=== PATIENT | male | born 1935 | race African-American/Black ===

== ENCOUNTER 2018-03-21 15:16 | Inpatient (IN) ==
--- NOTE | 2018-03-21 18:37 | ED ---
HPI General Chief complaint: Urogenital-Male Stated complaint: blood in urine Time Seen by Provider: 03/21/18 18:27 Source: patient Mode of arrival: ambulatory Limitations: no limitations History of Present Illness HPI Narrative: The patient denies any fever, chills, or sweats. The patient does take an aspirin daily, denies any other anticoagulation.The patient is a 82 -year-old -Citizen Of [place] male who presents to the emergency department for hematuria. The patient has a remote history of prostate cancer and underwent radiation therapy 3 years ago, he denies any surgical intervention. The patient states that 2 nights ago he developed hematuria. The patient notes he was passing gross blood with a few clots accompanied with mild dysuria and left flank pain. The patient states the left flank pain has resolved, however, he still has hematuria with mild dysuria. The patient also had an episode of urinary incontinence prior to arrival. The patient denies any accompany fever, chills, sweats, nausea, vomiting, or upper abdominal pain. The patient denies any associated low back pain. MD Complaint: Reports other Onset (ago): day(s) Duration: intermittent Location: Reports left flank Radiation: Reports penis Severity: mild Severity scale (1-10): 3 Quality: Reports burning Relieving factors: none Exacerbating factors: urination Reports other Reports blood in urine and incontinence Related Data Home Medications Medication Instructions Recorded Confirmed aspirin 325 mg PO DAILY 03/21/18 03/21/18 Allergies Allergy/AdvReac Type Severity Reaction Status Date / Time No Known Allergies Allergy Verified 03/21/18 18:31 Review of Systems ROS: all other systems reviewed are negative [facility] Medical History Medical History HBP (high blood pressure) (Acute) No significant past surgical history (Acute) Prostate cancer (Acute) Social History Social History Substance History: No History of Abuse Second Hand Smoke Exposure: No Smoking Status: Former smoker Tobacco Type: Cigarettes How Often Do You Have a Drink Containing Alcohol: Never Recent Travel in [facility] within the Last 8 Weeks: No Recent Out of Country Travel within the Last 8 Weeks: No Exam Narrative Exam Narrative: GENERAL: Awake, alert, pleasant 82-year-old male who appears his stated age and is in no acute respiratory distress. SKIN: Focused skin assessment warm/dry. HEAD: Atraumatic. Normocephalic. EYES: No injection or drainage. ENT: No nasal bleeding or discharge. Mucous membranes pink and moist. NECK: Trachea midline. No JVD. GASTROINTESTINAL: Abdomen soft, no suprapubic tenderness. No guarding or rigidity. Back: No CVA tenderness. Genitourinary: Uncircumcised phallus, foreskin retracts easily. No visible blood at the meatus. No tenderness of the scrotum or testicles. MUSCULOSKELETAL: No obvious deformities. No clubbing. No cyanosis. No edema. NEUROLOGICAL: Awake and alert. No obvious cranial nerve deficits. Motor grossly within normal limits. Normal speech. PSYCHIATRIC: Appropriate mood and affect; insight and judgment normal. Course Reevaluation(s) Reevaluation #1: Patient is resting hemodynamically stable not appearing septic. He has a profound leukocytosis of 19,000. We will add septic workup to his initial workup which includes blood cultures. UA. Urinary cultures and a lactic acid. Fluids will be given per sepsis protocol. We will cover him with Rocephin for presumptive urinary collection system infection. Time: 20:16 Initial Documented Vital Signs Temperature 98.5 F 03/21/18 15:23 Pulse Rate 120 H 03/21/18 15:23 Respiratory Rate 22 03/21/18 15:23 Blood Pressure 164/74 H 03/21/18 15:23 Pulse Oximetry 97 03/21/18 15:23 Last Documented Vital Signs Temperature 98 F 03/21/18 18:30 Pulse Rate 109 H 03/21/18 19:15 Respiratory Rate 18 03/21/18 19:15 Blood Pressure 141/86 H 03/21/18 19:15 Pulse Oximetry 96 03/21/18 19:15 Sign Out Sign Out Data: Patient Sign Out occurred on 03/21/18 at 19:06. Patient's care was discussed, and care was transferred from Clint Chapa MD to Yash Del Toro DO. Sign Out Comment: 82-year-old -Citizen Of [place] male who presents to the emergency department for hematuria of 2 days duration, mild left flank pain which has resolved, dysuria, and urinary incontinence. Remote history of prostate carcinoma 3 years ago with radiation therapy, no previous surgery. UA , BMP, and CT of the abdomen and pelvis are pending. Most likely patient will be able to be discharged home with outpatient follow-up. Last updated by Clint Chapa MD at 03/21/18 18:51 Discharge Plan Discharge Disposition Patient Disposition: 30 Still Patient Discharge Condition Condition: Stable Discharge Details Diagnosis: Acute UTI, Severe sepsis, GILLES (acute kidney injury) Physicians Team ED Provider: Yash Del Toro Primary Care Provider: UNKNOWN, Rxs /Orders / Referrals /Forms Prescriptions: No Action aspirin 325 mg Tablet 325 mg PO DAILY RF: 0 Discharge Interventions Interventions: Vital Signs Last Done: 03/21/18 19:15 Status ED Status: With Doctor Medical Decision Making MDM Narrative Medical decision making narrative: IV was established, labs are drawn and sent, and the patient was placed on cardiac telemetry monitoring and continuous pulse oximetry monitoring. UA was done to lab. Noncontrast CT of the abdomen and pelvis was performed to evaluate for nephrolithiasis and hematuria. The patient was signed out to the oncoming physician at 7 PM. Patient with severe sepsis markedly elevated lactate and UTI. CT abdomen was negative for kidney stones or ureteral stones but there is hydronephrosis associated. Hemodynamically stable was treated per sepsis protocol with 30 cc/ kg and Rocephin for his urinary tract infection afebrile was admitted for further treatment. Medical Screen Exam Complete: Yes Emergency Medical Condition: Yes Lab Data Result diagrams: 03/21/18 18:40 03/21/18 18:40 Lab Results 03/21/18 03/21/18 03/21/18 Range/Units 18:40 18:40 20:34 WBC 19.6 H (4.0-11.0) th/mm3 RBC 4.98 (4.50-5.90) mil/mm3 Hgb 15.4 (13.0-17.0) gm/dL Hct 45.6 (39.0-51.0) % MCV 91.6 (80.0-100.0) fL MCH 30.8 (27.0-34.0) pg MCHC 33.6 (32.0-36.0) % RDW 15.5 (11.6-17.2) % Plt Count 220 (150-450) th/mm3 MPV 9.3 (7.0-11.0) fL Neut % (Auto) 91.0 H (16.0-70.0) % Lymph % (Auto) 4.2 L (9.0-44.0) % [place] % (Auto) 4.6 (0.0-8.0) % Eos % (Auto) 0.0 (0.0-4.0) % Baso % (Auto) 0.2 (0.0-2.0) % Neut # (Auto) 17.8 H (1.8-7.7) th/mm3 Lymph # (Auto) 0.8 L (1.0-4.8) th/mm3 [place] # (Auto) 0.9 (0.0-0.9) th/mm3 Eos # (Auto) 0.0 (0.0-0.4) th/mm3 Baso # (Auto) 0.0 (0.0-0.2) th/mm3 WBC Differential . Differential Comment Auto diff final Sodium 134 L (136-145) meq/L Potassium 4.6 (3.5-5.1) meq/L Chloride 95 L (98-107) meq/L Carbon Dioxide 30.1 (21.0-32.0) meq/L Anion Gap 9 (5-15) meq/L BUN 22 H (7-18) mg/dL Creatinine 2.44 H (0.60-1.30) mg/dL Estimated GFR 31 L (>89) mL/min Random Glucose 253 H (74-106) mg/dL Lactic Acid (0.4-2.0) mmol/L Calcium 8.9 (8.5-10.1) mg/dL Total Bilirubin 1.1 H (0.2-1.0) mg/dL Direct Bilirubin 0.4 H (0.0-0.2) mg/dL Indirect Bilirubin 0.7 (0.0-0.8) mg/dL AST 19 (15-37) U/L ALT 20 (12-78) U/L Alkaline Phosphatase 98 (45-117) U/L Troponin I Less than 0.02 L (0.02-0.05) ng/mL Total Protein 6.9 (6.4-8.2) g/dL Albumin 3.1 L (3.4-5.0) g/dL Urine Color (Yellw/Straw) Urine Clarity (Clear) Urine pH (5.0-8.5) Ur Specific [place] (1.002-1.035) Urine Protein (Neg-Trace) mg/dL Urine Glucose (UA) (Negative) mg/dL Urine Ketones (Negative) mg/dL Urine Occult Blood (Negative) Urine Nitrate (Negative) Urine Bilirubin (Negative) Urine Urobilinogen (Less than 2) mg/dL Ur Leukocyte Esterase (Negative) Urine RBC (0-3) /hpf Urine WBC (0-5) /hpf Urine WBC Clumps (None) Ur Squamous Epith Cells (0-5) /hpf Urine Bacteria (None) /hpf Urine Mucus (Occasional) /lpf Micro UA Comment Ur Microscopic Review Urine Culture Comments 03/21/18 03/21/18 Range/Units 20:37 20:43 WBC (4.0-11.0) th/mm3 RBC (4.50-5.90) mil/mm3 Hgb (13.0-17.0) gm/dL Hct (39.0-51.0) % MCV (80.0-100.0) fL MCH (27.0-34.0) pg MCHC (32.0-36.0) % RDW (11.6-17.2) % Plt Count (150-450) th/mm3 MPV (7.0-11.0) fL Neut % (Auto) (16.0-70.0) % Lymph % (Auto) (9.0-44.0) % [place] % (Auto) (0.0-8.0) % Eos % (Auto) (0.0-4.0) % Baso % (Auto) (0.0-2.0) % Neut # (Auto) (1.8-7.7) th/mm3 Lymph # (Auto) (1.0-4.8) th/mm3 [place] # (Auto) (0.0-0.9) th/mm3 Eos # (Auto) (0.0-0.4) th/mm3 Baso # (Auto) (0.0-0.2) th/mm3 WBC Differential Differential Comment Sodium (136-145) meq/L Potassium (3.5-5.1) meq/L Chloride (98-107) meq/L Carbon Dioxide (21.0-32.0) meq/L Anion Gap (5-15) meq/L BUN (7-18) mg/dL Creatinine (0.60-1.30) mg/dL Estimated GFR (>89) mL/min Random Glucose (74-106) mg/dL Lactic Acid 4.9 H* (0.4-2.0) mmol/L Calcium (8.5-10.1) mg/dL Total Bilirubin (0.2-1.0) mg/dL Direct Bilirubin (0.0-0.2) mg/dL Indirect Bilirubin (0.0-0.8) mg/dL AST (15-37) U/L ALT (12-78) U/L Alkaline Phosphatase (45-117) U/L Troponin I (0.02-0.05) ng/mL Total Protein (6.4-8.2) g/dL Albumin (3.4-5.0) g/dL Urine Color Yellow (Yellw/Straw) Urine Clarity Cloudy H (Clear) Urine pH 6.0 (5.0-8.5) Ur Specific [place] 1.016 (1.002-1.035) Urine Protein 100 H (Neg-Trace) mg/dL Urine Glucose (UA) 50 (Negative) mg/dL Urine Ketones Trace H (Negative) mg/dL Urine Occult Blood Large H (Negative) Urine Nitrate Negative (Negative) Urine Bilirubin Negative (Negative) Urine Urobilinogen Less than 2 (Less than 2) mg/dL Ur Leukocyte Esterase Moderate H (Negative) Urine RBC (0-3) /hpf Urine WBC (0-5) /hpf Urine WBC Clumps Few H (None) Ur Squamous Epith Cells 4 (0-5) /hpf Urine Bacteria Few H (None) /hpf Urine Mucus Few H (Occasional) /lpf Micro UA Comment Culture indicated Ur Microscopic Review Not Reportable Urine Culture Comments Culture indicated Imaging Data Radiologist's impression: Abdomen/Pelvis CT 03/21/18 18:35 CONCLUSION: 1. Left-sided hydronephrosis and hydroureter with prominent stranding. No radiopaque calculus identified. 2. Enlarged prostate gland containing prostatic seeds. 3. Hepatic steatosis. 4. Prominence of both adrenal glands likely hyperplasia. Chest X-Ray 03/21/18 20:10 CONCLUSION: Diminished lung volumes without infiltrate
[2018-03-21 18:59] LABS: Baso % (Auto) 0.2 % (0.0-2.0); Hematocrit 45.6 % (39.0-51.0); Hemoglobin 15.4 gm/dL (13.0-17.0); Lymph # (Auto) 0.8 th/mm3 (1.0-4.8); Lymph % (Auto) 4.2 % (9.0-44.0); Mean Corpuscular HGB Conc 33.6 % (32.0-36.0); Mean Corpuscular Hemoglobin 30.8 pg (27.0-34.0); Mean Corpuscular Volume 91.6 fL (80.0-100.0); Mean Platelet Volume 9.3 fL (7.0-11.0); Mono # (Auto) 0.9 th/mm3 (0.0-0.9); Mono % (Auto) 4.6 % (0.0-8.0); Neut # (Auto) 17.8 th/mm3 (1.8-7.7); Platelet Count 220 th/mm3 (150-450); Red Blood Count 4.98 mil/mm3 (4.50-5.90); Red Cell Distribution Width 15.5 % (11.6-17.2); White Blood Count 19.6 th/mm3 (4.0-11.0)
[2018-03-21 19:29] LABS: Calcium 8.9 mg/dL (8.5-10.1); Carbon Dioxide 30.1 meq/L (21.0-32.0); Potassium 4.6 meq/L (3.5-5.1)
--- NOTE | 2018-03-21 19:55 | CT ---
EXAM DATE: 03/21/2018 7:44 PM EST AGE/SEX: 82 years / Male INDICATIONS: Hematuria. CLINICAL DATA: This is the patient's initial encounter. Patient reports that signs and symptoms have been present for 1 day and indicates a pain score of 6/10. MEDICAL/SURGICAL HISTORY: Carcinoma, prostatic. Hypertension. None. RADIATION DOSE: 16.65 CTDI (mGy) COMPARISON: No prior exams available for comparison. TECHNIQUE: Multiple contiguous axial images were obtained through the abdomen. Images were obtained using multiple row detector helical technique. Using automated exposure control and adjustment of the mA and/or kV according to patient size, radiation dose was kept as low as reasonably achievable to o btain optimal diagnostic quality images. DICOM format image data is available electronically for rev iew and comparison. FINDINGS: Lower Lungs: The visualized lower lungs are clear. Liver: The liver is decreased in density without space-occupying lesion. There is no dilation of the biliary tree. Spleen: Homogeneous density without enlargement. Pancreas: Unremarkable without mass or calcification. Kidneys: There is hydronephrosis of the left kidney and hydroureter on the left with prominent stran ding adjacent to the left kidney and left ureter more notably along the mid ureter. No obstructing ca lculus seen.. No evidence of mass or hydronephrosis on the right. Adrenal Glands: Mildly prominent bilaterally. Aorta: The aorta and proximal iliac vessels are grossly unremarkable without aneurysmal dilation. Bowel/Mesentery: The bowel loops are grossly unremarkable. The cecum and sigmoid colon have a normal configuration. Abdominal Wall: Intact. Retroperitoneum: No evidence of adenopathy in the retrocrural, para-aortic, or deep pelvic regions. Bladder: Contours are smooth. Reproductive Organs: Enlarged prostate gland containing prostatic seeds. Inguinal: The inguinal region is unremarkable without evidence of adenopathy. Bony Structures: Unremarkable. CONCLUSION: 1. Left-sided hydronephrosis and hydroureter with prominent stranding. No radiopaque calculus identi fied. 2. Enlarged prostate gland containing prostatic seeds. 3. Hepatic steatosis. 4. Prominence of both adrenal glands likely hyperplasia. Electronically signed by: Lyndon Gonzales MD 03/21/2018 7:54 PM EST
[2018-03-21] MEDS ORDERED: Sod Chloride 0.9% Inj 300 ML IV.SIG SCH (20:15)
[2018-03-21] MEDS ORDERED: Sod Chloride 0.9% Inj 1,000 ML IV.SIG SCH ×3 (20:15)
--- NOTE | 2018-03-21 20:52 | XR ---
EXAM DATE: 03/21/2018 8:50 PM EST AGE/SEX: 82 years / Male INDICATIONS: Patient presents with hematuria and shortness of breath. CLINICAL DATA: This is the patient's initial encounter. Patient reports that signs and symptoms have been present for 1 day and indicates a pain score of 3/10. MEDICAL/SURGICAL HISTORY: . Carcinoma, prostatic. Hypertension . COMPARISON: No prior exams available for comparison. FINDINGS: A single AP view of the chest demonstrates diminished lung volumes without evidence of mass, infiltra te or effusion. The cardiomediastinal contours are unremarkable. Osseous structures are intact. CONCLUSION: Diminished lung volumes without infiltrate Electronically signed by: Lyndon Gonzales MD 03/21/2018 8:51 PM EST
[2018-03-21 21:17] LABS: Bacteria,Urine Few /hpf; Bilirubin,Urine Negative (Negative); Clarity,Urine Cloudy (Clear); Color,Urine Yellow (Yellw/Straw); Glucose,Urine (UA) 50 mg/dL (Negative); Leukocyte Esterase,Urine Moderate (Negative); Mucus,Urine Few /lpf (Occasional); Nitrite,Urine Negative (Negative); Specific Gravity,Urine 1.016 (1.002-1.035); Squamous Epithelial Cell,Urine 4 /hpf (0-5)
[2018-03-21 21:26] LABS: Alanine Aminotransferase 20 U/L (12-78); Albumin 3.1 g/dL (3.4-5.0); Aspartate Aminotransferase 19 U/L (15-37)
[2018-03-21 21:29] LABS: Alkaline Phosphatase 98 U/L (45-117); Total Protein 6.9 g/dL (6.4-8.2)
[2018-03-21] MEDS ORDERED: Bisacodyl 10 MG Supp RECTAL PRN (22:42)
[2018-03-21] MEDS ORDERED: Acetaminophen 325 MG Tablet PO PRN (22:42)
[2018-03-21] MEDS ORDERED: Heparin - SQ 10,000 UNITS/ML Vial SQ SCH (22:45)
--- NOTE | 2018-03-21 22:58 | P.HP ---
History of Present Illness Service: [facility] Primary Care Physician: UNKNOWN History of Present Illness: 82-year-old male unknown past medical history presents to the emergency department for evaluation of hematuria. The patient reports he started having bloody urine on Wednesday. He has intermittent clots that he passes. He endorses a burning with urination. He has a history of prostate cancer with radiation seeds still in place. He reports he has had some scant hematuria in the remote past however nothing of this volume and none recently. He denies any fever/ chills. No cough or congestion. No chest pain or shortness of breath. No abdominal pain. No nausea/vomiting/diarrhea. No focal neurologic deficits. Inpatient Certification: I certify that the inpatient services were ordered in accordance with Medicare regulations governing the order. This includes certification that hospital inpatient services are reasonable and necessary and in the case of services not specified as inpatient-only under 42 CFR 419.22(n), that they are appropriately provided as inpatient services in accordance to with the 2-midnight benchmark under 43 CFR 412.3(e) Estimated Total Length of Stay (Days): 2 Plans for Post Hospital Care: Not yet determined Review of Systems All other systems reviewed negative except as stated in HPI PMFSH - History History Provided By: Patient - Medical History Medical History: Medical History (Last Reviewed 03/21/18 @ 22:50 by Marianna Dodd MD) HBP (high blood pressure) No significant past surgical history Prostate cancer - Family History Family History: Family History (Last Updated 03/21/18 @ 22:51 by Marianna Dodd MD) Other Family history normal - Tobacco History Second Hand Smoke Exposure: No Tobacco Use In Past 30 Days: No Smoking Status: Former smoker Tobacco Type: Cigarettes - Alcohol History How Often Do You Have a Drink Containing Alcohol: Never - Substance Use History Substance History: No History of Abuse - Travel History Recent Travel in the [place] Within the Last 8 Weeks: No Recent Travel Out of the Country Within the Last 8 Weeks: No - Immunization History Tetanus Immunization: >5 Years Medications and Allergies Active Medications: Active Medications Sodium Chloride (Ns Inj) 1,000 mls @ 0 mls/hr IV.SIG .Q0M SARAH Sodium Chloride (Ns Inj) 1,000 mls @ 0 mls/hr IV.SIG .Q0M SARAH Sodium Chloride (Ns Inj) 1,000 mls @ 0 mls/hr IV.SIG .Q0M SARAH Sodium Chloride (Ns Inj) 300 mls @ 0 mls/hr IV.SIG .Q0M SARAH Allergies Allergy/AdvReac Type Severity Reaction Status Date / Time No Known Allergies Allergy Verified 03/21/18 18:31 Home Medications Medication Instructions Recorded Confirmed Type aspirin 325 mg PO DAILY 03/21/18 03/21/18 History Exam Vital signs: Vital Signs 03/21/18 15:23 03/21/18 15:27 03/21/18 18:30 Temperature 98.5 F 98 F Pulse Rate 120 H 110 H 114 H Respiratory Rate 22 16 Blood Pressure 164/74 H 158/81 H Pulse Oximetry 97 97 03/21/18 19:15 Temperature Pulse Rate 109 H Respiratory Rate 18 Blood Pressure 141/86 H Pulse Oximetry 96 Intake & Output 03/21/18 03/21/18 03/22/18 06:59 18:59 06:59 Intake Total 100 / 100 Balance 100 / 100 Weight 105.687 kg Intake: IV 100 / 100 Rocephin Inj 1,000 MG In NS Inj 100 / 100 100 ML @ 200 mls/hr IV.SIG ONCE ONE Rx#:[id number] Narrative: Gen.: No acute distress Head: Normocephalic. Atraumatic. EENT: Pupils equal round and reactive to light. Nose without drainage. Airway intact. Throat without injection. Cardiovascular: Regular rate and rhythm. No murmurs, rubs or gallops. Respiratory: Lungs clear to auscultation bilaterally. No wheezes or rhonchi. Abdomen: Soft, nontender, nondistended. No peritoneal signs. Musculoskeletal: No gross deformities. No edema. Skin: No obvious rashes or erythema. Neuro: Sensory and motor grossly intact. Cranial nerves II through XII grossly intact. Results - Labs CBC & Chem 7: 03/21/18 18:40 03/21/18 18:40 Labs: Laboratory Results - last 24 hr 03/21/18 03/21/18 03/21/18 18:40 18:40 20:34 WBC 19.6 H RBC 4.98 Hgb 15.4 Hct 45.6 MCV 91.6 MCH 30.8 MCHC 33.6 RDW 15.5 Plt Count 220 MPV 9.3 Neut % (Auto) 91.0 H Lymph % (Auto) 4.2 L [place] % (Auto) 4.6 Eos % (Auto) 0.0 Baso % (Auto) 0.2 Neut # (Auto) 17.8 H Lymph # (Auto) 0.8 L [place] # (Auto) 0.9 Eos # (Auto) 0.0 Baso # (Auto) 0.0 WBC Differential . Differential Comment Auto diff final Sodium 134 L Potassium 4.6 Chloride 95 L Carbon Dioxide 30.1 Anion Gap 9 BUN 22 H Creatinine 2.44 H Estimated GFR 31 L Random Glucose 253 H Lactic Acid Calcium 8.9 Total Bilirubin 1.1 H Direct Bilirubin 0.4 H Indirect Bilirubin 0.7 AST 19 ALT 20 Alkaline Phosphatase 98 Troponin I Less than 0.02 L Total Protein 6.9 Albumin 3.1 L Urine Color Urine Clarity Urine pH Ur Specific [place] Urine Protein Urine Glucose (UA) Urine Ketones Urine Occult Blood Urine Nitrate Urine Bilirubin Urine Urobilinogen Ur Leukocyte Esterase Urine RBC Urine WBC Urine WBC Clumps Ur Squamous Epith Cells Urine Bacteria Urine Mucus Micro UA Comment Ur Microscopic Review Urine Culture Comments 03/21/18 03/21/18 20:37 20:43 WBC RBC Hgb Hct MCV MCH MCHC RDW Plt Count MPV Neut % (Auto) Lymph % (Auto) [place] % (Auto) Eos % (Auto) Baso % (Auto) Neut # (Auto) Lymph # (Auto) [place] # (Auto) Eos # (Auto) Baso # (Auto) WBC Differential Differential Comment Sodium Potassium Chloride Carbon Dioxide Anion Gap BUN Creatinine Estimated GFR Random Glucose Lactic Acid 4.9 H* Calcium Total Bilirubin Direct Bilirubin Indirect Bilirubin AST ALT Alkaline Phosphatase Troponin I Total Protein Albumin Urine Color Yellow Urine Clarity Cloudy H Urine pH 6.0 Ur Specific [place] 1.016 Urine Protein 100 H Urine Glucose (UA) 50 Urine Ketones Trace H Urine Occult Blood Large H Urine Nitrate Negative Urine Bilirubin Negative Urine Urobilinogen Less than 2 Ur Leukocyte Esterase Moderate H Urine RBC Urine WBC Urine WBC Clumps Few H Ur Squamous Epith Cells 4 Urine Bacteria Few H Urine Mucus Few H Micro UA Comment Culture indicated Ur Microscopic Review Not Reportable Urine Culture Comments Culture indicated - Imaging Impressions Abdomen/Pelvis CT 03/21/18 18:35 CONCLUSION: 1. Left-sided hydronephrosis and hydroureter with prominent stranding. No radiopaque calculus identified. 2. Enlarged prostate gland containing prostatic seeds. 3. Hepatic steatosis. 4. Prominence of both adrenal glands likely hyperplasia. Chest X-Ray 03/21/18 20:10 CONCLUSION: Diminished lung volumes without infiltrate Caprini VTE Risk Assessment Caprini VTE Risk Assessment: Moderate/High Risk (score >= 2) Caprini Risk Assessment Model: Point Value = 1 Point Value = 2 Point Value = 3 Point Value = 5 Age 41-60 Minor surgery BMI > 25 kg/m2 Swollen legs Varicose veins or History of unexplained or recurrent spontaneous Oral contraceptives or hormone replacement Sepsis (< 1 month) Serious lung disease, including pneumonia (< 1 month) Abnormal pulmonary function Acute myocardial infarction Congestive heart failure (< 1 month) History of inflammatory bowel disease Medical patient at bed rest Age 61-74 Arthroscopic surgery Major open surgery (> 45 min) Laparoscopic surgery (> 45 min) Malignancy Confined to bed (> 72 hours) Immobilizing plaster cast Central venous access Age >= 75 History of VTE Family history of VTE Factor V Leiden Prothrombin [id number] Lupus anticoagulant Anticardiolipin antibodies Elevated serum homocysteine Heparin-induced thrombocytopenia Other congenital or acquired thrombophilia Stroke (< 1 month) Elective arthroplasty Hip, pelvis, or leg fracture Acute spinal cord injury (< 1 month) Prophylaxis Regimen: Total Risk Factor Score Risk Level Prophylaxis Regimen 0-1 Low Early ambulation 2 Moderate Order ONE of the following: *Sequential Compression Device (SCD) *Heparin 5000 units SQ BID 3-4 Higher Order ONE of the following medications: *Heparin 5000 units SQ TID *Enoxaparin/Lovenox 40 mg SQ daily (WT < 150 kg, CrCl > 30 mL/min) *Enoxaparin/Lovenox 30 mg SQ daily (WT < 150 kg, CrCl > 10-29 mL/min) *Enoxaparin/Lovenox 30 mg SQ BID (WT < 150 kg, CrCl > 30 mL/min) AND/OR *Sequential Compression Device (SCD) 5 or more Highest Order ONE of the following medications: *Heparin 5000 units SQ TID (Preferred with Epidurals) *Enoxaparin/Lovenox 40 mg SQ daily (WT < 150 kg, CrCl > 30 mL/min) *Enoxaparin/Lovenox 30 mg SQ daily (WT < 150 kg, CrCl > 10-29 mL/min) *Enoxaparin/Lovenox 30 mg SQ BID (WT < 150 kg, CrCl > 30 mL/min) AND *Sequential Compression Device (SCD) Assessment and Plan - Plan Assessment/plan: 1. Urosepsis Patient tachycardic with leukocytosis and elevated lactic acid UA consistent with UTI Rocephin IV fluid hydration Repeat lactic acid pending 2. Hydronephrosis/hydroureter/GILLES/Hematuria CT of the abdomen/pelvis shows left-sided hydronephrosis and hydroureter with prominent stranding. No radiopaque calculus identified. Concern for recent stone or retained stone. Creatinine 2.44, was 1.16 in 2015 Urology consulted, appreciate recommendations Monitor CBC Transfuse if needed 3. ? Hypertension Patient does not know his past medical history or what medications he takes Nursing order placed to contact patient's pharmacy Clonidine as needed until home medications can be established FEN N.p.o. Electrolytes: Monitor and replete as needed NS at 125 cc/hour Holding pharmacologic anticoagulation for hematuria
[2018-03-21] MEDS: Sod Chloride 0.9% Inj 1,000 ML IV.CONT SCH (22:59)
[2018-03-22] MEDS ORDERED: Sod Chloride 0.9% Inj 1,000 ML IV.SIG ONE (02:00)
[2018-03-22 08:14] LABS: Baso # (Auto) 0.1 th/mm3 (0.0-0.2); Baso % (Auto) 0.3 % (0.0-2.0); Hematocrit 40.5 % (39.0-51.0); Lymph # (Auto) 0.6 th/mm3 (1.0-4.8); Lymph % (Auto) 3.1 % (9.0-44.0); Mean Corpuscular HGB Conc 34.5 % (32.0-36.0); Mean Corpuscular Hemoglobin 31.6 pg (27.0-34.0); Mean Corpuscular Volume 91.6 fL (80.0-100.0); Mean Platelet Volume 9.6 fL (7.0-11.0); Mono # (Auto) 0.9 th/mm3 (0.0-0.9); Mono % (Auto) 5.1 % (0.0-8.0); Neut # (Auto) 16.2 th/mm3 (1.8-7.7); Neut % (Auto) 91.5 % (16.0-70.0); Platelet Count 161 th/mm3 (150-450); Red Blood Count 4.42 mil/mm3 (4.50-5.90); Red Cell Distribution Width 15.1 % (11.6-17.2); White Blood Count 17.7 th/mm3 (4.0-11.0)
[2018-03-22 08:29] LABS: Calcium 8.3 mg/dL (8.5-10.1); Carbon Dioxide 25.6 meq/L (21.0-32.0)
[2018-03-22] MEDS ORDERED: Dextrose 50% in Water 50 ML Vial IV.PUSH PRN (08:33)
[2018-03-22] MEDS ORDERED: Aspirin 325 MG Tablet PO SCH (09:00)
[2018-03-22] MEDS: Senna/Docusate Sodium 8.6/50 MG Tablet PO SCH ×2 (09:09→20:37)
[2018-03-22] MEDS: Sod Chloride 0.9% Inj 1,000 ML IV.CONT SCH ×2 (09:09→16:54)
--- NOTE | 2018-03-22 09:29 | P.PNIM ---
Subjective Interval history: The patient is a that he felt sluggish. He said he came in because he was having blood in his urine. He said he was experiencing a burning sensation at the end of his voids. He said he does have a urologist. He said he was told he was prone to bleeding because of his radiation treatments. Discussed with nursing. Physical Exam Vital signs: Vital Signs 03/21/18 15:23 03/21/18 15:27 03/21/18 18:30 Temperature 98.5 F 98 F Pulse Rate 120 H 110 H 114 H Respiratory Rate 22 16 Blood Pressure 164/74 H 158/81 H Pulse Oximetry 97 97 03/21/18 19:15 03/21/18 23:00 03/22/18 03:55 Temperature Pulse Rate 109 H 118 H 110 H Respiratory Rate 18 25 H 20 Blood Pressure 141/86 H 141/81 H 155/79 H Pulse Oximetry 96 95 03/22/18 07:00 03/22/18 08:16 03/22/18 08:35 Temperature 98.0 F 97.9 F Pulse Rate 107 H 107 H 116 H Respiratory Rate 20 26 H 28 H Blood Pressure 148/74 H 132/78 114/70 Pulse Oximetry 98 99 95 Intake & Output 03/21/18 03/22/18 03/22/18 18:59 06:59 18:59 Intake Total 3100 / 3100 Balance 3100 / 3100 Weight 105.687 kg Intake: IV 3100 / 3100 NS Inj 1,000 ML @ 125 mls/hr IV 1000 / 1000 .CONT .Q8H [facility] Rx#:[id number] NS Inj 1,000 ML @ As Directed 1999 IV.SIG .Q0M ONE Rx#:[id number] Rocephin Inj 1,000 MG In NS Inj 100 / 100 100 ML @ 200 mls/hr IV.SIG ONCE ONE Rx#:[id number] Narrative: Gen.: No acute distress Head: Normocephalic. Atraumatic. EENT: Pupils equal round and reactive to light. Nose without drainage. Airway intact. Throat without injection. Cardiovascular: Tachycardic. No murmurs, rubs or gallops. Respiratory: Lungs clear to auscultation bilaterally. No wheezes or rhonchi. Abdomen: Soft, nontender, nondistended. No peritoneal signs. Musculoskeletal: No gross deformities. No edema. Skin: No obvious rashes or erythema. Neuro: Sensory and motor grossly intact. Cranial nerves II through XII grossly intact. Results - Labs CBC & Chem 7: 03/22/18 07:15 03/22/18 07:15 Laboratory Results - last 24 hr 03/21/18 03/21/18 03/21/18 18:40 18:40 20:34 WBC 19.6 H RBC 4.98 Hgb 15.4 Hct 45.6 MCV 91.6 MCH 30.8 MCHC 33.6 RDW 15.5 Plt Count 220 MPV 9.3 Neut % (Auto) 91.0 H Lymph % (Auto) 4.[address] [place] % (Auto) 4.6 Eos % (Auto) 0.0 Baso % (Auto) 0.2 Neut # (Auto) 17.8 H Lymph # (Auto) 0.[address] [place] # (Auto) 0.9 Eos # (Auto) 0.0 Baso # (Auto) 0.0 WBC Differential . Differential Comment Auto diff final Sodium 134 L Potassium 4.6 Chloride 95 L Carbon Dioxide 30.1 Anion Gap 9 BUN 22 H Creatinine 2.44 H Estimated GFR 31 L Random Glucose 253 H Lactic Acid Calcium 8.9 Total Bilirubin 1.1 H Direct Bilirubin 0.4 H Indirect Bilirubin 0.7 AST 19 ALT 20 Alkaline Phosphatase 98 Troponin I Less than 0.02 L Total Protein 6.9 Albumin 3.1 L Urine Color Urine Clarity Urine pH Ur Specific [place] Urine Protein Urine Glucose (UA) Urine Ketones Urine Occult Blood Urine Nitrate Urine Bilirubin Urine Urobilinogen Ur Leukocyte Esterase Urine RBC Urine WBC Urine WBC Clumps Ur Squamous Epith Cells Urine Bacteria Urine Mucus Micro UA Comment Ur Microscopic Review Urine Culture Comments 03/21/18 03/21/18 03/22/18 20:37 20:43 00:31 WBC RBC Hgb Hct MCV MCH MCHC RDW Plt Count MPV Neut % (Auto) Lymph % (Auto) [place] % (Auto) Eos % (Auto) Baso % (Auto) Neut # (Auto) Lymph # (Auto) [place] # (Auto) Eos # (Auto) Baso # (Auto) WBC Differential Differential Comment Sodium Potassium Chloride Carbon Dioxide Anion Gap BUN Creatinine Estimated GFR Random Glucose Lactic Acid 4.9 H* 4.4 H* Calcium Total Bilirubin Direct Bilirubin Indirect Bilirubin AST ALT Alkaline Phosphatase Troponin I Total Protein Albumin Urine Color Yellow Urine Clarity Cloudy H Urine pH 6.0 Ur Specific [place] 1.016 Urine Protein 100 H Urine Glucose (UA) 50 Urine Ketones Trace H Urine Occult Blood Large H Urine Nitrate Negative Urine Bilirubin Negative Urine Urobilinogen Less than 2 Ur Leukocyte Esterase Moderate H Urine RBC Urine WBC Urine WBC Clumps Few H Ur Squamous Epith Cells 4 Urine Bacteria Few H Urine Mucus Few H Micro UA Comment Culture indicated Ur Microscopic Review Not Reportable Urine Culture Comments Culture indicated 03/22/18 03/22/18 03/22/18 02:55 07:15 07:15 WBC 17.7 H RBC 4.42 L Hgb 14.0 Hct 40.5 MCV 91.6 MCH 31.6 MCHC 34.5 RDW 15.1 Plt Count 161 MPV 9.6 Neut % (Auto) 91.5 H Lymph % (Auto) 3.[address] [place] % (Auto) 5.1 Eos % (Auto) 0.0 Baso % (Auto) 0.3 Neut # (Auto) 16.2 H Lymph # (Auto) 0.[address] [place] # (Auto) 0.9 Eos # (Auto) 0.0 Baso # (Auto) 0.1 WBC Differential . Differential Comment Auto diff final Sodium 135 L Potassium 4.0 Chloride 99 Carbon Dioxide 25.6 Anion Gap 10 BUN 24 H Creatinine 2.28 H Estimated GFR 34 L Random Glucose 255 H Lactic Acid 3.4 H Calcium 8.3 L Total Bilirubin Direct Bilirubin Indirect Bilirubin AST ALT Alkaline Phosphatase Troponin I Total Protein Albumin Urine Color Urine Clarity Urine pH Ur Specific [place] Urine Protein Urine Glucose (UA) Urine Ketones Urine Occult Blood Urine Nitrate Urine Bilirubin Urine Urobilinogen Ur Leukocyte Esterase Urine RBC Urine WBC Urine WBC Clumps Ur Squamous Epith Cells Urine Bacteria Urine Mucus Micro UA Comment Ur Microscopic Review Urine Culture Comments - Imaging Impressions Abdomen/Pelvis CT 03/21/18 18:35 CONCLUSION: 1. Left-sided hydronephrosis and hydroureter with prominent stranding. No radiopaque calculus identified. 2. Enlarged prostate gland containing prostatic seeds. 3. Hepatic steatosis. 4. Prominence of both adrenal glands likely hyperplasia. Chest X-Ray 03/21/18 20:10 CONCLUSION: Diminished lung volumes without infiltrate Assessment and Plan - Plan Urosepsis Patient septic with tachycardia, leukocytosis and UA consistent with UTI. Also with lactic acidosis that has improved. -continue IV Rocephin. -IV fluid hydration. -follow urine and blood cultures. Hydronephrosis/hydroureter/GILLES/Hematuria CT of the abdomen/pelvis shows left-sided hydronephrosis and hydroureter with prominent stranding; No radiopaque calculus identified. Concern for recent stone or retained stone. Creatinine 2.44, was 1.16 in 2015. -Urology consult requested. -Monitor CBC and transfuse as needed. -IVFs. -PT eval. Hypertension Patient does not know his past medical history or what medications he takes. -Nursing order placed to contact patient's pharmacy. -Clonidine as needed until home medications can be established. DM Glucose has been elevated. -insulin sliding scale. -check an A1c. PPx: Holding pharmacologic anticoagulation for hematuria
[2018-03-22] MEDS: Insulin NovoLOG Aspart Correctional Sugar Inj SQ SCH ×2 (12:12→17:02)
--- NOTE | 2018-03-22 12:23 | P.CONURO ---
History of Present Illness Service: Urology Consult date: 03/22/18 Requesting Physician: Marianna Dodd Reason for Consult: Left hydro Primary Care Provider: UNKNOWN Chief Complaint: weakness, hematuria History of Present Illness: 82-year-old male unknown past medical history presents to the emergency department for evaluation of hematuria. The patient reports he started having bloody urine on Wednesday. He has intermittent clots that he passes. He endorses a burning with urination. He has a history of prostate cancer with radiation seeds still in place. He reports he has had some scant hematuria in the remote past however nothing of this volume and none recently. He denies any fever/ chills. No cough or congestion. No chest pain or shortness of breath. No abdominal pain. No nausea/vomiting/diarrhea. No focal neurologic deficits. Urology consulted for abnormal CT findings of left hydro without stones. He has + leukocytosis which is improving. no f/c/n/v. Cr is 2.2, we do not know his baseline. Last one 1.16 was 2y/a. UC pending no growth so far on BC. Possibility of passing a stone is not excluded, no visible stones now. Also his hematuria and hydro can be related to previous radiation and possible cystitis now Review of Systems All other systems reviewed negative except as stated in HPI PMFSH - History History Provided By: Patient - Medical History Medical History: Medical History (Last Reviewed 03/21/18 @ 22:50 by Marianna Dodd MD) HBP (high blood pressure) No significant past surgical history Prostate cancer - Family History Family History: Family History (Last Updated 03/21/18 @ 22:51 by Marianna Dodd MD) Other Family history normal - Tobacco History Second Hand Smoke Exposure: No Tobacco Use In Past 30 Days: No Smoking Status: Former smoker Tobacco Type: Cigarettes - Alcohol History How Often Do You Have a Drink Containing Alcohol: Never - Substance Use History Substance History: No History of Abuse - Travel History Recent Travel in the [place] Within the Last 8 Weeks: No Recent Travel Out of the Country Within the Last 8 Weeks: No - Immunization History Tetanus Immunization: >5 Years Hx Influenza Vaccine This Season: No Medications and Allergies Active Medications: Active Medications Acetaminophen (Tylenol) 650 mg PO Q4H PRN PRN Reason: Temp > 100.4 Al Hydroxide/Mg Hydroxide (Milk Of Magnesia Liq) 30 ml PO Q12H PRN PRN Reason: Mild Constipation Aspirin (Aspirin) 325 mg PO DAILY [facility] Last Admin: 03/22/18 09:08 Dose: 325 mg Bisacodyl (Dulcolax Supp) 10 mg RECTAL DAILY PRN PRN Reason: SEVERE CONSITIPATION Clonidine HCl (Catapres) 0.1 mg PO Q6H PRN PRN Reason: SBP>160, DBP>90 Dextrose (D50w Vial) 50 ml IV.PUSH UNSCH PRN PRN Reason: PER HYPOGLYCEMIA PROTOCOL Glucagon (Glucagon Inj) 1 mg OTHER PRN PRN PRN Reason: for Hypoglycemia Protocol Sodium Chloride (Ns Inj) 1,000 mls @ 0 mls/hr IV.SIG .Q0M [facility] Last Infusion: 03/22/18 03:01 Dose: Infused Sodium Chloride (Ns Inj) 1,000 mls @ 0 mls/hr IV.SIG .Q0M [facility] Sodium Chloride (Ns Inj) 1,000 mls @ 0 mls/hr IV.SIG .Q0M [facility] Sodium Chloride (Ns Inj) 300 mls @ 0 mls/hr IV.SIG .Q0M [facility] Ceftriaxone Sodium 1,000 mg/ (Sodium Chloride) 100 mls @ 200 mls/hr IV.SIG Q24H [facility] Sodium Chloride (Ns Inj) 1,000 mls @ 125 mls/hr IV.CONT .Q8H [facility] Last Admin: 03/22/18 09:09 Dose: 125 mls/hr Influenza Virus Vaccine (Fluarix (Quad) Vaccine Inj) 0.5 ml IM .ONCE ONE Stop: 03/22/18 12:31 Insulin Aspart (Novolog Insulin Correctional Sugar Inj) 0 unit SQ Q6HR [facility]; Protocol Lactulose (Lactulose Liq) 30 ml PO DAILY PRN PRN Reason: SEVERE CONSITIPATION Ondansetron HCl (Zofran Inj) 4 mg IV.PUSH Q6H PRN PRN Reason: NAUSEA OR VOMITING Senna/Docusate Sodium (Madhavi-Colace) 1 tab PO BID [facility] Last Admin: 03/22/18 09:09 Dose: 1 tab Sennosides (Senokot) 17.2 mg PO Q12H PRN PRN Reason: Moderate Constipation Allergies Allergy/AdvReac Type Severity Reaction Status Date / Time No Known Allergies Allergy Verified 03/21/18 18:31 Home Medications Medication Instructions Recorded Confirmed Type aspirin 325 mg PO DAILY 03/21/18 03/21/18 History Physical Exam Vital Signs - 24 hr 03/21/18 15:23 03/21/18 15:27 03/21/18 18:30 Temperature 98.5 F 98 F Pulse Rate 120 H 110 H 114 H Respiratory Rate 22 16 Blood Pressure 164/74 H 158/81 H Pulse Oximetry 97 97 03/21/18 19:15 03/21/18 23:00 03/22/18 03:55 Temperature Pulse Rate 109 H 118 H 110 H Respiratory Rate 18 25 H 20 Blood Pressure 141/86 H 141/81 H 155/79 H Pulse Oximetry 96 95 03/22/18 07:00 03/22/18 08:16 03/22/18 08:35 Temperature 98.0 F 97.9 F Pulse Rate 107 H 107 H 116 H Respiratory Rate 20 26 H 28 H Blood Pressure 148/74 H 132/78 114/70 Pulse Oximetry 98 99 95 Physical Exam: GENERAL: This is a well-nourished, well-developed patient, in no apparent distress. SKIN: No rashes, ecchymoses or lesions. Cool and dry. HEAD: Atraumatic. Normocephalic. CARDIOVASCULAR: Regular rate and rhythm without murmurs, gallops, or rubs. RESPIRATORY: Clear to auscultation. Breath sounds equal bilaterally. No wheezes , rales, or rhonchi. GASTROINTESTINAL: Abdomen soft, non-tender, nondistended. GENITOURINARY: No CVAT MUSCULOSKELETAL: Extremities without clubbing, cyanosis, or edema. NEUROLOGICAL: Awake and alert. Laboratory Results - last 24 hr 03/21/18 03/21/18 03/21/18 18:40 18:40 20:34 WBC 19.6 H RBC 4.98 Hgb 15.4 Hct 45.6 MCV 91.6 MCH 30.8 MCHC 33.6 RDW 15.5 Plt Count 220 MPV 9.3 Neut % (Auto) 91.0 H Lymph % (Auto) 4.2 L [place] % (Auto) 4.6 Eos % (Auto) 0.0 Baso % (Auto) 0.2 Neut # (Auto) 17.8 H Lymph # (Auto) 0.8 L [place] # (Auto) 0.9 Eos # (Auto) 0.0 Baso # (Auto) 0.0 WBC Differential . Differential Comment Auto diff final Sodium 134 L Potassium 4.6 Chloride 95 L Carbon Dioxide 30.1 Anion Gap 9 BUN 22 H Creatinine 2.44 H Estimated GFR 31 L POC Glucose Random Glucose 253 H Lactic Acid Calcium 8.9 Total Bilirubin 1.1 H Direct Bilirubin 0.4 H Indirect Bilirubin 0.7 AST 19 ALT 20 Alkaline Phosphatase 98 Troponin I Less than 0.02 L Total Protein 6.9 Albumin 3.1 L Urine Color Urine Clarity Urine pH Ur Specific [place] Urine Protein Urine Glucose (UA) Urine Ketones Urine Occult Blood Urine Nitrate Urine Bilirubin Urine Urobilinogen Ur Leukocyte Esterase Urine RBC Urine WBC Urine WBC Clumps Ur Squamous Epith Cells Urine Bacteria Urine Mucus Micro UA Comment Ur Microscopic Review Urine Culture Comments 03/21/18 03/21/18 03/22/18 20:37 20:43 00:31 WBC RBC Hgb Hct MCV MCH MCHC RDW Plt Count MPV Neut % (Auto) Lymph % (Auto) [place] % (Auto) Eos % (Auto) Baso % (Auto) Neut # (Auto) Lymph # (Auto) [place] # (Auto) Eos # (Auto) Baso # (Auto) WBC Differential Differential Comment Sodium Potassium Chloride Carbon Dioxide Anion Gap BUN Creatinine Estimated GFR POC Glucose Random Glucose Lactic Acid 4.9 H* 4.4 H* Calcium Total Bilirubin Direct Bilirubin Indirect Bilirubin AST ALT Alkaline Phosphatase Troponin I Total Protein Albumin Urine Color Yellow Urine Clarity Cloudy H Urine pH 6.0 Ur Specific [place] 1.016 Urine Protein 100 H Urine Glucose (UA) 50 Urine Ketones Trace H Urine Occult Blood Large H Urine Nitrate Negative Urine Bilirubin Negative Urine Urobilinogen Less than 2 Ur Leukocyte Esterase Moderate H Urine RBC Urine WBC Urine WBC Clumps Few H Ur Squamous Epith Cells 4 Urine Bacteria Few H Urine Mucus Few H Micro UA Comment Culture indicated Ur Microscopic Review Not Reportable Urine Culture Comments Culture indicated 03/22/18 03/22/18 03/22/18 02:55 07:15 07:15 WBC 17.7 H RBC 4.42 L Hgb 14.0 Hct 40.5 MCV 91.6 MCH 31.6 MCHC 34.5 RDW 15.1 Plt Count 161 MPV 9.6 Neut % (Auto) 91.5 H Lymph % (Auto) 3.1 L [place] % (Auto) 5.1 Eos % (Auto) 0.0 Baso % (Auto) 0.3 Neut # (Auto) 16.2 H Lymph # (Auto) 0.6 L [place] # (Auto) 0.9 Eos # (Auto) 0.0 Baso # (Auto) 0.1 WBC Differential . Differential Comment Auto diff final Sodium 135 L Potassium 4.0 Chloride 99 Carbon Dioxide 25.6 Anion Gap 10 BUN 24 H Creatinine 2.28 H Estimated GFR 34 L POC Glucose Random Glucose 255 H Lactic Acid 3.4 H Calcium 8.3 L Total Bilirubin Direct Bilirubin Indirect Bilirubin AST ALT Alkaline Phosphatase Troponin I Total Protein Albumin Urine Color Urine Clarity Urine pH Ur Specific [place] Urine Protein Urine Glucose (UA) Urine Ketones Urine Occult Blood Urine Nitrate Urine Bilirubin Urine Urobilinogen Ur Leukocyte Esterase Urine RBC Urine WBC Urine WBC Clumps Ur Squamous Epith Cells Urine Bacteria Urine Mucus Micro UA Comment Ur Microscopic Review Urine Culture Comments 03/22/18 12:05 WBC RBC Hgb Hct MCV MCH MCHC RDW Plt Count MPV Neut % (Auto) Lymph % (Auto) [place] % (Auto) Eos % (Auto) Baso % (Auto) Neut # (Auto) Lymph # (Auto) [place] # (Auto) Eos # (Auto) Baso # (Auto) WBC Differential Differential Comment Sodium Potassium Chloride Carbon Dioxide Anion Gap BUN Creatinine Estimated GFR POC Glucose 209 H Random Glucose Lactic Acid Calcium Total Bilirubin Direct Bilirubin Indirect Bilirubin AST ALT Alkaline Phosphatase Troponin I Total Protein Albumin Urine Color Urine Clarity Urine pH Ur Specific [place] Urine Protein Urine Glucose (UA) Urine Ketones Urine Occult Blood Urine Nitrate Urine Bilirubin Urine Urobilinogen Ur Leukocyte Esterase Urine RBC Urine WBC Urine WBC Clumps Ur Squamous Epith Cells Urine Bacteria Urine Mucus Micro UA Comment Ur Microscopic Review Urine Culture Comments Microbiology 03/21/18 20:31 Aerobic Blood Culture - Preliminary Blood - Peripheral No growth in 1 day Anaerobic Blood Culture - Preliminary gram negative rods 03/21/18 20:31 Aerobic Blood Culture - Preliminary Blood - Peripheral No growth in 1 day Anaerobic Blood Culture - Preliminary gram negative rods Result Diagrams: 03/22/18 07:15 03/22/18 07:15 Imaging: ITS Impressions Abdomen/Pelvis CT 03/21/18 18:35 CONCLUSION: 1. Left-sided hydronephrosis and hydroureter with prominent stranding. No radiopaque calculus identified. 2. Enlarged prostate gland containing prostatic seeds. 3. Hepatic steatosis. 4. Prominence of both adrenal glands likely hyperplasia. 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 - He will need to follow up for cystoscopy as outpt with his urologist Discussed Condition With: Dr Sulema STARR attending who agrees with this plan
[2018-03-22] MEDS ORDERED: Influenza (Quadrivalent) Vaccine 0.5 ML Syringe IM ONE (12:30)
[2018-03-22 13:22] LABS: Hemoglobin A1c 8.1 % (4.3-6.0)
[2018-03-22] MEDS ORDERED: Piperacil/Tazo 2.25 GM Premix 50 ML IV.SIG SCH (18:00)
[2018-03-22] MEDS: Piperacil/Tazo 2.25 GM Premix 50 ML IV.SIG SCH (20:37)
--- NOTE | 2018-03-22 23:46 | XR ---
EXAM DATE: 03/22/2018 11:38 PM EST AGE/SEX: 82 years / Male INDICATIONS: Short of breath. CLINICAL DATA: This is the patient's subsequent encounter. Patient reports that signs and symptoms h ave been present for 2 days and indicates a pain score of 0/10. MEDICAL/SURGICAL HISTORY: . Carcinoma, prostatic. Hypertension Non-responsive. COMPARISON: [facility] – [place], CHEST 1V SINGLE AP, 03/21/2018. . FINDINGS: Mild bilateral mostly basilar airspace disease. No significant effusion. No pneumothorax. Heart size mildly enlarged. CONCLUSION: Mild bilateral mostly basilar airspace disease. No significant effusion. No pneumothorax. Electronically signed by: Jose Camargo MD 03/22/2018 11:45 PM EST
[2018-03-23] MEDS: Sod Chloride 0.9% Inj 1,000 ML IV.CONT SCH ×5 (00:12→19:55)
[2018-03-23 00:28] LABS: ABG Base Excess -0.1 mmol/L (-2-2); ABG PCO2 66 mmHg (38-42); ABG PO2 62 mmHg (61-120)
[2018-03-23] MEDS: Insulin NovoLOG Aspart Correctional Sugar Inj SQ SCH ×7 (01:56→23:45)
[2018-03-23] MEDS: Piperacil/Tazo 2.25 GM Premix 50 ML IV.SIG SCH (04:18)
[2018-03-23 04:19] LABS: ABG Base Excess 2.1 mmol/L (-2-2); ABG PCO2 68 mmHg (38-42); ABG PO2 104 mmHG (61-120)
[2018-03-23 04:38] LABS: Baso % (Auto) 0.2 % (0.0-2.0); Hematocrit 38.5 % (39.0-51.0); Hemoglobin 13.1 gm/dL (13.0-17.0); Lymph # (Auto) 0.7 th/mm3 (1.0-4.8); Lymph % (Auto) 5.1 % (9.0-44.0); Mean Corpuscular HGB Conc 34.1 % (32.0-36.0); Mean Corpuscular Hemoglobin 31.4 pg (27.0-34.0); Mean Corpuscular Volume 92.2 fL (80.0-100.0); Mean Platelet Volume 8.6 fL (7.0-11.0); Mono # (Auto) 0.7 th/mm3 (0.0-0.9); Mono % (Auto) 5.4 % (0.0-8.0); Neut # (Auto) 12.1 th/mm3 (1.8-7.7); Neut % (Auto) 89.3 % (16.0-70.0); Platelet Count 139 th/mm3 (150-450); Red Blood Count 4.17 mil/mm3 (4.50-5.90); Red Cell Distribution Width 15.2 % (11.6-17.2); White Blood Count 13.5 th/mm3 (4.0-11.0)
[2018-03-23 05:04] LABS: Alanine Aminotransferase 31 U/L (12-78); Albumin 2.7 g/dL (3.4-5.0); Anion Gap 5 meq/L (5-15); Aspartate Aminotransferase 36 U/L (15-37); Blood Urea Nitrogen 38 mg/dL (7-18); Calcium 8.1 mg/dL (8.5-10.1); Carbon Dioxide 30.5 meq/L (21.0-32.0); Chloride 99 meq/L (98-107); Glomerular Filtration Rate 25 mL/min (>89); Glucose,Random 234 mg/dL (74-106); Potassium 4.5 meq/L (3.5-5.1); Sodium 134 meq/L (136-145)
[2018-03-23 05:07] LABS: Alkaline Phosphatase 82 U/L (45-117); Total Protein 7.3 g/dL (6.4-8.2)
[2018-03-23] MEDS ORDERED: Midazolam Inj 5 MG/ML 1 ML Vial ONE (05:19)
[2018-03-23] MEDS ORDERED: Etomidate Inj 40 MG/20 ML Vial IV.PUSH ONE ×2 (05:19→05:21)
[2018-03-23] MEDS ORDERED: Sod Chloride 0.9% Inj 1,000 ML IV.SIG ONE ×2 (05:21→05:40)
--- NOTE | 2018-03-23 05:29 | P.PCN ---
Date of procedure: 03/23/18 Pre-op diagnosis: Acute hypercapnei resp failure Post-op diagnosis: same Procedure: Endotracheal intubation The patient was noted to in acute hypercapnic resp failure, no improvement with BiPAP. The patient was positioned in the sniffing position and was already on BiPAP, 100 % FiO2. Rapid sequence intubation initiated, patient administered 10 mg of IV Versed, 20 mg of IV Versed, 50 mg of IV rocuronium. Direct laryngoscopy with MAC 4 blade grade 2 view. Intubated on first attempt. The patient tolerated the procedure well with no immediate complications. CXR to be obtained stat Anesthesia: SHELBIE Surgeon: Kirsten Perdomo Estimated blood loss (mL): 0 Pathology: other (sputum) Condition: critical Disposition: ICU
--- NOTE | 2018-03-23 05:32 | P.CONCC ---
History of Present Illness Service: Critical care Consult date: 03/23/18 Requesting Physician: Marianna Dodd Reason for Consult: Acute hypercapneic respiratory failure Primary Care Provider: UNKNOWN Chief Complaint: weakness, hematuria History of Present Illness: Patient is a 83-year-old -[place] male with history of prostate cancer, hypertension who was admitted to the hospitalist service for UTI and urosepsis. Patient was found to be in acute renal failure and CT of the abdomen pelvis showed left hydronephrosis hydroureter. Seen by urology for hydronephrosis and hematuria no further intervention from urology standpoint. Had been initially on Rocephin and later changed to Zosyn. Blood cultures 4 out of 4 bottles positive for gram-negative rods (which is growing E. coli now). Patient was increasingly somnolent tonight and has history of previous smoking. His ABG showed pH of 7.23 with hypercapnia, PCo2 66. Patient was also short of breath and was placed on BiPAP. After 2 hours of BiPAP repeat ABG showed persistent acidosis and worsening pCo2 now 68. Patient was moved to the ICU stat where I evaluated him. He is showing labored breathing currently, very hard to arouse. I proceeded with endotracheal intubation and placed him on mechanical ventilation. Post intubation patient became more hypotensive. I have ordered 3 L normal saline bolus. Start Dre-Synephrine if needed to keep map above 65 as the patient is also tachycardic. Continues to spike fever repeat sputum blood cultures will be sent. Single dose of vancomycin ordered. Creatinine initially was 2.4 now worsened to 2.95. Patient will need strict hourly intake output Solomon has been ordered, nephrology consult also placed Review of Systems unobtainable due to mental status PMFSH - History History Provided By: Patient - Medical History Medical History: Medical History (Last Reviewed 03/23/18 @ 06:35 by Kirsten Perdomo MD) HBP (high blood pressure) No significant past surgical history Prostate cancer - Family History Family History: Family History (Last Updated 03/21/18 @ 22:51 by Marianna Dodd MD) Other Family history normal - Tobacco History Second Hand Smoke Exposure: No Tobacco Use In Past 30 Days: No Smoking Status: Former smoker Tobacco Type: Cigarettes - Alcohol History How Often Do You Have a Drink Containing Alcohol: Never - Substance Use History Substance History: No History of Abuse - Travel History Recent Travel in the [place] Within the Last 8 Weeks: No Recent Travel Out of the Country Within the Last 8 Weeks: No - Immunization History Tetanus Immunization: >5 Years Hx Influenza Vaccine This Season: No Medications and Allergies Active Medications: Active Medications Acetaminophen (Tylenol) 650 mg PO Q4H PRN PRN Reason: Temp > 100.4 Al Hydroxide/Mg Hydroxide (Milk Of Magnkyle Liq) 30 ml PO Q12H PRN PRN Reason: Mild Constipation Albuterol (Duoneb Neb (Prn)) 1 ampul NEB Q2HR NEB PRN PRN Reason: sob/wheezing Last Admin: 03/22/18 23:58 Dose: 1 ampul Aspirin (Aspirin) 325 mg PO DAILY SARAH Last Admin: 03/22/18 09:08 Dose: 325 mg Bisacodyl (Dulcolax Supp) 10 mg RECTAL DAILY PRN PRN Reason: SEVERE CONSITIPATION Chlorhexidine Gluconate (Chlorhexidine 2% Cloth) 3 pack TOPICAL DAILY@0400 SARAH Stop: 03/29/18 03:59 Chlorhexidine Gluconate (Chlorhexidine 2% Cloth) 3 pack TOPICAL DAILY@0400 PRN PRN Reason: Extra cloth needed Stop: 03/29/18 03:59 Clonidine HCl (Catapres) 0.1 mg PO Q6H PRN PRN Reason: SBP>160, DBP>90 Dextrose (D50w Vial) 50 ml IV.PUSH UNSCH PRN PRN Reason: PER HYPOGLYCEMIA PROTOCOL Glucagon (Glucagon Inj) 1 mg OTHER PRN PRN PRN Reason: for Hypoglycemia Protocol Sodium Chloride (Ns Inj) 1,000 mls @ 0 mls/hr IV.SIG .Q0M SARAH Last Infusion: 03/22/18 03:01 Dose: Infused Sodium Chloride (Ns Inj) 1,000 mls @ 0 mls/hr IV.SIG .Q0M SARAH Sodium Chloride (Ns Inj) 1,000 mls @ 0 mls/hr IV.SIG .Q0M SARAH Sodium Chloride (Ns Inj) 300 mls @ 0 mls/hr IV.SIG .Q0M SARAH Sodium Chloride (Ns Inj) 1,000 mls @ 125 mls/hr IV.CONT .Q8H SARAH Last Infusion: 03/23/18 00:40 Dose: 0 mls/hr Piperacillin/Tazobactam/Dextrose (Zosyn 2.25 Gm Premix) 50 mls @ 100 mls/hr IV.SIG Q6H [facility] Last Admin: 03/23/18 04:18 Dose: Not Given Insulin Aspart (Novolog Insulin Correctional Sugar Inj) 0 unit SQ Q6HR [facility]; Protocol Last Admin: 03/23/18 01:56 Dose: 3 unit Lactulose (Lactulose Liq) 30 ml PO DAILY PRN PRN Reason: SEVERE CONSITIPATION Ondansetron HCl (Zofran Inj) 4 mg IV.PUSH Q6H PRN PRN Reason: NAUSEA OR VOMITING Senna/Docusate Sodium (Madhavi-Colace) 1 tab PO BID [facility] Last Admin: 03/22/18 20:37 Dose: Not Given Sennosides (Senokot) 17.2 mg PO Q12H PRN PRN Reason: Moderate Constipation Allergies Allergy/AdvReac Type Severity Reaction Status Date / Time No Known Allergies Allergy Verified 03/21/18 18:31 Home Medications Medication Instructions Recorded Confirmed Type aspirin 325 mg PO DAILY 03/21/18 03/21/18 History Physical Exam Vital signs: Vital Signs 03/22/18 07:00 03/22/18 08:16 03/22/18 08:35 Temperature 98.0 F 97.9 F Pulse Rate 107 H 107 H 116 H Respiratory Rate 20 26 H 28 H Blood Pressure 148/74 H 132/78 114/70 Pulse Oximetry 98 99 95 03/22/18 12:00 03/22/18 12:30 03/22/18 16:00 Temperature 98.8 F 98.2 F Pulse Rate 120 H 111 H 124 H Respiratory Rate 26 H 28 H Blood Pressure 128/71 113/73 Pulse Oximetry 93 L 92 L 03/22/18 18:40 03/23/18 00:00 03/23/18 00:40 Temperature 99.9 F H Pulse Rate 119 H 134 H Respiratory Rate 22 Blood Pressure 133/81 Pulse Oximetry 85 L 98 03/23/18 03:00 03/23/18 04:00 Temperature 103.3 F H Pulse Rate 122 H Respiratory Rate 36 H Blood Pressure 134/74 Pulse Oximetry 98 95 Intake & Output 03/22/18 03/22/18 03/23/18 06:59 18:59 06:59 Intake Total 3100 / 3100 1000 / 1000 150 / 150 Output Total 1160 / 1160 Balance 3100 / 3100 -160 / -160 150 / 150 Weight 105.687 kg Intake: IV 3100 / 3100 1000 / 1000 150 / 150 NS Inj 1,000 ML @ 125 mls/hr IV 1000 / 1000 1000 / 1000 .CONT .Q8H SARAH Rx#:[id number] Ofirmev Inj 1,000 mg In 100 ml 100 / 100 @ 400 mls/hr IV.SIG ONCE ONE Rx #:[id number] Zosyn 2.25 GM Premix 50 ML @ 50 / 50 100 mls/hr IV.SIG Q6H SARAH Rx#: [id number] NS Inj 1,000 ML @ As Directed 1999 / 1999 IV.SIG .Q0M ONE Rx#:[id number] Rocephin Inj 1,000 MG In NS Inj 100 / 100 100 ML @ 200 mls/hr IV.SIG ONCE ONE Rx#:[id number] Output: Urine 1160 / 1160 Other: Date of Last Bowel Movement 03/22/18 03/22/18 # Incontinent Bowel Movements 1 Narrative: Gen. 83-year-old obese male who is somnolent and encephalopathic, in moderate to severe respiratory distress Head: Normocephalic. Atraumatic. EENT: Pupils equal round and reactive to light. Nose without drainage. BiPAP mask limits exam Cardiovascular: Tachycardic, hypotensive. No murmurs, rubs or gallops. Respiratory: Air entry markedly diminished bilaterally. Using accessory muscles. No wheezes or crackles heard Abdomen: Soft, nontender, nondistended. No peritoneal signs. Musculoskeletal: No gross deformities. No edema. Skin: No obvious rashes or erythema. Neuro: Patient is somnolent encephalopathic, do not follow commands. Spontaneously moves extremities Septic Shock Reassessment Septic shock perfusion: reassessment completed Assessment and Plan - Assessment and Plan Plan: ASSESSMENT: Acute hypercapnic respiratory failure Septic shock E. coli bacteremia UTI Acute and worsening kidney failure Left hydronephrosis hydroureter COPD with exacerbation Type 2 diabetes History of hypertension PLAN: NEURO: -Versed for sedation and vent synchrony RESP: -PRVC/AC, Ventilator bundle -DuoNeb every 4 hours scheduled and as needed -Send sputum culture -Start Solu-Medrol 40 mg IV every 8 hours CV: -Normal saline IV fluids 3L bolus, maintenance fluid at 125 ml per hour -Start Dre-Synephrine to keep map above 65 -Lactate had been trending down, will get repeat GI: -N.p.o., IV famotidine : -Monitor renal function closely. Place Solomon catheter for strict hourly intake output, and due to worsening renal failure -Consult nephrology for worsening renal failure, urology had already been consulted-no intervention -IV hydration as above ID: -Antibiotics-increase Zosyn to 3.375 every 8 hours, single dose of vancomycin 1 g -Repeat blood and sputum culture. -Urine and blood cultures growing gram-negative rods/E. coli -Consult ID [id number]: -Monitor CBC, coags ENDO: -Sliding scale insulin PROPH: -Bilateral lower extremity SCDs. Subcu heparin if hematuria resolved -IV famotidine LINES: -Utilize peripheral IVs, central line if continued pressor requirement CC time 45 min excluding procedures Code Status: Full
--- NOTE | 2018-03-23 06:43 | XR ---
EXAM DATE: 03/23/2018 6:09 AM EST AGE/SEX: 83 years / Male INDICATIONS: Respiratory disease. CLINICAL DATA: This is the patient's subsequent encounter. Patient reports that signs and symptoms h ave been present for 3 days and indicates a pain score of Nonresponsive. MEDICAL/SURGICAL HISTORY: . Carcinoma, prostatic. Hypertension. Sepsis. Non-responsive. COMPARISON: [facility], CHEST 1V SINGLE AP, 03/22/2018. . FINDINGS: Endotracheal tube in good position. NG enters stomach. Bilateral mostly basilar airspace disease. No effusion or pneumothorax. CONCLUSION: Probable basilar atelectasis. NG and endotracheal tube in good position. Electronically signed by: Jose Camargo MD 03/23/2018 6:41 AM EST
[2018-03-23] MEDS ORDERED: Vancomycin Inj 1,000 MG in Sodium Chlor 0.9% Inj 250 ML IV.SIG ONE (07:00)
--- NOTE | 2018-03-23 07:24 | P.PCN ---
Date of procedure: 03/23/18 Pre-op diagnosis: Severe sepsis Post-op diagnosis: same Procedure: DATE: 03/23/2018 CENTRAL LINE PLACEMENT: Left internal jugular vein. Ultrasound-guided INDICATION: Central venous access CONSENT Informed consent for procedure was not obtaining considered emergent due to multiple vasopressors required/antibiotics/crystalloid resuscitation. DESCRIPTION OF THE PROCEDURE The patient was placed in supine position. The skin was cleansed with Chloraprep. Additional barrier precautions included large sterile drape, sterile gloves, sterile gown, face mask, and hat. 1 % lidocaine was used for local anesthesia. Under direct ultrasound guidance and on initial attempt, the vein was accessed with an introducer needle. The guide wire was advanced and the tract was dilated. Using Seldinger technique a 7 Welsh 20 cm antimicrobial coated triple-lumen catheter was advanced to a depth of 20 centimeters. The guide wire was removed. All ports had good return of dark venous blood and flushed easily with saline. The central line was secured with 2.0 silk. A sterile dressing with antibiotic disc was applied. ESTIMATED BLOOD LOSS: Minimal COMPLICATIONS: No apparent complications. STAT chest x-ray pending at time of dictation
--- NOTE | 2018-03-23 07:25 | P.PCN ---
Date of procedure: 03/23/18 Pre-op diagnosis: Severe sepsis Post-op diagnosis: same (/hypotension) Procedure: DATE: 03/23/2018 PROCEDURE: Right femoral arterial catheter placement INDICATION: Hemodynamic access/septic shock DETAILS OF PROCEDURE The patient was placed in supine position. The skin was cleansed with Chloraprep. Additional barrier precautions included large sterile drape, sterile gloves, sterile gown, face mask, and hat. 1% lidocaine was used for local anesthesia. Under direct ultrasound guidance and on the second attempt, the artery was accessed with an introducer needle. The guide wire was advanced. Using Seldinger technique 20 gauge arterial catheter was placed. The guide wire was removed. The catheter was connected to a transducer line and flushed with saline. The video monitor displayed normal arterial wave forms. The catheter was secured with 2-0 silk. A sterile dressing with antibiotic disc was applied. Please note attempted left femoral arterial catheter placement. The guidewire kinked and able to place. Pressure was placed for 5 minutes. Palpable pulses. Vascular checks to be performed hourly. ESTIMATED BLOOD LOSS: minimal COMPLICATIONS: None
[2018-03-23 07:27] LABS: ABG Base Excess -3.7 mmol/L (-2-2); ABG PCO2 56 mmHg (38-42); ABG PO2 80 mmHG (61-120)
[2018-03-23] MEDS: Phenylephrine Inj 40 MG in Dextrose 5% in Water Inj 496 ML IV.CONT PRN ×4 (07:49→11:50)
[2018-03-23] MEDS: Piperacil/Tazo 3.375 GM Premix 50 ML IV.SIG SCH ×3 (08:00→21:31)
[2018-03-23] MEDS: MethylPREDNISolone Sod Succinate Inj 40 MG/ML Vial IV.PUSH SCH ×3 (08:00→21:31)
[2018-03-23] MEDS: Midazolam 100 MG/100 ML Inj 100 MG/100 ML BAG IV.CONT PRN ×3 (08:12→23:43)
--- NOTE | 2018-03-23 08:41 | XR ---
EXAM DATE: 03/23/2018 8:29 AM EST AGE/SEX: 83 years / Male INDICATIONS: Central Line placement. CLINICAL DATA: This is the patient's subsequent encounter. Patient reports that signs and symptoms h ave been present for 3 days and indicates a pain score of Nonresponsive. MEDICAL/SURGICAL HISTORY: . Carcinoma, prostatic. Hypertension None. COMPARISON: [facility], CHEST 1V SINGLE AP, 03/23/2018. . FINDINGS: The heart is normal in size. The endotracheal tubes in satisfactory position. The nasogastric tube an d left jugular central line are in satisfactory There is left basilar effusion and atelectasis. This has mildly increased when compared to previous e xamination. The osseous structures are grossly intact. CONCLUSION: Support equipment in good position. Increasing left basilar effusion compared to prior dated 03/23/2018. Electronically signed by: Cheng Carney MD 03/23/2018 8:40 AM EST
--- NOTE | 2018-03-23 08:41 | P.PNCC ---
Critical Care Event Note Code activated: No Narrative: Discussed with Dr. Conor guzman. Emergently placement of left IJ CVL and right femoral arterial line due to hemodynamic instability. Currently on norepinephrine drip at 4 mics per minute and phenylephrine drip at 150 mcg/min. EKG revealed what looks like an AV block second-degree Mobitz type I. Will recheck electrolytes and troponin currently. Supportive care. Avoid beta- blockers, calcium channel blockers, digit amiodarone. We will continue to monitor today. Patient is arousable currently on midazolam drip at 10 mg an hour for sedation. Solomon catheter placed for acute kidney injury for accurate I 's and O's. Critical care time: less than 30 mins
--- NOTE | 2018-03-23 09:13 | P.CONID ---
History of Present Illness Service: Infectious Disease Consult date: 03/23/18 Requesting Physician: Angelito Levin Reason for Consult: Evaluate patient with Gm negative in blood culture Primary Care Provider: UNKNOWN Chief Complaint: weakness, hematuria History of Present Illness: Patient seen and examined. Records reviewed. Patient is an 83-year-old male, presented to the hospital for evaluation of hematuria. Patient has known history of prostate cancer and he has had problem with intermittent mild hematuria. This was apparently worse than any of the hematuria he has had in the past. Initial evaluation showed that he was in renal failure. The CT is showing evidence of hydronephrosis. Urology evaluated the patient and felt that there is no intervention that needed to be done. Blood cultures done on admission are reported as growing gram-negative maryann. Infectious disease consultation has been requested to evaluate that. In the interim patient developed shortness of breath, and required BiPAP. He was on BiPAP for several hours but had persistent acidosis, respiratory distress, and he started becoming more lethargic. He ended up getting intubated, and post intubation has been hypotensive. He received fluid resuscitation and despite that remains hypotensive. He is currently on Levophed and Dre-Synephrine. His creatinine remains elevated. Urine output is low. He had a fever of 103.3 earlier today. Review of Systems unobtainable due to endotracheal tube PMFSH - History History Provided By: Patient - Medical History Medical History: Medical History (Last Reviewed 03/23/18 @ 09:03 by Lian Laurent MD) HBP (high blood pressure) No significant past surgical history Prostate cancer - Family History Family History: Family History (Last Reviewed 03/23/18 @ 09:03 by Lian Laurent MD) Other Family history normal - Tobacco History Second Hand Smoke Exposure: No Tobacco Use In Past 30 Days: No Smoking Status: Former smoker Tobacco Type: Cigarettes - Alcohol History How Often Do You Have a Drink Containing Alcohol: Never - Substance Use History Substance History: No History of Abuse - Travel History Recent Travel in the [place] Within the Last 8 Weeks: No Recent Travel Out of the Country Within the Last 8 Weeks: No - Immunization History Tetanus Immunization: >5 Years Hx Influenza Vaccine This Season: No Medications and Allergies Active Medications: Active Medications Acetaminophen (Tylenol) 650 mg PO Q4H PRN PRN Reason: Temp > 100.4 Al Hydroxide/Mg Hydroxide (Milk Of Magnesia Liq) 30 ml PO Q12H PRN PRN Reason: Mild Constipation Albuterol (Duoneb Neb (Dorothy)) 1 ampul NEB Q4HR NEB [facility] Last Admin: 03/23/18 07:45 Dose: Not Given Albuterol (Albuterol Neb (Prn)) 2.5 mg NEB Q2HR NEB PRN PRN Reason: DYSPNEA Artificial Tears (Tears Naturale Opth Drops) 1 drop EACH EYE Q8H [facility] Bisacodyl (Dulcolax Supp) 10 mg RECTAL DAILY PRN PRN Reason: SEVERE CONSITIPATION Chlorhexidine Gluconate (Chlorhexidine 2% Cloth) 3 pack TOPICAL DAILY@0400 DOROTHY Stop: 03/29/18 03:59 Chlorhexidine Gluconate (Chlorhexidine 2% Cloth) 3 pack TOPICAL DAILY@0400 PRN PRN Reason: Extra cloth needed Stop: 03/29/18 03:59 Dextrose (D50w Vial) 50 ml IV.PUSH UNSCH PRN PRN Reason: PER HYPOGLYCEMIA PROTOCOL Glucagon (Glucagon Inj) 1 mg OTHER PRN PRN PRN Reason: for Hypoglycemia Protocol Heparin Sodium (Porcine) (Heparin Inj) 5,000 units SQ Q12HR DOROTHY Sodium Chloride (Ns Inj) 1,000 mls @ 0 mls/hr IV.SIG .Q0M DOROTHY Last Infusion: 03/22/18 03:01 Dose: Infused Sodium Chloride (Ns Inj) 1,000 mls @ 0 mls/hr IV.SIG .Q0M DOROTHY Sodium Chloride (Ns Inj) 1,000 mls @ 0 mls/hr IV.SIG .Q0M DOROTHY Sodium Chloride (Ns Inj) 300 mls @ 0 mls/hr IV.SIG .Q0M DOROTHY Piperacillin/Tazobactam/Dextrose (Zosyn 3.375 Gm Premix) 50 mls @ 100 mls/hr IV.SIG Q8H DOROTHY Last Infusion: 03/23/18 08:07 Dose: Infused Phenylephrine HCl 40 mg/ (Dextrose) 500 mls @ 30 mls/hr IV.CONT TITRATE PRN; Protocol PRN Reason: Per Protocol Last Titration: 03/23/18 08:00 Dose: 110 mcg/min, 82.5 mls/hr Midazolam HCl (Versed Inj) 100 mg in 100 mls @ 2 mls/hr IV.CONT TITRATE PRN; Protocol PRN Reason: See protocol Last Titration: 03/23/18 08:16 Dose: 10 mg/hr, 10 mls/hr Sodium Chloride (Ns Inj) 1,000 mls @ 100 mls/hr IV.CONT .Q10H [facility] Last Admin: 03/23/18 08:07 Dose: 100 mls/hr Fentanyl (Fentanyl 10 Mcg/Ml Premix Drip) 2,500 mcg in 250 mls @ 5 mls/hr IV.SIG TITRATE PRN; Protocol PRN Reason: Per Protocol Norepinephrine Bitartrate (Levophed-Dextrose 4 Mg/250 Ml Drip) 4 mg in 250 mls @ 7.5 mls/hr IV.SIG TITRATE PRN; Protocol PRN Reason: Per Protocol Insulin Aspart (Novolog Insulin Correctional Sugar Inj) 0 unit SQ Q4HR [facility]; Protocol Lactulose (Lactulose Liq) 30 ml PO DAILY PRN PRN Reason: SEVERE CONSITIPATION Lansoprazole (Prevacid Solutab) 30 mg NG/OG DAILY [facility] Methylprednisolone Sodium Succinate (Solumedrol Inj) 40 mg IV.PUSH Q8HR [facility] Last Admin: 03/23/18 08:00 Dose: 40 mg Ondansetron HCl (Zofran Inj) 4 mg IV.PUSH Q6H PRN PRN Reason: NAUSEA OR VOMITING Senna/Docusate Sodium (Madhavi-Colace) 1 tab PO BID [facility] Last Admin: 03/22/18 20:37 Dose: Not Given Sennosides (Senokot) 17.2 mg PO Q12H PRN PRN Reason: Moderate Constipation Sodium Chloride (Ns Flush) 0 ml IV.FLUSH DAILY [facility] Terbutaline Sulfate (Brethine Inj) 1 mg SQ UNSCH PRN PRN Reason: For Extravasation Terbutaline Sulfate (Brethine Inj) 1 mg SQ UNSCH PRN PRN Reason: For Extravasation Allergies Allergy/AdvReac Type Severity Reaction Status Date / Time No Known Allergies Allergy Verified 03/21/18 18:31 Home Medications Medication Instructions Recorded Confirmed Type aspirin 325 mg PO DAILY 03/21/18 03/21/18 History Exam Vital signs: Vital Signs 03/22/18 12:00 03/22/18 12:30 03/22/18 16:00 Temperature 98.8 F 98.2 F Pulse Rate 120 H 111 H 124 H Respiratory Rate 26 H 28 H Blood Pressure 128/71 113/73 Pulse Oximetry 93 L 92 L 03/22/18 18:40 03/23/18 00:00 03/23/18 00:40 Temperature 99.9 F H Pulse Rate 119 H 134 H Respiratory Rate 22 Blood Pressure 133/81 Pulse Oximetry 85 L 98 03/23/18 03:00 03/23/18 04:00 03/23/18 05:15 Temperature 103.3 F H Pulse Rate 122 H 152 H Respiratory Rate 36 H 39 H Blood Pressure 134/74 Pulse Oximetry 98 95 84 L 03/23/18 05:20 03/23/18 05:23 03/23/18 05:25 Temperature Pulse Rate 148 H 146 H Respiratory Rate 16 20 25 H Blood Pressure 72/41 L 57/32 L Pulse Oximetry 93 L 03/23/18 05:27 03/23/18 05:28 03/23/18 05:30 Temperature Pulse Rate 116 H 115 H 115 H Respiratory Rate 16 18 16 Blood Pressure 59/34 L 58/34 L 60/35 L Pulse Oximetry 03/23/18 05:36 03/23/18 05:40 03/23/18 05:45 Temperature Pulse Rate 113 H 111 H 109 H Respiratory Rate 16 16 17 Blood Pressure 55/35 L 54/36 L 61/40 L Pulse Oximetry 03/23/18 05:51 03/23/18 05:56 03/23/18 06:00 Temperature Pulse Rate 111 H 109 H 108 H Respiratory Rate 21 17 18 Blood Pressure 57/36 L 58/39 L Pulse Oximetry 03/23/18 06:08 03/23/18 06:15 03/23/18 06:22 Temperature Pulse Rate 104 H 104 H 103 H Respiratory Rate 16 16 16 Blood Pressure 68/40 L 62/41 L 64/44 L Pulse Oximetry 03/23/18 06:30 03/23/18 06:36 03/23/18 06:40 Temperature Pulse Rate 103 H 75 78 Respiratory Rate 22 17 18 Blood Pressure 69/44 L 163/88 H 178/89 H Pulse Oximetry 03/23/18 06:51 03/23/18 07:00 03/23/18 07:01 Temperature Pulse Rate 98 H 113 H 112 H Respiratory Rate 20 28 H 32 H Blood Pressure 211/92 H 147/73 H Pulse Oximetry 03/23/18 07:10 03/23/18 07:20 03/23/18 07:30 Temperature Pulse Rate 191 H 181 H 167 H Respiratory Rate 25 H 16 20 Blood Pressure 133/61 89/53 L 108/65 Pulse Oximetry 91 L 03/23/18 07:45 Temperature Pulse Rate Respiratory Rate 20 Blood Pressure Pulse Oximetry 94 L Intake & Output 03/22/18 03/23/18 03/23/18 18:59 06:59 18:59 Intake Total 1000 / 1000 150 / 150 50 / 50 Output Total 1160 / 1160 Balance -160 / -160 150 / 150 50 / 50 Weight 105.687 kg Intake: IV 1000 / 1000 150 / 150 50 / 50 NS Inj 1,000 ML @ 125 mls/hr IV 1000 / 1000 .CONT .Q8H DOROTHY Rx#:[id number] Ofirmev Inj 1,000 mg In 100 ml 100 / 100 @ 400 mls/hr IV.SIG ONCE ONE Rx #:[id number] Zosyn 2.25 GM Premix 50 ML @ 50 / 50 100 mls/hr IV.SIG Q6H DOROTHY Rx#: [id number] Zosyn 3.375 GM Premix 50 ML @ 50 / 50 100 mls/hr IV.SIG Q8H DOROTHY Rx#: [id number] Output: Urine 1160 / 1160 Other: Date of Last Bowel Movement 03/22/18 03/23/18 # Incontinent Bowel Movements 1 Narrative: Physical examination GENERAL: Patient is an obese, well-developed male, sedated on the vent, not in respiratory distress. SKIN: Cool and dry. No generalized rash, no ecchymoses and no evidence of embolic lesions. HEAD: Atraumatic. Normocephalic. No temporal wasting, or tenderness. EYES: Witt conjunctiva. No petechia or hemorrhage. Pupils equal, round and reactive to light. Has dirty sclera. No injection or drainage. EARS, NOSE AND THROAT: Nose without bleeding or purulent nasal discharge. Orally intubated. NECK: Trachea midline. Supple and not tender, no meningeal signs. Has left IJ central line CARDIOVASCULAR: Regular rate and rhythm. No murmur heard RESPIRATORY: Breath sounds equal bilaterally. No rales, wheezing or rhonchi. Decreased breath sounds at the bases ABDOMEN: Globular, mildly distended, no reaction to palpation. Bowel sounds present and normoactive. Has a right femoral groin a line EXTREMITIES: No clubbing, cyanosis. Cool feet. : Solomon in place, not a lot of output NEUROLOGICAL: Sedated PSYCHIATRIC: Unable to assess LINE: No evidence of infection Results - Labs CBC & Chem 7: 03/23/18 04:28 03/23/18 04:28 Labs: Laboratory Results - last 24 hr 03/21/18 03/22/18 03/22/18 20:43 11:01 12:05 WBC RBC Hgb Hct MCV MCH MCHC RDW Plt Count MPV Neut % (Auto) Lymph % (Auto) [place] % (Auto) Eos % (Auto) Baso % (Auto) Neut # (Auto) Lymph # (Auto) [place] # (Auto) Eos # (Auto) Baso # (Auto) WBC Differential Differential Comment Puncture Site Patient Temperature O2 Saturation ABG pH ABG pCO2 ABG pO2 ABG HCO3 ABG O2 Content ABG Base Excess ABG Methemoglobin Norbert Test Hemoglobin Carboxyhemoglobin O2 Delivery Device Liter Flow Vent Setting Inspired O2 Critical Value Sodium Potassium Chloride Carbon Dioxide Anion Gap BUN Creatinine Estimated GFR POC Glucose 209 H Random Glucose Hemoglobin A1c 8.1 H Lactic Acid Calcium Magnesium Total Bilirubin AST ALT Alkaline Phosphatase Total Protein Albumin Urine Color Yellow Urine Clarity Cloudy H Urine pH 6.0 Ur Specific [place] 1.016 Urine Protein 100 H Urine Glucose (UA) 50 Urine Ketones Trace H Urine Occult Blood Large H Urine Nitrate Negative Urine Bilirubin Negative Urine Urobilinogen Less than 2 Ur Leukocyte Esterase Moderate H Urine RBC Urine WBC Urine WBC Clumps Few H Ur Squamous Epith Cells 4 Urine Bacteria Few H Urine Mucus Few H Micro UA Comment Culture indicated Urine Culture Comments Culture indicated 03/22/18 03/23/18 03/23/18 16:53 00:18 00:24 WBC RBC Hgb Hct MCV MCH MCHC RDW Plt Count MPV Neut % (Auto) Lymph % (Auto) [place] % (Auto) Eos % (Auto) Baso % (Auto) Neut # (Auto) Lymph # (Auto) [place] # (Auto) Eos # (Auto) Baso # (Auto) WBC Differential Differential Comment Puncture Site Right radial Patient Temperature 98.6 O2 Saturation 87 L* ABG pH 7.23 L* ABG pCO2 66 H* ABG pO2 62 ABG HCO3 27 H ABG O2 Content 16.9 ABG Base Excess -0.1 ABG Methemoglobin 0.7 Norbert Test Present Hemoglobin 13.8 Carboxyhemoglobin 1.8 O2 Delivery Device Non-rebreathing mask Liter Flow 15.00 Vent Setting Inspired O2 100 Critical Value Yes Sodium Potassium Chloride Carbon Dioxide Anion Gap BUN Creatinine Estimated GFR POC Glucose 203 H 227 H Random Glucose Hemoglobin A1c Lactic Acid Calcium Magnesium Total Bilirubin AST ALT Alkaline Phosphatase Total Protein Albumin Urine Color Urine Clarity Urine pH Ur Specific [place] Urine Protein Urine Glucose (UA) Urine Ketones Urine Occult Blood Urine Nitrate Urine Bilirubin Urine Urobilinogen Ur Leukocyte Esterase Urine RBC Urine WBC Urine WBC Clumps Ur Squamous Epith Cells Urine Bacteria Urine Mucus Micro UA Comment Urine Culture Comments 03/23/18 03/23/18 03/23/18 03:43 04:28 04:28 WBC 13.5 H RBC 4.17 L Hgb 13.1 Hct 38.5 L MCV 92.2 MCH 31.4 MCHC 34.1 RDW 15.2 Plt Count 139 L MPV 8.6 Neut % (Auto) 89.3 H Lymph % (Auto) 5.1 L [place] % (Auto) 5.4 Eos % (Auto) 0.0 Baso % (Auto) 0.2 Neut # (Auto) 12.1 H Lymph # (Auto) 0.7 L [place] # (Auto) 0.7 Eos # (Auto) 0.0 Baso # (Auto) 0.0 WBC Differential . Differential Comment Auto diff final Puncture Site Right radial Patient Temperature 98.6 O2 Saturation 95 ABG pH 7.25 L* ABG pCO2 68 H* ABG pO2 104 ABG HCO3 29 H ABG O2 Content 17.8 ABG Base Excess 2.1 H ABG Methemoglobin 1.5 Norbert Test Present Hemoglobin 13.3 Carboxyhemoglobin 1.5 O2 Delivery Device Bipap Liter Flow Vent Setting 19/7 Inspired O2 50 Critical Value Yes Sodium 134 L Potassium 4.5 Chloride 99 Carbon Dioxide 30.5 Anion Gap 5 BUN 38 H Creatinine 2.95 H Estimated GFR 25 L POC Glucose Random Glucose 234 H Hemoglobin A1c Lactic Acid Calcium 8.1 L Magnesium 2.0 Total Bilirubin 0.7 AST 36 ALT 31 Alkaline Phosphatase 82 Total Protein 7.3 Albumin 2.7 L Urine Color Urine Clarity Urine pH Ur Specific [place] Urine Protein Urine Glucose (UA) Urine Ketones Urine Occult Blood Urine Nitrate Urine Bilirubin Urine Urobilinogen Ur Leukocyte Esterase Urine RBC Urine WBC Urine WBC Clumps Ur Squamous Epith Cells Urine Bacteria Urine Mucus Micro UA Comment Urine Culture Comments 03/23/18 03/23/18 04:28 07:17 WBC RBC Hgb Hct MCV MCH MCHC RDW Plt Count MPV Neut % (Auto) Lymph % (Auto) [place] % (Auto) Eos % (Auto) Baso % (Auto) Neut # (Auto) Lymph # (Auto) [place] # (Auto) Eos # (Auto) Baso # (Auto) WBC Differential Differential Comment Puncture Site [place] Patient Temperature 98.6 O2 Saturation 93 ABG pH 7.23 L* ABG pCO2 56 H* ABG pO2 80 ABG HCO3 23 ABG O2 Content 16.6 ABG Base Excess -3.7 L ABG Methemoglobin 1.4 Norbert Test Hemoglobin 12.6 Carboxyhemoglobin 1.3 O2 Delivery Device Ventilator Liter Flow Vent Setting See comments Inspired O2 50 Critical Value Yes Sodium Potassium Chloride Carbon Dioxide Anion Gap BUN Creatinine Estimated GFR POC Glucose Random Glucose Hemoglobin A1c Lactic Acid 1.9 Calcium Magnesium Total Bilirubin AST ALT Alkaline Phosphatase Total Protein Albumin Urine Color Urine Clarity Urine pH Ur Specific [place] Urine Protein Urine Glucose (UA) Urine Ketones Urine Occult Blood Urine Nitrate Urine Bilirubin Urine Urobilinogen Ur Leukocyte Esterase Urine RBC Urine WBC Urine WBC Clumps Ur Squamous Epith Cells Urine Bacteria Urine Mucus Micro UA Comment Urine Culture Comments - Imaging Impressions Chest X-Ray 03/22/18 00:00 CONCLUSION: Mild bilateral mostly basilar airspace disease. No significant effusion. No pneumothorax. Chest X-Ray 03/23/18 05:33 CONCLUSION: Probable basilar atelectasis. NG and endotracheal tube in good position. Chest X-Ray 03/23/18 07:22 CONCLUSION: Support equipment in good position. Increasing left basilar effusion compared to prior dated 03/23/2018. Abdomen/Pelvis CT 03/21/18 18:35 CONCLUSION: 1. Left-sided hydronephrosis and hydroureter with prominent stranding. No radiopaque calculus identified. 2. Enlarged prostate gland containing prostatic seeds. 3. Hepatic steatosis. 4. Prominence of both adrenal glands likely hyperplasia. Assessment and Plan - Plan Impression GNR sepsis, with shock due to complicated UTI - CT with hydronephrosis L; no stone seen Renal failure Respiratory failure Hematuria - Hx prostate CA Recommendation Repeat 2 BC today Continue Zosyn Follow C/S Monitor progress Urology following - may need intervention I will follow along with you Thank you for this consultation
--- NOTE | 2018-03-23 09:34 | ECG ---
Date Performed: 03/23/2018 Time Performed: 08:26:18 PTAGE: 83 years EKG: SINUS TACHYCARDIA LOW QRS VOLTAGE IN PRECORDIAL LEADS POSSIBLE RIGHT VENTRICULAR CONDUCTION DELAY ABNORMAL RHYTHM ECG PREVIOUS TRACING : 03/22/2018 13.15 DOCTOR: Abhay Diaz Interpretating Date/Time 03/23/2018 09:32:23
--- NOTE | 2018-03-23 09:57 | MB ---
cc: Ike Gong MD DATE: 03/23/2018 REASON FOR CONSULTATION: Evaluation of arrhythmia. HISTORY OF PRESENT ILLNESS: Darryn Kirby is an 83-year-old man admitted to the ICU with Gram-negative sepsis. He has E. coli growing out of his blood cultures. He developed respiratory failure and had to be intubated. I am consulted regarding arrhythmias. PAST MEDICAL HISTORY: The patient has a past history of hypertension, according to the chart; and a past history of prostate cancer. FAMILY HISTORY: Unremarkable. SOCIAL HISTORY: Previous smoker. History was obtained from the chart as the patient is sedated on the ventilator. CURRENT MEDICATIONS: Current medications are charted. He is on Levophed at 4 mcg, gris at 100, and Versed at 10. PHYSICAL EXAMINATION: GENERAL: Shows a sedated -Dutch male on his back intubated. VITALS: On telemetry, he is in sinus tachycardia with Wenckebach AV block. Blood pressures are Charted. HEENT: Unremarkable. NECK: Shows no JVD. I do not hear bruits. CHEST: Shows bilateral rhonchi with upper airway noise from the tube. CARDIAC: S1, S2, irregular. I do not hear any significant murmur. ABDOMEN: Grossly obese. Cannot appreciate any masses or tenderness. EXTREMITIES: Reveal intact distal pulses. DIAGNOSTIC DATA: His laboratories, white count is elevated at 13,500, hematocrit 38.5. Creatinine is 2.95, which has risen from baseline level of 2.28. His EKG from this morning shows sinus tachycardia with Wenckebach AV block. Chest x-ray results are charted. IMPRESSION AND PLAN: Wenckebach AV block. It is a fairly benign rhythm. He is not bradycardic. He is on pressor support for sepsis. No specific therapy needs to be directed for the Wenckebach AV block. I will be available as needed. MD KANDIS QuirosW/shaw , 09:37 AM , 09:46 AM
[2018-03-23 10:07] LABS: Troponin I 0.18 ng/mL (0.02-0.05)
[2018-03-23 10:20] LABS: CKMB Percent 0.2 % (0.0-4.0); Creatine Kinase MB 3.8 ng/mL (0.5-3.6)
[2018-03-23 10:23] LABS: ABG Base Excess -4.5 mmol/L (-2-2); ABG PCO2 34 mmHg (38-42); ABG PO2 113 mmHg (61-120)
[2018-03-23 11:00] LABS: Calcium 7.4 mg/dL (8.5-10.1); Carbon Dioxide 21.2 meq/L (21.0-32.0); Magnesium 1.9 mg/dL (1.5-2.5); Phosphorus 3.6 mg/dL (2.5-4.9); Potassium 4.1 meq/L (3.5-5.1)
[2018-03-23 11:06] LABS: Albumin 2.4 g/dL (3.4-5.0); Calcium-Albumin Corrected 8.7 mg/dL (8.5-10.1)
[2018-03-23] MEDS: Senna/Docusate Sodium 8.6/50 MG Tablet PO SCH ×2 (11:53→21:31)
[2018-03-23] MEDS: Heparin - SQ 10,000 UNITS/ML Vial SQ SCH ×2 (11:54→21:31)
[2018-03-23] MEDS: Artificial Tears Opth Drops 15 ML Bottle EACH EYE SCH ×2 (11:55→15:46)
--- NOTE | 2018-03-23 12:23 | P.CONNP ---
<Mary Jane Toussaint - Last Filed: 03/23/18 17:03> History of Present Illness Consult date: 03/23/18 Reason for Consult: GILLES Primary Care Provider: UNKNOWN Chief Complaint: weakness, hematuria History of Present Illness: Patient is an 83 year old male, presented to the hospital for evaluation of hematuria. Patient has prior medical history of prostate cancer, hypertension, type 2 diabetes, COPD. Patient is currently sedated and orally intubated. Per previous notes, patient had history of intermittent mild hematuria which had gotten worse. Patient was having shortness of breath, put on Bipap, was having respiratory distress and required intubation. Patient was hypotensive after intubation and it appears to have resolved. Patient's Creatinine is 2.95. Patient has river cath in place. CT scan showed left sided hydronephrosis. Blood cultures done on admission are reported as growing gram-negative maryann. Review of Systems unobtainable due to endotracheal tube PMFSH - History History Provided By: Patient - Medical History Medical History: Medical History (Last Reviewed 03/23/18 @ 09:03 by Lian Laurent MD) HBP (high blood pressure) No significant past surgical history Prostate cancer - Family History Family History: Family History (Last Reviewed 03/23/18 @ 09:03 by Lian Laurent MD) Other Family history normal - Tobacco History Second Hand Smoke Exposure: No Tobacco Use In Past 30 Days: No Smoking Status: Former smoker Tobacco Type: Cigarettes - Alcohol History How Often Do You Have a Drink Containing Alcohol: Never - Substance Use History Substance History: No History of Abuse - Travel History Recent Travel in the [place] Within the Last 8 Weeks: No Recent Travel Out of the Country Within the Last 8 Weeks: No - Immunization History Tetanus Immunization: >5 Years Hx Influenza Vaccine This Season: No Medications and Allergies Allergies Allergy/AdvReac Type Severity Reaction Status Date / Time No Known Allergies Allergy Verified 03/21/18 18:31 Home Medications Medication Instructions Recorded Confirmed Type aspirin 325 mg PO DAILY 03/21/18 03/21/18 History Active Medications: Active Medications Acetaminophen (Tylenol) 650 mg PO Q4H PRN PRN Reason: Temp > 100.4 Al Hydroxide/Mg Hydroxide (Milk Of Magnkyle Liq) 30 ml PO Q12H PRN PRN Reason: Mild Constipation Albuterol (Duoneb Neb (Dorothy)) 1 ampul NEB Q4HR NEB [facility] Last Admin: 03/23/18 11:05 Dose: 1 ampul Albuterol (Albuterol Neb (Prn)) 2.5 mg NEB Q2HR NEB PRN PRN Reason: DYSPNEA Artificial Tears (Tears Naturale Opth Drops) 1 drop EACH EYE Q8H [facility] Last Admin: 03/23/18 11:55 Dose: 1 drop Bisacodyl (Dulcolax Supp) 10 mg RECTAL DAILY PRN PRN Reason: SEVERE CONSITIPATION Chlorhexidine Gluconate (Chlorhexidine 2% Cloth) 3 pack TOPICAL DAILY@0400 [facility] Stop: 03/29/18 03:59 Chlorhexidine Gluconate (Chlorhexidine 2% Cloth) 3 pack TOPICAL DAILY@0400 PRN PRN Reason: Extra cloth needed Stop: 03/29/18 03:59 Dextrose (D50w Vial) 50 ml IV.PUSH UNSCH PRN PRN Reason: PER HYPOGLYCEMIA PROTOCOL Glucagon (Glucagon Inj) 1 mg OTHER PRN PRN PRN Reason: for Hypoglycemia Protocol Heparin Sodium (Porcine) (Heparin Inj) 5,000 units SQ Q12HR [facility] Last Admin: 03/23/18 11:54 Dose: 5,000 units Sodium Chloride (Ns Inj) 1,000 mls @ 0 mls/hr IV.SIG .Q0M [facility] Last Infusion: 03/22/18 03:01 Dose: Infused Sodium Chloride (Ns Inj) 1,000 mls @ 0 mls/hr IV.SIG .Q0M [facility] Sodium Chloride (Ns Inj) 1,000 mls @ 0 mls/hr IV.SIG .Q0M [facility] Sodium Chloride (Ns Inj) 300 mls @ 0 mls/hr IV.SIG .Q0M [facility] Piperacillin/Tazobactam/Dextrose (Zosyn 3.375 Gm Premix) 50 mls @ 100 mls/hr IV.SIG Q8H [facility] Last Infusion: 03/23/18 08:07 Dose: Infused Phenylephrine HCl 40 mg/ (Dextrose) 500 mls @ 30 mls/hr IV.CONT TITRATE PRN; Protocol PRN Reason: Per Protocol Last Titration: 03/23/18 08:00 Dose: 110 mcg/min, 82.5 mls/hr Midazolam HCl (Versed Inj) 100 mg in 100 mls @ 2 mls/hr IV.CONT TITRATE PRN; Protocol PRN Reason: See protocol Last Titration: 03/23/18 08:16 Dose: 10 mg/hr, 10 mls/hr Sodium Chloride (Ns Inj) 1,000 mls @ 100 mls/hr IV.CONT .Q10H [facility] Last Admin: 03/23/18 08:07 Dose: 100 mls/hr Fentanyl (Fentanyl 10 Mcg/Ml Premix Drip) 2,500 mcg in 250 mls @ 5 mls/hr IV.SIG TITRATE PRN; Protocol PRN Reason: Per Protocol Norepinephrine Bitartrate (Levophed-Dextrose 4 Mg/250 Ml Drip) 4 mg in 250 mls @ 7.5 mls/hr IV.SIG TITRATE PRN; Protocol PRN Reason: Per Protocol Insulin Aspart (Novolog Insulin Correctional Sugar Inj) 0 unit SQ Q4HR [facility]; Protocol Last Admin: 03/23/18 11:20 Dose: Not Given Lactulose (Lactulose Liq) 30 ml PO DAILY PRN PRN Reason: SEVERE CONSITIPATION Lansoprazole (Prevacid Solutab) 30 mg NG/OG DAILY [facility] Last Admin: 03/23/18 11:55 Dose: 30 mg Methylprednisolone Sodium Succinate (Solumedrol Inj) 40 mg IV.PUSH Q8HR [facility] Last Admin: 03/23/18 08:00 Dose: 40 mg Ondansetron HCl (Zofran Inj) 4 mg IV.PUSH Q6H PRN PRN Reason: NAUSEA OR VOMITING Senna/Docusate Sodium (Madhavi-Colace) 1 tab PO BID [facility] Last Admin: 03/23/18 11:53 Dose: 1 tab Sennosides (Senokot) 17.2 mg PO Q12H PRN PRN Reason: Moderate Constipation Sodium Chloride (Ns Flush) 0 ml IV.FLUSH DAILY [facility] Last Admin: 03/23/18 11:55 Dose: 6 ml Terbutaline Sulfate (Brethine Inj) 1 mg SQ UNSCH PRN PRN Reason: For Extravasation Terbutaline Sulfate (Brethine Inj) 1 mg SQ UNSCH PRN PRN Reason: For Extravasation Exam Vital signs: Vital Signs 03/22/18 12:00 03/22/18 12:30 03/22/18 16:00 Temperature 98.8 F 98.2 F Pulse Rate 120 H 111 H 124 H Respiratory Rate 26 H 28 H Blood Pressure 128/71 113/73 Pulse Oximetry 93 L 92 L 03/22/18 18:40 03/23/18 00:00 03/23/18 00:40 Temperature 99.9 F H Pulse Rate 119 H 134 H Respiratory Rate 22 Blood Pressure 133/81 Pulse Oximetry 85 L 98 03/23/18 03:00 03/23/18 04:00 03/23/18 05:15 Temperature 103.3 F H Pulse Rate 122 H 152 H Respiratory Rate 36 H 39 H Blood Pressure 134/74 Pulse Oximetry 98 95 84 L 03/23/18 05:20 03/23/18 05:23 03/23/18 05:25 Temperature Pulse Rate 148 H 146 H Respiratory Rate 16 20 25 H Blood Pressure 72/41 L 57/32 L Pulse Oximetry 93 L 03/23/18 05:27 03/23/18 05:28 03/23/18 05:30 Temperature Pulse Rate 116 H 115 H 115 H Respiratory Rate 16 18 16 Blood Pressure 59/34 L 58/34 L 60/35 L Pulse Oximetry 03/23/18 05:36 03/23/18 05:40 03/23/18 05:45 Temperature Pulse Rate 113 H 111 H 109 H Respiratory Rate 16 16 17 Blood Pressure 55/35 L 54/36 L 61/40 L Pulse Oximetry 03/23/18 05:51 03/23/18 05:56 03/23/18 06:00 Temperature Pulse Rate 111 H 109 H 108 H Respiratory Rate 21 17 18 Blood Pressure 57/36 L 58/39 L Pulse Oximetry 03/23/18 06:08 03/23/18 06:15 03/23/18 06:22 Temperature Pulse Rate 104 H 104 H 103 H Respiratory Rate 16 16 16 Blood Pressure 68/40 L 62/41 L 64/44 L Pulse Oximetry 03/23/18 06:30 03/23/18 06:36 03/23/18 06:40 Temperature Pulse Rate 103 H 75 78 Respiratory Rate 22 17 18 Blood Pressure 69/44 L 163/88 H 178/89 H Pulse Oximetry 03/23/18 06:51 03/23/18 07:00 03/23/18 07:01 Temperature Pulse Rate 98 H 113 H 112 H Respiratory Rate 20 28 H 32 H Blood Pressure 211/92 H 147/73 H Pulse Oximetry 03/23/18 07:10 03/23/18 07:20 03/23/18 07:30 Temperature Pulse Rate 191 H 181 H 167 H Respiratory Rate 25 H 16 20 Blood Pressure 133/61 89/53 L 108/65 Pulse Oximetry 91 L 03/23/18 07:40 03/23/18 07:45 03/23/18 08:00 Temperature Pulse Rate 161 H 161 H Respiratory Rate 20 20 26 H Blood Pressure 118/67 139/87 Pulse Oximetry 94 L 94 L 83 L 03/23/18 08:10 03/23/18 08:20 03/23/18 08:30 Temperature Pulse Rate 159 H 148 H 145 H Respiratory Rate 20 20 20 Blood Pressure 139/87 115/75 113/72 Pulse Oximetry 96 03/23/18 08:40 03/23/18 08:50 03/23/18 09:00 Temperature Pulse Rate 143 H 140 H 144 H Respiratory Rate 20 20 20 Blood Pressure 139/85 126/86 127/86 Pulse Oximetry 95 96 95 03/23/18 09:10 03/23/18 09:20 03/23/18 09:40 Temperature Pulse Rate 141 H 104 H 144 H Respiratory Rate 20 20 19 Blood Pressure 140/90 145/75 H 139/100 H Pulse Oximetry 95 95 95 03/23/18 09:47 03/23/18 09:50 03/23/18 10:00 Temperature Pulse Rate 140 H 121 H 104 H Respiratory Rate 20 20 20 Blood Pressure 162/85 H 157/92 H 152/84 H Pulse Oximetry 95 95 96 03/23/18 10:11 03/23/18 10:21 03/23/18 10:30 Temperature Pulse Rate 103 H 103 H 102 H Respiratory Rate 20 20 20 Blood Pressure 164/97 H 150/119 H 159/118 H Pulse Oximetry 96 96 96 03/23/18 10:40 03/23/18 10:50 03/23/18 11:00 Temperature Pulse Rate 104 H 104 H 102 H Respiratory Rate 20 20 20 Blood Pressure 148/100 H 141/82 H 141/86 H Pulse Oximetry 95 95 95 Intake & Output 03/22/18 03/23/18 03/23/18 18:59 06:59 18:59 Intake Total 1000 / 1000 150 / 150 50 / 50 Output Total 1160 / 1160 Balance -160 / -160 150 / 150 50 / 50 Weight 105.687 kg Intake: IV 1000 / 1000 150 / 150 50 / 50 NS Inj 1,000 ML @ 125 mls/hr IV 1000 / 1000 .CONT .Q8H [facility] Rx#:[id number] Ofirmev Inj 1,000 mg In 100 ml 100 / 100 @ 400 mls/hr IV.SIG ONCE ONE Rx #:[id number] Zosyn 2.25 GM Premix 50 ML @ 50 / 50 100 mls/hr IV.SIG Q6H [facility] Rx#: [id number] Zosyn 3.375 GM Premix 50 ML @ 50 / 50 100 mls/hr IV.SIG Q8H [facility] Rx#: [id number] Output: Urine 1160 / 1160 Other: Date of Last Bowel Movement 03/22/18 03/23/18 # Incontinent Bowel Movements 1 - Constitutional no acute distress - Routine HEENT Exam Head: Present: normocephalic ENT: Present: mucous membranes moist - Routine Neck Exam Present: trachea midline. Absent: JVD, tracheal deviation - Routine Respiratory Exam Present: patient mechanically ventilated, decreased breath sounds. Absent: accessory muscle use, respiratory distress - Routine Cardiovascular Exam Present: RRR. Absent: JVD - Routine Abdominal Exam Present: normoactive bowel sounds, distended, firm. Absent: soft - Routine Extremities Exam Present: vascular access. Absent: edema Comments: Right Femoral Cath - Routine Skin Exam Present: dry, cracked Results - Lab Results 03/23/18 04:28 03/23/18 13:18 Most recent lab results ABG pH 7.38 (7.380-7.420) 03/23/18 10:00 ABG pCO2 34 mmHg (38-42) L 03/23/18 10:00 ABG pO2 113 mmHg (61-120) 03/23/18 10:00 ABG HCO3 20 mmol/L (22-26) L 03/23/18 10:00 Calcium 7.4 mg/dL (8.5-10.1) L* 03/23/18 08:45 Phosphorus 3.6 mg/dL (2.5-4.9) 03/23/18 08:45 Magnesium 1.9 mg/dL (1.5-2.5) 03/23/18 08:45 Assessment and Plan - Assessment (1) GILLES (acute kidney injury) Code(s): N17.9 - Acute kidney failure, unspecified Status: Acute Plan: Patient could have Acute Tubular Necrosis due to sepsis or hypotension. Continue supportive care - fluid, antibiotics. No dialysis yet but will continue to monitor labs and determine if dialysis is needed. Patient has no Hyperkalemia. Patient has river catheter in place, monitor urine output. - Plan GNR sepsis, with shock due to complicated UTI Urine and blood cultures growing gram-negative rods/E. coli. Patient on Zosyn. Prostate cancer History of prostate cancer with radiation seeds still in place. Hypertension Monitor BP. Patient was previously hypotensive. Type 2 diabetes Continue insulin coverage to maintain blood glucose between 140 and 180. <Eloy Mahajan - Last Filed: 03/23/18 19:08> History of Present Illness Primary Care Provider: UNKNOWN [facility] - Medical History Medical History: Medical History (Last Reviewed 03/23/18 @ 09:03 by Lian Laurent MD) HBP (high blood pressure) No significant past surgical history Prostate cancer - Family History Family History: Family History (Last Reviewed 03/23/18 @ 09:03 by Lian Laurent MD) Other Family history normal Medications and Allergies Active Medications: Active Medications Acetaminophen (Tylenol) 650 mg PO Q4H PRN PRN Reason: Temp > 100.4 Al Hydroxide/Mg Hydroxide (Milk Of Mandie Valdovinos) 30 ml PO Q12H PRN PRN Reason: Mild Constipation Albuterol (Duoneb Neb (Dorothy)) 1 ampul NEB Q4HR NEB [facility] Last Admin: 03/23/18 14:51 Dose: 1 ampul Albuterol (Albuterol Neb (Prn)) 2.5 mg NEB Q2HR NEB PRN PRN Reason: DYSPNEA Artificial Tears (Tears Naturale Opth Drops) 1 drop EACH EYE Q8H [facility] Last Admin: 03/23/18 15:46 Dose: 1 drop Bisacodyl (Dulcolax Supp) 10 mg RECTAL DAILY PRN PRN Reason: SEVERE CONSITIPATION Chlorhexidine Gluconate (Chlorhexidine 2% Cloth) 3 pack TOPICAL DAILY@0400 DOROTHY Stop: 03/29/18 03:59 Chlorhexidine Gluconate (Chlorhexidine 2% Cloth) 3 pack TOPICAL DAILY@0400 PRN PRN Reason: Extra cloth needed Stop: 03/29/18 03:59 Dextrose (D50w Vial) 50 ml IV.PUSH UNSCH PRN PRN Reason: PER HYPOGLYCEMIA PROTOCOL Glucagon (Glucagon Inj) 1 mg OTHER PRN PRN PRN Reason: for Hypoglycemia Protocol Heparin Sodium (Porcine) (Heparin Inj) 5,000 units SQ Q12HR [facility] Last Admin: 03/23/18 11:54 Dose: 5,000 units Sodium Chloride (Ns Inj) 1,000 mls @ 0 mls/hr IV.SIG .Q0M [facility] Last Infusion: 03/22/18 03:01 Dose: Infused Sodium Chloride (Ns Inj) 1,000 mls @ 0 mls/hr IV.SIG .Q0M [facility] Sodium Chloride (Ns Inj) 1,000 mls @ 0 mls/hr IV.SIG .Q0M [facility] Sodium Chloride (Ns Inj) 300 mls @ 0 mls/hr IV.SIG .Q0M [facility] Piperacillin/Tazobactam/Dextrose (Zosyn 3.375 Gm Premix) 50 mls @ 100 mls/hr IV.SIG Q8H [facility] Last Infusion: 03/23/18 14:30 Dose: Infused Phenylephrine HCl 40 mg/ (Dextrose) 500 mls @ 30 mls/hr IV.CONT TITRATE PRN; Protocol PRN Reason: Per Protocol Last Admin: 03/23/18 11:50 Dose: 60 mcg/min, 45 mls/hr Midazolam HCl (Versed Inj) 100 mg in 100 mls @ 2 mls/hr IV.CONT TITRATE PRN; Protocol PRN Reason: See protocol Last Admin: 03/23/18 15:26 Dose: 10 mg/hr, 10 mls/hr Sodium Chloride (Ns Inj) 1,000 mls @ 100 mls/hr IV.CONT .Q10H [facility] Last Infusion: 03/23/18 15:15 Dose: Infused Fentanyl (Fentanyl 10 Mcg/Ml Premix Drip) 2,500 mcg in 250 mls @ 5 mls/hr IV.SIG TITRATE PRN; Protocol PRN Reason: Per Protocol Norepinephrine Bitartrate (Levophed-Dextrose 4 Mg/250 Ml Drip) 4 mg in 250 mls @ 7.5 mls/hr IV.SIG TITRATE PRN; Protocol PRN Reason: Per Protocol Last Titration: 03/23/18 14:30 Dose: 0 mcg/min, 0 mls/hr Insulin Aspart (Novolog Insulin Correctional Sugar Inj) 0 unit SQ Q4HR [facility]; Protocol Last Admin: 03/23/18 15:45 Dose: Not Given Lactulose (Lactulose Liq) 30 ml PO DAILY PRN PRN Reason: SEVERE CONSITIPATION Lansoprazole (Prevacid Solutab) 30 mg NG/OG DAILY [facility] Last Admin: 03/23/18 11:55 Dose: 30 mg Methylprednisolone Sodium Succinate (Solumedrol Inj) 40 mg IV.PUSH Q8HR [facility] Last Admin: 03/23/18 14:00 Dose: 40 mg Ondansetron HCl (Zofran Inj) 4 mg IV.PUSH Q6H PRN PRN Reason: NAUSEA OR VOMITING Senna/Docusate Sodium (Madhavi-Colace) 1 tab PO BID [facility] Last Admin: 03/23/18 11:53 Dose: 1 tab Sennosides (Senokot) 17.2 mg PO Q12H PRN PRN Reason: Moderate Constipation Sodium Chloride (Ns Flush) 0 ml IV.FLUSH DAILY [facility] Last Admin: 03/23/18 11:55 Dose: 6 ml Terbutaline Sulfate (Brethine Inj) 1 mg SQ UNSCH PRN PRN Reason: For Extravasation Terbutaline Sulfate (Brethine Inj) 1 mg SQ UNSCH PRN PRN Reason: For Extravasation Exam Vital signs: Vital Signs 03/23/18 00:00 03/23/18 00:40 03/23/18 03:00 Temperature 99.9 F H Pulse Rate 134 H Respiratory Rate 22 Blood Pressure 133/81 Pulse Oximetry 85 L 98 98 03/23/18 04:00 03/23/18 05:15 03/23/18 05:20 Temperature 103.3 F H Pulse Rate 122 H 152 H Respiratory Rate 36 H 39 H 16 Blood Pressure 134/74 Pulse Oximetry 95 84 L 03/23/18 05:23 03/23/18 05:25 03/23/18 05:27 Temperature Pulse Rate 148 H 146 H 116 H Respiratory Rate 20 25 H 16 Blood Pressure 72/41 L 57/32 L 59/34 L Pulse Oximetry 93 L 03/23/18 05:28 03/23/18 05:30 03/23/18 05:36 Temperature Pulse Rate 115 H 115 H 113 H Respiratory Rate 18 16 16 Blood Pressure 58/34 L 60/35 L 55/35 L Pulse Oximetry 03/23/18 05:40 03/23/18 05:45 03/23/18 05:51 Temperature Pulse Rate 111 H 109 H 111 H Respiratory Rate 16 17 21 Blood Pressure 54/36 L 61/40 L 57/36 L Pulse Oximetry 03/23/18 05:56 03/23/18 06:00 03/23/18 06:08 Temperature Pulse Rate 109 H 108 H 104 H Respiratory Rate 17 18 16 Blood Pressure 58/39 L 68/40 L Pulse Oximetry 03/23/18 06:15 03/23/18 06:22 03/23/18 06:30 Temperature Pulse Rate 104 H 103 H 103 H Respiratory Rate 16 16 22 Blood Pressure 62/41 L 64/44 L 69/44 L Pulse Oximetry 03/23/18 06:36 03/23/18 06:40 03/23/18 06:51 Temperature Pulse Rate 75 78 98 H Respiratory Rate 17 18 20 Blood Pressure 163/88 H 178/89 H 211/92 H Pulse Oximetry 03/23/18 07:00 03/23/18 07:01 03/23/18 07:10 Temperature Pulse Rate 113 H 112 H 191 H Respiratory Rate 28 H 32 H 25 H Blood Pressure 147/73 H 133/61 Pulse Oximetry 03/23/18 07:20 03/23/18 07:30 03/23/18 07:40 Temperature Pulse Rate 181 H 167 H 161 H Respiratory Rate 16 20 20 Blood Pressure 89/53 L 108/65 118/67 Pulse Oximetry 91 L 94 L 03/23/18 07:45 03/23/18 08:00 03/23/18 08:10 Temperature Pulse Rate 161 H 159 H Respiratory Rate 20 26 H 20 Blood Pressure 139/87 139/87 Pulse Oximetry 94 L 83 L 03/23/18 08:20 03/23/18 08:30 03/23/18 08:40 Temperature Pulse Rate 148 H 145 H 143 H Respiratory Rate 20 20 20 Blood Pressure 115/75 113/72 139/85 Pulse Oximetry 96 95 03/23/18 08:50 03/23/18 09:00 03/23/18 09:10 Temperature Pulse Rate 140 H 144 H 141 H Respiratory Rate 20 20 20 Blood Pressure 126/86 127/86 140/90 Pulse Oximetry 96 95 95 03/23/18 09:20 03/23/18 09:40 03/23/18 09:47 Temperature Pulse Rate 104 H 144 H 140 H Respiratory Rate 20 19 20 Blood Pressure 145/75 H 139/100 H 162/85 H Pulse Oximetry 95 95 95 03/23/18 09:50 03/23/18 10:00 03/23/18 10:11 Temperature Pulse Rate 121 H 104 H 103 H Respiratory Rate 20 20 20 Blood Pressure 157/92 H 152/84 H 164/97 H Pulse Oximetry 95 96 96 03/23/18 10:21 03/23/18 10:30 03/23/18 10:40 Temperature Pulse Rate 103 H 102 H 104 H Respiratory Rate 20 20 20 Blood Pressure 150/119 H 159/118 H 148/100 H Pulse Oximetry 96 96 95 03/23/18 10:50 03/23/18 11:00 03/23/18 11:11 Temperature Pulse Rate 104 H 102 H 102 H Respiratory Rate 20 20 20 Blood Pressure 141/82 H 141/86 H 151/120 H Pulse Oximetry 95 95 96 03/23/18 12:00 03/23/18 12:43 03/23/18 13:00 Temperature Pulse Rate 103 H 75 Respiratory Rate 20 20 20 Blood Pressure 140/80 125/81 Pulse Oximetry 95 95 95 03/23/18 14:00 03/23/18 14:52 03/23/18 15:00 Temperature Pulse Rate 75 77 75 Respiratory Rate 20 20 20 Blood Pressure 126/85 120/75 Pulse Oximetry 95 95 03/23/18 16:00 03/23/18 17:00 03/23/18 17:11 Temperature Pulse Rate 74 72 85 Respiratory Rate 20 20 20 Blood Pressure 138/87 131/83 96/63 L Pulse Oximetry 97 97 97 03/23/18 18:00 03/23/18 18:25 Temperature Pulse Rate 71 Respiratory Rate 20 20 Blood Pressure 133/91 H Pulse Oximetry 98 98 Intake & Output 03/23/18 03/23/18 03/24/18 06:59 18:59 06:59 Intake Total 1150 / 1150 2950 / 2950 Balance 1150 / 1150 2950 / 2950 Intake: IV 1150 / 1150 2950 / 2950 Versed Inj 100 mg In 100 ml @ 2 100 / 100 MG/HR 2 mls/hr IV.CONT TITRATE PRN Rx#:[id number] Neosynephrine Inj 40 MG In D5W 500 / 500 Inj 496 ML @ 40 MCG/MIN 30 mls/ hr IV.CONT TITRATE PRN Rx#: [id number] NS Inj 1,000 ML @ 100 mls/hr IV 1000 / 1000 .CONT .Q10H [facility] Rx#:[id number] Ofirmev Inj 1,000 mg In 100 ml 100 / 100 @ 400 mls/hr IV.SIG ONCE ONE Rx #:[id number] Zosyn 2.25 GM Premix 50 ML @ 50 / 50 100 mls/hr IV.SIG Q6H [facility] Rx#: [id number] Zosyn 3.375 GM Premix 50 ML @ 100 / 100 100 mls/hr IV.SIG Q8H [facility] Rx#: [id number] NS Inj 1,000 ML @ Wide Open IV. 1000 / 1000 1000 / 1000 SIG .Q0M ONE Rx#:[id number] Vancomycin Inj 1,000 MG In NS 250 / 250 Inj 250 ML @ 250 mls/hr IV.SIG ONCE ONE Rx#:[id number] Other: Date of Last Bowel Movement 03/23/18 03/23/18 Results - Lab Results 03/23/18 04:28 03/23/18 13:18 Most recent lab results ABG pH 7.39 (7.380-7.420) 03/23/18 13:51 ABG pCO2 31 mmHg (38-42) L 03/23/18 13:51 ABG pO2 124 mmHG (61-120) H 03/23/18 13:51 ABG HCO3 18 mmol/L (22-26) L 03/23/18 13:51 Calcium 7.7 mg/dL (8.5-10.1) L 03/23/18 13:18 Phosphorus 2.5 mg/dL (2.5-4.9) D 03/23/18 13:18 Magnesium 2.0 mg/dL (1.5-2.5) 03/23/18 13:18 Assessment and Plan - Assessment (1) GILLES (acute kidney injury) Code(s): N17.9 - Acute kidney failure, unspecified Status: Acute - Attending Attestation patient was seen and examined. GILLES due to ATN due to sepsis and hypotension. Also has unilateral hydronephrosis of unclear etiology. He has UTI with sepsis. E.coli in the blood. Continue IVF. Continue antibiotics. Dialysis if needed.
--- NOTE | 2018-03-23 12:42 | ECG ---
Date Performed: 03/22/2018 Time Performed: 13:15:17 PTAGE: 82 years EKG: SINUS TACHYCARDIA LOW QRS VOLTAGE IN PRECORDIAL LEADS NONSPECIFIC T-WAVE ABNORMALITY ABNORM AL RHYTHM ECG PREVIOUS TRACING : 05/15/2014 19.19 DOCTOR: Abhay Diaz Interpretating Date/Time 03/23/2018 12:40:22
[2018-03-23 13:30] LABS: Creatinine,Urine Random 123 mg/dL (27-300); Sodium,Urine Random 44 meq/L
[2018-03-23 14:01] LABS: Calcium 7.7 mg/dL (8.5-10.1); Carbon Dioxide 20.6 meq/L (21.0-32.0); Phosphorus 2.5 mg/dL (2.5-4.9); Potassium 4.4 meq/L (3.5-5.1)
[2018-03-23 14:01] LABS: ABG Base Excess -5.8 mmol/L (-2-2); ABG PCO2 31 mmHg (38-42); ABG PO2 124 mmHG (61-120)
--- NOTE | 2018-03-23 17:22 | ECHRPT ---
Indication: HEART FAILURE CONCLUSIONS Normal left ventricular size. Wall thickness is measured at the upper limits of normal. The left ventricular systolic function is hyperdynamic with an estimated ejection fraction in the ra nge of 65- 70%. Cebrb-[id number] mitral valve regurgitation. There is mild to moderate tricuspid valve regurgitation. The estimated pulmonary arterial pressure is 38.3 mmHg. BP: / HR: Rhythm: Sinus MEASUREMENTS (Male / Female) Normal Values Technical Quality:Fair 2D ECHO LV Diastolic Diameter PLAX 3.0 cm 4.2 - 5.9 / 3.9 - 5.3 cm LV Systolic Diameter PLAX 2.1 cm IVS Diastolic Thickness 1.0 cm 0.6 - 1.0 / 0.6 - 0.9 cm LVPW Diastolic Thickness 1.0 cm 0.6 - 1.0 / 0.6 - 0.9 cm LV Relative Wall Thickness 0.7 RV Internal Dim ED PLAX 2.4 cm LVOT Diameter 1.8 cm Aortic Root Diameter 3.1 cm LA Systolic Diameter LX 2.9 cm 3.0 - 4.0 / 2.7 - 3.8 cm M-MODE AV Cusp Separation MM 2.0 cm DOPPLER AV Peak Velocity 92.4 cm/s AV Peak Gradient 3.4 mmHg AV Mean Gradient 2.0 mmHg AV Velocity Time Integral 15.7 cm LVOT Peak Velocity 66.9 cm/s LVOT Peak Gradient 1.8 mmHg LVOT Velocity Time Integral 11.7 cm AV Area Cont Eq vti 1.9 cm AV Area Cont Eq pk 1.8 cm Mitral E Point Velocity 58.7 cm/s Mitral A Point Velocity 48.9 cm/s Mitral E to A Ratio 1.2 LV E' Lateral Velocity 10.2 cm/s Mitral E to LV E' Lateral Ratio 5.8 LV E' Septal Velocity 5.2 cm/s Mitral E to LV E' Septal Ratio 11.4 TR Peak Velocity 266.0 cm/s TR Peak Gradient 28.3 mmHg Right Atrial Pressure 10.0 mmHg Pulmonary Artery Systolic Pressu 38.3 mmHg Right Ventricular Systolic Press 38.3 mmHg PV Peak Velocity 60.2 cm/s PV Peak Gradient 1.4 mmHg FINDINGS LEFT VENTRICLE Normal left ventricular size. Wall thickness is measured at the upper limits of normal. The left ventricular systolic function is hyperdynamic with an estimated ejection fraction in the ra nge of 65- 70%. RIGHT VENTRICLE Normal right ventricular size and systolic function. LEFT ATRIUM The left atrial size is normal. RIGHT ATRIUM The right atrial size is normal. ATRIAL SEPTUM The interatrial septum not well visualized. AORTA The aortic root and proximal ascending aorta are normal in size on limited imaging. MITRAL VALVE Fmuac-hs-vupv mitral valve regurgitation. AORTIC VALVE Trileaflet aortic valve. No aortic valve stenosis or regurgitation. TRICUSPID VALVE There is mild to moderate tricuspid valve regurgitation. The estimated pulmonary arterial pressure is 38.3 mmHg. PULMONARY VALVE The pulmonary valve is not well visualized. VESSELS The inferior vena cava was not well visualized. PERICARDIUM No pericardial effusion. Abhay Diaz MD, FACC (Electronically Signed) Final Date:23 March 2018 17:21
[2018-03-23 20:59] LABS: Calcium 7.7 mg/dL (8.5-10.1); Potassium 4.4 meq/L (3.5-5.1)
[2018-03-24] MEDS: Artificial Tears Opth Drops 15 ML Bottle EACH EYE SCH ×4 (01:21→23:11)
[2018-03-24] MEDS: Sod Chloride 0.9% Inj 1,000 ML IV.CONT SCH ×2 (01:46→12:32)
[2018-03-24] MEDS: Chlorhexidine Gluconate 2% 1 Pack (2 Cloths) TOPICAL SCH (03:58)
[2018-03-24] MEDS ORDERED: Chlorhexidine Gluconate 2% 1 Pack (2 Cloths) TOPICAL PRN (04:00)
[2018-03-24] MEDS: Insulin NovoLOG Aspart Correctional Sugar Inj SQ SCH ×6 (04:07→23:13)
[2018-03-24 04:29] LABS: Baso % (Auto) 0.3 % (0.0-2.0); Hematocrit 33.1 % (39.0-51.0); Hemoglobin 11.3 gm/dL (13.0-17.0); Lymph # (Auto) 0.6 th/mm3 (1.0-4.8); Lymph % (Auto) 6.4 % (9.0-44.0); Mean Corpuscular HGB Conc 34.2 % (32.0-36.0); Mean Corpuscular Hemoglobin 30.8 pg (27.0-34.0); Mean Corpuscular Volume 90.2 fL (80.0-100.0); Mean Platelet Volume 9.5 fL (7.0-11.0); Mono # (Auto) 0.3 th/mm3 (0.0-0.9); Mono % (Auto) 3.5 % (0.0-8.0); Neut # (Auto) 8.8 th/mm3 (1.8-7.7); Neut % (Auto) 89.8 % (16.0-70.0); Platelet Count 127 th/mm3 (150-450); Red Blood Count 3.67 mil/mm3 (4.50-5.90); White Blood Count 9.8 th/mm3 (4.0-11.0)
[2018-03-24 04:43] LABS: Activated Partial Thrombo Time 34.3 sec (23.4-31.7); Prothrombin Time 10.4 sec (9.8-11.6)
[2018-03-24 05:05] LABS: Albumin 1.9 g/dL (3.4-5.0); Calcium 7.4 mg/dL (8.5-10.1); Magnesium 2.1 mg/dL (1.5-2.5); Phosphorus 1.6 mg/dL (2.5-4.9); Potassium 3.8 meq/L (3.5-5.1); Thyroid Stimulating Hormone 0.755 uIU/mL (0.358-3.740); Total Protein 6.2 g/dL (6.4-8.2); Troponin I 0.05 ng/mL (0.02-0.05)
--- NOTE | 2018-03-24 05:17 | XR ---
EXAM DATE: 03/24/2018 4:39 AM EST AGE/SEX: 83 years / Male INDICATIONS: Shortness of breath, possible pulmonary disease. CLINICAL DATA: This is the patient's subsequent encounter. Patient reports that signs and symptoms h ave been present for 4 - 6 days and indicates a pain score of Nonresponsive. MEDICAL/SURGICAL HISTORY: Carcinoma, prostatic. Hypertension. None. COMPARISON: [facility], CHEST 1V SINGLE AP, 03/23/2018. . FINDINGS: Endotracheal tube in good position. Left central line in superior vena cava. NG enters stomach. Bilat eral airspace disease, left greater than right. Small left effusion. No pneumothorax. CONCLUSION: Endotracheal tube, left central line and nasogastric tube in good position. Left-sided airspace disea se with small left effusion. Findings similar to March 23. Electronically signed by: Jose Camargo MD 03/24/2018 5:16 AM EST
[2018-03-24] MEDS: MethylPREDNISolone Sod Succinate Inj 40 MG/ML Vial IV.PUSH SCH ×3 (05:26→23:10)
[2018-03-24] MEDS: Piperacil/Tazo 3.375 GM Premix 50 ML IV.SIG SCH ×3 (05:26→23:11)
[2018-03-24] MEDS ORDERED: Acetaminophen 325 MG Tablet PO PRN (07:58)
[2018-03-24] MEDS: Heparin - SQ 10,000 UNITS/ML Vial SQ SCH ×2 (08:21→23:09)
[2018-03-24] MEDS: Senna/Docusate Sodium 8.6/50 MG Tablet PO SCH ×2 (08:21→23:09)
[2018-03-24] MEDS ORDERED: Sodium Glycerophosphate Inj 15 MMOL in Sodium Chlor 0.9% Inj 100 ML IV.SIG ONE (08:32)
--- NOTE | 2018-03-24 08:36 | P.PNCC ---
Subjective Subjective Remarks/Hospital Course: Patient is a 83-year-old -[place] male with history of prostate cancer, hypertension who was admitted to the hospitalist service for UTI and urosepsis. Patient was found to be in acute renal failure and CT of the abdomen pelvis showed left hydronephrosis hydroureter. Seen by urology for hydronephrosis and hematuria no further intervention from urology standpoint. Had been initially on Rocephin and later changed to Zosyn. Blood cultures 4 out of 4 bottles positive for gram-negative rods (which is growing E. coli now). Patient was increasingly somnolent tonight and has history of previous smoking. His ABG showed pH of 7.23 with hypercapnia, PCo2 66. Patient was also short of breath and was placed on BiPAP. After 2 hours of BiPAP repeat ABG showed persistent acidosis and worsening pCo2 now 68. Patient was moved to the ICU stat where I evaluated him. He is showing labored breathing currently, very hard to arouse. I proceeded with endotracheal intubation and placed him on mechanical ventilation. Post intubation patient became more hypotensive. I have ordered 3 L normal saline bolus. Start Dre-Synephrine if needed to keep map above 65 as the patient is also tachycardic. Continues to spike fever repeat sputum blood cultures will be sent. Single dose of vancomycin ordered. Creatinine initially was 2.4 now worsened to 2.95. Patient will need strict hourly intake output Solomon has been ordered, nephrology consult also placed SUBJECTIVE: 03/24: Currently off all vasopressors. 450 cc urine output overnight. Creatinine slowly decreasing. Will reevaluate hydronephrosis today with ultrasound. Remains on piperacillin/tazobactam. Will start on tube feeding today. Objective Vital Signs / I&O: Vital Signs 03/23/18 08:40 03/23/18 08:50 03/23/18 09:00 Temperature Pulse Rate 143 H 140 H 144 H Respiratory Rate 20 20 20 Blood Pressure 139/85 126/86 127/86 Pulse Oximetry 95 96 95 03/23/18 09:10 03/23/18 09:20 03/23/18 09:40 Temperature Pulse Rate 141 H 104 H 144 H Respiratory Rate 20 20 19 Blood Pressure 140/90 145/75 H 139/100 H Pulse Oximetry 95 95 95 03/23/18 09:47 03/23/18 09:50 03/23/18 10:00 Temperature Pulse Rate 140 H 121 H 104 H Respiratory Rate 20 20 20 Blood Pressure 162/85 H 157/92 H 152/84 H Pulse Oximetry 95 95 96 03/23/18 10:11 03/23/18 10:21 03/23/18 10:30 Temperature Pulse Rate 103 H 103 H 102 H Respiratory Rate 20 20 20 Blood Pressure 164/97 H 150/119 H 159/118 H Pulse Oximetry 96 96 96 03/23/18 10:40 03/23/18 10:50 03/23/18 11:00 Temperature Pulse Rate 104 H 104 H 102 H Respiratory Rate 20 20 20 Blood Pressure 148/100 H 141/82 H 141/86 H Pulse Oximetry 95 95 95 03/23/18 11:11 03/23/18 12:00 03/23/18 12:43 Temperature Pulse Rate 102 H 103 H Respiratory Rate 20 20 20 Blood Pressure 151/120 H 140/80 Pulse Oximetry 96 95 95 03/23/18 13:00 03/23/18 14:00 03/23/18 14:52 Temperature Pulse Rate 75 75 77 Respiratory Rate 20 20 20 Blood Pressure 125/81 126/85 Pulse Oximetry 95 95 03/23/18 15:00 03/23/18 16:00 03/23/18 17:00 Temperature Pulse Rate 75 74 72 Respiratory Rate 20 20 20 Blood Pressure 120/75 138/87 131/83 Pulse Oximetry 95 97 97 03/23/18 17:11 03/23/18 18:00 03/23/18 18:25 Temperature Pulse Rate 85 71 Respiratory Rate 20 20 20 Blood Pressure 96/63 L 133/91 H Pulse Oximetry 97 98 98 03/23/18 19:36 03/23/18 20:00 03/23/18 22:00 Temperature 96.8 F L Pulse Rate 76 68 70 Respiratory Rate 20 20 Blood Pressure 136/90 Pulse Oximetry 97 97 03/23/18 23:26 03/24/18 00:00 03/24/18 02:00 Temperature 97.5 F L Pulse Rate 69 68 73 Respiratory Rate 20 20 Blood Pressure 134/81 Pulse Oximetry 100 100 03/24/18 03:34 03/24/18 04:00 03/24/18 06:00 Temperature 97.2 F L Pulse Rate 77 72 73 Respiratory Rate 20 20 Blood Pressure 111/75 Pulse Oximetry 100 94 L 03/24/18 07:42 Temperature Pulse Rate 69 Respiratory Rate 18 Blood Pressure Pulse Oximetry Intake & Output 03/23/18 03/24/18 03/24/18 18:59 06:59 18:59 Intake Total 2950 / 2950 1200 / 1200 Output Total 550 / 550 450 / 450 Balance 2400 / 2400 750 / 750 Weight 117.5 kg Intake: IV 2950 / 2950 1200 / 1200 Versed Inj 100 mg In 100 ml @ 2 100 / 100 100 / 100 MG/HR 2 mls/hr IV.CONT TITRATE PRN Rx#:[id number] Neosynephrine Inj 40 MG In D5W 500 / 500 Inj 496 ML @ 40 MCG/MIN 30 mls/ hr IV.CONT TITRATE PRN Rx#: [id number] NS Inj 1,000 ML @ 100 mls/hr IV 1000 / 1000 1000 / 1000 .CONT .Q10H SARAH Rx#:[id number] Zosyn 3.375 GM Premix 50 ML @ 100 / 100 100 / 100 100 mls/hr IV.SIG Q8H SARAH Rx#: [id number] NS Inj 1,000 ML @ Wide Open IV. 1000 / 1000 SIG .Q0M ONE Rx#:[id number] Vancomycin Inj 1,000 MG In NS 250 / 250 Inj 250 ML @ 250 mls/hr IV.SIG ONCE ONE Rx#:[id number] Output: Urine Amount (Catheter) 400 / 400 450 / 450 Indwelling Urethral Catheter 400 / 400 450 / 450 Gastric Drainage 150 / 150 Orogastric Tube 150 / 150 Other: Date of Last Bowel Movement 03/23/18 03/24/18 # Incontinent Bowel Movements 2 Result Diagrams: 03/24/18 04:00 03/24/18 04:00 Other Results: Microbiology 03/21/18 20:31 Blood - Peripheral Aerobic Blood Culture - Preliminary Escherichia coli 03/21/18 20:31 Blood - Peripheral Anaerobic Blood Culture - Preliminary Escherichia coli 03/21/18 20:31 Blood - Peripheral Aerobic Blood Culture - Preliminary Escherichia coli 03/21/18 20:31 Blood - Peripheral Anaerobic Blood Culture - Preliminary Escherichia coli 03/21/18 20:43 Clean Catch Urine Urine Culture - Final Escherichia coli Imaging: Abdomen/Pelvis CT 03/21/18 18:35 CONCLUSION: 1. Left-sided hydronephrosis and hydroureter with prominent stranding. No radiopaque calculus identified. 2. Enlarged prostate gland containing prostatic seeds. 3. Hepatic steatosis. 4. Prominence of both adrenal glands likely hyperplasia. Chest X-Ray 03/21/18 20:10 CONCLUSION: Diminished lung volumes without infiltrate Chest X-Ray 03/22/18 00:00 CONCLUSION: Mild bilateral mostly basilar airspace disease. No significant effusion. No pneumothorax. Chest X-Ray 03/23/18 05:33 CONCLUSION: Probable basilar atelectasis. NG and endotracheal tube in good position. Chest X-Ray 03/23/18 07:22 CONCLUSION: Support equipment in good position. Increasing left basilar effusion compared to prior dated 03/23/2018. Chest X-Ray 03/24/18 06:00 CONCLUSION: Endotracheal tube, left central line and nasogastric tube in good position. Left -sided airspace disease with small left effusion. Findings similar to March 23. Objective Remarks: GENERAL: 83-year-old AA male critically ill currently resting in bed SKIN: Warm and dry. HEAD: Atraumatic. Normocephalic. EYES: Pupils equal and round. No scleral icterus. No injection or drainage. ENT: No nasal bleeding or discharge. Mucous membranes pink and moist. NECK: Trachea midline. No JVD. Left IJ CVL clean dry and intact. CARDIOVASCULAR: Regular rate and rhythm. S1, S2. No S4. RESPIRATORY: Minutes breath sounds throughout. No wheezing. GASTROINTESTINAL: Abdomen soft, non-tender, nondistended. Hepatic and splenic margins not palpable. MUSCULOSKELETAL: Extremities with trace bilateral lower extremity edema. Ankle bracelet on right ankle NEUROLOGICAL: Arousable on the ventilator when midazolam drip discontinued and moves all 4 extremities vigorously strongly. Procedures: Left IJ CVL 03/23 Right femoral arterial line 03/23 Assessment and Plan - Assessment and Plan Plan: NEURO/PSYCH: Acute toxic metabolic encephalopathy secondary to sepsis -Currently on midazolam/fentanyl drips for sedation/analgesia while intubated -Goal of RA SS -2 -Daily sedation vacation -Acetaminophen 650 by tube every 6 hours as needed fever RESP: Acute hypercapnic respiratory failure COPD with exacerbation -PRVC/AC, Ventilator bundle -Albuterol/ipratropium aerosols every 4 hours scheduled a with albuterol aerosols every 2 hours as needed dyspnea -Send sputum culture -Start methylprednisolone succinate l 40 mg IV every 8 hours -CPAP/spontaneous breathing trials when clinically indicated -Follow-up a.m. chest x-ray and ABG 03/25 CV: History of essential hypertension Septic shock Moderate TR. Mild MR. Elevated troponin -Normal saline IV fluids 3L bolus, maintenance fluid at 125 ml per hour -Currently on no vasopressors. Previously on norepinephrine and phenylephrine drips -Lactate to be cycled and the cleared. Currently 2.6 2D echocardiogram revealed EF 65-70%. Moderate TR. Mild MR. PA P 38.3 mmHg Cardiology consulted for possible AV block yesterday. Resolved currently. GI: Elevated AST Elevated lipase Hypoalbuminemia -Currently on Vital 1.5 goal 55 cc an hour -Lansoprazole for GI prophylaxis -Docusate sodium/senna 1 tablet twice daily for bowel regimen -Recheck hepatic profile in a.m. Renal/: Acute kidney injury Left hydronephrosis/hydroureter Rhabdomyolysis -Monitor renal function closely. Place Solomon catheter for strict hourly intake output, and due to worsening renal failure -Consult nephrology for worsening renal failure, urology had already been consulted-no intervention -IV hydration as above -Serial CPKs. -We will recheck renal ultrasound today ID: E. coli bacteremia and UTI -Antibiotics-increase piperacillin/tazobactam to 3.375 every 8 hours, single dose of vancomycin 1 g -Repeat blood and sputum culture. 03/23 -Urine and blood cultures growing gram-negative rods/E. coli -Consult ID [id number]: Normocytic anemia Thrombocytopenia Elevated PTT Elevated fibrinogen -Monitor CBC, coags -No indication for transfusion of blood products at this time. ENDO: DMII -Sliding scale insulin TSH was 0.755 FEN Hypocalcemia hypophosphatemia 15 mmol sodium phosphate IV x1 now. Recheck in a.m. PROPH: -Bilateral lower extremity SCDs. Subcu heparin -Lansoprazole LINES: -Utilize peripheral IVs, left IJ CVL day #2 and right femoral arterial line day #2 CC time 2-minute
--- NOTE | 2018-03-24 08:47 | P.PNCA ---
Subjective Interval history: Intubated, sedated Medications and Allergies Active Medications: Active Medications Acetaminophen (Tylenol) 650 mg PO Q6H PRN PRN Reason: Temp > 100.4 Al Hydroxide/Mg Hydroxide (Milk Of Mandie Liq) 30 ml PO Q12H PRN PRN Reason: Mild Constipation Albuterol (Duoneb Neb (Dorothy)) 1 ampul NEB Q4HR NEB [facility] Last Admin: 03/24/18 07:41 Dose: 1 ampul Albuterol (Albuterol Neb (Prn)) 2.5 mg NEB Q2HR NEB PRN PRN Reason: DYSPNEA Artificial Tears (Tears Naturale Opth Drops) 1 drop EACH EYE Q8H [facility] Last Admin: 03/24/18 01:21 Dose: Not Given Bisacodyl (Dulcolax Supp) 10 mg RECTAL DAILY PRN PRN Reason: SEVERE CONSITIPATION Chlorhexidine Gluconate (Chlorhexidine 2% Cloth) 3 pack TOPICAL DAILY@0400 DOROTHY Stop: 03/29/18 03:59 Last Admin: 03/24/18 03:58 Dose: 3 pack Chlorhexidine Gluconate (Chlorhexidine 2% Cloth) 3 pack TOPICAL DAILY@0400 PRN PRN Reason: Extra cloth needed Stop: 03/29/18 03:59 Dextrose (D50w Vial) 50 ml IV.PUSH UNSCH PRN PRN Reason: PER HYPOGLYCEMIA PROTOCOL Glucagon (Glucagon Inj) 1 mg OTHER PRN PRN PRN Reason: for Hypoglycemia Protocol Heparin Sodium (Porcine) (Heparin Inj) 5,000 units SQ Q12HR [facility] Last Admin: 03/24/18 08:21 Dose: 5,000 units Sodium Chloride (Ns Inj) 1,000 mls @ 0 mls/hr IV.SIG .Q0M [facility] Last Infusion: 03/22/18 03:01 Dose: Infused Sodium Chloride (Ns Inj) 1,000 mls @ 0 mls/hr IV.SIG .Q0M DOROTHY Sodium Chloride (Ns Inj) 1,000 mls @ 0 mls/hr IV.SIG .Q0M [facility] Sodium Chloride (Ns Inj) 300 mls @ 0 mls/hr IV.SIG .Q0M DOROTHY Piperacillin/Tazobactam/Dextrose (Zosyn 3.375 Gm Premix) 50 mls @ 100 mls/hr IV.SIG Q8H [facility] Last Infusion: 03/24/18 05:58 Dose: Infused Phenylephrine HCl 40 mg/ (Dextrose) 500 mls @ 30 mls/hr IV.CONT TITRATE PRN; Protocol PRN Reason: Per Protocol Last Titration: 03/23/18 23:45 Dose: 0 mcg/min, 0 mls/hr Midazolam HCl (Versed Inj) 100 mg in 100 mls @ 2 mls/hr IV.CONT TITRATE PRN; Protocol PRN Reason: See protocol Last Admin: 03/23/18 23:43 Dose: 10 mg/hr, 10 mls/hr Sodium Chloride (Ns Inj) 1,000 mls @ 100 mls/hr IV.CONT .Q10H [facility] Last Admin: 03/24/18 01:46 Dose: 100 mls/hr Fentanyl (Fentanyl 10 Mcg/Ml Premix Drip) 2,500 mcg in 250 mls @ 5 mls/hr IV.SIG TITRATE PRN; Protocol PRN Reason: Per Protocol Norepinephrine Bitartrate (Levophed-Dextrose 4 Mg/250 Ml Drip) 4 mg in 250 mls @ 7.5 mls/hr IV.SIG TITRATE PRN; Protocol PRN Reason: Per Protocol Last Titration: 03/23/18 14:30 Dose: 0 mcg/min, 0 mls/hr Sodium Glycerophosphate 15 (mmol/ Sodium Chloride) 115 mls @ 25 mls/hr IV.SIG ONCE ONE Stop: 03/24/18 13:07 Insulin Aspart (Novolog Insulin Correctional Sugar Inj) 0 unit SQ Q4HR [facility]; Protocol Last Admin: 03/24/18 08:23 Dose: 10 unit Lactulose (Lactulose Liq) 30 ml PO DAILY PRN PRN Reason: SEVERE CONSITIPATION Lansoprazole (Prevacid Solutab) 30 mg NG/OG DAILY [facility] Last Admin: 03/24/18 08:21 Dose: 30 mg Methylprednisolone Sodium Succinate (Solumedrol Inj) 40 mg IV.PUSH Q8HR [facility] Last Admin: 03/24/18 05:26 Dose: 40 mg Ondansetron HCl (Zofran Inj) 4 mg IV.PUSH Q6H PRN PRN Reason: NAUSEA OR VOMITING Senna/Docusate Sodium (Madhavi-Colace) 1 tab PO BID [facility] Last Admin: 03/24/18 08:21 Dose: 1 tab Sennosides (Senokot) 17.2 mg PO Q12H PRN PRN Reason: Moderate Constipation Sodium Chloride (Ns Flush) 0 ml IV.FLUSH DAILY DOROTHY Last Admin: 03/24/18 08:23 Dose: 4 ml Terbutaline Sulfate (Brethine Inj) 1 mg SQ UNSCH PRN PRN Reason: For Extravasation Terbutaline Sulfate (Brethine Inj) 1 mg SQ UNSCH PRN PRN Reason: For Extravasation Allergies Allergy/AdvReac Type Severity Reaction Status Date / Time No Known Allergies Allergy Verified 03/21/18 18:31 Home Medications Medication Instructions Recorded Confirmed Type aspirin 325 mg PO DAILY 03/21/18 03/21/18 History Physical Exam Vital signs: Vital Signs 03/23/18 08:50 03/23/18 09:00 03/23/18 09:10 Temperature Pulse Rate 140 H 144 H 141 H Respiratory Rate 20 20 20 Blood Pressure 126/86 127/86 140/90 Pulse Oximetry 96 95 95 03/23/18 09:20 03/23/18 09:40 03/23/18 09:47 Temperature Pulse Rate 104 H 144 H 140 H Respiratory Rate 20 19 20 Blood Pressure 145/75 H 139/100 H 162/85 H Pulse Oximetry 95 95 95 03/23/18 09:50 03/23/18 10:00 03/23/18 10:11 Temperature Pulse Rate 121 H 104 H 103 H Respiratory Rate 20 20 20 Blood Pressure 157/92 H 152/84 H 164/97 H Pulse Oximetry 95 96 96 03/23/18 10:21 03/23/18 10:30 03/23/18 10:40 Temperature Pulse Rate 103 H 102 H 104 H Respiratory Rate 20 20 20 Blood Pressure 150/119 H 159/118 H 148/100 H Pulse Oximetry 96 96 95 03/23/18 10:50 03/23/18 11:00 03/23/18 11:11 Temperature Pulse Rate 104 H 102 H 102 H Respiratory Rate 20 20 20 Blood Pressure 141/82 H 141/86 H 151/120 H Pulse Oximetry 95 95 96 03/23/18 12:00 03/23/18 12:43 03/23/18 13:00 Temperature Pulse Rate 103 H 75 Respiratory Rate 20 20 20 Blood Pressure 140/80 125/81 Pulse Oximetry 95 95 95 03/23/18 14:00 03/23/18 14:52 03/23/18 15:00 Temperature Pulse Rate 75 77 75 Respiratory Rate 20 20 20 Blood Pressure 126/85 120/75 Pulse Oximetry 95 95 03/23/18 16:00 03/23/18 17:00 03/23/18 17:11 Temperature Pulse Rate 74 72 85 Respiratory Rate 20 20 20 Blood Pressure 138/87 131/83 96/63 L Pulse Oximetry 97 97 97 03/23/18 18:00 03/23/18 18:25 03/23/18 19:36 Temperature Pulse Rate 71 76 Respiratory Rate 20 20 20 Blood Pressure 133/91 H Pulse Oximetry 98 98 97 03/23/18 20:00 03/23/18 22:00 03/23/18 23:26 Temperature 96.8 F L Pulse Rate 68 70 69 Respiratory Rate 20 20 Blood Pressure 136/90 Pulse Oximetry 97 100 03/24/18 00:00 03/24/18 02:00 03/24/18 03:34 Temperature 97.5 F L Pulse Rate 68 73 77 Respiratory Rate 20 20 Blood Pressure 134/81 Pulse Oximetry 100 100 03/24/18 04:00 03/24/18 06:00 03/24/18 07:42 Temperature 97.2 F L Pulse Rate 72 73 69 Respiratory Rate 20 18 Blood Pressure 111/75 Pulse Oximetry 94 L Intake & Output 03/23/18 03/24/18 03/24/18 18:59 06:59 18:59 Intake Total 2950 / 2950 1200 / 1200 Output Total 550 / 550 450 / 450 Balance 2400 / 2400 750 / 750 Weight 117.5 kg Intake: IV 2950 / 2950 1200 / 1200 Versed Inj 100 mg In 100 ml @ 2 100 / 100 100 / 100 MG/HR 2 mls/hr IV.CONT TITRATE PRN Rx#:[id number] Neosynephrine Inj 40 MG In D5W 500 / 500 Inj 496 ML @ 40 MCG/MIN 30 mls/ hr IV.CONT TITRATE PRN Rx#: [id number] NS Inj 1,000 ML @ 100 mls/hr IV 1000 / 1000 1000 / 1000 .CONT .Q10H DOROTHY Rx#:[id number] Zosyn 3.375 GM Premix 50 ML @ 100 / 100 100 / 100 100 mls/hr IV.SIG Q8H DOROTHY Rx#: [id number] NS Inj 1,000 ML @ Wide Open IV. 1000 / 1000 SIG .Q0M ONE Rx#:[id number] Vancomycin Inj 1,000 MG In NS 250 / 250 Inj 250 ML @ 250 mls/hr IV.SIG ONCE ONE Rx#:[id number] Output: Urine Amount (Catheter) 400 / 400 450 / 450 Indwelling Urethral Catheter 400 / 400 450 / 450 Gastric Drainage 150 / 150 Orogastric Tube 150 / 150 Other: Date of Last Bowel Movement 03/23/18 03/24/18 # Incontinent Bowel Movements 2 Narrative: Physical examination GENERAL: Patient is an obese, well-developed male, sedated on the vent, not in respiratory distress. SKIN: Cool and dry. No generalized rash, no ecchymoses and no evidence of embolic lesions. HEAD: Atraumatic. Normocephalic. No temporal wasting, or tenderness. EARS, NOSE AND THROAT: Orally intubated. NECK: Trachea midline. Supple and not tender, no meningeal signs. Has left IJ central line CARDIOVASCULAR: Regular rate and rhythm. No murmur heard RESPIRATORY: Breath sounds equal bilaterally. No rales, wheezing or rhonchi. Decreased breath sounds at the bases ABDOMEN: Globular, mildly distended, no reaction to palpation. Bowel sounds present and normoactive. Has a right femoral groin a line EXTREMITIES: No clubbing, cyanosis. Cool feet. : Solomon in place, not a lot of output NEUROLOGICAL: Sedated TELE: Sinus, intermittent Wenckebach - Urinary Catheter Management Indwelling Urethral Catheter Cath placed during this visit: yes Reason for continuing: Other continuation reason Insertion date: 03/23/18 Insertion time: 05:40 Results 03/24/18 04:00 03/24/18 04:00 Cardiac Enzymes 03/23/18 03/23/18 03/23/18 Range/Units 04:28 08:45 15:07 AST 36 (15-37) U/L CK-MB (CK-2) 3.8 H (0.5-3.6) ng/mL Troponin I 0.18 H 0.10 H (0.02-0.05) ng/mL 03/24/18 Range/Units 04:00 AST 48 H (15-37) U/L CK-MB (CK-2) (0.5-3.6) ng/mL Troponin I 0.05 (0.02-0.05) ng/mL Coagulation 03/24/18 Range/Units 04:00 PT 10.4 (9.8-11.6) sec APTT 34.3 H (23.4-31.7) sec CBC 03/23/18 03/24/18 Range/Units 04:28 04:00 WBC 13.5 H 9.8 (4.0-11.0) th/mm3 RBC 4.17 L 3.67 L (4.50-5.90) mil/mm3 Hgb 13.1 11.3 L (13.0-17.0) gm/dL Hct 38.5 L 33.1 L (39.0-51.0) % Plt Count 139 L 127 L (150-450) th/mm3 Neut # (Auto) 12.1 H 8.8 H (1.8-7.7) th/mm3 Lymph # (Auto) 0.7 L 0.6 L (1.0-4.8) th/mm3 [place] # (Auto) 0.7 0.3 (0.0-0.9) th/mm3 Eos # (Auto) 0.0 0.0 (0.0-0.4) th/mm3 Baso # (Auto) 0.0 0.0 (0.0-0.2) th/mm3 Comprehensive Metabolic Panel 03/23/18 03/23/18 03/23/18 Range/Units 04:28 08:45 13:18 Sodium 134 L 135 L 134 L (136-145) meq/L Potassium 4.5 4.1 4.4 (3.5-5.1) meq/L Chloride 99 103 101 (98-107) meq/L Carbon Dioxide 30.5 21.2 D 20.6 L (21.0-32.0) meq/L BUN 38 H 38 H 40 H (7-18) mg/dL Creatinine 2.95 H 3.07 H 2.91 H (0.60-1.30) mg/dL Calcium 8.1 L 7.4 L* 7.7 L (8.5-10.1) mg/dL AST 36 (15-37) U/L ALT 31 (12-78) U/L Alkaline Phosphatase 82 (45-117) U/L Total Protein 7.3 (6.4-8.2) g/dL Albumin 2.7 L 2.4 L (3.4-5.0) g/dL 03/23/18 03/24/18 Range/Units 20:00 04:00 Sodium 134 L 138 (136-145) meq/L Potassium 4.4 3.8 (3.5-5.1) meq/L Chloride 103 106 (98-107) meq/L Carbon Dioxide 21.0 22.0 (21.0-32.0) meq/L BUN 41 H 40 H (7-18) mg/dL Creatinine 2.77 H 2.60 H (0.60-1.30) mg/dL Calcium 7.7 L 7.4 L* (8.5-10.1) mg/dL AST 48 H (15-37) U/L ALT 32 (12-78) U/L Alkaline Phosphatase 66 (45-117) U/L Total Protein 6.2 L D (6.4-8.2) g/dL Albumin 1.9 L (3.4-5.0) g/dL Intake and Output 03/23/18 03/24/18 03/24/18 22:59 06:59 14:59 Intake Total 1150 / 1150 1150 / 1150 Output Total 550 / 550 450 / 450 Balance 600 / 600 700 / 700 Intake: IV 1150 / 1150 1150 / 1150 Versed Inj 100 mg In 100 ml @ 2 100 / 100 100 / 100 MG/HR 2 mls/hr IV.CONT TITRATE PRN Rx#:[id number] NS Inj 1,000 ML @ 100 mls/hr IV 1000 / 1000 1000 / 1000 .CONT .Q10H DOROTHY Rx#:[id number] Zosyn 3.375 GM Premix 50 ML @ 50 / 50 50 / 50 100 mls/hr IV.SIG Q8H DOROTHY Rx#: [id number] Output: Urine Amount (Catheter) 400 / 400 450 / 450 Indwelling Urethral Catheter 400 / 400 450 / 450 Gastric Drainage 150 / 150 Orogastric Tube 150 / 150 Other: Date of Last Bowel Movement 03/23/18 03/24/18 # Incontinent Bowel Movements 2 Weight 117.5 kg - Imaging and Cardiology Imaging: Impressions Chest X-Ray 03/22/18 00:00 CONCLUSION: Mild bilateral mostly basilar airspace disease. No significant effusion. No pneumothorax. Chest X-Ray 03/23/18 05:33 CONCLUSION: Probable basilar atelectasis. NG and endotracheal tube in good position. Chest X-Ray 03/23/18 07:22 CONCLUSION: Support equipment in good position. Increasing left basilar effusion compared to prior dated 03/23/2018. Chest X-Ray 03/24/18 06:00 CONCLUSION: Endotracheal tube, left central line and nasogastric tube in good position. Left -sided airspace disease with small left effusion. Findings similar to March 23. Assessment and Plan - Assessment (1) Michelle second degree AV block Code(s): I44.1 - Atrioventricular block, second degree Status: Acute Plan: No specific treatment required. I will see prn -please call if questions
[2018-03-24] MEDS: Midazolam 100 MG/100 ML Inj 100 MG/100 ML BAG IV.CONT PRN ×3 (09:31→20:47)
--- NOTE | 2018-03-24 10:38 | US ---
EXAM DATE: 03/24/2018 9:57 AM EST AGE/SEX: 83 years / Male INDICATIONS: Increased BUN/creatinine. CLINICAL DATA: This is the patient's initial encounter. Patient reports that signs and symptoms have been present for 2 days and indicates a pain score of Nonresponsive. MEDICAL/SURGICAL HISTORY: Hypertension. Carcinoma, prostatic. None. COMPARISON: [facility] – [place], [place] ABDOMEN & PELVIS W/O CONTRAST, 03/21/2018. . MEASUREMENTS: Right Kidney:__10.8 x 6.1 x 5.0 cm Left Kidney:__11.8 x 5.5 x 6.7 cm FINDINGS: Right Kidney: Normal echotexture and cortical thickness. No mass or hydronephrosis. Left Kidney: Normal echotexture and cortical thickness. No mass or hydronephrosis. Bladder: Within normal limits given the degree of distension. Other: The prostate gland is enlarged and impresses upon the trigone of the urinary bladder.. CONCLUSION: 1. The hydronephrosis involving the left kidney on the prior CT scan has significantly improved. No residual hydronephrosis observed. 2. Prostate gland enlargement which impresses upon the urinary bladder. No bladder wall thickening t o clearly suggest bladder outlet obstruction. Electronically signed by: Trip Buenrostro MD 03/24/2018 10:37 AM EST
--- NOTE | 2018-03-24 10:55 | P.DIET ---
Nutritional Evaluation Type of nutrition evaluation: initial Nutrition consult regarding: Tube Feeding Screening comments: 03/24 TF review Subjective Subjective Comments: Assessment here uses guidelines for critically ill patients from [employer] and [facility] Objective - Diagnosis 39.4 - Objective Body Mass Index: 39.4 % IBW: 168 (IBW = 154lb) Body Weight Used for Calculations: IBW (for protein), Actual (for energy needs) Energy Needs - Lower Range (kCal/kg): 11 Energy Needs - Upper Range (kCal/kg): 14 Lower Limit kCal/kg (kCals): 1,293 Upper Limit kCal/kg (kCals): 1,645 Lower Limit Protein Factor (Grams per Kg): 1.2 Upper Limit Protein Factor (Grams per Kg): 1.5 Lower Protein Needs (Protein): 84 Upper Protein Needs (Protein): 105 Dietitian Reviewed in Medical Record: Curent medications, Intake & Output, Labs , Medical history, Tube feeding Diet Order: TF Objective Comments: PMH: HTN, prostate CA MedS: versed, levophed, zofran Labs: BUN 40, Cr 2.60, GFR 29, POC glucose 227 300 210, A1c 8.1, Phos 7.9, Mg 1.6 Assessment Assessment: Pt intubated, sedated w/ versed, and off pressors today. Pt currently receiving Glucerna 1.5 @ 55mL/hr per MD. RD to recommend Vital 1.5 @ 40mL/hr w/ Beneprotein TID to provide 1515kcal, 83g of protein, and 733mL of free water to best meet assessed needs. Monitor renal and glucose labs closely. Wt noted, CBW = 117.5kg. Labs reviewed, dietitian following. Recommendations: 1. RD to recommend Vital 1.5 @ 40mL/hr w/ Beneprotein TID to best meet assessed needs 2. Monitor renal and glucose labs closely 3. Dietitian following Dietitian to Monitor: Lab values, Renal labs, Glucose level, Intake & Output, Tube feeding tolerance, Medical course
[2018-03-24 11:02] LABS: CKMB Percent 0.2 % (0.0-4.0); Creatine Kinase MB 2.6 ng/mL (0.5-3.6)
--- NOTE | 2018-03-24 11:45 | P.PNNP ---
Subjective Interval history: Patient was seen, no distress. Pt intubated and sedated. Patient's renal function has improved today. Creatinine is 2.60. <Mary Jane Toussaint - Last Filed: 03/24/18 12:57> Physical Exam Vital signs: Vital Signs 03/23/18 12:00 03/23/18 12:43 03/23/18 13:00 Temperature Pulse Rate 103 H 75 Respiratory Rate 20 20 20 Blood Pressure 140/80 125/81 Pulse Oximetry 95 95 95 03/23/18 14:00 03/23/18 14:52 03/23/18 15:00 Temperature Pulse Rate 75 77 75 Respiratory Rate 20 20 20 Blood Pressure 126/85 120/75 Pulse Oximetry 95 95 03/23/18 16:00 03/23/18 17:00 03/23/18 17:11 Temperature Pulse Rate 74 72 85 Respiratory Rate 20 20 20 Blood Pressure 138/87 131/83 96/63 L Pulse Oximetry 97 97 97 03/23/18 18:00 03/23/18 18:25 03/23/18 19:36 Temperature Pulse Rate 71 76 Respiratory Rate 20 20 20 Blood Pressure 133/91 H Pulse Oximetry 98 98 97 03/23/18 20:00 03/23/18 22:00 03/23/18 23:26 Temperature 96.8 F L Pulse Rate 68 70 69 Respiratory Rate 20 20 Blood Pressure 136/90 Pulse Oximetry 97 100 03/24/18 00:00 03/24/18 02:00 03/24/18 03:34 Temperature 97.5 F L Pulse Rate 68 73 77 Respiratory Rate 20 20 Blood Pressure 134/81 Pulse Oximetry 100 100 03/24/18 04:00 03/24/18 06:00 03/24/18 07:42 Temperature 97.2 F L Pulse Rate 72 73 69 Respiratory Rate 20 18 Blood Pressure 111/75 Pulse Oximetry 94 L 03/24/18 08:00 03/24/18 10:00 Temperature 97.0 F L Pulse Rate 70 75 Respiratory Rate 20 Blood Pressure 105/73 Pulse Oximetry 100 Intake & Output 03/23/18 03/24/18 03/24/18 18:59 06:59 18:59 Intake Total 2950 / 2950 1200 / 1200 100 / 100 Output Total 550 / 550 450 / 450 Balance 2400 / 2400 750 / 750 100 / 100 Weight 117.5 kg Intake: IV 2950 / 2950 1200 / 1200 100 / 100 Versed Inj 100 mg In 100 ml @ 2 100 / 100 100 / 100 100 / 100 MG/HR 2 mls/hr IV.CONT TITRATE PRN Rx#:[id number] Neosynephrine Inj 40 MG In D5W 500 / 500 Inj 496 ML @ 40 MCG/MIN 30 mls/ hr IV.CONT TITRATE PRN Rx#: [id number] NS Inj 1,000 ML @ 100 mls/hr IV 1000 / 1000 1000 / 1000 .CONT .Q10H [facility] Rx#:[id number] Zosyn 3.375 GM Premix 50 ML @ 100 / 100 100 / 100 100 mls/hr IV.SIG Q8H [facility] Rx#: [id number] NS Inj 1,000 ML @ Wide Open IV. 1000 / 1000 SIG .Q0M ONE Rx#:[id number] Vancomycin Inj 1,000 MG In NS 250 / 250 Inj 250 ML @ 250 mls/hr IV.SIG ONCE ONE Rx#:[id number] Output: Urine Amount (Catheter) 400 / 400 450 / 450 Indwelling Urethral Catheter 400 / 400 450 / 450 Gastric Drainage 150 / 150 Orogastric Tube 150 / 150 Other: Date of Last Bowel Movement 03/23/18 03/24/18 03/24/18 # Incontinent Bowel Movements 2 - Constitutional no acute distress - Routine HEENT Exam ENT: Present: mucous membranes moist - Routine Neck Exam Present: trachea midline. Absent: JVD, tracheal deviation - Routine Respiratory Exam Present: patient mechanically ventilated, decreased breath sounds. Absent: respiratory distress - Routine Cardiovascular Exam Present: RRR - Routine Abdominal Exam Present: normoactive bowel sounds, distended - Routine Extremities Exam Absent: cyanosis, clubbing, edema - Routine Skin Exam Present: dry - Routine Psychiatric Exam Present: unable to assess - Urinary Catheter Management Indwelling Urethral Catheter Cath placed during this visit: yes Reason for continuing: Other continuation reason Insertion date: 03/23/18 Insertion time: 05:40 <Mary Jane Toussaint - Last Filed: 03/24/18 12:57> Vital signs: Vital Signs 03/23/18 22:00 03/23/18 23:26 03/24/18 00:00 Temperature 97.5 F L Pulse Rate 70 69 68 Respiratory Rate 20 20 Blood Pressure 134/81 Pulse Oximetry 100 100 11/29/18 02:00 03/24/18 03:34 03/24/18 04:00 Temperature 97.2 F L Pulse Rate 73 77 72 Respiratory Rate 20 20 Blood Pressure 111/75 Pulse Oximetry 100 94 L 03/24/18 06:00 03/24/18 07:42 03/24/18 08:00 Temperature 97.0 F L Pulse Rate 73 69 70 Respiratory Rate 18 20 Blood Pressure 105/73 Pulse Oximetry 100 03/24/18 10:00 03/24/18 11:44 03/24/18 11:52 Temperature Pulse Rate 75 69 Respiratory Rate 20 20 Blood Pressure Pulse Oximetry 100 03/24/18 12:00 03/24/18 14:00 03/24/18 16:00 Temperature 97.5 F L 97.6 F Pulse Rate 68 71 68 Respiratory Rate 20 9 L Blood Pressure 143/90 H 105/70 Pulse Oximetry 100 97 03/24/18 16:14 03/24/18 18:00 03/24/18 19:27 Temperature Pulse Rate 71 74 Respiratory Rate 18 18 Blood Pressure Pulse Oximetry 96 94 L Intake & Output 03/24/18 03/24/18 03/25/18 06:59 18:59 06:59 Intake Total 1200 / 1200 1328 / 1328 100 / 100 Output Total 450 / 450 800 / 800 Balance 750 / 750 528 / 528 100 / 100 Weight 117.5 kg Intake: IV 1200 / 1200 1250 / 1250 100 / 100 Versed Inj 100 mg In 100 ml @ 2 100 / 100 200 / 200 100 / 100 MG/HR 2 mls/hr IV.CONT TITRATE PRN Rx#:[id number] NS Inj 1,000 ML @ 100 mls/hr IV 1000 / 1000 1000 / 1000 .CONT .Q10H [facility] Rx#:[id number] Zosyn 3.375 GM Premix 50 ML @ 100 / 100 50 / 50 100 mls/hr IV.SIG Q8H [facility] Rx#: [id number] Tube Feeding / 78 Output: Urine Amount (Catheter) 450 / 450 800 / 800 Indwelling Urethral Catheter 450 / 450 800 / 800 Other: Date of Last Bowel Movement 03/24/18 03/24/18 # Incontinent Bowel Movements 2 1 - Urinary Catheter Management Indwelling Urethral Catheter Cath placed during this visit: no <Eloy Mahajan - Last Filed: 03/24/18 20:58> Assessment and Plan - Assessment (1) GILLES (acute kidney injury) Code(s): N17.9 - Acute kidney failure, unspecified Status: Acute Plan: GILLES due to ATN due to sepsis and hypotension. Also has unilateral hydronephrosis of unclear etiology. Continue supportive care - fluid, antibiotics. Patient's renal function has improved today, Creatinine is 2.60. Patient has river catheter in place, monitor urine output closely. Monitor fluid and electrolytes. - Plan GNR sepsis, with shock due to complicated UTI Urine and blood cultures growing gram-negative rods/E. coli. Patient on Zosyn. Prostate cancer History of prostate cancer with radiation seeds still in place. Hypertension Monitor BP. Patient was previously hypotensive. Type 2 diabetes Continue insulin coverage to maintain blood glucose between 140 and 180. <Mary Jane Toussaint - Last Filed: 03/24/18 12:57> - Assessment (1) GILLES (acute kidney injury) Code(s): N17.9 - Acute kidney failure, unspecified Status: Acute - Attending Attestation patient was seen and examined. His renal function is improving. No need for dialysis. Urine output has improved. <Eloy Mahajan - Last Filed: 03/24/18 20:58>
--- NOTE | 2018-03-24 18:48 | P.PNID ---
Subjective Remarks: Patient is an 83-year-old male, presented to the hospital for evaluation of hematuria. Patient has known history of prostate cancer and he has had problem with intermittent mild hematuria. This was apparently worse than any of the hematuria he has had in the past. Initial evaluation showed that he was in renal failure. The CT is showing evidence of hydronephrosis. Urology evaluated the patient and felt that there is no intervention that needed to be done. Blood cultures done on admission are reported as growing gram-negative maryann. Infectious disease consultation has been requested to evaluate that. In the interim patient developed shortness of breath, and required BiPAP. He was on BiPAP for several hours but had persistent acidosis, respiratory distress, and he started becoming more lethargic. He ended up getting intubated, and post intubation has been hypotensive. He received fluid resuscitation and despite that remains hypotensive. He is currently on Levophed and Dre-Synephrine. His creatinine remains elevated. Urine output is low. He had a fever of 103.3 earlier today. Notes reviewed Temps better overnight BP better D/W RN Sedated on the vent Creatinine lower BC and UC E coli Renal US - hydro resolved Antibiotics: Zosyn Past Medical History: HTN Prostate CA Allergies/Adverse Reactions: Allergies No Known Allergies Allergy (Verified 03/21/18 18:31) Objective Vital Signs 03/23/18 19:36 03/23/18 20:00 03/23/18 22:00 Temperature 96.8 F L Pulse Rate 76 68 70 Respiratory Rate 20 20 Blood Pressure 136/90 Pulse Oximetry 97 97 03/23/18 23:26 03/24/18 00:00 03/24/18 02:00 Temperature 97.5 F L Pulse Rate 69 68 73 Respiratory Rate 20 20 Blood Pressure 134/81 Pulse Oximetry 100 100 03/24/18 03:34 03/24/18 04:00 03/24/18 06:00 Temperature 97.2 F L Pulse Rate 77 72 73 Respiratory Rate 20 20 Blood Pressure 111/75 Pulse Oximetry 100 94 L 03/24/18 07:42 03/24/18 08:00 03/24/18 10:00 Temperature 97.0 F L Pulse Rate 69 70 75 Respiratory Rate 18 20 Blood Pressure 105/73 Pulse Oximetry 100 03/24/18 11:44 03/24/18 11:52 03/24/18 12:00 Temperature 97.5 F L Pulse Rate 69 68 Respiratory Rate 20 20 20 Blood Pressure 143/90 H Pulse Oximetry 100 100 03/24/18 14:00 03/24/18 16:00 03/24/18 16:14 Temperature 97.6 F Pulse Rate 71 68 Respiratory Rate 9 L 18 Blood Pressure 105/70 Pulse Oximetry 97 96 03/24/18 18:00 Temperature Pulse Rate 71 Respiratory Rate Blood Pressure Pulse Oximetry Intake & Output 03/23/18 03/24/18 03/24/18 18:59 06:59 18:59 Intake Total 2950 / 2950 1200 / 1200 1328 / 1328 Output Total 550 / 550 450 / 450 800 / 800 Balance 2400 / 2400 750 / 750 528 / 528 Weight 117.5 kg Intake: IV 2950 / 2950 1200 / 1200 1250 / 1250 Versed Inj 100 mg In 100 ml @ 2 100 / 100 100 / 100 200 / 200 MG/HR 2 mls/hr IV.CONT TITRATE PRN Rx#:[id number] Neosynephrine Inj 40 MG In D5W 500 / 500 Inj 496 ML @ 40 MCG/MIN 30 mls/ hr IV.CONT TITRATE PRN Rx#: [id number] NS Inj 1,000 ML @ 100 mls/hr IV 1000 / 1000 1000 / 1000 1000 / 1000 .CONT .Q10H [facility] Rx#:[id number] Zosyn 3.375 GM Premix 50 ML @ 100 / 100 100 / 100 50 / 50 100 mls/hr IV.SIG Q8H SARAH Rx#: [id number] NS Inj 1,000 ML @ Wide Open IV. 1000 / 1000 SIG .Q0M ONE Rx#:[id number] Vancomycin Inj 1,000 MG In NS 250 / 250 Inj 250 ML @ 250 mls/hr IV.SIG ONCE ONE Rx#:[id number] Tube Feeding 78 / 78 Output: Urine Amount (Catheter) 400 / 400 450 / 450 800 / 800 Indwelling Urethral Catheter 400 / 400 450 / 450 800 / 800 Gastric Drainage 150 / 150 Orogastric Tube 150 / 150 Other: Date of Last Bowel Movement 03/23/18 03/24/18 03/24/18 # Incontinent Bowel Movements 2 1 03/21/18 20:31 Blood - Peripheral Aerobic Blood Culture - Final Escherichia coli 03/21/18 20:31 Blood - Peripheral Anaerobic Blood Culture - Final Escherichia coli 03/21/18 20:31 Blood - Peripheral Aerobic Blood Culture - Final Escherichia coli 03/21/18 20:31 Blood - Peripheral Anaerobic Blood Culture - Final Escherichia coli 03/23/18 11:45 Blood - Peripheral Aerobic Blood Culture - Preliminary No growth in 1 day 03/23/18 11:45 Blood - Peripheral Anaerobic Blood Culture - Preliminary No growth in 1 day 03/23/18 09:45 Blood - Peripheral Aerobic Blood Culture - Preliminary No growth in 1 day 03/23/18 09:45 Blood - Peripheral Anaerobic Blood Culture - Final QNS - See aerobic report. 03/21/18 20:43 Clean Catch Urine Urine Culture - Final Escherichia coli Lab - Hematology Results 03/23/18 03/24/18 04:28 04:00 WBC 13.5 H 9.8 RBC 4.17 L 3.67 L Hgb 13.1 11.3 L Hct 38.5 L 33.1 L MCV 92.2 90.2 MCH 31.4 30.8 MCHC 34.1 34.2 RDW 15.2 15.0 Plt Count 139 L 127 L MPV 8.6 9.5 Neut % (Auto) 89.3 H 89.8 H Lymph % (Auto) 5.1 L 6.4 L [place] % (Auto) 5.4 3.5 Eos % (Auto) 0.0 0.0 Baso % (Auto) 0.2 0.3 Neut # (Auto) 12.1 H 8.8 H Lymph # (Auto) 0.7 L 0.6 L [place] # (Auto) 0.7 0.3 Eos # (Auto) 0.0 0.0 Baso # (Auto) 0.0 0.0 WBC Differential . . Differential Comment Auto diff final Auto diff final Lab - Chemistry Results 03/23/18 03/23/18 03/23/18 00:24 04:28 04:28 Sodium 134 L Potassium 4.5 Chloride 99 Carbon Dioxide 30.5 Anion Gap 5 BUN 38 H Creatinine 2.95 H Estimated GFR 25 L POC Glucose 227 H Random Glucose 234 H Lactic Acid 1.9 Calcium 8.1 L Calcium Adj for Albumin Phosphorus Magnesium 2.0 Total Bilirubin 0.7 AST 36 ALT 31 Alkaline Phosphatase 82 Total Creatine Kinase CK-MB (CK-2) CK-MB (CK-2) % Troponin I Total Protein 7.3 Albumin 2.7 L Lipase [facility] 03/23/18 03/23/18 03/23/18 08:45 08:45 08:45 Sodium 135 L Potassium 4.1 Chloride 103 Carbon Dioxide 21.2 D Anion Gap 11 BUN 38 H Creatinine 3.07 H Estimated GFR 24 L POC Glucose Random Glucose 265 H Lactic Acid 2.1 H Calcium 7.4 L* Calcium Adj for Albumin 8.7 Phosphorus 3.6 Magnesium 1.9 Total Bilirubin AST ALT Alkaline Phosphatase Total Creatine Kinase 1955 H CK-MB (CK-2) 3.8 H CK-MB (CK-2) % 0.2 Troponin I 0.18 H Total Protein Albumin 2.4 L Lipase 475 H [facility] 03/23/18 03/23/18 03/23/18 13:18 13:18 13:55 Sodium 134 L Potassium 4.4 Chloride 101 Carbon Dioxide 20.6 L Anion Gap 12 BUN 40 H Creatinine 2.91 H Estimated GFR 25 L POC Glucose 159 H Random Glucose 326 H Lactic Acid 2.4 H Calcium 7.7 L Calcium Adj for Albumin Phosphorus 2.5 D Magnesium 2.0 Total Bilirubin AST ALT Alkaline Phosphatase Total Creatine Kinase CK-MB (CK-2) CK-MB (CK-2) % Troponin I Total Protein Albumin Lipase [facility] 03/23/18 03/23/18 03/23/18 15:07 20:00 20:03 Sodium 134 L Potassium 4.4 Chloride 103 Carbon Dioxide 21.0 Anion Gap 10 BUN 41 H Creatinine 2.77 H Estimated GFR 27 L POC Glucose 389 H Random Glucose 349 H Lactic Acid Calcium 7.7 L Calcium Adj for Albumin Phosphorus Magnesium Total Bilirubin AST ALT Alkaline Phosphatase Total Creatine Kinase CK-MB (CK-2) CK-MB (CK-2) % Troponin I 0.10 H Total Protein Albumin Lipase [facility] 03/23/18 03/23/18 03/23/18 20:35 23:39 23:40 Sodium Potassium Chloride Carbon Dioxide Anion Gap BUN Creatinine Estimated GFR POC Glucose 342 H 366 H Random Glucose Lactic Acid 2.6 H Calcium Calcium Adj for Albumin Phosphorus Magnesium Total Bilirubin AST ALT Alkaline Phosphatase Total Creatine Kinase CK-MB (CK-2) CK-MB (CK-2) % Troponin I Total Protein Albumin Lipase [facility] 03/23/18 03/24/18 03/24/18 23:41 01:46 03:56 Sodium Potassium Chloride Carbon Dioxide Anion Gap BUN Creatinine Estimated GFR POC Glucose 300 H 292 H Random Glucose Lactic Acid 2.6 H Calcium Calcium Adj for Albumin Phosphorus Magnesium Total Bilirubin AST ALT Alkaline Phosphatase Total Creatine Kinase CK-MB (CK-2) CK-MB (CK-2) % Troponin I Total Protein Albumin Lipase TSH 03/24/18 03/24/18 03/24/18 04:00 08:04 08:50 Sodium 138 Potassium 3.8 Chloride 106 Carbon Dioxide 22.0 Anion Gap 10 BUN 40 H Creatinine 2.60 H Estimated GFR 29 L POC Glucose 210 H Random Glucose 267 H Lactic Acid 2.4 H Calcium 7.4 L* Calcium Adj for Albumin 7.9 L Phosphorus 1.6 L Magnesium 2.1 Total Bilirubin 0.7 AST 48 H ALT 32 Alkaline Phosphatase 66 Total Creatine Kinase CK-MB (CK-2) CK-MB (CK-2) % Troponin I 0.05 Total Protein 6.2 L D Albumin 1.9 L Lipase TSH 0.755 03/24/18 03/24/18 03/24/18 09:55 11:41 14:15 Sodium Potassium Chloride Carbon Dioxide Anion Gap BUN Creatinine Estimated GFR POC Glucose 206 H Random Glucose Lactic Acid 2.1 H Calcium Calcium Adj for Albumin Phosphorus Magnesium Total Bilirubin AST ALT Alkaline Phosphatase Total Creatine Kinase 1077 H CK-MB (CK-2) 2.6 CK-MB (CK-2) % 0.2 Troponin I Total Protein Albumin Lipase TSH 03/24/18 15:30 Sodium Potassium Chloride Carbon Dioxide Anion Gap BUN Creatinine Estimated GFR POC Glucose 146 H Random Glucose Lactic Acid Calcium Calcium Adj for Albumin Phosphorus Magnesium Total Bilirubin AST ALT Alkaline Phosphatase Total Creatine Kinase CK-MB (CK-2) CK-MB (CK-2) % Troponin I Total Protein Albumin Lipase TSH Imaging: ITS Impressions Abdomen/Pelvis CT 03/21/18 18:35 CONCLUSION: 1. Left-sided hydronephrosis and hydroureter with prominent stranding. No radiopaque calculus identified. 2. Enlarged prostate gland containing prostatic seeds. 3. Hepatic steatosis. 4. Prominence of both adrenal glands likely hyperplasia. Chest X-Ray 03/24/18 06:00 CONCLUSION: Endotracheal tube, left central line and nasogastric tube in good position. Left -sided airspace disease with small left effusion. Findings similar to March 23. Abdomen/Bladder Ultrasound 03/24/18 08:33 CONCLUSION: 1. The hydronephrosis involving the left kidney on the prior CT scan has significantly improved. No residual hydronephrosis observed. 2. Prostate gland enlargement which impresses upon the urinary bladder. No bladder wall thickening to clearly suggest bladder outlet obstruction. Physical Exam: GENERAL: Patient is an obese, well-developed male, sedated on the vent, not in respiratory distress. SKIN: Cool and dry. No generalized rash, no ecchymoses and no evidence of embolic lesions. HEAD: Atraumatic. Normocephalic. No temporal wasting, or tenderness. EYES: [place] conjunctiva. No petechia or hemorrhage. Pupils equal, round and reactive to light. Has dirty sclera. No injection or drainage. EARS, NOSE AND THROAT: Nose without bleeding or purulent nasal discharge. Orally intubated. NECK: Trachea midline. Supple and not tender, no meningeal signs. Has left IJ central line CARDIOVASCULAR: Regular rate and rhythm. No murmur heard RESPIRATORY: Breath sounds equal bilaterally. No rales, wheezing or rhonchi. Decreased breath sounds at the bases ABDOMEN: Globular, mildly distended, no reaction to palpation. Bowel sounds present and normoactive. Has a right femoral groin a line EXTREMITIES: No clubbing, cyanosis. Cool feet. : Solomon in place, not a lot of output NEUROLOGICAL: Sedated PSYCHIATRIC: Unable to assess LINE: No evidence of infection Results Assessment and Plan - Plan Impression GNR sepsis, with shock due to complicated UTI - CT with hydronephrosis L; no stone seen Renal failure Respiratory failure Hematuria - Hx prostate CA Recommendation Follow C/S Continue Zosyn Monitor progress Follow temps D/W SACHIN
[2018-03-24] MEDS ORDERED: dilTIAZem Inj 125 MG in Sodium Chlor 0.9% Inj 100 ML IV.CONT PRN (20:47)
[2018-03-24] MEDS: fentaNYL 10 mcg/mL Premix Drip 2,500 MCG/250 ML BAG IV.SIG PRN (20:47)
[2018-03-24] MEDS ORDERED: Phenylephrine Inj 160 MG in Dextrose 5% in Water Inj 484 ML IV.CONT PRN ×2 (20:57)
--- NOTE | 2018-03-24 23:34 | P.PCN ---
Date of procedure: 03/24/18 Pre-op diagnosis: Afib RVR Procedure: Date: 03/24/18 Procedure: DC cardioversion Indication: Atrial fibrillation with RVR with hypotension Details of procedure: I was called to bedside due to acute onset of atrial fibrillation with RVR with rate in the 140s-150s. Patient became hypotensive with onset of this rhythm. I reviewed the chart and I do not see history of atrial fibrillation. Due to hemodynamics instability decided to proceed with DC cardioversion. Pads placed in anterior posterior position. Gave amiodarone 150 mg IV. Attempted synchronized cardioversion with 100 J and then 200 J and then 200 J. Patient initially remained in atrial fibrillation with RVR despite the shocks but several minutes later did convert to normal sinus rhythm in the 70s. Initiated amiodarone drip for rhythm maintenance in view of patient's hemodynamic instability with the rhythm.
[2018-03-24 23:35] LABS: Calcium 7.2 mg/dL (8.5-10.1); Carbon Dioxide 22.6 meq/L (21.0-32.0); Magnesium 2.2 mg/dL (1.5-2.5); Potassium 3.8 meq/L (3.5-5.1)
[2018-03-24 23:42] LABS: Albumin 1.7 g/dL (3.4-5.0)
[2018-03-25 00:09] LABS: ABG Base Excess -4.1 mmol/L (-2-2); ABG PCO2 33 mmHg (38-42); ABG PO2 151 mmHG (61-120)
[2018-03-25 02:22] LABS: Baso % (Auto) 0.3 % (0.0-2.0); Eos % (Auto) 0.1 % (0.0-4.0); Hematocrit 33.1 % (39.0-51.0); Hemoglobin 11.5 gm/dL (13.0-17.0); Lymph # (Auto) 0.2 th/mm3 (1.0-4.8); Lymph % (Auto) 2.2 % (9.0-44.0); Mean Corpuscular HGB Conc 34.6 % (32.0-36.0); Mean Corpuscular Hemoglobin 31.3 pg (27.0-34.0); Mean Corpuscular Volume 90.4 fL (80.0-100.0); Mean Platelet Volume 9.2 fL (7.0-11.0); Mono # (Auto) 0.4 th/mm3 (0.0-0.9); Mono % (Auto) 3.8 % (0.0-8.0); Neut # (Auto) 10.4 th/mm3 (1.8-7.7); Neut % (Auto) 93.6 % (16.0-70.0); Platelet Count 160 th/mm3 (150-450); Red Blood Count 3.66 mil/mm3 (4.50-5.90); Red Cell Distribution Width 14.7 % (11.6-17.2); White Blood Count 11.2 th/mm3 (4.0-11.0)
[2018-03-25 02:52] LABS: Albumin 1.8 g/dL (3.4-5.0); Calcium 7.2 mg/dL (8.5-10.1); Carbon Dioxide 23.6 meq/L (21.0-32.0); Magnesium 2.3 mg/dL (1.5-2.5); Potassium 3.8 meq/L (3.5-5.1); Total Protein 5.9 g/dL (6.4-8.2)
[2018-03-25 03:10] LABS: CKMB Percent 0.3 % (0.0-4.0); Creatine Kinase MB 1.5 ng/mL (0.5-3.6)
[2018-03-25] MEDS: Chlorhexidine Gluconate 2% 1 Pack (2 Cloths) TOPICAL SCH (05:11)
[2018-03-25] MEDS: Insulin NovoLOG Aspart Correctional Sugar Inj SQ SCH ×4 (05:11→15:24)
[2018-03-25] MEDS: Sod Chloride 0.9% Inj 1,000 ML IV.CONT SCH ×2 (05:11→13:03)
[2018-03-25] MEDS: MethylPREDNISolone Sod Succinate Inj 40 MG/ML Vial IV.PUSH SCH ×3 (05:11→21:57)
[2018-03-25] MEDS: Piperacil/Tazo 3.375 GM Premix 50 ML IV.SIG SCH (05:12)
[2018-03-25] MEDS: Midazolam 100 MG/100 ML Inj 100 MG/100 ML BAG IV.CONT PRN ×3 (05:15→21:57)
[2018-03-25] MEDS ORDERED: Potassium Chloride 25 MEQ Effervescent Tablet PO ONE (05:33)
--- NOTE | 2018-03-25 06:19 | XR ---
EXAM DATE: 03/25/2018 5:47 AM EST AGE/SEX: 83 years / Male INDICATIONS: Respiratory failure. CLINICAL DATA: This is the patient's subsequent encounter. Patient reports that signs and symptoms h ave been present for 4 - 6 days and indicates a pain score of Nonresponsive. MEDICAL/SURGICAL HISTORY: Carcinoma, prostatic. Hypertension. None. COMPARISON: [facility] [place], CHEST 1V SINGLE AP, 03/24/2018. . FINDINGS: Portable AP view of the chest demonstrates a normal-sized cardiac silhouette. ETT, nasogastric tube, and left IJ line remain present. EKG lines overlie the patient. Lungs are underinflated and there is stable bibasilar pleural parenchymal opacity. Mild airspace opacity is also present at the right base . No pneumothorax is identified. CONCLUSION: Stable chest x-ray with left basilar opacity likely representing airspace consolidation with small ef fusion. Airspace opacity at the right base is also stable and most likely represents atelectasis. Electronically signed by: Conor Garcia MD 03/25/2018 6:17 AM EST
[2018-03-25] MEDS: Senna/Docusate Sodium 8.6/50 MG Tablet PO SCH ×2 (08:02→21:56)
[2018-03-25] MEDS: Artificial Tears Opth Drops 15 ML Bottle EACH EYE SCH ×2 (08:02→15:24)
[2018-03-25] MEDS: Heparin - SQ 10,000 UNITS/ML Vial SQ SCH ×2 (08:02→21:56)
--- NOTE | 2018-03-25 09:57 | P.PNID ---
Subjective Remarks: Patient is an 83-year-old male, presented to the hospital for evaluation of hematuria. Patient has known history of prostate cancer and he has had problem with intermittent mild hematuria. This was apparently worse than any of the hematuria he has had in the past. Initial evaluation showed that he was in renal failure. The CT is showing evidence of hydronephrosis. Urology evaluated the patient and felt that there is no intervention that needed to be done. Blood cultures done on admission are reported as growing gram-negative maryann. Infectious disease consultation has been requested to evaluate that. In the interim patient developed shortness of breath, and required BiPAP. He was on BiPAP for several hours but had persistent acidosis, respiratory distress, and he started becoming more lethargic. He ended up getting intubated, and post intubation has been hypotensive. He received fluid resuscitation and despite that remains hypotensive. He is currently on Levophed and Dre-Synephrine. His creatinine remains elevated. Urine output is low. He had a fever of 103.3 earlier today. Notes reviewed D/W RN Temps ok BP ok Had atrial fib RVR last night, cardioverted, in NSR now On amiodarone drip Creat stable, has good UO Currently on CPAP - seems to be tolerating BC and UC E coli Renal US - hydro resolved Antibiotics: Zosyn Past Medical History: HTN Prostate CA Allergies/Adverse Reactions: Allergies No Known Allergies Allergy (Verified 03/21/18 18:31) Objective Vital Signs 03/24/18 10:00 03/24/18 11:44 03/24/18 11:52 Temperature Pulse Rate 75 69 Respiratory Rate 20 20 Blood Pressure Pulse Oximetry 100 03/24/18 12:00 03/24/18 14:00 03/24/18 16:00 Temperature 97.5 F L 97.6 F Pulse Rate 68 71 68 Respiratory Rate 20 9 L Blood Pressure 143/90 H 105/70 Pulse Oximetry 100 97 03/24/18 16:14 03/24/18 17:00 03/24/18 18:00 Temperature Pulse Rate 76 72 Respiratory Rate 18 18 18 Blood Pressure 131/78 122/79 Pulse Oximetry 96 89 L 86 L 03/24/18 19:00 03/24/18 19:27 03/24/18 20:00 Temperature 97.8 F Pulse Rate 72 74 76 Respiratory Rate 11 L 18 18 Blood Pressure 116/75 122/78 Pulse Oximetry 93 L 94 L 93 L 03/24/18 20:41 03/24/18 21:00 03/24/18 21:10 Temperature Pulse Rate 166 H 159 H 81 Respiratory Rate 18 0 L 23 Blood Pressure 98/68 L 90/57 L Pulse Oximetry 97 93 L 95 03/24/18 22:00 03/24/18 23:00 03/24/18 23:39 Temperature Pulse Rate 72 67 68 Respiratory Rate 0 L 18 23 Blood Pressure 81/57 L 95/59 L 94/64 L Pulse Oximetry 97 95 91 L 03/24/18 23:42 03/25/18 00:00 03/25/18 00:30 Temperature 96.6 F L Pulse Rate 68 65 Respiratory Rate 18 19 0 L Blood Pressure 92/59 L 91/58 L Pulse Oximetry 97 96 95 03/25/18 01:00 03/25/18 02:00 03/25/18 02:30 Temperature Pulse Rate 66 68 65 Respiratory Rate Blood Pressure 97/65 L 100/67 94/56 L Pulse Oximetry 95 97 97 03/25/18 03:00 03/25/18 03:06 03/25/18 03:30 Temperature Pulse Rate 64 63 62 Respiratory Rate 18 Blood Pressure 92/59 L 88/66 L Pulse Oximetry 97 97 03/25/18 03:50 03/25/18 04:00 03/25/18 04:30 Temperature 96.6 F L Pulse Rate 62 62 Respiratory Rate 18 Blood Pressure 89/61 L 93/63 L Pulse Oximetry 97 97 03/25/18 05:00 03/25/18 05:37 03/25/18 06:00 Temperature Pulse Rate 61 64 59 L Respiratory Rate Blood Pressure 93/66 L 111/69 95/65 L Pulse Oximetry 97 97 03/25/18 06:30 03/25/18 07:00 03/25/18 07:40 Temperature Pulse Rate 58 L 57 L 61 Respiratory Rate 20 Blood Pressure 93/63 L 96/65 L Pulse Oximetry 97 97 03/25/18 08:00 03/25/18 08:01 Temperature 97.5 F L Pulse Rate 67 67 Respiratory Rate 18 Blood Pressure 121/78 121/78 Pulse Oximetry 97 97 Intake & Output 03/24/18 03/25/18 03/25/18 18:59 06:59 18:59 Intake Total 1328 / 1328 1835 / 1835 50 / 50 Output Total 800 / 800 375 / 375 Balance 528 / 528 1460 / 1460 50 / 50 Weight 120 kg Intake: IV 1250 / 1250 1500 / 1500 50 / 50 Cordarone Inj 450 MG In D5W Inj 250 / 250 241 ML @ 1 MG/MIN 33.33 mls/hr IV.CONT TITRATE PRN Rx#: [id number] Versed Inj 100 mg In 100 ml @ 2 200 / 200 200 / 200 MG/HR 2 mls/hr IV.CONT TITRATE PRN Rx#:[id number] NS Inj 1,000 ML @ 65 mls/hr IV. 1000 / 1000 1000 / 1000 CONT .[id number] [facility] Rx#:[id number] Zosyn 3.375 GM Premix 50 ML @ 50 / 50 50 / 50 50 / 50 100 mls/hr IV.SIG Q8H [facility] Rx#: [id number] Tube Feeding 78 / 78 235 / 235 Tube Irrigant 100 / 100 Output: Urine 0 / 0 Pleural Fluid 0 / 0 Urine Amount (Catheter) 800 / 800 375 / 375 Indwelling Urethral Catheter 800 / 800 375 / 375 Gastric Drainage 0 / 0 Orogastric Tube 0 / 0 Other: Date of Last Bowel Movement 03/24/18 03/25/18 03/24/18 # Bowel Movements 1 # Incontinent Bowel Movements 1 1 03/21/18 20:31 Blood - Peripheral Aerobic Blood Culture - Final Escherichia coli 03/21/18 20:31 Blood - Peripheral Anaerobic Blood Culture - Final Escherichia coli 03/21/18 20:31 Blood - Peripheral Aerobic Blood Culture - Final Escherichia coli 03/21/18 20:31 Blood - Peripheral Anaerobic Blood Culture - Final Escherichia coli 03/23/18 11:45 Blood - Peripheral Aerobic Blood Culture - Preliminary No growth in 1 day 03/23/18 11:45 Blood - Peripheral Anaerobic Blood Culture - Preliminary No growth in 1 day 03/23/18 09:45 Blood - Peripheral Aerobic Blood Culture - Preliminary No growth in 1 day 03/23/18 09:45 Blood - Peripheral Anaerobic Blood Culture - Final QNS - See aerobic report. 03/21/18 20:43 Clean Catch Urine Urine Culture - Final Escherichia coli Lab - Hematology Results 03/24/18 03/25/18 04:00 02:04 WBC 9.8 11.2 H RBC 3.67 L 3.66 L Hgb 11.3 L 11.5 L Hct 33.1 L 33.1 L MCV 90.2 90.4 MCH 30.8 31.3 MCHC 34.2 34.6 RDW 15.0 14.7 Plt Count 127 L 160 MPV 9.5 9.2 Neut % (Auto) 89.8 H 93.6 H Lymph % (Auto) 6.4 L 2.2 L Beadle % (Auto) 3.5 3.8 Eos % (Auto) 0.0 0.1 Baso % (Auto) 0.3 0.3 Neut # (Auto) 8.8 H 10.4 H Lymph # (Auto) 0.6 L 0.2 L Beadle # (Auto) 0.3 0.4 Eos # (Auto) 0.0 0.0 Baso # (Auto) 0.0 0.0 WBC Differential . . Differential Comment Auto diff final Auto diff final Lab - Chemistry Results 03/23/18 03/23/18 03/23/18 08:45 08:45 13:18 Sodium 135 L Potassium 4.1 Chloride 103 Carbon Dioxide 21.2 D Anion Gap 11 BUN 38 H Creatinine 3.07 H Estimated GFR 24 L POC Glucose Random Glucose 265 H Lactic Acid 2.4 H Calcium 7.4 L* Calcium Adj for Albumin 8.7 Phosphorus 3.6 Magnesium 1.9 Total Bilirubin AST ALT Alkaline Phosphatase Total Creatine Kinase 1955 H CK-MB (CK-2) 3.8 H CK-MB (CK-2) % 0.2 Troponin I 0.18 H Total Protein Albumin 2.4 L Lipase 475 H TSH 03/23/18 03/23/18 03/23/18 13:18 13:55 15:07 Sodium 134 L Potassium 4.4 Chloride 101 Carbon Dioxide 20.6 L Anion Gap 12 BUN 40 H Creatinine 2.91 H Estimated GFR 25 L POC Glucose 159 H Random Glucose 326 H Lactic Acid Calcium 7.7 L Calcium Adj for Albumin Phosphorus 2.5 D Magnesium 2.0 Total Bilirubin AST ALT Alkaline Phosphatase Total Creatine Kinase CK-MB (CK-2) CK-MB (CK-2) % Troponin I 0.10 H Total Protein Albumin Lipase TSH 03/23/18 03/23/18 03/23/18 20:00 20:03 20:35 Sodium 134 L Potassium 4.4 Chloride 103 Carbon Dioxide 21.0 Anion Gap 10 BUN 41 H Creatinine 2.77 H Estimated GFR 27 L POC Glucose 389 H Random Glucose 349 H Lactic Acid 2.6 H Calcium 7.7 L Calcium Adj for Albumin Phosphorus Magnesium Total Bilirubin AST ALT Alkaline Phosphatase Total Creatine Kinase CK-MB (CK-2) CK-MB (CK-2) % Troponin I Total Protein Albumin Lipase [facility] 03/23/18 03/23/18 03/23/18 23:39 23:40 23:41 Sodium Potassium Chloride Carbon Dioxide Anion Gap BUN Creatinine Estimated GFR POC Glucose 342 H 366 H 300 H Random Glucose Lactic Acid Calcium Calcium Adj for Albumin Phosphorus Magnesium Total Bilirubin AST ALT Alkaline Phosphatase Total Creatine Kinase CK-MB (CK-2) CK-MB (CK-2) % Troponin I Total Protein Albumin Lipase [facility] 03/24/18 03/24/18 03/24/18 01:46 03:56 04:00 Sodium 138 Potassium 3.8 Chloride 106 Carbon Dioxide 22.0 Anion Gap 10 BUN 40 H Creatinine 2.60 H Estimated GFR 29 L POC Glucose 292 H Random Glucose 267 H Lactic Acid 2.6 H Calcium 7.4 L* Calcium Adj for Albumin 7.9 L Phosphorus 1.6 L Magnesium 2.1 Total Bilirubin 0.7 AST 48 H ALT 32 Alkaline Phosphatase 66 Total Creatine Kinase CK-MB (CK-2) CK-MB (CK-2) % Troponin I 0.05 Total Protein 6.2 L D Albumin 1.9 L Lipase TSH 0.755 03/24/18 03/24/18 03/24/18 08:04 08:50 09:55 Sodium Potassium Chloride Carbon Dioxide Anion Gap BUN Creatinine Estimated GFR POC Glucose 210 H Random Glucose Lactic Acid 2.4 H Calcium Calcium Adj for Albumin Phosphorus Magnesium Total Bilirubin AST ALT Alkaline Phosphatase Total Creatine Kinase 1077 H CK-MB (CK-2) 2.6 CK-MB (CK-2) % 0.2 Troponin I Total Protein Albumin Lipase [facility] 03/24/18 03/24/18 03/24/18 11:41 14:15 15:30 Sodium Potassium Chloride Carbon Dioxide Anion Gap BUN Creatinine Estimated GFR POC Glucose 206 H 146 H Random Glucose Lactic Acid 2.1 H Calcium Calcium Adj for Albumin Phosphorus Magnesium Total Bilirubin AST ALT Alkaline Phosphatase Total Creatine Kinase CK-MB (CK-2) CK-MB (CK-2) % Troponin I Total Protein Albumin Lipase [facility] 03/24/18 03/24/18 03/24/18 18:43 22:42 22:47 Sodium 143 Potassium 3.8 Chloride 110 H Carbon Dioxide 22.6 Anion Gap 10 BUN 46 H Creatinine 2.31 H Estimated GFR 33 L POC Glucose 227 H Random Glucose 206 H Lactic Acid 1.9 Calcium 7.2 L* Calcium Adj for Albumin 9.0 Phosphorus Magnesium 2.2 Total Bilirubin AST ALT Alkaline Phosphatase Total Creatine Kinase CK-MB (CK-2) CK-MB (CK-2) % Troponin I Total Protein Albumin 1.7 L Lipase TSH 03/25/18 03/25/18 03/25/18 02:04 02:04 04:59 Sodium 141 Potassium 3.8 Chloride 109 H Carbon Dioxide 23.6 Anion Gap 8 BUN 50 H Creatinine 2.36 H Estimated GFR 32 L POC Glucose 258 H Random Glucose 232 H Lactic Acid 1.7 Calcium 7.2 L* Calcium Adj for Albumin 7.8 L Phosphorus 3.0 D Magnesium 2.3 Total Bilirubin 0.6 AST 32 ALT 31 Alkaline Phosphatase 66 Total Creatine Kinase 550 H CK-MB (CK-2) 1.5 CK-MB (CK-2) % 0.3 Troponin I Total Protein 5.9 L Albumin 1.8 L Lipase TSH 03/25/18 03/25/18 05:43 07:49 Sodium Potassium Chloride Carbon Dioxide Anion Gap BUN Creatinine Estimated GFR POC Glucose 259 H Random Glucose Lactic Acid 2.1 H Calcium Calcium Adj for Albumin Phosphorus Magnesium Total Bilirubin AST ALT Alkaline Phosphatase Total Creatine Kinase CK-MB (CK-2) CK-MB (CK-2) % Troponin I Total Protein Albumin Lipase TSH Imaging: ITS Impressions Abdomen/Pelvis CT 03/21/18 18:35 CONCLUSION: 1. Left-sided hydronephrosis and hydroureter with prominent stranding. No radiopaque calculus identified. 2. Enlarged prostate gland containing prostatic seeds. 3. Hepatic steatosis. 4. Prominence of both adrenal glands likely hyperplasia. Abdomen/Bladder Ultrasound 03/24/18 08:33 CONCLUSION: 1. The hydronephrosis involving the left kidney on the prior CT scan has significantly improved. No residual hydronephrosis observed. 2. Prostate gland enlargement which impresses upon the urinary bladder. No bladder wall thickening to clearly suggest bladder outlet obstruction. Chest X-Ray 03/25/18 06:00 CONCLUSION: Stable chest x-ray with left basilar opacity likely representing airspace consolidation with small effusion. Airspace opacity at the right base is also stable and most likely represents atelectasis. Physical Exam: GENERAL: sedated on the vent, not in respiratory distress. SKIN: Cool and dry. No generalized rash. HEAD: Atraumatic. Normocephalic. No temporal wasting, or tenderness. EYES: Dresser conjunctiva. No petechia or hemorrhage. Has dirty sclera. No injection or drainage. EARS, NOSE AND THROAT: Nose without bleeding or purulent nasal discharge. Orally intubated. NECK: Trachea midline. Supple and not tender, no meningeal signs. Has left IJ central line CARDIOVASCULAR: Regular rate and rhythm. No murmur heard RESPIRATORY: Breath sounds equal bilaterally. No rales, wheezing or rhonchi. Decreased breath sounds at the bases ABDOMEN: Globular, mildly distended, no reaction to palpation. Bowel sounds present and normoactive. Has a right femoral groin a line EXTREMITIES: No clubbing, cyanosis. Cool feet. : Solomon in place, not a lot of output NEUROLOGICAL: Sedated PSYCHIATRIC: Unable to assess LINE: No evidence of infection Assessment and Plan - Plan Impression E coli sepsis, with shock due to complicated UTI - BP better - hydronephrosis resolved E coli UTI Renal failure, making good UO Respiratory failure Hematuria, resolved - Hx prostate CA Recommendation Follow C/S Change Zosyn to Rocephin Monitor progress Follow temps Weaning per CCM D/W RN Spoke with son at bedside
[2018-03-25] MEDS ORDERED: Piperacil/Tazo 2.25 GM Premix 50 ML IV.SIG SCH (12:00)
--- NOTE | 2018-03-25 12:47 | P.PNNP ---
Subjective Interval history: Patient was seen, no distress, was more alert today. Had atrial fib RVR last night, cardioverted, in NSR now. Patient's Creatinine is 2.36, stable from yesterday. Patient continues to make urine via river catheter. Hydronephrosis involving left kidney has improved. Zosyn discontinued today. Patient started on Ceftriaxone. <Gisela Toussaintlinda - Last Filed: 03/25/18 12:54> Physical Exam Vital signs: Vital Signs 03/24/18 14:00 03/24/18 16:00 03/24/18 16:14 Temperature 97.6 F Pulse Rate 71 68 Respiratory Rate 9 L 18 Blood Pressure 105/70 Pulse Oximetry 97 96 03/24/18 17:00 03/24/18 18:00 03/24/18 19:00 Temperature Pulse Rate 76 72 72 Respiratory Rate 18 18 11 L Blood Pressure 131/78 122/79 116/75 Pulse Oximetry 89 L 86 L 93 L 03/24/18 19:27 03/24/18 20:00 03/24/18 20:41 Temperature 97.8 F Pulse Rate 74 76 166 H Respiratory Rate 18 18 18 Blood Pressure 122/78 98/68 L Pulse Oximetry 94 L 93 L 97 03/24/18 21:00 03/24/18 21:10 03/24/18 22:00 Temperature Pulse Rate 159 H 81 72 Respiratory Rate 0 L 23 0 L Blood Pressure 90/57 L 81/57 L Pulse Oximetry 93 L 95 97 03/24/18 23:00 03/24/18 23:39 03/24/18 23:42 Temperature Pulse Rate 67 68 Respiratory Rate 18 23 18 Blood Pressure 95/59 L 94/64 L Pulse Oximetry 95 91 L 97 03/25/18 00:00 03/25/18 00:30 03/25/18 01:00 Temperature 96.6 F L Pulse Rate 68 65 66 Respiratory Rate 19 0 L Blood Pressure 92/59 L 91/58 L 97/65 L Pulse Oximetry 96 95 95 03/25/18 02:00 03/25/18 02:30 03/25/18 03:00 Temperature Pulse Rate 68 65 64 Respiratory Rate Blood Pressure 100/67 94/56 L 92/59 L Pulse Oximetry 97 97 97 03/25/18 03:06 03/25/18 03:30 03/25/18 03:50 Temperature Pulse Rate 63 62 Respiratory Rate 18 18 Blood Pressure 88/66 L Pulse Oximetry 97 97 03/25/18 04:00 03/25/18 04:30 03/25/18 05:00 Temperature 96.6 F L Pulse Rate 62 62 61 Respiratory Rate Blood Pressure 89/61 L 93/63 L 93/66 L Pulse Oximetry 97 03/25/18 05:37 03/25/18 06:00 03/25/18 06:30 Temperature Pulse Rate 64 59 L 58 L Respiratory Rate Blood Pressure 111/69 95/65 L 93/63 L Pulse Oximetry 97 97 97 03/25/18 07:00 03/25/18 07:40 03/25/18 08:00 Temperature 97.5 F L Pulse Rate 57 L 61 67 Respiratory Rate 20 18 Blood Pressure 96/65 L 121/78 Pulse Oximetry 97 97 03/25/18 08:01 03/25/18 10:00 03/25/18 11:27 Temperature Pulse Rate 67 79 71 Respiratory Rate 23 Blood Pressure 121/78 Pulse Oximetry 97 95 03/25/18 12:00 Temperature 96.9 F L Pulse Rate 73 Respiratory Rate 21 Blood Pressure 108/75 Pulse Oximetry 96 Intake & Output 03/24/18 03/25/18 03/25/18 18:59 06:59 18:59 Intake Total 1328 / 1328 1835 / 1835 150 / 150 Output Total 800 / 800 375 / 375 Balance 528 / 528 1460 / 1460 150 / 150 Weight 120 kg Intake: IV 1250 / 1250 1500 / 1500 150 / 150 Cordarone Inj 450 MG In D5W Inj 250 / 250 241 ML @ 1 MG/MIN 33.33 mls/hr IV.CONT TITRATE PRN Rx#: [id number] Versed Inj 100 mg In 100 ml @ 2 200 / 200 200 / 200 MG/HR 2 mls/hr IV.CONT TITRATE PRN Rx#:[id number] NS Inj 1,000 ML @ 65 mls/hr IV. 1000 / 1000 1000 / 1000 CONT .[id number] [facility] Rx#:[id number] Zosyn 3.375 GM Premix 50 ML @ 50 / 50 50 / 50 50 / 50 100 mls/hr IV.SIG Q8H [facility] Rx#: [id number] Rocephin Inj 2,000 MG In NS Inj 100 / 100 100 ML @ 200 mls/hr IV.SIG Q24H [facility] Rx#:[id number] Tube Feeding 78 / 78 235 / 235 Tube Irrigant 100 / 100 Output: Urine 0 / 0 Pleural Fluid 0 / 0 Urine Amount (Catheter) 800 / 800 375 / 375 Indwelling Urethral Catheter 800 / 800 375 / 375 Gastric Drainage 0 / 0 Orogastric Tube 0 / 0 Other: Date of Last Bowel Movement 03/24/18 03/25/18 03/24/18 # Bowel Movements 1 # Incontinent Bowel Movements 1 1 - Constitutional no acute distress - Routine HEENT Exam Head: Present: normocephalic Eye: Present: PERRL ENT: Present: mucous membranes moist - Routine Neck Exam Present: trachea midline. Absent: JVD, tracheal deviation - Routine Respiratory Exam Present: patient mechanically ventilated. Absent: accessory muscle use, respiratory distress - Routine Cardiovascular Exam Present: RRR - Routine Abdominal Exam Present: soft, normoactive bowel sounds. Absent: tenderness - Routine Extremities Exam Present: extremity cold to touch - Routine Psychiatric Exam Present: unable to assess - Urinary Catheter Management Indwelling Urethral Catheter Cath placed during this visit: yes Reason for continuing: Acute urinary retention Insertion date: 03/23/18 Insertion time: 05:40 <Mary Jane Toussaint - Last Filed: 03/25/18 12:54> Vital signs: Vital Signs 03/24/18 22:00 03/24/18 23:00 03/24/18 23:39 Temperature Pulse Rate 72 67 68 Respiratory Rate 0 L 18 23 Blood Pressure 81/57 L 95/59 L 94/64 L Pulse Oximetry 97 95 91 L 03/24/18 23:42 03/25/18 00:00 03/25/18 00:30 Temperature 96.6 F L Pulse Rate 68 65 Respiratory Rate 18 19 0 L Blood Pressure 92/59 L 91/58 L Pulse Oximetry 97 96 95 03/25/18 01:00 03/25/18 02:00 03/25/18 02:30 Temperature Pulse Rate 66 68 65 Respiratory Rate Blood Pressure 97/65 L 100/67 94/56 L Pulse Oximetry 95 97 97 03/25/18 03:00 03/25/18 03:06 03/25/18 03:30 Temperature Pulse Rate 64 63 62 Respiratory Rate 18 Blood Pressure 92/59 L 88/66 L Pulse Oximetry 97 97 03/25/18 03:50 03/25/18 04:00 03/25/18 04:30 Temperature 96.6 F L Pulse Rate 62 62 Respiratory Rate 18 Blood Pressure 89/61 L 93/63 L Pulse Oximetry 97 97 03/25/18 05:00 03/25/18 05:37 03/25/18 06:00 Temperature Pulse Rate 61 64 59 L Respiratory Rate Blood Pressure 93/66 L 111/69 95/65 L Pulse Oximetry 97 97 03/25/18 06:30 03/25/18 07:00 03/25/18 07:40 Temperature Pulse Rate 58 L 57 L 61 Respiratory Rate 20 Blood Pressure 93/63 L 96/65 L Pulse Oximetry 97 97 03/25/18 08:00 03/25/18 08:01 03/25/18 10:00 Temperature 97.5 F L Pulse Rate 67 67 79 Respiratory Rate 18 Blood Pressure 121/78 121/78 Pulse Oximetry 97 97 03/25/18 11:27 03/25/18 12:00 03/25/18 14:00 Temperature 96.9 F L Pulse Rate 71 73 71 Respiratory Rate 23 21 Blood Pressure 108/75 Pulse Oximetry 95 96 03/25/18 15:33 03/25/18 16:00 03/25/18 18:00 Temperature 97.0 F L Pulse Rate 70 73 73 Respiratory Rate 18 Blood Pressure 114/74 Pulse Oximetry 98 03/25/18 19:30 Temperature Pulse Rate 72 Respiratory Rate 18 Blood Pressure Pulse Oximetry 98 Intake & Output 03/25/18 03/25/18 03/26/18 06:59 18:59 06:59 Intake Total 1835 / 1835 1432.6 / 1432.6 Output Total 375 / 375 25 / 25 Balance 1460 / 1460 1407.6 / 1407.6 Weight 120 kg Intake: IV 1500 / 1500 1432.6 / 1432.6 Cordarone Inj 450 MG In D5W Inj 250 / 250 182.6 / 182.6 241 ML @ 1 MG/MIN 33.33 mls/hr IV.CONT TITRATE PRN Rx#: [id number] Versed Inj 100 mg In 100 ml @ 2 200 / 200 100 / 100 MG/HR 2 mls/hr IV.CONT TITRATE PRN Rx#:[id number] NS Inj 1,000 ML @ 65 mls/hr IV. 1000 / 1000 1000 / 1000 CONT .[id number] [facility] Rx#:[id number] Zosyn 3.375 GM Premix 50 ML @ 50 / 50 50 / 50 100 mls/hr IV.SIG Q8H [facility] Rx#: [id number] Rocephin Inj 2,000 MG In NS Inj 100 / 100 100 ML @ 200 mls/hr IV.SIG Q24H [facility] Rx#:[id number] Oral 0 / 0 Tube Feeding 235 / 235 Tube Irrigant 100 / 100 Output: Urine 0 / 0 Pleural Fluid 0 / 0 Urine Amount (Catheter) 375 / 375 25 / 25 Indwelling Urethral Catheter 375 / 375 25 / 25 Gastric Drainage 0 / 0 Orogastric Tube 0 / 0 Other: Date of Last Bowel Movement 03/25/18 03/24/18 # Bowel Movements 1 # Incontinent Bowel Movements 1 - Urinary Catheter Management Indwelling Urethral Catheter Cath placed during this visit: no <Eloy Mahajan - Last Filed: 03/25/18 21:47> Assessment and Plan - Assessment (1) GILLES (acute kidney injury) Code(s): N17.9 - Acute kidney failure, unspecified Status: Acute Plan: GILLES due to ATN due to sepsis and hypotension. Hydronephrosis involving left kidney has improved. Patient's Creatinine is 2.36, stable from yesterday. Will continue to monitor. Patient has river catheter in place, monitor urine output closely. Monitor fluid and electrolytes. - Plan GNR sepsis, with shock due to complicated UTI Urine and blood cultures growing gram-negative rods/E. coli. Zosyn discontinued today. Patient started on Ceftriaxone. Prostate cancer History of prostate cancer with radiation seeds in place. Hypertension Monitor BP. Patient was hypotensive. Type 2 diabetes Continue insulin coverage to maintain blood glucose between 140 and 180. <Mary Jane Toussaint - Last Filed: 03/25/18 12:54> - Assessment (1) GILLES (acute kidney injury) Code(s): N17.9 - Acute kidney failure, unspecified Status: Acute - Attending Attestation patient was seen and examined. Agree with above assessment and plan. Discontinue IVF. He is now on TF. <Eloy Mahajan - Last Filed: 03/25/18 21:47>
--- NOTE | 2018-03-25 16:03 | P.PNCC ---
Subjective Subjective Remarks/Hospital Course: Patient is a 83-year-old -[place] male with history of prostate cancer, hypertension who was admitted to the hospitalist service for UTI and urosepsis. Patient was found to be in acute renal failure and CT of the abdomen pelvis showed left hydronephrosis hydroureter. Seen by urology for hydronephrosis and hematuria no further intervention from urology standpoint. Had been initially on Rocephin and later changed to Zosyn. Blood cultures 4 out of 4 bottles positive for gram-negative rods (which is growing E. coli now). Patient was increasingly somnolent tonight and has history of previous smoking. His ABG showed pH of 7.23 with hypercapnia, PCo2 66. Patient was also short of breath and was placed on BiPAP. After 2 hours of BiPAP repeat ABG showed persistent acidosis and worsening pCo2 now 68. Patient was moved to the ICU stat where I evaluated him. He is showing labored breathing currently, very hard to arouse. I proceeded with endotracheal intubation and placed him on mechanical ventilation. Post intubation patient became more hypotensive. I have ordered 3 L normal saline bolus. Start Dre-Synephrine if needed to keep map above 65 as the patient is also tachycardic. Continues to spike fever repeat sputum blood cultures will be sent. Single dose of vancomycin ordered. Creatinine initially was 2.4 now worsened to 2.95. Patient will need strict hourly intake output Solomon has been ordered, nephrology consult also placed SUBJECTIVE: 03/24: Currently off all vasopressors. 450 cc urine output overnight. Creatinine slowly decreasing. Will reevaluate hydronephrosis today with ultrasound. Remains on piperacillin/tazobactam. Will start on tube feeding today. 03/25: Remains intubated sedated. Patient was cardioverted by Dr. Clements for atrial fibrillation with RVR with rate in the 140s-150s with hypotension. Did not convert with cardioversion, amiodarone bolus and drip started. Eventually changed to sinus rhythm Objective Vital Signs / I&O: Vital Signs 03/24/18 16:00 03/24/18 16:14 03/24/18 17:00 Temperature 97.6 F Pulse Rate 68 76 Respiratory Rate 9 L 18 18 Blood Pressure 105/70 131/78 Pulse Oximetry 97 96 89 L 03/24/18 18:00 03/24/18 19:00 03/24/18 19:27 Temperature Pulse Rate 72 72 74 Respiratory Rate 18 11 L 18 Blood Pressure 122/79 116/75 Pulse Oximetry 86 L 93 L 94 L 03/24/18 20:00 03/24/18 20:41 03/24/18 21:00 Temperature 97.8 F Pulse Rate 76 166 H 159 H Respiratory Rate 18 18 0 L Blood Pressure 122/78 98/68 L Pulse Oximetry 93 L 97 93 L 03/24/18 21:10 03/24/18 22:00 03/24/18 23:00 Temperature Pulse Rate 81 72 67 Respiratory Rate 23 0 L 18 Blood Pressure 90/57 L 81/57 L 95/59 L Pulse Oximetry 95 97 95 03/24/18 23:39 03/24/18 23:42 03/25/18 00:00 Temperature 96.6 F L Pulse Rate 68 68 Respiratory Rate 23 18 19 Blood Pressure 94/64 L 92/59 L Pulse Oximetry 91 L 97 96 03/25/18 00:30 03/25/18 01:00 03/25/18 02:00 Temperature Pulse Rate 65 66 68 Respiratory Rate 0 L Blood Pressure 91/58 L 97/65 L 100/67 Pulse Oximetry 95 95 97 03/25/18 02:30 03/25/18 03:00 03/25/18 03:06 Temperature Pulse Rate 65 64 63 Respiratory Rate 18 Blood Pressure 94/56 L 92/59 L Pulse Oximetry 97 97 03/25/18 03:30 03/25/18 03:50 03/25/18 04:00 Temperature 96.6 F L Pulse Rate 62 62 Respiratory Rate 18 Blood Pressure 88/66 L 89/61 L Pulse Oximetry 97 97 97 03/25/18 04:30 03/25/18 05:00 03/25/18 05:37 Temperature Pulse Rate 62 61 64 Respiratory Rate Blood Pressure 93/63 L 93/66 L 111/69 Pulse Oximetry 97 03/25/18 06:00 03/25/18 06:30 03/25/18 07:00 Temperature Pulse Rate 59 L 58 L 57 L Respiratory Rate Blood Pressure 95/65 L 93/63 L 96/65 L Pulse Oximetry 97 97 97 03/25/18 07:40 03/25/18 08:00 03/25/18 08:01 Temperature 97.5 F L Pulse Rate 61 67 67 Respiratory Rate 20 18 Blood Pressure 121/78 121/78 Pulse Oximetry 97 97 03/25/18 10:00 03/25/18 11:27 03/25/18 12:00 Temperature 96.9 F L Pulse Rate 79 71 73 Respiratory Rate 23 21 Blood Pressure 108/75 Pulse Oximetry 95 96 03/25/18 14:00 03/25/18 15:33 Temperature Pulse Rate 71 70 Respiratory Rate 18 Blood Pressure Pulse Oximetry Intake & Output 03/24/18 03/25/18 03/25/18 18:59 06:59 18:59 Intake Total 1328 / 1328 1835 / 1835 1250 / 1250 Output Total 800 / 800 375 / 375 Balance 528 / 528 1460 / 1460 1250 / 1250 Weight 120 kg Intake: IV 1250 / 1250 1500 / 1500 1250 / 1250 Cordarone Inj 450 MG In D5W Inj 250 / 250 241 ML @ 1 MG/MIN 33.33 mls/hr IV.CONT TITRATE PRN Rx#: [id number] Versed Inj 100 mg In 100 ml @ 2 200 / 200 200 / 200 100 / 100 MG/HR 2 mls/hr IV.CONT TITRATE PRN Rx#:[id number] NS Inj 1,000 ML @ 65 mls/hr IV. 1000 / 1000 1000 / 1000 1000 / 1000 CONT .[id number] SARAH Rx#:[id number] Zosyn 3.375 GM Premix 50 ML @ 50 / 50 50 / 50 50 / 50 100 mls/hr IV.SIG Q8H SARAH Rx#: [id number] Rocephin Inj 2,000 MG In NS Inj 100 / 100 100 ML @ 200 mls/hr IV.SIG Q24H SARAH Rx#:[id number] Tube Feeding 78 / 78 235 / 235 Tube Irrigant 100 / 100 Output: Urine 0 / 0 Pleural Fluid 0 / 0 Urine Amount (Catheter) 800 / 800 375 / 375 Indwelling Urethral Catheter 800 / 800 375 / 375 Gastric Drainage 0 / 0 Orogastric Tube 0 / 0 Other: Date of Last Bowel Movement 03/24/18 03/25/18 03/24/18 # Bowel Movements 1 # Incontinent Bowel Movements 1 1 Result Diagrams: 03/25/18 02:04 03/25/18 02:04 Objective Remarks: GENERAL: 83-year-old AA male critically ill currently resting in bed SKIN: Warm and dry. HEAD: Atraumatic. Normocephalic. EYES: Pupils equal and round. No scleral icterus. No injection or drainage. ENT: No nasal bleeding or discharge. Mucous membranes pink and moist. NECK: Trachea midline. No JVD. Left IJ CVL clean dry and intact. CARDIOVASCULAR: Regular rate and rhythm. S1, S2. No S4. RESPIRATORY: Equal breath sounds throughout. No wheezing. GASTROINTESTINAL: Abdomen soft, non-tender, nondistended. Hepatic and splenic margins not palpable. MUSCULOSKELETAL: Extremities with trace bilateral lower extremity edema. Ankle bracelet on right ankle NEUROLOGICAL: Arousable on the ventilator when midazolam drip discontinued and moves all 4 extremities strongly. Intermittently follows commands in the upper extremity Procedures: Left IJ CVL 03/23 Right femoral arterial line 03/23 Assessment and Plan - Assessment and Plan Plan: NEURO/PSYCH: Acute toxic metabolic encephalopathy secondary to sepsis -Currently on midazolam/fentanyl drips for sedation/analgesia while intubated -Goal of RA SS -2 -Daily sedation vacation -Acetaminophen 650 by tube every 6 hours as needed fever RESP: Acute hypercapnic respiratory failure COPD with exacerbation -PRVC/AC, Ventilator bundle -Albuterol/ipratropium aerosols every 4 hours scheduled a with albuterol aerosols every 2 hours as needed dyspnea -f/u sputum culture -Methylprednisolone succinate 40 mg IV every 8 hours -CPAP/spontaneous breathing trials when daily when mental status improved -Follow-up a.m. chest x-ray and ABG 03/25 CV: History of essential hypertension Septic shock Moderate TR. Mild MR. Elevated troponin Atrial fibrillation with RVR -Did not respond to DC cardioversion, converted to sinus rhythm with amiodarone bolus and infusion -s/p Normal saline IV fluids 3L bolus, maintenance fluid at 125 ml per hour -Currently on no vasopressors. Previously on norepinephrine and phenylephrine drips -Lactate to be cycled until cleared. Currently 2.6 2D echocardiogram revealed EF 65-70%. Moderate TR. Mild MR. PA P 38.3 mmHg Cardiology consulted for possible AV block. Resolved currently. GI: Elevated AST Elevated lipase Hypoalbuminemia -Currently on Vital 1.5 goal 55 cc an hour -Lansoprazole for GI prophylaxis -Docusate sodium/senna 1 tablet twice daily for bowel regimen -Hepatic profile in a.m. Renal/: Acute kidney injury Left hydronephrosis/hydroureter Rhabdomyolysis -Monitor renal function closely. Solomon catheter for strict hourly intake output , and due to worsening renal failure -Consult nephrology for worsening renal failure, urology had already been consulted-no intervention -IV hydration as above. Serial CPKs. -Renal US: The hydronephrosis involving the left kidney on the prior CT scan has significantly improved. \ ID: E. coli bacteremia and UTI -Antibiotics-increase piperacillin/tazobactam to 3.375 every 8 hours, single dose of vancomycin 1 g -Repeat blood and sputum culture. 03/23 -Urine and blood cultures growing gram-negative rods/E. coli -Consulted ID HEME: Normocytic anemia Thrombocytopenia Elevated PTT Elevated fibrinogen -Monitor CBC, coags -No indication for transfusion of blood products at this time. ENDO: DMII -Sliding scale insulin TSH was 0.755 FEN Hypocalcemia hypophosphatemia 15 mmol sodium phosphate IV x1 now. Recheck in a.m. PROPH: -Bilateral lower extremity SCDs. Subcu heparin -Lansoprazole LINES: -Utilize peripheral IVs, left IJ CVL day #3 and right femoral arterial line day #3 CC time32 -minute
[2018-03-26] MEDS: Insulin NovoLOG Aspart Correctional Sugar Inj SQ SCH ×8 (00:21→23:46)
[2018-03-26] MEDS: Artificial Tears Opth Drops 15 ML Bottle EACH EYE SCH ×3 (00:46→16:25)
[2018-03-26] MEDS: Chlorhexidine Gluconate 2% 1 Pack (2 Cloths) TOPICAL SCH (05:43)
[2018-03-26] MEDS: MethylPREDNISolone Sod Succinate Inj 40 MG/ML Vial IV.PUSH SCH ×3 (05:44→22:20)
[2018-03-26] MEDS: Midazolam 100 MG/100 ML Inj 100 MG/100 ML BAG IV.CONT PRN ×2 (05:44→22:53)
[2018-03-26] MEDS: Heparin - SQ 10,000 UNITS/ML Vial SQ SCH ×2 (08:17→20:39)
[2018-03-26] MEDS: Senna/Docusate Sodium 8.6/50 MG Tablet PO SCH ×2 (08:20→20:40)
--- NOTE | 2018-03-26 09:17 | P.PNNP ---
Subjective Interval history: Patient remain intubated and sedated, now the BP is low, but off pressors, on Amiodarone. Physical Exam Vital signs: Vital Signs 03/25/18 10:00 03/25/18 11:27 03/25/18 12:00 Temperature 96.9 F L Pulse Rate 79 71 73 Respiratory Rate 23 21 Blood Pressure 108/75 Pulse Oximetry 95 96 03/25/18 14:00 03/25/18 15:33 03/25/18 16:00 Temperature 97.0 F L Pulse Rate 71 70 73 Respiratory Rate 18 Blood Pressure 114/74 Pulse Oximetry 98 03/25/18 17:00 03/25/18 18:00 03/25/18 19:00 Temperature Pulse Rate 73 73 71 Respiratory Rate Blood Pressure 114/74 123/83 106/71 Pulse Oximetry 97 98 97 03/25/18 19:30 03/25/18 20:00 03/25/18 21:00 Temperature 98.2 F Pulse Rate 72 71 67 Respiratory Rate 18 Blood Pressure 111/72 112/72 Pulse Oximetry 98 98 98 03/25/18 22:00 03/25/18 23:00 03/26/18 00:00 Temperature 97.6 F Pulse Rate 71 66 68 Respiratory Rate 18 Blood Pressure 116/70 118/74 118/74 Pulse Oximetry 98 98 99 03/26/18 01:00 03/26/18 01:25 03/26/18 02:00 Temperature Pulse Rate 69 71 Respiratory Rate 18 Blood Pressure 112/73 117/73 Pulse Oximetry 98 98 96 03/26/18 03:00 03/26/18 03:13 03/26/18 04:00 Temperature 98.9 F Pulse Rate 66 68 66 Respiratory Rate 18 Blood Pressure 111/67 107/65 Pulse Oximetry 97 98 03/26/18 04:06 03/26/18 05:00 03/26/18 06:00 Temperature Pulse Rate 70 70 Respiratory Rate 18 Blood Pressure 108/69 Pulse Oximetry 99 100 03/26/18 08:12 03/26/18 08:17 Temperature Pulse Rate 72 Respiratory Rate 18 18 Blood Pressure Pulse Oximetry 95 Intake & Output 03/25/18 03/26/18 03/26/18 18:59 06:59 18:59 Intake Total 1432.6 / 1432.6 367.4 / 367.4 Output Total 850 / 850 Balance 1407.6 / 1407.6 -482.6 / -482.6 Weight 120 kg Intake: IV 1432.6 / 1432.6 267.4 / 267.4 Cordarone Inj 450 MG In D5W Inj 182.6 / 182.6 67.4 / 67.4 241 ML @ 1 MG/MIN 33.33 mls/hr IV.CONT TITRATE PRN Rx#: [id number] Versed Inj 100 mg In 100 ml @ 2 100 / 100 200 / 200 MG/HR 2 mls/hr IV.CONT TITRATE PRN Rx#:[id number] NS Inj 1,000 ML @ 65 mls/hr IV. 1000 / 1000 CONT .[id number] SARAH Rx#:[id number] Zosyn 3.375 GM Premix 50 ML @ 50 / 50 100 mls/hr IV.SIG Q8H SARAH Rx#: [id number] Rocephin Inj 2,000 MG In NS Inj 100 / 100 100 ML @ 200 mls/hr IV.SIG Q24H SARAH Rx#:[id number] Oral 0 / 0 0 / 0 Tube Feeding 0 / 0 Tube Irrigant 100 / 100 Output: Urine 0 / 0 Pleural Fluid 0 / 0 Urine Amount (Catheter) 850 / 850 Indwelling Urethral Catheter 850 / 850 Gastric Drainage 0 / 0 Orogastric Tube 0 / 0 Other: Date of Last Bowel Movement 03/24/18 02/24/18 # Bowel Movements 2 # Incontinent Bowel Movements 2 Narrative: Physical examination GENERAL: Patient is an obese, sedated, well-developed male, sedated on the vent, not in respiratory distress. SKIN: Cool and dry. No generalized rash, no ecchymoses and no evidence of embolic lesions. HEAD: Atraumatic. Normocephalic. No temporal wasting, or tenderness. EARS, NOSE AND THROAT: Orally intubated. NECK: Trachea midline. Supple and not tender, no meningeal signs. Has left IJ central line CARDIOVASCULAR: Regular rate and rhythm. No murmur heard RESPIRATORY: Breath sounds equal bilaterally. No rales, wheezing or rhonchi. Decreased breath sounds at the bases ABDOMEN: Globular, mildly distended, no reaction to palpation. Bowel sounds present and normoactive. Has a right femoral groin a line EXTREMITIES: No clubbing, cyanosis. Cool feet. : Solomon in place, not a lot of output NEUROLOGICAL: Sedated TELE: Sinus, intermittent Wenckebach - Urinary Catheter Management Indwelling Urethral Catheter Cath placed during this visit: yes Reason for continuing: Acute urinary retention Insertion date: 03/23/18 Insertion time: 05:40 Assessment and Plan - Assessment (1) GILLES (acute kidney injury) Code(s): N17.9 - Acute kidney failure, unspecified Status: Acute Plan: GILLES due to ATN due to sepsis and hypotension. Hydronephrosis involving left kidney has improved. Patient's Creatinine is 2.36, stable from yesterday. Will continue to monitor. Patient has Solomon catheter in place, monitor urine output closely. Monitor fluid and electrolytes. No new BMP, Creatinine was stable yesterday. Has been non oliguric, continue Ceftriaxone. Avoid Nephrotoxins. Watch for renal recovery. - Plan GNR sepsis, with shock due to complicated UTI Urine and blood cultures growing gram-negative rods/E. coli. Zosyn discontinued today. Patient started on Ceftriaxone. Prostate cancer History of prostate cancer with radiation seeds in place. Hypertension Monitor BP. Patient was hypotensive. Type 2 diabetes Continue insulin coverage to maintain blood glucose between 140 and 180.
--- NOTE | 2018-03-26 11:06 | P.PNCC ---
Subjective Subjective Remarks/Hospital Course: Patient is a 83-year-old -[place] male with history of prostate cancer, hypertension who was admitted to the hospitalist service for UTI and urosepsis. Patient was found to be in acute renal failure and CT of the abdomen pelvis showed left hydronephrosis hydroureter. Seen by urology for hydronephrosis and hematuria no further intervention from urology standpoint. Had been initially on Rocephin and later changed to Zosyn. Blood cultures 4 out of 4 bottles positive for gram-negative rods (which is growing E. coli now). Patient was increasingly somnolent tonight and has history of previous smoking. His ABG showed pH of 7.23 with hypercapnia, PCo2 66. Patient was also short of breath and was placed on BiPAP. After 2 hours of BiPAP repeat ABG showed persistent acidosis and worsening pCo2 now 68. Patient was moved to the ICU stat where I evaluated him. He is showing labored breathing currently, very hard to arouse. I proceeded with endotracheal intubation and placed him on mechanical ventilation. Post intubation patient became more hypotensive. I have ordered 3 L normal saline bolus. Start Dre-Synephrine if needed to keep map above 65 as the patient is also tachycardic. Continues to spike fever repeat sputum blood cultures will be sent. Single dose of vancomycin ordered. Creatinine initially was 2.4 now worsened to 2.95. Patient will need strict hourly intake output Solomon has been ordered, nephrology consult also placed SUBJECTIVE: 03/24: Currently off all vasopressors. 450 cc urine output overnight. Creatinine slowly decreasing. Will reevaluate hydronephrosis today with ultrasound. Remains on piperacillin/tazobactam. Will start on tube feeding today. 03/25: Remains intubated sedated. Patient was cardioverted by Dr. Clements for atrial fibrillation with RVR with rate in the 140s-150s with hypotension. Did not convert with cardioversion, amiodarone bolus and drip started. Eventually changed to sinus rhythm 03/26: remains intubated sedated. UO adequate. Maintains NSR. Attempt CPAP today Objective Vital Signs / I&O: Vital Signs 03/25/18 11:27 03/25/18 12:00 03/25/18 14:00 Temperature 96.9 F L Pulse Rate 71 73 71 Respiratory Rate 23 21 Blood Pressure 108/75 Pulse Oximetry 95 96 03/25/18 15:33 03/25/18 16:00 03/25/18 17:00 Temperature 97.0 F L Pulse Rate 70 73 73 Respiratory Rate 18 Blood Pressure 114/74 114/74 Pulse Oximetry 98 97 03/25/18 18:00 03/25/18 19:00 03/25/18 19:30 Temperature Pulse Rate 73 71 72 Respiratory Rate 18 Blood Pressure 123/83 106/71 Pulse Oximetry 98 97 98 03/25/18 20:00 03/25/18 21:00 03/25/18 22:00 Temperature 98.2 F Pulse Rate 71 67 71 Respiratory Rate Blood Pressure 111/72 112/72 116/70 Pulse Oximetry 98 98 98 03/25/18 23:00 03/26/18 00:00 03/26/18 01:00 Temperature 97.6 F Pulse Rate 66 68 69 Respiratory Rate 18 Blood Pressure 118/74 118/74 112/73 Pulse Oximetry 98 99 98 03/26/18 01:25 03/26/18 02:00 03/26/18 03:00 Temperature Pulse Rate 71 66 Respiratory Rate 18 Blood Pressure 117/73 111/67 Pulse Oximetry 98 96 97 03/26/18 03:13 03/26/18 04:00 03/26/18 04:06 Temperature 98.9 F Pulse Rate 68 66 Respiratory Rate 18 18 Blood Pressure 107/65 Pulse Oximetry 98 99 03/26/18 05:00 03/26/18 06:00 03/26/18 07:00 Temperature Pulse Rate 70 75 67 Respiratory Rate Blood Pressure 108/69 129/72 118/70 Pulse Oximetry 100 03/26/18 08:00 03/26/18 08:12 03/26/18 08:17 Temperature 97.9 F Pulse Rate 65 72 Respiratory Rate 18 18 18 Blood Pressure 107/65 Pulse Oximetry 95 95 03/26/18 09:00 03/26/18 10:00 Temperature Pulse Rate 66 66 Respiratory Rate Blood Pressure 116/69 Pulse Oximetry 95 Intake & Output 03/25/18 03/26/18 03/26/18 18:59 06:59 18:59 Intake Total 1432.6 / 1432.6 367.4 / 367.4 Output Total 850 / 850 Balance 1407.6 / 1407.6 -482.6 / -482.6 Weight 120 kg Intake: IV 1432.6 / 1432.6 267.4 / 267.4 Cordarone Inj 450 MG In D5W Inj 182.6 / 182.6 67.4 / 67.4 241 ML @ 1 MG/MIN 33.33 mls/hr IV.CONT TITRATE PRN Rx#: [id number] Versed Inj 100 mg In 100 ml @ 2 100 / 100 200 / 200 MG/HR 2 mls/hr IV.CONT TITRATE PRN Rx#:[id number] NS Inj 1,000 ML @ 65 mls/hr IV. 1000 / 1000 CONT .[id number] SARAH Rx#:[id number] Zosyn 3.375 GM Premix 50 ML @ 50 / 50 100 mls/hr IV.SIG Q8H SARAH Rx#: [id number] Rocephin Inj 2,000 MG In NS Inj 100 / 100 100 ML @ 200 mls/hr IV.SIG Q24H SARAH Rx#:[id number] Oral 0 / 0 0 / 0 Tube Feeding 0 / 0 Tube Irrigant 100 / 100 Output: Urine 0 / 0 Pleural Fluid 0 / 0 Urine Amount (Catheter) 25 / 25 850 / 850 Indwelling Urethral Catheter 25 / 25 850 / 850 Gastric Drainage 0 / 0 Orogastric Tube 0 / 0 Other: Date of Last Bowel Movement 03/24/18 02/24/18 02/24/18 # Bowel Movements 2 # Incontinent Bowel Movements 2 Result Diagrams: 03/25/18 02:04 03/25/18 02:04 Objective Remarks: GENERAL: 83-year-old AA male critically ill currently resting in bed SKIN: Warm and dry. HEAD: Atraumatic. Normocephalic. EYES: Pupils equal and round. No scleral icterus. No injection or drainage. ENT: No nasal bleeding or discharge. Orotracheally intubated NECK: Trachea midline. No JVD. Left IJ CVL clean dry and intact. CARDIOVASCULAR: Regular rate and rhythm. S1, S2. No S4. RESPIRATORY: Equal breath sounds throughout. No wheezing. GASTROINTESTINAL: Abdomen soft, non-tender, nondistended. Hepatic and splenic margins not palpable. MUSCULOSKELETAL: Extremities with trace bilateral lower extremity edema. Ankle bracelet on right ankle NEUROLOGICAL: Arousable on the ventilator when midazolam drip discontinued and moves all 4 extremities strongly. No FND Procedures: Left IJ CVL 03/23 Right femoral arterial line 03/23 Assessment and Plan - Assessment and Plan Plan: NEURO/PSYCH: Acute toxic metabolic encephalopathy secondary to sepsis -Currently on midazolam/fentanyl drips for sedation/analgesia while intubated -Goal of RA SS -2 -Daily sedation vacation -Acetaminophen 650 by tube every 6 hours as needed fever RESP: Acute hypercapnic respiratory failure COPD with exacerbation -PRVC/AC, Ventilator bundle -Albuterol/ipratropium aerosols every 4 hours scheduled a with albuterol aerosols every 2 hours as needed dyspnea -Methylprednisolone succinate 40 mg IV every 8 hours -CPAP/spontaneous breathing trials starting today -Follow-up a.m. chest x-ray am CV: Septic shock-resolved Moderate TR. Mild MR. Elevated troponin Atrial fibrillation with RVR History of essential hypertension -Did not respond to DC cardioversion, converted to sinus rhythm with amiodarone bolus and infusion -s/p Normal saline IV fluids 3L bolus, maintenance fluid at 125 ml per hour. -Currently on no vasopressors. Previously on norepinephrine and phenylephrine drips 2D echocardiogram revealed EF 65-70%. Moderate TR. Mild MR. PA P 38.3 mmHg Cardiology consulted for possible AV block. Resolved currently. GI: Elevated AST Elevated lipase Hypoalbuminemia -Currently on Vital 1.5 goal 55 cc an hour -Lansoprazole for GI prophylaxis -Docusate sodium/senna 1 tablet twice daily for bowel regimen -Hepatic profile in a.m. Renal/: Acute kidney injury Left hydronephrosis/hydroureter Rhabdomyolysis -Monitor renal function closely. Solomon catheter for strict hourly intake output , and due to worsening renal failure -Nephrology follwing for worsening renal failure, urology had already been consulted-no intervention -IV hydration as above. Serial CPKs. -Renal US: The hydronephrosis involving the left kidney on the prior CT scan has significantly improved. \ ID: E. coli bacteremia and UTI -Antibiotics- piperacillin/tazobactam to 3.375 every 8 hours, s/p single dose of vancomycin 1 g -Repeat blood and sputum culture. 03/23 -Urine and blood cultures growing E. coli -ID following HEME: Normocytic anemia Thrombocytopenia Elevated PTT Elevated fibrinogen -Monitor CBC, coags -No indication for transfusion of blood products at this time. ENDO: DM-II -Sliding scale insulin TSH was 0.755 FEN Hypocalcemia hypophosphatemia Repalce electrolytes PROPH: -Bilateral lower extremity SCDs. Subcu heparin -Lansoprazole LINES: -Utilize peripheral IVs, left IJ CVL day #3 and right femoral arterial line day #3 Level 3 Code Status: Full
[2018-03-26 13:53] LABS: Alanine Aminotransferase 30 U/L (12-78); Alkaline Phosphatase 83 U/L (45-117); Anion Gap 6 meq/L (5-15); Aspartate Aminotransferase 13 U/L (15-37); Blood Urea Nitrogen 60 mg/dL (7-18); Calcium 8.2 mg/dL (8.5-10.1); Carbon Dioxide 24.8 meq/L (21.0-32.0); Chloride 114 meq/L (98-107); Glomerular Filtration Rate 34 mL/min (>89); Glucose,Random 188 mg/dL (74-106); Potassium 4.5 meq/L (3.5-5.1); Sodium 145 meq/L (136-145); Total Protein 6.2 g/dL (6.4-8.2)
[2018-03-26 14:38] LABS: ABG Base Excess -0.5 mmol/L (-2-2); ABG PCO2 40 mmHg (38-42); ABG PO2 68 mmHG (61-120)
[2018-03-26] MEDS: fentaNYL 10 mcg/mL Premix Drip 2,500 MCG/250 ML BAG IV.SIG PRN (19:27)
[2018-03-27] MEDS: Artificial Tears Opth Drops 15 ML Bottle EACH EYE SCH ×3 (00:01→18:29)
[2018-03-27 03:23] LABS: Hematocrit 35.8 % (39.0-51.0); Hemoglobin 12.2 gm/dL (13.0-17.0); Mean Corpuscular HGB Conc 34.2 % (32.0-36.0); Mean Corpuscular Volume 90.7 fL (80.0-100.0); Mean Platelet Volume 8.8 fL (7.0-11.0); Platelet Count 215 th/mm3 (150-450); Red Blood Count 3.95 mil/mm3 (4.50-5.90); Red Cell Distribution Width 15.1 % (11.6-17.2); White Blood Count 10.2 th/mm3 (4.0-11.0)
[2018-03-27 03:53] LABS: Alanine Aminotransferase 25 U/L (12-78); Albumin 1.9 g/dL (3.4-5.0); Alkaline Phosphatase 75 U/L (45-117); Anion Gap 8 meq/L (5-15); Aspartate Aminotransferase 12 U/L (15-37); Blood Urea Nitrogen 62 mg/dL (7-18); Calcium 7.6 mg/dL (8.5-10.1); Carbon Dioxide 23.4 meq/L (21.0-32.0); Chloride 116 meq/L (98-107); Glomerular Filtration Rate 38 mL/min (>89); Glucose,Random 285 mg/dL (74-106); Magnesium 2.9 mg/dL (1.5-2.5); Potassium 4.3 meq/L (3.5-5.1); Sodium 147 meq/L (136-145); Total Protein 5.8 g/dL (6.4-8.2)
[2018-03-27] MEDS: Insulin NovoLOG Aspart Correctional Sugar Inj SQ SCH ×5 (04:01→20:33)
[2018-03-27] MEDS: Chlorhexidine Gluconate 2% 1 Pack (2 Cloths) TOPICAL SCH (04:01)
--- NOTE | 2018-03-27 04:15 | XR ---
EXAM DATE: 03/27/2018 4:04 AM EST AGE/SEX: 83 years / Male INDICATIONS: Shortness of breath, possible pulmonary disease. CLINICAL DATA: This is the patient's subsequent encounter. Patient reports that signs and symptoms h ave been present for 4 - 6 days and indicates a pain score of Nonresponsive. MEDICAL/SURGICAL HISTORY: Carcinoma, prostatic. Hypertension. None. COMPARISON: [facility] – [place], CHEST 1V SINGLE AP, 03/25/2018. . FINDINGS: Portable AP view of the chest demonstrates a normal-sized cardiac silhouette. ETT, nasogastric tube, and left IJ central line remain present. Multiple additional lines overlie the patient. There is a sm all to moderate sized left basilar pleural-parenchymal opacity, stable from the prior study. Mild air space opacity at the right base is also stable. No pneumothorax is identified. CONCLUSION: Stable chest x-ray with left pleural effusion with associated volume loss and/or airspace consolidati on. Opacity at the right lung base most likely represents atelectasis. Electronically signed by: Conor Garcia MD 03/27/2018 4:14 AM EST
[2018-03-27] MEDS: MethylPREDNISolone Sod Succinate Inj 40 MG/ML Vial IV.PUSH SCH ×3 (05:10→21:41)
[2018-03-27] MEDS ORDERED: Amiodarone 200 MG Tablet PO SCH (07:00)
[2018-03-27] MEDS: Dexmedetomidine Inj 200 MCG in Sodium Chlor 0.9% Inj 48 ML IV.CONT PRN ×4 (07:30→18:50)
--- NOTE | 2018-03-27 08:22 | P.PNCC ---
Subjective Subjective Remarks/Hospital Course: Patient is a 83-year-old -[place] male with history of prostate cancer, hypertension who was admitted to the hospitalist service for UTI and urosepsis. Patient was found to be in acute renal failure and CT of the abdomen pelvis showed left hydronephrosis hydroureter. Seen by urology for hydronephrosis and hematuria no further intervention from urology standpoint. Had been initially on Rocephin and later changed to Zosyn. Blood cultures 4 out of 4 bottles positive for gram-negative rods (which is growing E. coli now). Patient was increasingly somnolent tonight and has history of previous smoking. His ABG showed pH of 7.23 with hypercapnia, PCo2 66. Patient was also short of breath and was placed on BiPAP. After 2 hours of BiPAP repeat ABG showed persistent acidosis and worsening pCo2 now 68. Patient was moved to the ICU stat where I evaluated him. He is showing labored breathing currently, very hard to arouse. I proceeded with endotracheal intubation and placed him on mechanical ventilation. Post intubation patient became more hypotensive. I have ordered 3 L normal saline bolus. Start Dre-Synephrine if needed to keep map above 65 as the patient is also tachycardic. Continues to spike fever repeat sputum blood cultures will be sent. Single dose of vancomycin ordered. Creatinine initially was 2.4 now worsened to 2.95. Patient will need strict hourly intake output Solomon has been ordered, nephrology consult also placed SUBJECTIVE: 03/24: Currently off all vasopressors. 450 cc urine output overnight. Creatinine slowly decreasing. Will reevaluate hydronephrosis today with ultrasound. Remains on piperacillin/tazobactam. Will start on tube feeding today. 03/25: Remains intubated sedated. Patient was cardioverted by Dr. Clements for atrial fibrillation with RVR with rate in the 140s-150s with hypotension. Did not convert with cardioversion, amiodarone bolus and drip started. Eventually changed to sinus rhythm 03/26: remains intubated sedated. UO adequate. Maintains NSR. Attempt CPAP today 03/27: Remains intubated sedated. Failed CPAP trial yesterday secondary to low lung volumes and tachypnea. Currently in sinus rhythm with frequent PVCs. Will transition from IV amiodarone to p.o. overall approximately 15 kg up from admission weight. Give Lasix 40 mg IV x1. Renal function stable. Urine output 1500 mL in 24 hours Objective Vital Signs / I&O: Vital Signs 03/26/18 08:17 03/26/18 09:00 03/26/18 10:00 Temperature Pulse Rate 72 66 68 Respiratory Rate 18 Blood Pressure 116/69 119/75 Pulse Oximetry 95 94 L 03/26/18 11:00 03/26/18 11:57 03/26/18 12:00 Temperature 98.8 F Pulse Rate 71 74 Respiratory Rate 31 H 17 Blood Pressure 121/77 127/76 Pulse Oximetry 94 L 96 94 L 03/26/18 13:00 03/26/18 14:00 03/26/18 15:00 Temperature Pulse Rate 74 70 68 Respiratory Rate Blood Pressure 121/75 134/81 129/83 Pulse Oximetry 96 95 03/26/18 16:00 03/26/18 16:39 03/26/18 16:57 Temperature 98.0 F Pulse Rate 66 66 64 Respiratory Rate 19 18 Blood Pressure 130/80 Pulse Oximetry 96 92 L 03/26/18 19:00 03/26/18 19:48 03/26/18 19:49 Temperature Pulse Rate 65 68 Respiratory Rate 18 18 Blood Pressure 124/78 Pulse Oximetry 94 L 92 L 03/26/18 20:00 03/26/18 21:00 03/26/18 22:00 Temperature 97.8 F Pulse Rate 67 63 56 L Respiratory Rate Blood Pressure 134/81 119/74 122/74 Pulse Oximetry 95 97 03/26/18 23:00 03/26/18 23:20 03/27/18 00:00 Temperature Pulse Rate 51 L 53 L 53 L Respiratory Rate 18 Blood Pressure 132/82 121/77 Pulse Oximetry 98 97 97 03/27/18 01:00 03/27/18 02:00 03/27/18 02:02 Temperature Pulse Rate 57 L 53 L 55 L Respiratory Rate Blood Pressure 131/75 Pulse Oximetry 87 L 96 96 03/27/18 03:00 03/27/18 04:00 03/27/18 04:21 Temperature 97.4 F L Pulse Rate 55 L 52 L 56 L Respiratory Rate 18 Blood Pressure 121/72 149/90 H Pulse Oximetry 96 03/27/18 06:00 03/27/18 07:38 Temperature Pulse Rate 57 L 47 L Respiratory Rate 18 Blood Pressure Pulse Oximetry 97 Intake & Output 03/26/18 03/27/18 03/27/18 18:59 06:59 18:59 Intake Total 765 / 765 793 / 793 Output Total 925 / 925 600 / 600 Balance -160 / -160 193 / 193 Weight 120 kg Intake: IV 450 / 450 250 / 250 Cordarone Inj 450 MG In D5W Inj 250 / 250 241 ML @ 1 MG/MIN 33.33 mls/hr IV.CONT TITRATE PRN Rx#: [id number] Versed Inj 100 mg In 100 ml @ 2 100 / 100 MG/HR 2 mls/hr IV.CONT TITRATE PRN Rx#:[id number] Rocephin Inj 2,000 MG In NS Inj 100 / 100 100 ML @ 200 mls/hr IV.SIG Q24H SARAH Rx#:[id number] fentaNYL 10 mcg/mL Premix Drip 250 / 250 2,500 mcg In 250 ml @ 50 MCG/HR 5 mls/hr IV.SIG TITRATE PRN Rx #:[id number] Tube Feeding 315 / 315 543 / 543 Output: Urine Amount (Catheter) 925 / 925 600 / 600 Indwelling Urethral Catheter 925 / 925 600 / 600 Gastric Drainage 0 / 0 Orogastric Tube 0 / 0 Other: Date of Last Bowel Movement 03/26/18 03/27/18 # Bowel Movements 2 2 Result Diagrams: 03/27/18 03:00 03/27/18 03:00 Objective Remarks: GENERAL: 83-year-old AA male critically ill currently resting in bed SKIN: Warm and dry. HEAD: Atraumatic. Normocephalic. EYES: Pupils equal and round. No scleral icterus. No injection or drainage. ENT: No nasal bleeding or discharge. Orotracheally intubated NECK: Trachea midline. No JVD. Left IJ CVL clean dry and intact. CARDIOVASCULAR: Regular rate and rhythm, with frequent PVCs. S1, S2. No S4. RESPIRATORY: Equal breath sounds throughout. No wheezing. GASTROINTESTINAL: Abdomen soft, non-tender, nondistended. Hepatic and splenic margins not palpable. MUSCULOSKELETAL: Extremities with trace bilateral lower extremity edema. Ankle bracelet on right ankle NEUROLOGICAL: Arousable on the ventilator when midazolam drip discontinued and moves all 4 extremities strongly. No FND Procedures: Left IJ CVL 03/23 Right femoral arterial line 03/23 Assessment and Plan - Assessment and Plan Plan: NEURO/PSYCH: Acute toxic metabolic encephalopathy secondary to sepsis -Currently on midazolam/fentanyl drips for sedation/analgesia while intubated -Start Precedex to facilitate vent weaning. Discontinue Versed and fentanyl -Goal of RA SS -1. Daily sedation vacation -Acetaminophen 650 by tube every 6 hours as needed fever RESP: Acute hypercapnic respiratory failure COPD with exacerbation -PRVC/AC, Ventilator bundle -Albuterol/ipratropium aerosols every 4 hours scheduled a with albuterol aerosols every 2 hours as needed dyspnea -Methylprednisolone succinate 40 mg IV every 8 hours -CPAP/spontaneous breathing trials daily, failed yesterday 03/26/2018 due to low tidal volumes -Follow-up a.m. chest x-ray am CV: Septic shock-resolved Moderate TR. Mild MR. Elevated troponin Atrial fibrillation with RVR History of essential hypertension Fluid overload -Did not respond to DC cardioversion, converted to sinus rhythm with amiodarone bolus and infusion -Transition to p.o. amiodarone -s/p Normal saline IV fluids 3L bolus, maintenance fluid at 125 ml per hour. Discontinue IV fluids -Lasix 40 mg IV x1 for fluid overload -Currently on no vasopressors. Previously on norepinephrine and phenylephrine drips 2D echocardiogram revealed EF 65-70%. Moderate TR. Mild MR. PA P 38.3 mmHg Cardiology consulted for possible AV block. Resolved currently. GI: Elevated AST Elevated lipase Hypoalbuminemia -Currently on Vital 1.5 goal 55 cc an hour -Lansoprazole for GI prophylaxis -Docusate sodium/senna 1 tablet twice daily for bowel regimen -Hepatic profile in a.m. Renal/: Acute kidney injury Left hydronephrosis/hydroureter Rhabdomyolysis -Monitor renal function closely. Solomon catheter for strict hourly intake output , and due to worsening renal failure -Nephrology follwing for worsening renal failure, urology had already been consulted-no intervention -IV hydration as above. Serial CPKs. -Renal US: The hydronephrosis involving the left kidney on the prior CT scan has significantly improved. \ -IV Lasix 40 mg x1 ID: E. coli bacteremia and UTI -Antibiotics- piperacillin/tazobactam to 3.375 every 8 hours, s/p single dose of vancomycin 1 g. -Zosyn and vancomycin DC'd and currently only on Rocephin per ID -Repeat blood and sputum culture. 03/23 -Urine and blood cultures growing E. coli -ID following HEME: Normocytic anemia Thrombocytopenia Elevated PTT Elevated fibrinogen -Monitor CBC, coags -No indication for transfusion of blood products at this time. ENDO: DM-II -Sliding scale insulin TSH was 0.755 FEN Hypocalcemia hypophosphatemia Repalce electrolytes PROPH: -Bilateral lower extremity SCDs. Subcu heparin -Lansoprazole LINES: -Utilize peripheral IVs, left IJ CVL day #4 and right femoral arterial line day #4 Level 3
[2018-03-27] MEDS: Heparin - SQ 10,000 UNITS/ML Vial SQ SCH ×2 (08:34→20:34)
[2018-03-27] MEDS: Senna/Docusate Sodium 8.6/50 MG Tablet PO SCH ×2 (08:34→20:34)
--- NOTE | 2018-03-27 09:44 | P.PNNP ---
Subjective Interval history: Patient remain on the vent. and mildly sedated. Physical Exam Vital signs: Vital Signs 03/26/18 10:00 03/26/18 11:00 03/26/18 11:57 Temperature Pulse Rate 68 71 Respiratory Rate 31 H Blood Pressure 119/75 121/77 Pulse Oximetry 94 L 94 L 96 03/26/18 12:00 03/26/18 13:00 03/26/18 14:00 Temperature 98.8 F Pulse Rate 74 74 70 Respiratory Rate 17 Blood Pressure 127/76 121/75 134/81 Pulse Oximetry 94 L 96 03/26/18 15:00 03/26/18 16:00 03/26/18 16:39 Temperature 98.0 F Pulse Rate 68 66 66 Respiratory Rate 19 Blood Pressure 129/83 130/80 Pulse Oximetry 95 96 03/26/18 16:57 03/26/18 19:00 03/26/18 19:48 Temperature Pulse Rate 64 65 68 Respiratory Rate 18 18 Blood Pressure 124/78 Pulse Oximetry 92 L 94 L 03/26/18 19:49 03/26/18 20:00 03/26/18 21:00 Temperature 97.8 F Pulse Rate 67 63 Respiratory Rate 18 Blood Pressure 134/81 119/74 Pulse Oximetry 92 L 95 03/26/18 22:00 03/26/18 23:00 03/26/18 23:20 Temperature Pulse Rate 56 L 51 L 53 L Respiratory Rate 18 Blood Pressure 122/74 132/82 Pulse Oximetry 97 98 97 03/27/18 00:00 03/27/18 01:00 03/27/18 02:00 Temperature Pulse Rate 53 L 57 L 53 L Respiratory Rate Blood Pressure 121/77 131/75 Pulse Oximetry 97 87 L 96 03/27/18 02:02 03/27/18 03:00 03/27/18 04:00 Temperature 97.4 F L Pulse Rate 55 L 55 L 52 L Respiratory Rate Blood Pressure 121/72 149/90 H Pulse Oximetry 96 96 03/27/18 04:21 03/27/18 06:00 03/27/18 07:38 Temperature Pulse Rate 56 L 57 L 47 L Respiratory Rate 18 18 Blood Pressure Pulse Oximetry 97 Intake & Output 03/26/18 03/27/18 03/27/18 18:59 06:59 18:59 Intake Total 765 / 765 793 / 793 Output Total 925 / 925 600 / 600 Balance -160 / -160 193 / 193 Weight 120 kg Intake: IV 450 / 450 250 / 250 Cordarone Inj 450 MG In D5W Inj 250 / 250 241 ML @ 1 MG/MIN 33.33 mls/hr IV.CONT TITRATE PRN Rx#: [id number] Versed Inj 100 mg In 100 ml @ 2 100 / 100 MG/HR 2 mls/hr IV.CONT TITRATE PRN Rx#:[id number] Rocephin Inj 2,000 MG In NS Inj 100 / 100 100 ML @ 200 mls/hr IV.SIG Q24H SARAH Rx#:[id number] fentaNYL 10 mcg/mL Premix Drip 250 / 250 2,500 mcg In 250 ml @ 50 MCG/HR 5 mls/hr IV.SIG TITRATE PRN Rx #:[id number] Tube Feeding 315 / 315 543 / 543 Output: Urine Amount (Catheter) 925 / 925 600 / 600 Indwelling Urethral Catheter 925 / 925 600 / 600 Gastric Drainage 0 / 0 Orogastric Tube 0 / 0 Other: Date of Last Bowel Movement 03/26/18 03/27/18 # Bowel Movements 2 2 Narrative: Physical examination GENERAL: Patient is an obese, sedated, well-developed male, sedated on the vent, not in respiratory distress. SKIN: Cool and dry. No generalized rash, no ecchymoses and no evidence of embolic lesions. HEAD: Atraumatic. Normocephalic. No temporal wasting, or tenderness. EARS, NOSE AND THROAT: Orally intubated. NECK: Trachea midline. Supple and not tender, no meningeal signs. Has left IJ central line CARDIOVASCULAR: Regular rate and rhythm. No murmur heard RESPIRATORY: Breath sounds equal bilaterally. No rales, wheezing or rhonchi. Decreased breath sounds at the bases ABDOMEN: Globular, mildly distended, no reaction to palpation. Bowel sounds present and normoactive. Has a right femoral groin a line EXTREMITIES: No clubbing, cyanosis. Cool feet. : Solomon in place, not a lot of output NEUROLOGICAL: Sedated TELE: Sinus, intermittent Wenckebach - Urinary Catheter Management Indwelling Urethral Catheter Cath placed during this visit: yes Reason for continuing: Acute urinary retention Insertion date: 03/23/18 Insertion time: 05:40 Assessment and Plan - Assessment (1) GILLES (acute kidney injury) Code(s): N17.9 - Acute kidney failure, unspecified Status: Acute Plan: GILLES due to ATN due to sepsis and hypotension. Hydronephrosis involving left kidney has improved. Patient's Creatinine is 2.36, stable from yesterday. Will continue to monitor. Patient has Solomon catheter in place, monitor urine output closely. Monitor fluid and electrolytes. Creatinine is slightly better Has been non oliguric, continue Ceftriaxone. Avoid Nephrotoxins. Lasix given now for fluid overload. I will put Lasix 40 mg IV BID. - Plan GNR sepsis, with shock due to complicated UTI Urine and blood cultures growing gram-negative rods/E. coli. Zosyn discontinued today. Patient started on Ceftriaxone. Prostate cancer History of prostate cancer with radiation seeds in place. Hypertension Monitor BP. Patient was hypotensive. Type 2 diabetes Continue insulin coverage to maintain blood glucose between 140 and 180.
[2018-03-27] MEDS ORDERED: fentaNYL Citrate Inj 100 MCG/2 ML Ampul IV.PUSH ONE (20:15)
[2018-03-27] MEDS: Amiodarone 200 MG Tablet PO SCH (20:34)
[2018-03-27] MEDS: fentaNYL 10 mcg/mL Premix Drip 2,500 MCG/250 ML BAG IV.SIG PRN (20:35)
[2018-03-28] MEDS: Insulin NovoLOG Aspart Correctional Sugar Inj SQ SCH ×6 (00:05→20:35)
[2018-03-28] MEDS: hydrALAZINE HCl Inj 20 MG/ML Vial IV.PUSH PRN (01:45)
[2018-03-28] MEDS: Artificial Tears Opth Drops 15 ML Bottle EACH EYE SCH ×3 (01:45→16:43)
[2018-03-28] MEDS: Chlorhexidine Gluconate 2% 1 Pack (2 Cloths) TOPICAL SCH (04:00)
[2018-03-28] MEDS: MethylPREDNISolone Sod Succinate Inj 40 MG/ML Vial IV.PUSH SCH ×3 (06:54→21:32)
[2018-03-28] MEDS: fentaNYL 10 mcg/mL Premix Drip 2,500 MCG/250 ML BAG IV.SIG PRN ×2 (06:54→18:06)
[2018-03-28] MEDS: Heparin - SQ 10,000 UNITS/ML Vial SQ SCH ×2 (08:10→20:35)
[2018-03-28] MEDS: Amiodarone 200 MG Tablet PO SCH ×2 (08:10→20:35)
[2018-03-28] MEDS: Senna/Docusate Sodium 8.6/50 MG Tablet PO SCH ×2 (08:10→20:35)
--- NOTE | 2018-03-28 10:18 | P.PNCC ---
Subjective Subjective Remarks/Hospital Course: Patient is a 83-year-old -[place] male with history of prostate cancer, hypertension who was admitted to the hospitalist service for UTI and urosepsis. Patient was found to be in acute renal failure and CT of the abdomen pelvis showed left hydronephrosis hydroureter. Seen by urology for hydronephrosis and hematuria no further intervention from urology standpoint. Had been initially on Rocephin and later changed to Zosyn. Blood cultures 4 out of 4 bottles positive for gram-negative rods (which is growing E. coli now). Patient was increasingly somnolent tonight and has history of previous smoking. His ABG showed pH of 7.23 with hypercapnia, PCo2 66. Patient was also short of breath and was placed on BiPAP. After 2 hours of BiPAP repeat ABG showed persistent acidosis and worsening pCo2 now 68. Patient was moved to the ICU stat where I evaluated him. He is showing labored breathing currently, very hard to arouse. I proceeded with endotracheal intubation and placed him on mechanical ventilation. Post intubation patient became more hypotensive. I have ordered 3 L normal saline bolus. Start Dre-Synephrine if needed to keep map above 65 as the patient is also tachycardic. Continues to spike fever repeat sputum blood cultures will be sent. Single dose of vancomycin ordered. Creatinine initially was 2.4 now worsened to 2.95. Patient will need strict hourly intake output Solomon has been ordered, nephrology consult also placed SUBJECTIVE: 03/24: Currently off all vasopressors. 450 cc urine output overnight. Creatinine slowly decreasing. Will reevaluate hydronephrosis today with ultrasound. Remains on piperacillin/tazobactam. Will start on tube feeding today. 03/25: Remains intubated sedated. Patient was cardioverted by Dr. Clements for atrial fibrillation with RVR with rate in the 140s-150s with hypotension. Did not convert with cardioversion, amiodarone bolus and drip started. Eventually changed to sinus rhythm 03/26: remains intubated sedated. UO adequate. Maintains NSR. Attempt CPAP today 03/27: Remains intubated sedated. Failed CPAP trial yesterday secondary to low lung volumes and tachypnea. Currently in sinus rhythm with frequent PVCs. Will transition from IV amiodarone to p.o. overall approximately 15 kg up from admission weight. Give Lasix 40 mg IV x1. Renal function stable. Urine output 1500 mL in 24 hours 03/28: Continued attempts at ventilator weaning. BMP pending. Transitioned to p.o. amiodarone. Hemodynamically stable. Objective Vital Signs / I&O: Vital Signs 03/27/18 11:00 03/27/18 11:01 03/27/18 11:22 Temperature Pulse Rate 76 68 Respiratory Rate 16 Blood Pressure 158/112 H Pulse Oximetry 75 L 97 03/27/18 12:00 03/27/18 12:01 03/27/18 13:00 Temperature Pulse Rate 75 75 87 Respiratory Rate Blood Pressure 155/83 H 155/83 H Pulse Oximetry 92 L 03/27/18 13:01 03/27/18 14:00 03/27/18 14:01 Temperature Pulse Rate 88 77 75 Respiratory Rate Blood Pressure 139/77 118/75 Pulse Oximetry 93 L 88 L 88 L 03/27/18 15:00 03/27/18 15:47 03/27/18 16:00 Temperature Pulse Rate 81 75 Respiratory Rate 19 Blood Pressure 127/71 118/74 Pulse Oximetry 91 L 94 L 95 03/27/18 18:00 03/27/18 19:00 03/27/18 19:39 Temperature Pulse Rate 58 L 53 L Respiratory Rate 18 Blood Pressure 169/97 H Pulse Oximetry 98 97 03/27/18 20:00 03/27/18 21:00 03/27/18 22:00 Temperature Pulse Rate 47 L 54 L 49 L Respiratory Rate Blood Pressure 167/91 H 177/103 H 182/93 H Pulse Oximetry 96 97 96 03/27/18 23:00 03/28/18 00:00 03/28/18 00:01 Temperature Pulse Rate 48 L 48 L 48 L Respiratory Rate 18 Blood Pressure 184/97 H 191/94 H Pulse Oximetry 97 96 96 03/28/18 01:00 03/28/18 01:49 03/28/18 02:00 Temperature Pulse Rate 48 L 56 L 58 L Respiratory Rate Blood Pressure 200/94 H 149/76 H 148/77 H Pulse Oximetry 96 95 94 L 03/28/18 02:19 03/28/18 03:00 03/28/18 04:00 Temperature Pulse Rate 59 L 56 L 51 L Respiratory Rate Blood Pressure 135/70 139/74 143/76 H Pulse Oximetry 94 L 93 L 94 L 03/28/18 04:16 03/28/18 05:00 03/28/18 06:00 Temperature Pulse Rate 50 L 49 L Respiratory Rate 18 Blood Pressure 147/77 H 150/85 H Pulse Oximetry 98 95 95 03/28/18 07:00 03/28/18 08:00 03/28/18 09:55 Temperature 98.4 F Pulse Rate 59 L 56 L 61 Respiratory Rate 15 23 Blood Pressure 163/93 H 119/65 Pulse Oximetry 93 L 96 Intake & Output 03/27/18 03/28/18 03/28/18 18:59 06:59 18:59 Intake Total 703 / 703 655 / 655 Output Total 1999 950 / 950 Balance -1297 / -1297 -295 / -295 Weight 115.5 kg Intake: IV 250 / 250 250 / 250 Precedex Inj 200 MCG In NS Inj 150 / 150 48 ML @ 0.2 MCG/KG/HR 6 mls/hr IV.CONT TITRATE PRN Rx#: [id number] Rocephin Inj 2,000 MG In NS Inj 100 / 100 100 ML @ 200 mls/hr IV.SIG Q24H SARAH Rx#:[id number] fentaNYL 10 mcg/mL Premix Drip 250 / 250 2,500 mcg In 250 ml @ 25 MCG/HR 2.5 mls/hr IV.SIG TITRATE PRN Rx#:[id number] Tube Feeding 453 / 453 405 / 405 Output: Urine Amount (Catheter) 1999 950 / 950 Indwelling Urethral Catheter 1999 950 / 950 Other: Date of Last Bowel Movement 03/27/18 03/28/18 03/27/18 # Bowel Movements 1 1 Result Diagrams: 03/27/18 03:00 03/27/18 03:00 Objective Remarks: GENERAL: 83-year-old AA male critically ill currently resting in bed SKIN: Warm and dry. HEAD: Atraumatic. Normocephalic. EYES: Pupils equal and round. No scleral icterus. No injection or drainage. ENT: No nasal bleeding or discharge. Orotracheally intubated NECK: Trachea midline. No JVD. Left IJ CVL clean dry and intact. CARDIOVASCULAR: Regular rate and rhythm, with frequent PVCs. S1, S2. No S4. RESPIRATORY: Equal breath sounds throughout. No wheezing. GASTROINTESTINAL: Abdomen soft, obese non-tender, nondistended. Hepatic and splenic margins not palpable. MUSCULOSKELETAL: Extremities with trace bilateral lower extremity edema. Ankle bracelet on right ankle NEUROLOGICAL: GCS 11 T .arousable on the ventilator when midazolam drip discontinued and moves all 4 extremities strongly. Procedures: Left IJ CVL 03/23 Right femoral arterial line 03/23 Assessment and Plan - Assessment and Plan Plan: NEURO/PSYCH: Acute toxic metabolic encephalopathy secondary to sepsis -Currently on midazolam/fentanyl drips for sedation/analgesia while intubated -Start Precedex to facilitate vent weaning. -Goal of RASS -1. Daily sedation vacation -Acetaminophen 650 by tube every 6 hours as needed fever RESP: Acute hypercapnic respiratory failure COPD with exacerbation -PRVC/AC, Ventilator bundle -Albuterol/ipratropium aerosols every 4 hours scheduled a with albuterol aerosols every 2 hours as needed dyspnea -Methylprednisolone succinate 40 mg IV every 8 hours -CPAP/spontaneous breathing trials daily, failed yesterday 03/26/2018 due to low tidal volumes -Obtain chest x-ray in a.m. CV: Septic shock-resolved Moderate TR. Mild MR. Elevated troponin Atrial fibrillation with RVR-resolved History of essential hypertension Fluid overload -Did not respond to DC cardioversion, converted to sinus rhythm with amiodarone bolus and infusion -Transition to p.o. amiodarone -s/p Normal saline IV fluids 3L bolus, maintenance fluid at 125 ml per hour. Discontinue IV fluids -Lasix 40 mg IV x1 for fluid overload -Currently on no vasopressors. Previously on norepinephrine and phenylephrine drips 2D echocardiogram revealed EF 65-70%. Moderate TR. Mild MR. PA P 38.3 mmHg Cardiology consulted for possible AV block. Resolved currently. GI: Elevated AST Elevated lipase Hypoalbuminemia -Currently on Vital 1.5 goal 55 cc an hour -Lansoprazole for GI prophylaxis -Docusate sodium/senna 1 tablet twice daily for bowel regimen -Hepatic profile in a.m. Renal/: Acute kidney injury Left hydronephrosis/hydroureter Rhabdomyolysis -Monitor renal function closely. Solomon catheter for strict hourly intake output , and due to worsening renal failure -Nephrology follwing for worsening renal failure, urology had already been consulted-no intervention -IV hydration as above. Serial CPKs. -Renal US: The hydronephrosis involving the left kidney on the prior CT scan has significantly improved. \ -IV Lasix 40 mg x1 ID: E. coli bacteremia and UTI -Antibiotics- piperacillin/tazobactam to 3.375 every 8 hours, s/p single dose of vancomycin 1 g. -Zosyn and vancomycin DC'd and currently only on Rocephin per ID -Repeat blood and sputum culture. 03/23 -Urine and blood cultures growing E. coli -ID following HEME: Normocytic anemia Thrombocytopenia Elevated PTT Elevated fibrinogen -Monitor CBC, coags -No indication for transfusion of blood products at this time. ENDO: DM-II -Sliding scale insulin TSH was 0.755 FEN Hypocalcemia hypophosphatemia Repalce electrolytes PROPH: -Bilateral lower extremity SCDs. Subcu heparin -Lansoprazole LINES: -Utilize peripheral IVs, left IJ CVL day #5 and right femoral arterial line day #5 Level 3 Discussed Condition With: [employer] at bedside
--- NOTE | 2018-03-28 11:15 | P.PNNP ---
Subjective Interval history: Patient was seen, no distress. BMP is pending for today. Renal function improved over the weekend. Per nurse, continued attempts at ventilator weaning. <Mary Jane Toussaint - Last Filed: 03/28/18 11:16> Physical Exam Vital signs: Vital Signs 03/27/18 11:22 03/27/18 12:00 03/27/18 12:01 Temperature Pulse Rate 75 75 Respiratory Rate 16 Blood Pressure 155/83 H 155/83 H Pulse Oximetry 97 03/27/18 13:00 03/27/18 13:01 03/27/18 14:00 Temperature Pulse Rate 87 88 77 Respiratory Rate Blood Pressure 139/77 Pulse Oximetry 92 L 93 L 88 L 03/27/18 14:01 03/27/18 15:00 03/27/18 15:47 Temperature Pulse Rate 75 81 Respiratory Rate 19 Blood Pressure 118/75 127/71 Pulse Oximetry 88 L 91 L 94 L 03/27/18 16:00 03/27/18 18:00 03/27/18 19:00 Temperature Pulse Rate 75 58 L 53 L Respiratory Rate Blood Pressure 118/74 169/97 H Pulse Oximetry 95 98 03/27/18 19:39 03/27/18 20:00 03/27/18 21:00 Temperature Pulse Rate 47 L 54 L Respiratory Rate 18 Blood Pressure 167/91 H 177/103 H Pulse Oximetry 97 96 97 03/27/18 22:00 03/27/18 23:00 03/28/18 00:00 Temperature Pulse Rate 49 L 48 L 48 L Respiratory Rate Blood Pressure 182/93 H 184/97 H 191/94 H Pulse Oximetry 96 97 96 03/28/18 00:01 03/28/18 01:00 03/28/18 01:49 Temperature Pulse Rate 48 L 48 L 56 L Respiratory Rate 18 Blood Pressure 200/94 H 149/76 H Pulse Oximetry 96 96 95 03/28/18 02:00 03/28/18 02:19 03/28/18 03:00 Temperature Pulse Rate 58 L 59 L 56 L Respiratory Rate Blood Pressure 148/77 H 135/70 139/74 Pulse Oximetry 94 L 94 L 93 L 03/28/18 04:00 03/28/18 04:16 03/28/18 05:00 Temperature Pulse Rate 51 L 50 L Respiratory Rate 18 Blood Pressure 143/76 H 147/77 H Pulse Oximetry 94 L 98 95 03/28/18 06:00 03/28/18 07:00 03/28/18 08:00 Temperature 98.4 F Pulse Rate 49 L 59 L 56 L Respiratory Rate 15 23 Blood Pressure 150/85 H 163/93 H 119/65 Pulse Oximetry 95 93 L 96 03/28/18 09:55 Temperature Pulse Rate 61 Respiratory Rate Blood Pressure Pulse Oximetry Intake & Output 03/27/18 03/28/18 03/28/18 18:59 06:59 18:59 Intake Total 703 / 703 655 / 655 100 / 100 Output Total 1999 950 / 950 Balance -1297 / -1297 -295 / -295 100 / 100 Weight 115.5 kg Intake: IV 250 / 250 250 / 250 100 / 100 Precedex Inj 200 MCG In NS Inj 150 / 150 48 ML @ 0.2 MCG/KG/HR 6 mls/hr IV.CONT TITRATE PRN Rx#: [id number] Rocephin Inj 2,000 MG In NS Inj 100 / 100 100 / 100 100 ML @ 200 mls/hr IV.SIG Q24H [facility] Rx#:[id number] fentaNYL 10 mcg/mL Premix Drip 250 / 250 2,500 mcg In 250 ml @ 25 MCG/HR 2.5 mls/hr IV.SIG TITRATE PRN Rx#:[id number] Tube Feeding 453 / 453 405 / 405 Output: Urine Amount (Catheter) 1999 950 / 950 Indwelling Urethral Catheter 1999 950 / 950 Other: Date of Last Bowel Movement 03/27/18 03/28/18 03/27/18 # Bowel Movements 1 1 - Constitutional no acute distress - Routine HEENT Exam Head: Present: normocephalic ENT: Present: mucous membranes moist - Routine Neck Exam Present: trachea midline. Absent: JVD, tracheal deviation - Routine Respiratory Exam Present: patient mechanically ventilated. Absent: respiratory distress - Routine Cardiovascular Exam Present: RRR - Routine Abdominal Exam Present: soft. Absent: tenderness - Routine Extremities Exam Present: edema Comments: Trace bilateral lower extremity edema. - Routine Psychiatric Exam Present: unable to assess - Urinary Catheter Management Indwelling Urethral Catheter Cath placed during this visit: yes Reason for continuing: Acute urinary retention Insertion date: 03/23/18 Insertion time: 05:40 <Mary Jane Toussaint - Last Filed: 03/28/18 11:16> Vital signs: Vital Signs 03/27/18 22:00 03/27/18 23:00 03/28/18 00:00 Temperature Pulse Rate 49 L 48 L 48 L Respiratory Rate Blood Pressure 182/93 H 184/97 H 191/94 H Pulse Oximetry 96 97 96 03/28/18 00:01 03/28/18 01:00 03/28/18 01:49 Temperature Pulse Rate 48 L 48 L 56 L Respiratory Rate 18 Blood Pressure 200/94 H 149/76 H Pulse Oximetry 96 96 95 03/28/18 02:00 03/28/18 02:19 03/28/18 03:00 Temperature Pulse Rate 58 L 59 L 56 L Respiratory Rate Blood Pressure 148/77 H 135/70 139/74 Pulse Oximetry 94 L 94 L 93 L 03/28/18 04:00 03/28/18 04:16 03/28/18 05:00 Temperature Pulse Rate 51 L 50 L Respiratory Rate 18 Blood Pressure 143/76 H 147/77 H Pulse Oximetry 94 L 98 95 03/28/18 06:00 03/28/18 07:00 03/28/18 08:00 Temperature 98.4 F Pulse Rate 49 L 59 L 56 L Respiratory Rate 15 23 Blood Pressure 150/85 H 163/93 H 119/65 Pulse Oximetry 95 93 L 96 03/28/18 09:55 03/28/18 11:53 03/28/18 11:54 Temperature Pulse Rate 61 69 56 L Respiratory Rate Blood Pressure 122/69 Pulse Oximetry 03/28/18 11:55 03/28/18 12:18 03/28/18 14:00 Temperature 97.5 F L Pulse Rate 69 64 Respiratory Rate 19 20 Blood Pressure 100/62 Pulse Oximetry 96 92 L 03/28/18 16:00 03/28/18 17:00 03/28/18 18:00 Temperature 97.4 F L Pulse Rate 58 L 54 L Respiratory Rate 18 18 Blood Pressure 112/59 L Pulse Oximetry 94 L 95 Intake & Output 03/28/18 03/28/18 03/29/18 06:59 18:59 06:59 Intake Total 655 / 655 935 / 935 Output Total 950 / 950 2350 / 2350 Balance -295 / -295 -1415 / -1415 Weight 115.5 kg Intake: IV 250 / 250 350 / 350 Rocephin Inj 2,000 MG In NS Inj 100 / 100 100 ML @ 200 mls/hr IV.SIG Q24H [facility] Rx#:[id number] fentaNYL 10 mcg/mL Premix Drip 250 / 250 250 / 250 2,500 mcg In 250 ml @ 25 MCG/HR 2.5 mls/hr IV.SIG TITRATE PRN Rx#:[id number] Tube Feeding 405 / 405 585 / 585 Output: Urine Amount (Catheter) 950 / 950 2350 / 2350 Indwelling Urethral Catheter 950 / 950 2350 / 2350 Other: Date of Last Bowel Movement 03/28/18 03/27/18 # Bowel Movements 1 0 - Urinary Catheter Management Indwelling Urethral Catheter Cath placed during this visit: no <Eloy Mahajan - Last Filed: 03/28/18 21:23> Assessment and Plan - Assessment (1) GILLES (acute kidney injury) Code(s): N17.9 - Acute kidney failure, unspecified Status: Acute Plan: GILLES due to ATN due to sepsis and hypotension. Hydronephrosis involving left kidney has improved. Patient's renal function improved over the weekend, labs for today are pending. Will continue to monitor. Patient has Solomon catheter in place, monitor urine output. Monitor fluid and electrolytes. Avoid Nephrotoxins. - Plan GNR sepsis, with shock due to complicated UTI Urine and blood cultures growing gram-negative rods/E. coli. Patient on Ceftriaxone. Prostate cancer History of prostate cancer with radiation seeds in place. Hypertension Monitor BP. Patient on Hydralazine. Type 2 diabetes Continue insulin coverage to maintain blood glucose between 140 and 180. <Mary Jane Toussaint - Last Filed: 03/28/18 11:16> - Assessment (1) GILLES (acute kidney injury) Code(s): N17.9 - Acute kidney failure, unspecified Status: Acute - Attending Attestation patient was seen and examined. Creatinine is higher today, also noted was hypernatremia. Increase free water administration through feeding tube. <Eloy Mahajan - Last Filed: 03/28/18 21:23>
[2018-03-28 13:41] LABS: Baso % (Auto) 0.3 % (0.0-2.0); Eos % (Auto) 0.2 % (0.0-4.0); Hematocrit 40.9 % (39.0-51.0); Hemoglobin 13.9 gm/dL (13.0-17.0); Lymph # (Auto) 0.8 th/mm3 (1.0-4.8); Lymph % (Auto) 5.8 % (9.0-44.0); Mean Corpuscular Hemoglobin 31.3 pg (27.0-34.0); Mean Platelet Volume 9.1 fL (7.0-11.0); Mono # (Auto) 0.8 th/mm3 (0.0-0.9); Mono % (Auto) 5.8 % (0.0-8.0); Neut # (Auto) 11.8 th/mm3 (1.8-7.7); Neut % (Auto) 87.9 % (16.0-70.0); Platelet Count 275 th/mm3 (150-450); Red Blood Count 4.44 mil/mm3 (4.50-5.90); Red Cell Distribution Width 15.4 % (11.6-17.2); White Blood Count 13.4 th/mm3 (4.0-11.0)
[2018-03-28 13:52] LABS: Calcium 8.6 mg/dL (8.5-10.1); Carbon Dioxide 27.6 meq/L (21.0-32.0); Potassium 4.7 meq/L (3.5-5.1)
--- NOTE | 2018-03-28 14:13 | P.PNID ---
Subjective Remarks: Patient is an 83-year-old male, presented to the hospital for evaluation of hematuria. Patient has known history of prostate cancer and he has had problem with intermittent mild hematuria. This was apparently worse than any of the hematuria he has had in the past. Initial evaluation showed that he was in renal failure. The CT is showing evidence of hydronephrosis. Urology evaluated the patient and felt that there is no intervention that needed to be done. Blood cultures done on admission are reported as growing gram-negative maryann. Infectious disease consultation has been requested to evaluate that. In the interim patient developed shortness of breath, and required BiPAP. He was on BiPAP for several hours but had persistent acidosis, respiratory distress, and he started becoming more lethargic. He ended up getting intubated, and post intubation has been hypotensive. He received fluid resuscitation and despite that remains hypotensive. He is currently on Levophed and Dre-Synephrine. His creatinine remains elevated. Urine output is low. He had a fever of 103.3 earlier today. Notes reviewed Temps ok BP ok On CPAP Awake, mouthing words, has restraints Monitor shows NSR Creat stable, has good UO WBC higher today BC and UC E coli Renal US - hydro resolved Antibiotics: Rocephin Lines: LIJ TLC Past Medical History: HTN Prostate CA Allergies/Adverse Reactions: Allergies No Known Allergies Allergy (Verified 03/21/18 18:31) Objective Vital Signs 03/27/18 15:00 03/27/18 15:47 03/27/18 16:00 Temperature Pulse Rate 81 75 Respiratory Rate 19 Blood Pressure 127/71 118/74 Pulse Oximetry 91 L 94 L 95 03/27/18 18:00 03/27/18 19:00 03/27/18 19:39 Temperature Pulse Rate 58 L 53 L Respiratory Rate 18 Blood Pressure 169/97 H Pulse Oximetry 98 97 03/27/18 20:00 03/27/18 21:00 03/27/18 22:00 Temperature Pulse Rate 47 L 54 L 49 L Respiratory Rate Blood Pressure 167/91 H 177/103 H 182/93 H Pulse Oximetry 96 97 96 03/27/18 23:00 03/28/18 00:00 03/28/18 00:01 Temperature Pulse Rate 48 L 48 L 48 L Respiratory Rate 18 Blood Pressure 184/97 H 191/94 H Pulse Oximetry 97 96 96 03/28/18 01:00 03/28/18 01:49 03/28/18 02:00 Temperature Pulse Rate 48 L 56 L 58 L Respiratory Rate Blood Pressure 200/94 H 149/76 H 148/77 H Pulse Oximetry 96 95 94 L 03/28/18 02:19 03/28/18 03:00 03/28/18 04:00 Temperature Pulse Rate 59 L 56 L 51 L Respiratory Rate Blood Pressure 135/70 139/74 143/76 H Pulse Oximetry 94 L 93 L 94 L 03/28/18 04:16 03/28/18 05:00 03/28/18 06:00 Temperature Pulse Rate 50 L 49 L Respiratory Rate 18 Blood Pressure 147/77 H 150/85 H Pulse Oximetry 98 95 95 03/28/18 07:00 03/28/18 08:00 03/28/18 09:55 Temperature 98.4 F Pulse Rate 59 L 56 L 61 Respiratory Rate 15 23 Blood Pressure 163/93 H 119/65 Pulse Oximetry 93 L 96 03/28/18 11:53 03/28/18 11:54 03/28/18 11:55 Temperature 97.5 F L Pulse Rate 69 56 L 69 Respiratory Rate 19 Blood Pressure 122/69 100/62 Pulse Oximetry 96 03/28/18 12:18 Temperature Pulse Rate Respiratory Rate 20 Blood Pressure Pulse Oximetry 92 L Intake & Output 03/27/18 03/28/18 03/28/18 18:59 06:59 18:59 Intake Total 703 / 703 655 / 655 100 / 100 Output Total 1999 / 1999 950 / 950 Balance -1297 / -1297 -295 / -295 100 / 100 Weight 115.5 kg Intake: IV 250 / 250 250 / 250 100 / 100 Precedex Inj 200 MCG In NS Inj 150 / 150 48 ML @ 0.2 MCG/KG/HR 6 mls/hr IV.CONT TITRATE PRN Rx#: [id number] Rocephin Inj 2,000 MG In NS Inj 100 / 100 100 / 100 100 ML @ 200 mls/hr IV.SIG Q24H [facility] Rx#:[id number] fentaNYL 10 mcg/mL Premix Drip 250 / 250 2,500 mcg In 250 ml @ 25 MCG/HR 2.5 mls/hr IV.SIG TITRATE PRN Rx#:[id number] Tube Feeding 453 / 453 405 / 405 Output: Urine Amount (Catheter) 1999 950 / 950 Indwelling Urethral Catheter 1999 950 / 950 Other: Date of Last Bowel Movement 03/27/18 03/28/18 03/27/18 # Bowel Movements 1 1 03/23/18 11:45 Blood - Peripheral Aerobic Blood Culture - Final No growth in 5 days 03/23/18 11:45 Blood - Peripheral Anaerobic Blood Culture - Final No growth in 5 days 03/23/18 09:45 Blood - Peripheral Aerobic Blood Culture - Final No growth in 5 days 03/23/18 09:45 Blood - Peripheral Anaerobic Blood Culture - Final QNS - See aerobic report. Lab - Hematology Results 03/27/18 03/28/18 03:00 11:45 WBC 10.2 13.4 H RBC 3.95 L 4.44 L Hgb 12.2 L 13.9 Hct 35.8 L 40.9 MCV 90.7 92.0 MCH 31.0 31.3 MCHC 34.2 34.0 RDW 15.1 15.4 Plt Count 215 D 275 MPV 8.8 9.1 Prelim Diff (Auto) Slide review pending Neut % (Auto) 87.9 H Lymph % (Auto) 5.8 L Tate % (Auto) 5.8 Eos % (Auto) 0.2 Baso % (Auto) 0.3 Neut # (Auto) 11.8 H Lymph # (Auto) 0.8 L Tate # (Auto) 0.8 Eos # (Auto) 0.0 Baso # (Auto) 0.0 Differential Comment . Lab - Chemistry Results 03/26/18 03/26/18 03/26/18 15:53 20:13 23:40 Sodium Potassium Chloride Carbon Dioxide Anion Gap BUN Creatinine Estimated GFR POC Glucose 190 H 168 H 229 H Random Glucose Calcium Magnesium Total Bilirubin AST ALT Alkaline Phosphatase Total Protein Albumin 03/27/18 03/27/18 03/27/18 03:00 03:25 08:37 Sodium 147 H Potassium 4.3 Chloride 116 H Carbon Dioxide 23.4 Anion Gap 8 BUN 62 H Creatinine 2.06 H Estimated GFR 38 L POC Glucose 261 H 218 H Random Glucose 285 H Calcium 7.6 L Magnesium 2.9 H Total Bilirubin 0.2 AST 12 L ALT 25 Alkaline Phosphatase 75 Total Protein 5.8 L Albumin 1.9 L 1203/27/18 03/27/18 12:59 19:47 23:32 Sodium Potassium Chloride Carbon Dioxide Anion Gap BUN Creatinine Estimated GFR POC Glucose 193 H 284 H 212 H Random Glucose Calcium Magnesium Total Bilirubin AST ALT Alkaline Phosphatase Total Protein Albumin 03/28/18 03/28/18 03/28/18 04:26 08:37 11:11 Sodium Potassium Chloride Carbon Dioxide Anion Gap BUN Creatinine Estimated GFR POC Glucose 125 H 147 H 173 H Random Glucose Calcium Magnesium Total Bilirubin AST ALT Alkaline Phosphatase Total Protein Albumin 03/28/18 11:45 Sodium 149 H Potassium 4.7 Chloride 116 H Carbon Dioxide 27.6 Anion Gap 5 BUN 78 H Creatinine 2.32 H Estimated GFR 33 L POC Glucose Random Glucose 205 H Calcium 8.6 D Magnesium Total Bilirubin AST ALT Alkaline Phosphatase Total Protein Albumin Imaging: ITS Impressions Abdomen/Pelvis CT 03/21/18 18:35 CONCLUSION: 1. Left-sided hydronephrosis and hydroureter with prominent stranding. No radiopaque calculus identified. 2. Enlarged prostate gland containing prostatic seeds. 3. Hepatic steatosis. 4. Prominence of both adrenal glands likely hyperplasia. Abdomen/Bladder Ultrasound 03/24/18 08:33 CONCLUSION: 1. The hydronephrosis involving the left kidney on the prior CT scan has significantly improved. No residual hydronephrosis observed. 2. Prostate gland enlargement which impresses upon the urinary bladder. No bladder wall thickening to clearly suggest bladder outlet obstruction. Chest X-Ray 03/27/18 06:00 CONCLUSION: Stable chest x-ray with left pleural effusion with associated volume loss and/ or airspace consolidation. Opacity at the right lung base most likely represents atelectasis. Physical Exam: GENERAL:awake, mouthing words, has restraints, on CPAP, NAD SKIN: Cool and dry. No generalized rash. HEAD: Atraumatic. Normocephalic. No temporal wasting, or tenderness. EYES: [place] conjunctiva. No petechia or hemorrhage. Has dirty sclera. No injection or drainage. EARS, NOSE AND THROAT: Nose without bleeding or purulent nasal discharge. Orally intubated. NECK: Trachea midline. Supple and not tender, no meningeal signs. Has left IJ central line CARDIOVASCULAR: Regular rate and rhythm. No murmur heard RESPIRATORY: Breath sounds equal bilaterally. No rales, wheezing or rhonchi. Decreased breath sounds at the bases ABDOMEN: Globular, mildly distended, no reaction to palpation. Bowel sounds present and normoactive. EXTREMITIES: No clubbing, cyanosis. Cool feet. : Solomon in place, urine clear NEUROLOGICAL: awake, focusing PSYCHIATRIC: Unable to fully assess; has restraints currently LINE: No evidence of infection Assessment and Plan - Plan Impression E coli sepsis, with shock due to complicated UTI - BP better - hydronephrosis resolved E coli UTI Renal failure, making good UO Respiratory failure - CXR with bilateral infiltrates Hematuria, resolved - Hx prostate CA Leukocytosis Recommend Continue Rocephin Monitor progress Follow temps Follow CBC Weaning per CCM
[2018-03-28 14:33] LABS: Lymphocytes 5 % (9-44); Metamyelocytes 3 % (0-1); Monocytes 8 % (0-8); Myelocytes 3 % (0-0); Platelet Estimate Normal (Normal); Platelet Morphology Normal (Normal); Tallied Nucleated RBC 1 (0-0); Toxic Granulation 1+
[2018-03-28] MEDS: Dexmedetomidine Inj 1,000 MCG in Sodium Chlor 0.9% Inj 240 ML IV.CONT PRN ×2 (16:44→21:32)
[2018-03-29] MEDS: Artificial Tears Opth Drops 15 ML Bottle EACH EYE SCH ×3 (00:06→16:31)
[2018-03-29] MEDS: Insulin NovoLOG Aspart Correctional Sugar Inj SQ SCH ×6 (00:07→21:34)
[2018-03-29] MEDS ORDERED: Midazolam Inj 5 MG/ML 1 ML Vial ONE (01:09)
[2018-03-29] MEDS ORDERED: Propofol Inj 500 MG/50 ML Vial ONE (01:10)
--- NOTE | 2018-03-29 04:13 | XR ---
EXAM DATE: 03/29/2018 3:57 AM EST AGE/SEX: 83 years / Male INDICATIONS: Short of breath. CLINICAL DATA: This is the patient's subsequent encounter. Patient reports that signs and symptoms h ave been present for 1 week and indicates a pain score of 0/10. MEDICAL/SURGICAL HISTORY: Carcinoma, prostatic. Hypertension. None. COMPAR[place]: [facility] [place]/2018. . FINDINGS: A single AP view of the chest demonstrates interval extubation and removal of the nasogastric tube. L eft-sided central line remains. Bilateral parenchymal consolidations are unchanged. Small left effusi on. Mild cardiomegaly. CONCLUSION: Unchanged bilateral pulmonary consolidations and small left effusion. Electronically signed by: Trip Buenrostro MD 03/29/2018 4:12 AM EST
[2018-03-29 04:25] LABS: Baso # (Auto) 0.1 th/mm3 (0.0-0.2); Baso % (Auto) 0.4 % (0.0-2.0); Eos % (Auto) 0.1 % (0.0-4.0); Hematocrit 41.4 % (39.0-51.0); Hemoglobin 13.9 gm/dL (13.0-17.0); Lymph # (Auto) 0.6 th/mm3 (1.0-4.8); Lymph % (Auto) 5.5 % (9.0-44.0); Mean Corpuscular HGB Conc 33.5 % (32.0-36.0); Mean Corpuscular Hemoglobin 30.7 pg (27.0-34.0); Mean Corpuscular Volume 91.8 fL (80.0-100.0); Mono # (Auto) 0.4 th/mm3 (0.0-0.9); Mono % (Auto) 3.5 % (0.0-8.0); Neut # (Auto) 10.7 th/mm3 (1.8-7.7); Neut % (Auto) 90.5 % (16.0-70.0); Platelet Count 288 th/mm3 (150-450); Red Blood Count 4.51 mil/mm3 (4.50-5.90); Red Cell Distribution Width 15.5 % (11.6-17.2); White Blood Count 11.8 th/mm3 (4.0-11.0)
[2018-03-29 04:53] LABS: Calcium 8.8 mg/dL (8.5-10.1); Carbon Dioxide 28.4 meq/L (21.0-32.0); Potassium 4.8 meq/L (3.5-5.1)
[2018-03-29 04:54] LABS: Phosphorus 5.6 mg/dL (2.5-4.9)
[2018-03-29] MEDS: MethylPREDNISolone Sod Succinate Inj 40 MG/ML Vial IV.PUSH SCH ×3 (05:18→21:22)
[2018-03-29] MEDS: Heparin - SQ 10,000 UNITS/ML Vial SQ SCH ×2 (08:17→20:57)
--- NOTE | 2018-03-29 09:32 | P.PNNP ---
Subjective Interval history: Renal function is worse. He has hypernatremia. He has been extubated. Physical Exam Vital signs: Vital Signs 03/28/18 09:55 03/28/18 10:00 03/28/18 10:30 Temperature Pulse Rate 61 62 Respiratory Rate Blood Pressure 111/58 L 105/62 Pulse Oximetry 95 03/28/18 11:00 03/28/18 11:30 03/28/18 11:53 Temperature Pulse Rate 63 68 69 Respiratory Rate Blood Pressure 112/65 122/69 Pulse Oximetry 94 L 97 03/28/18 11:54 03/28/18 11:55 03/28/18 12:00 Temperature 97.5 F L Pulse Rate 56 L 69 70 Respiratory Rate 19 Blood Pressure 122/69 100/62 119/62 Pulse Oximetry 96 93 L 03/28/18 12:18 03/28/18 12:30 03/28/18 13:00 Temperature Pulse Rate 66 62 Respiratory Rate 20 Blood Pressure 105/60 124/67 Pulse Oximetry 92 L 94 L 95 03/28/18 13:30 03/28/18 14:00 03/28/18 14:30 Temperature Pulse Rate 66 73 93 H Respiratory Rate Blood Pressure 128/68 130/63 145/70 H Pulse Oximetry 96 96 95 03/28/18 15:00 03/28/18 15:01 03/28/18 15:31 Temperature Pulse Rate 79 74 59 L Respiratory Rate Blood Pressure 165/84 H 108/62 Pulse Oximetry 94 L 95 95 03/28/18 16:00 03/28/18 16:30 03/28/18 17:00 Temperature 97.4 F L Pulse Rate 59 L 55 L 57 L Respiratory Rate 18 18 Blood Pressure 112/59 L 119/67 121/67 Pulse Oximetry 96 96 95 03/28/18 17:30 03/28/18 18:00 03/28/18 18:30 Temperature Pulse Rate 54 L 59 L 51 L Respiratory Rate Blood Pressure 123/63 133/72 136/70 Pulse Oximetry 95 95 96 03/28/18 19:00 03/28/18 19:25 03/28/18 19:30 Temperature Pulse Rate 57 L 62 Respiratory Rate 18 Blood Pressure 122/62 129/70 Pulse Oximetry 94 L 97 98 03/28/18 20:00 03/28/18 20:30 03/28/18 21:00 Temperature 97.6 F Pulse Rate 54 L 53 L 53 L Respiratory Rate Blood Pressure 124/66 139/70 133/70 Pulse Oximetry 96 96 97 03/28/18 21:30 03/28/18 22:00 03/28/18 22:30 Temperature Pulse Rate 52 L 52 L 54 L Respiratory Rate Blood Pressure 148/72 H 141/71 H 142/72 H Pulse Oximetry 97 96 96 03/28/18 23:00 03/28/18 23:31 03/28/18 23:33 Temperature Pulse Rate 50 L 55 L Respiratory Rate 18 Blood Pressure 147/71 H 171/84 H Pulse Oximetry 97 97 97 03/28/18 23:54 03/29/18 00:00 03/29/18 00:31 Temperature 97.7 F Pulse Rate 55 L 63 50 L Respiratory Rate Blood Pressure 165/82 H 168/85 H 139/66 Pulse Oximetry 97 97 95 03/29/18 01:00 03/29/18 01:31 03/29/18 01:38 Temperature Pulse Rate 57 L 58 L 62 Respiratory Rate Blood Pressure 119/59 L 146/69 H 143/66 H Pulse Oximetry 91 L 94 L 95 03/29/18 01:42 03/29/18 01:43 03/29/18 02:00 Temperature Pulse Rate 61 64 Respiratory Rate 18 Blood Pressure 113/57 L Pulse Oximetry 96 96 03/29/18 02:30 03/29/18 03:00 03/29/18 04:00 Temperature 97.6 F Pulse Rate 69 71 67 Respiratory Rate Blood Pressure 115/56 L 115/56 L Pulse Oximetry 96 96 95 03/29/18 04:48 03/29/18 05:00 03/29/18 06:00 Temperature Pulse Rate 70 71 73 Respiratory Rate Blood Pressure 136/63 142/71 H Pulse Oximetry 03/29/18 07:35 03/29/18 08:00 Temperature 98.8 F Pulse Rate 81 95 H Respiratory Rate 20 Blood Pressure 138/74 Pulse Oximetry 95 96 Intake & Output 03/28/18 03/29/18 03/29/18 18:59 06:59 18:59 Intake Total 935 / 935 750 / 750 Output Total 2350 / 2350 2425 / 2425 Balance -1415 / -1415 -1675 / -1675 Weight 115.5 kg Intake: IV 350 / 350 750 / 750 Precedex Inj 1,000 MCG In NS 500 / 500 Inj 240 ML @ 0.2 MCG/KG/HR 6 mls/hr IV.CONT TITRATE PRN Rx#: [id number] Rocephin Inj 2,000 MG In NS Inj 100 / 100 100 ML @ 200 mls/hr IV.SIG Q24H [facility] Rx#:[id number] fentaNYL 10 mcg/mL Premix Drip 250 / 250 250 / 250 2,500 mcg In 250 ml @ 25 MCG/HR 2.5 mls/hr IV.SIG TITRATE PRN Rx#:[id number] Oral 0 / 0 Tube Feeding 585 / 585 Output: Urine 0 / 0 Pleural Fluid 0 / 0 Urine Amount (Catheter) 235 / 235 2425 / 2425 Indwelling Urethral Catheter 2349 2425 / 2425 Gastric Drainage 0 / 0 Orogastric Tube 0 / 0 Other: Date of Last Bowel Movement 03/27/18 03/28/18 03/28/18 # Bowel Movements 0 3 # Incontinent Bowel Movements 3 Narrative: Physical examination GENERAL: Patient is awake, alert. SKIN: Cool and dry. No generalized rash, no ecchymoses and no evidence of embolic lesions. HEAD: Atraumatic. Normocephalic. No temporal wasting, or tenderness. EARS, NOSE AND THROAT: Orally intubated. NECK: Trachea midline. Supple and not tender, no meningeal signs. Has left IJ central line CARDIOVASCULAR: Regular rate and rhythm. No murmur heard RESPIRATORY: Breath sounds equal bilaterally. No rales, wheezing or rhonchi. Decreased breath sounds at the bases ABDOMEN: Globular, mildly distended, no reaction to palpation. Bowel sounds present and normoactive. EXTREMITIES: No clubbing, cyanosis. Cool feet. NEUROLOGICAL: Does not appear to have focal deficits. - Urinary Catheter Management Indwelling Urethral Catheter Cath placed during this visit: yes Reason for continuing: Hourly intake/output Insertion date: 03/23/18 Insertion time: 05:40 Assessment and Plan - Assessment (1) GILLES (acute kidney injury) Code(s): N17.9 - Acute kidney failure, unspecified Status: Acute Plan: GILLES due to ATN due to sepsis and hypotension. Hydronephrosis involving left kidney has improved. Renal function improved initially, but has worsened again. I will stop Lasix, start 1/4NS. Will continue to monitor. Monitor fluid and electrolytes. Avoid Nephrotoxins. (2) Hypernatremia Code(s): E87.0 - Hyperosmolality and hypernatremia Status: Acute Plan: start 1/4NS. (3) Severe sepsis Code(s): A41.9 - Sepsis, unspecified organism; R65.20 - Severe sepsis without septic shock Status: Acute Plan: Improved, on antibiotic. - Plan GNR sepsis, with shock due to complicated UTI Urine and blood cultures growing gram-negative rods/E. coli. Patient on Ceftriaxone. Prostate cancer History of prostate cancer with radiation seeds in place. Hypertension Monitor BP. Patient on Hydralazine. Type 2 diabetes Continue insulin coverage to maintain blood glucose between 140 and 180.
[2018-03-29] MEDS: Senna/Docusate Sodium 8.6/50 MG Tablet PO SCH ×2 (09:37→20:57)
[2018-03-29] MEDS: Amiodarone 200 MG Tablet PO SCH ×2 (09:38→20:57)
[2018-03-29] MEDS: Sodium Chloride 23.4% Inj 38.5 MEQ in Water for Inj, Sterile 1,000 ML IV.CONT SCH (11:17)
--- NOTE | 2018-03-29 15:48 | P.PNCC ---
Subjective Subjective Remarks/Hospital Course: Patient is a 83-year-old -[place] male with history of prostate cancer, hypertension who was admitted to the hospitalist service for UTI and urosepsis. Patient was found to be in acute renal failure and CT of the abdomen pelvis showed left hydronephrosis hydroureter. Seen by urology for hydronephrosis and hematuria no further intervention from urology standpoint. Had been initially on Rocephin and later changed to Zosyn. Blood cultures 4 out of 4 bottles positive for gram-negative rods (which is growing E. coli now). Patient was increasingly somnolent tonight and has history of previous smoking. His ABG showed pH of 7.23 with hypercapnia, PCo2 66. Patient was also short of breath and was placed on BiPAP. After 2 hours of BiPAP repeat ABG showed persistent acidosis and worsening pCo2 now 68. Patient was moved to the ICU stat where I evaluated him. He is showing labored breathing currently, very hard to arouse. I proceeded with endotracheal intubation and placed him on mechanical ventilation. Post intubation patient became more hypotensive. I have ordered 3 L normal saline bolus. Start Dre-Synephrine if needed to keep map above 65 as the patient is also tachycardic. Continues to spike fever repeat sputum blood cultures will be sent. Single dose of vancomycin ordered. Creatinine initially was 2.4 now worsened to 2.95. Patient will need strict hourly intake output Oslomon has been ordered, nephrology consult also placed SUBJECTIVE: 03/24: Currently off all vasopressors. 450 cc urine output overnight. Creatinine slowly decreasing. Will reevaluate hydronephrosis today with ultrasound. Remains on piperacillin/tazobactam. Will start on tube feeding today. 03/25: Remains intubated sedated. Patient was cardioverted by Dr. Clements for atrial fibrillation with RVR with rate in the 140s-150s with hypotension. Did not convert with cardioversion, amiodarone bolus and drip started. Eventually changed to sinus rhythm 03/26: remains intubated sedated. UO adequate. Maintains NSR. Attempt CPAP today 03/27: Remains intubated sedated. Failed CPAP trial yesterday secondary to low lung volumes and tachypnea. Currently in sinus rhythm with frequent PVCs. Will transition from IV amiodarone to p.o. overall approximately 15 kg up from admission weight. Give Lasix 40 mg IV x1. Renal function stable. Urine output 1500 mL in 24 hours 3: Continued attempts at ventilator weaning. BMP pending. Transitioned to p.o. amiodarone. Hemodynamically stable. 03/29: Overnight the patient remove the aeroplane pilot balloon on his endotracheal tube and remove the endotracheal tube the patient was placed on oxygen at 4 L nasal cannula and continues to do well formal swallow was obtained today the patient has been placed back on a regular diet. PT evaluation has been performed OT evaluation is pending. Creatinine slightly increased. Objective Vital Signs / I&O: Vital Signs 03/28/18 15:31 03/28/18 16:00 03/28/18 16:30 Temperature 97.4 F L Pulse Rate 59 L 59 L 55 L Respiratory Rate 18 Blood Pressure 108/62 112/59 L 119/67 Pulse Oximetry 95 96 96 03/28/18 17:00 03/28/18 17:30 03/28/18 18:00 Temperature Pulse Rate 57 L 54 L 59 L Respiratory Rate 18 Blood Pressure 121/67 123/63 133/72 Pulse Oximetry 95 95 95 03/28/18 18:30 03/28/18 19:00 03/28/18 19:25 Temperature Pulse Rate 51 L 57 L Respiratory Rate 18 Blood Pressure 136/70 122/62 Pulse Oximetry 96 94 L 97 03/28/18 19:30 03/28/18 20:00 03/28/18 20:30 Temperature 97.6 F Pulse Rate 62 54 L 53 L Respiratory Rate Blood Pressure 129/70 124/66 139/70 Pulse Oximetry 98 96 96 03/28/18 21:00 03/28/18 21:30 03/28/18 22:00 Temperature Pulse Rate 53 L 52 L 52 L Respiratory Rate Blood Pressure 133/70 148/72 H 141/71 H Pulse Oximetry 97 97 96 03/28/18 22:30 03/28/18 23:00 03/28/18 23:31 Temperature Pulse Rate 54 L 50 L 55 L Respiratory Rate Blood Pressure 142/72 H 147/71 H 171/84 H Pulse Oximetry 96 97 97 03/28/18 23:33 03/28/18 23:54 03/29/18 00:00 Temperature 97.7 F Pulse Rate 55 L 63 Respiratory Rate 18 Blood Pressure 165/82 H 168/85 H Pulse Oximetry 97 97 97 03/29/18 00:31 03/29/18 01:00 03/29/18 01:31 Temperature Pulse Rate 50 L 57 L 58 L Respiratory Rate Blood Pressure 139/66 119/59 L 146/69 H Pulse Oximetry 95 91 L 94 L 03/29/18 01:38 03/29/18 01:42 03/29/18 01:43 Temperature Pulse Rate 62 61 Respiratory Rate 18 Blood Pressure 143/66 H Pulse Oximetry 95 96 03/29/18 02:00 03/29/18 02:30 03/29/18 03:00 Temperature Pulse Rate 64 69 71 Respiratory Rate Blood Pressure 113/57 L 115/56 L Pulse Oximetry 96 96 96 03/29/18 04:00 03/29/18 04:48 03/29/18 05:00 Temperature 97.6 F Pulse Rate 67 70 71 Respiratory Rate Blood Pressure 115/56 L 136/63 142/71 H Pulse Oximetry 95 03/29/18 06:00 03/29/18 07:35 03/29/18 08:00 Temperature 98.8 F Pulse Rate 73 81 95 H Respiratory Rate 20 Blood Pressure 138/74 Pulse Oximetry 95 96 03/29/18 10:00 03/29/18 13:04 Temperature Pulse Rate 112 H 112 H Respiratory Rate 20 Blood Pressure Pulse Oximetry Intake & Output 03/28/18 03/29/18 03/29/18 18:59 06:59 18:59 Intake Total 935 / 935 750 / 750 Output Total 2350 / 2350 2425 / 2425 Balance -1415 / -1415 -1675 / -1675 Weight 115.5 kg Intake: IV 350 / 350 750 / 750 Precedex Inj 1,000 MCG In NS 500 / 500 Inj 240 ML @ 0.2 MCG/KG/HR 6 mls/hr IV.CONT TITRATE PRN Rx#: [id number] Rocephin Inj 2,000 MG In NS Inj 100 / 100 100 ML @ 200 mls/hr IV.SIG Q24H SARAH Rx#:[id number] fentaNYL 10 mcg/mL Premix Drip 250 / 250 250 / 250 2,500 mcg In 250 ml @ 25 MCG/HR 2.5 mls/hr IV.SIG TITRATE PRN Rx#:[id number] Oral 0 / 0 Tube Feeding 585 / 585 Output: Urine 0 / 0 Pleural Fluid 0 / 0 Urine Amount (Catheter) 2349 2425 / 242 Indwelling Urethral Catheter 2349 / 242 Gastric Drainage 0 / 0 Orogastric Tube 0 / 0 Other: Date of Last Bowel Movement 03/27/18 03/28/18 03/28/18 # Bowel Movements 0 3 # Incontinent Bowel Movements 3 Result Diagrams: 03/29/18 02:56 03/29/18 02:56 Other Results: Laboratory Results WBC 11.8 th/mm3 (4.0-11.0) H 03/29/18 02:56 RBC 4.51 mil/mm3 (4.50-5.90) 03/29/18 02:56 Hgb 13.9 gm/dL (13.0-17.0) 03/29/18 02:56 Hct 41.4 % (39.0-51.0) 03/29/18 02:56 MCV 91.8 fL (80.0-100.0) 03/29/18 02:56 MCH 30.7 pg (27.0-34.0) 03/29/18 02:56 MCHC 33.5 % (32.0-36.0) 03/29/18 02:56 RDW 15.5 % (11.6-17.2) 03/29/18 02:56 Plt Count 288 th/mm3 (150-450) 03/29/18 02:56 MPV 9.0 fL (7.0-11.0) 03/29/18 02:56 Prelim Diff (Auto) Slide review pending 03/28/18 11:45 Neut % (Auto) 90.5 % (16.0-70.0) H 03/29/18 02:56 Lymph % (Auto) 5.5 % (9.0-44.0) L 03/29/18 02:56 [place] % (Auto) 3.5 % (0.0-8.0) 03/29/18 02:56 Eos % (Auto) 0.1 % (0.0-4.0) 03/29/18 02:56 Baso % (Auto) 0.4 % (0.0-2.0) 03/29/18 02:56 Neut # (Auto) 10.7 th/mm3 (1.8-7.7) H 03/29/18 02:56 Lymph # (Auto) 0.6 th/mm3 (1.0-4.8) L 03/29/18 02:56 [place] # (Auto) 0.4 th/mm3 (0.0-0.9) 03/29/18 02:56 Eos # (Auto) 0.0 th/mm3 (0.0-0.4) 03/29/18 02:56 Baso # (Auto) 0.1 th/mm3 (0.0-0.2) 03/29/18 02:56 WBC Differential . 03/29/18 02:56 Seg Neuts % (Manual) 76 % (16-70) H 03/28/18 11:45 Band Neuts % (Manual) 5 % (0-6) 03/28/18 11:45 Lymphocytes % (Manual) 5 % (9-44) L 03/28/18 11:45 Monocytes % (Manual) 8 % (0-8) 03/28/18 11:45 Metamyelocytes % (Man) 3 % (0-1) H 03/28/18 11:45 Myelocytes % (Man) 3 % (0-0) H 03/28/18 11:45 Abs Neuts (Manual) 11.7 th/mm3 (1.8-7.7) H 03/28/18 11:45 Nucleated RBCs/100 WBC 1 /100 WBC (0-0) H 03/28/18 11:45 Differential Comment Auto diff final 03/29/18 02:56 Toxic Granulation 1+ (None) H 03/28/18 11:45 Platelet Estimate Normal (Normal) 03/28/18 11:45 Platelet Morphology Normal (Normal) 03/28/18 11:45 PT 10.4 sec (9.8-11.6) 03/24/18 04:00 INR 1.0 Ratio 03/24/18 04:00 APTT 34.3 sec (23.4-31.7) H 03/24/18 04:00 Fibrinogen 850 mg/dL (227-377) H 03/24/18 04:00 Puncture Site Art line 03/26/18 14:28 Patient Temperature 98.6 03/26/18 14:28 O2 Saturation 91 % (90-100) 03/26/18 14:28 ABG pH 7.39 (7.380-7.420) 03/26/18 14:28 ABG pCO2 40 mmHg (38-42) 03/26/18 14:28 ABG pO2 68 mmHG (61-120) 03/26/18 14:28 ABG HCO3 24 mmol/L (22-26) 03/26/18 14:28 ABG O2 Content 16.2 Vol % (12.0-20.0) 03/26/18 14:28 ABG Base Excess -0.5 mmol/L (-2-2) 03/26/18 14:28 ABG Methemoglobin 1.5 % (0-2) 03/26/18 14:28 Norbert Test Present 03/23/18 03:43 Hemoglobin 12.6 G/DL (12.0-16.0) 03/26/18 14:28 Carboxyhemoglobin 1.0 % (0-4) 03/26/18 14:28 O2 Delivery Device Ventilator 03/26/18 14:28 Liter Flow 15.00 L/M 03/23/18 00:18 Vent Setting Cpap 15ps/5peep 03/26/18 14:28 Inspired O2 40 % 03/26/18 14:28 Critical Value No 03/26/18 14:28 Sodium 151 meq/L (136-145) H 03/29/18 02:56 Potassium 4.8 meq/L (3.5-5.1) 03/29/18 02:56 Chloride 117 meq/L (98-107) H 03/29/18 02:56 Carbon Dioxide 28.4 meq/L (21.0-32.0) 03/29/18 02:56 Anion Gap 6 meq/L (5-15) 03/29/18 02:56 BUN 86 mg/dL (7-18) H 03/29/18 02:56 Creatinine 2.40 mg/dL (0.60-1.30) H 03/29/18 02:56 Estimated GFR 32 mL/min (>89) L 03/29/18 02:56 POC Glucose 207 mg/dl (68-110) H 03/29/18 08:05 Random Glucose 220 mg/dL (74-106) H 03/29/18 02:56 Hemoglobin A1c 8.1 % (4.3-6.0) H 03/22/18 11:01 Lactic Acid 1.8 mmol/L (0.4-2.0) 03/25/18 12:13 Calcium 8.8 mg/dL (8.5-10.1) 03/29/18 02:56 Calcium Adj for Albumin 7.8 mg/dL (8.5-10.1) L 03/25/18 02:04 Phosphorus 5.6 mg/dL (2.5-4.9) H 03/29/18 02:56 Magnesium 3.0 mg/dL (1.5-2.5) H 03/29/18 02:56 Total Bilirubin 0.2 mg/dL (0.2-1.0) 03/27/18 03:00 Direct Bilirubin 0.4 mg/dL (0.0-0.2) H 03/21/18 20:34 Indirect Bilirubin 0.7 mg/dL (0.0-0.8) 03/21/18 20:34 AST 12 U/L (15-37) L 03/27/18 03:00 ALT 25 U/L (12-78) 03/27/18 03:00 Alkaline Phosphatase 75 U/L (45-117) 03/27/18 03:00 Total Creatine Kinase 550 U/L (39-308) H 03/25/18 02:04 CK-MB (CK-2) 1.5 ng/mL (0.5-3.6) 03/25/18 02:04 CK-MB (CK-2) % 0.3 % (0.0-4.0) 03/25/18 02:04 Troponin I 0.05 ng/mL (0.02-0.05) 03/24/18 04:00 Total Protein 5.8 g/dL (6.4-8.2) L 03/27/18 03:00 Albumin 1.9 g/dL (3.4-5.0) L 03/27/18 03:00 Lipase 475 U/L (73-393) H 03/23/18 08:45 TSH 0.755 uIU/mL (0.358-3.740) 03/24/18 04:00 Urine Color Yellow (Yellw/Straw) 03/21/18 20:43 Urine Clarity Cloudy (Clear) H 03/21/18 20:43 Urine pH 6.0 (5.0-8.5) 03/21/18 20:43 Ur Specific [place] 1.016 (1.002-1.035) 03/21/18 20:43 Urine Protein 100 mg/dL (Neg-Trace) H 03/21/18 20:43 Urine Glucose (UA) 50 mg/dL (Negative) 03/21/18 20:43 Urine Ketones Trace mg/dL (Negative) H 03/21/18 20:43 Urine Occult Blood Large (Negative) H 03/21/18 20:43 Urine Nitrate Negative (Negative) 03/21/18 20:43 Urine Bilirubin Negative (Negative) 03/21/18 20:43 Urine Urobilinogen Less than 2 mg/dL (Less than 2) 03/21/18 20:43 Ur Leukocyte Esterase Moderate (Negative) H 03/21/18 20:43 Urine RBC /hpf (0-3) 03/21/18 20:43 Urine WBC /hpf (0-5) 03/21/18 20:43 Urine WBC Clumps Few (None) H 03/21/18 20:43 Ur Squamous Epith Cells 4 /hpf (0-5) 03/21/18 20:43 Urine Bacteria Few /hpf (None) H 03/21/18 20:43 Urine Mucus Few /lpf (Occasional) H 03/21/18 20:43 Micro UA Comment Culture indicated 03/21/18 20:43 Ur Microscopic Review Not Reportable 03/21/18 20:43 Urine Culture Comments Culture indicated 03/21/18 20:43 Urine Eosinophils None seen /HPF (None Seen) 03/23/18 12:30 Ur Random Creatinine 123 mg/dL (27-300) 03/23/18 12:30 Ur Random Sodium 44 meq/L 03/23/18 12:30 Nasal Screen MRSA (PCR) Not detected (Negative) 03/23/18 05:38 Impressions Abdomen/Pelvis CT 03/21/18 18:35 CONCLUSION: 1. Left-sided hydronephrosis and hydroureter with prominent stranding. No radiopaque calculus identified. 2. Enlarged prostate gland containing prostatic seeds. 3. Hepatic steatosis. 4. Prominence of both adrenal glands likely hyperplasia. Abdomen/Bladder Ultrasound 03/24/18 08:33 CONCLUSION: 1. The hydronephrosis involving the left kidney on the prior CT scan has significantly improved. No residual hydronephrosis observed. 2. Prostate gland enlargement which impresses upon the urinary bladder. No bladder wall thickening to clearly suggest bladder outlet obstruction. Chest X-Ray 03/29/18 04:00 CONCLUSION: Unchanged bilateral pulmonary consolidations and small left effusion. Objective Remarks: GENERAL: 83-year-old [place] male awake and alert, pleasantly conversant SKIN: Warm and dry. HEAD: Atraumatic. Normocephalic. EYES: Pupils equal and round. No scleral icterus. No injection or drainage. ENT: No nasal bleeding or discharge. Orotracheally intubated NECK: Trachea midline. No JVD. Left IJ CVL clean dry and intact. CARDIOVASCULAR: Regular rate and rhythm, with frequent PVCs. S1, S2. No S4. RESPIRATORY: Equal breath sounds throughout. No wheezing. GASTROINTESTINAL: Abdomen soft, obese non-tender, nondistended. Hepatic and splenic margins not palpable. MUSCULOSKELETAL: Extremities with trace bilateral lower extremity edema. Ankle bracelet on right ankle NEUROLOGICAL: GCS 15.Cranial nerves grossly intact. Moves all 4 extremities. Procedures: Left IJ CVL 03/23 Right femoral arterial line 03/23 Assessment and Plan - Assessment and Plan Plan: NEURO/PSYCH: Acute toxic metabolic encephalopathy secondary to sepsis -Neuro checks per ICU protal -Discontinue Precedex -Acetaminophen 650 by tube every 6 hours as needed fever RESP: Acute hypercapnic respiratory failure COPD with exacerbation -PRVC/AC, Ventilator bundle -Albuterol/ipratropium aerosols every 4 hours scheduled a with albuterol aerosols every 2 hours as needed dyspnea -Methylprednisolone succinate 40 mg IV every 8 hours -Self extubation 03/28 -03/29-chest x-ray unchanged CV: Septic shock-resolved Moderate TR. Mild MR. Elevated troponin Atrial fibrillation with RVR-resolved History of essential hypertension Fluid overload -Did not respond to DC cardioversion, converted to sinus rhythm with amiodarone bolus and infusion -Transition to p.o. amiodarone -s/p Normal saline IV fluids 3L bolus, maintenance fluid at 125 ml per hour. Discontinue IV fluids -Lasix 40 mg IV x1 for fluid overload -Currently on no vasopressors. Previously on norepinephrine and phenylephrine drips 2D echocardiogram revealed EF 65-70%. Moderate TR. Mild MR. PA P 38.3 mmHg Cardiology consulted for possible AV block. Resolved currently. GI: Elevated AST Elevated lipase Hypoalbuminemia -Formal swallow evaluation- successfulregular diet thin liquid -Lansoprazole for GI prophylaxis -Docusate sodium/senna 1 tablet twice daily for bowel regimen Renal/: Acute kidney injury Left hydronephrosis/hydroureter Rhabdomyolysis -Monitor renal function closely. Solomon catheter for strict hourly intake output , and due to worsening renal failure -Nephrology following for worsening renal failure, urology had already been consulted-no intervention -IV hydration as above. -Renal US: The hydronephrosis involving the left kidney on the prior CT scan has significantly improved. \ ID: E. coli bacteremia and UTI -Antibiotics- piperacillin/tazobactam to 3.375 every 8 hours, s/p single dose of vancomycin 1 g. -Zosyn and vancomycin DC'd and currently only on Rocephin per ID -Repeat blood and sputum culture. 03/23 -Urine and blood cultures growing E. coli -ID following HEME: Normocytic anemia Thrombocytopenia Elevated PTT Elevated fibrinogen -Monitor CBC, coags -No indication for transfusion of blood products at this time. ENDO: DM-II -Sliding scale insulin TSH was 0.755 FEN Electrolyte derangement Replace electrolytes PROPH: -Bilateral lower extremity SCDs. Subcu heparin -Lansoprazole LINES: -Utilize peripheral IVs, left IJ CVL day #5 and right femoral arterial line day #5-discontinued central line and arterial line / Level 2 follow-up. Plan transfer to [facility] a.m. Code Status: Full Discussed Condition With: Discussed with STAMP ANALYST at bedside
[2018-03-30] MEDS: Artificial Tears Opth Drops 15 ML Bottle EACH EYE SCH ×3 (00:44→18:40)
[2018-03-30] MEDS: Insulin NovoLOG Aspart Correctional Sugar Inj SQ SCH ×6 (00:44→20:10)
[2018-03-30] MEDS: MethylPREDNISolone Sod Succinate Inj 40 MG/ML Vial IV.PUSH SCH ×3 (05:04→21:19)
[2018-03-30] MEDS: hydrALAZINE HCl Inj 20 MG/ML Vial IV.PUSH PRN (05:14)
--- NOTE | 2018-03-30 09:13 | P.PNID ---
Subjective Remarks: Patient is an 83-year-old male, presented to the hospital for evaluation of hematuria. Patient has known history of prostate cancer and he has had problem with intermittent mild hematuria. This was apparently worse than any of the hematuria he has had in the past. Initial evaluation showed that he was in renal failure. The CT is showing evidence of hydronephrosis. Urology evaluated the patient and felt that there is no intervention that needed to be done. Blood cultures done on admission are reported as growing gram-negative maryann. Infectious disease consultation has been requested to evaluate that. In the interim patient developed shortness of breath, and required BiPAP. He was on BiPAP for several hours but had persistent acidosis, respiratory distress, and he started becoming more lethargic. He ended up getting intubated, and post intubation has been hypotensive. He received fluid resuscitation and despite that remains hypotensive. He is currently on Levophed and Dre-Synephrine. His creatinine remains elevated. Urine output is low. He had a fever of 103.3 earlier today. Notes reviewed One low grade temps overnight Extubated, on nasal O2 Not SOB C/O eyes burning BP ok Creat stable, has good UO WBC lower BC and UC E coli Renal US - hydro resolved Antibiotics: Rocephin Lines: LIJ TLC Past Medical History: HTN Prostate CA Allergies/Adverse Reactions: Allergies No Known Allergies Allergy (Verified 03/21/18 18:31) Objective Vital Signs 03/29/18 10:00 03/29/18 12:00 03/29/18 13:00 Temperature 98.3 F Pulse Rate 112 H 117 H 107 H Respiratory Rate Blood Pressure 155/81 H Pulse Oximetry 94 L 97 03/29/18 13:01 03/29/18 13:04 03/29/18 14:00 Temperature Pulse Rate 112 H 112 H 118 H Respiratory Rate 20 Blood Pressure 156/71 H Pulse Oximetry 95 96 03/29/18 14:01 03/29/18 15:00 03/29/18 15:51 Temperature Pulse Rate 119 H 110 H 100 H Respiratory Rate Blood Pressure 110/70 114/72 Pulse Oximetry 96 95 03/29/18 16:00 03/29/18 16:01 03/29/18 16:12 Temperature 98.5 F Pulse Rate 100 H 101 H 92 H Respiratory Rate 21 18 Blood Pressure 152/70 H 152/70 H Pulse Oximetry 99 94 L 03/29/18 17:00 03/29/18 17:01 03/29/18 18:00 Temperature Pulse Rate 105 H 107 H 104 H Respiratory Rate Blood Pressure 145/80 H 134/64 Pulse Oximetry 97 03/29/18 19:00 03/29/18 19:31 03/29/18 20:00 Temperature 98.3 F Pulse Rate 102 H 100 H 104 H Respiratory Rate 18 Blood Pressure 136/65 140/73 Pulse Oximetry 98 97 98 03/29/18 21:00 03/29/18 21:01 03/29/18 21:07 Temperature Pulse Rate 101 H 101 H 179 H Respiratory Rate Blood Pressure 156/77 H 139/97 H Pulse Oximetry 96 97 89 L 03/29/18 21:17 03/29/18 21:21 03/29/18 21:30 Temperature Pulse Rate 169 H 166 H 98 H Respiratory Rate Blood Pressure 105/75 112/78 129/84 Pulse Oximetry 87 L 97 95 03/29/18 21:37 03/29/18 21:40 03/29/18 21:45 Temperature Pulse Rate 97 H 98 H 96 H Respiratory Rate Blood Pressure 124/71 140/75 138/76 Pulse Oximetry 96 98 97 03/29/18 21:50 03/29/18 22:00 03/29/18 22:01 Temperature Pulse Rate 90 94 H 91 H Respiratory Rate Blood Pressure 126/60 131/61 Pulse Oximetry 97 97 97 03/29/18 22:30 03/29/18 23:00 03/29/18 23:06 Temperature Pulse Rate 84 95 H 97 H Respiratory Rate Blood Pressure 139/63 159/83 H Pulse Oximetry 97 96 95 03/29/18 23:31 03/30/18 00:00 03/30/18 00:01 Temperature 98.8 F Pulse Rate 83 81 80 Respiratory Rate 20 Blood Pressure 171/73 H 151/67 H 151/67 H Pulse Oximetry 98 98 98 03/30/18 00:31 03/30/18 01:00 03/30/18 01:31 Temperature Pulse Rate 90 78 75 Respiratory Rate Blood Pressure 145/77 H 157/85 H 171/78 H Pulse Oximetry 97 97 97 03/30/18 02:00 03/30/18 02:01 03/30/18 02:31 Temperature Pulse Rate 74 76 74 Respiratory Rate Blood Pressure 138/65 154/73 H Pulse Oximetry 97 96 97 03/30/18 03:00 03/30/18 03:13 03/30/18 03:31 Temperature Pulse Rate 77 84 76 Respiratory Rate Blood Pressure 186/86 H 155/80 H Pulse Oximetry 99 99 99 03/30/18 04:00 03/30/18 04:01 03/30/18 04:30 Temperature 100.1 F H Pulse Rate 72 75 73 Respiratory Rate 20 Blood Pressure 153/73 H 153/73 H 173/105 H Pulse Oximetry 97 97 98 03/30/18 05:00 03/30/18 05:01 03/30/18 05:11 Temperature Pulse Rate 74 74 79 Respiratory Rate Blood Pressure 182/89 H 171/79 H Pulse Oximetry 96 98 97 03/30/18 06:00 03/30/18 07:32 Temperature Pulse Rate 79 Respiratory Rate Blood Pressure Pulse Oximetry 97 Intake & Output 03/29/18 03/30/18 03/30/18 18:59 06:59 18:59 Intake Total 580 / 580 240 / 240 Output Total 1075 / 1075 Balance 580 / 580 -835 / -835 Weight 113.5 kg Intake: IV 100 / 100 Rocephin Inj 2,000 MG In NS Inj 100 / 100 100 ML @ 200 mls/hr IV.SIG Q24H [facility] Rx#:[id number] Oral 480 / 480 240 / 240 Output: Urine Amount (Catheter) 1075 / 1075 Indwelling Urethral Catheter 1075 / 1075 Other: Date of Last Bowel Movement 03/29/18 03/29/18 # Bowel Movements 1 0 03/23/18 11:45 Blood - Peripheral Aerobic Blood Culture - Final No growth in 5 days 03/23/18 11:45 Blood - Peripheral Anaerobic Blood Culture - Final No growth in 5 days 03/23/18 09:45 Blood - Peripheral Aerobic Blood Culture - Final No growth in 5 days 03/23/18 09:45 Blood - Peripheral Anaerobic Blood Culture - Final QNS - See aerobic report. Lab - Hematology Results 03/28/18 03/29/18 11:45 02:56 WBC 13.4 H 11.8 H RBC 4.44 L 4.51 Hgb 13.9 13.9 Hct 40.9 41.4 MCV 92.0 91.8 MCH 31.3 30.7 MCHC 34.0 33.5 RDW 15.4 15.5 Plt Count 275 288 MPV 9.1 9.0 Prelim Diff (Auto) Slide review pending Neut % (Auto) 87.9 H 90.5 H Lymph % (Auto) 5.8 L 5.5 L [place] % (Auto) 5.8 3.5 Eos % (Auto) 0.2 0.1 Baso % (Auto) 0.3 0.4 Neut # (Auto) 11.8 H 10.7 H Lymph # (Auto) 0.8 L 0.6 L [place] # (Auto) 0.8 0.4 Eos # (Auto) 0.0 0.0 Baso # (Auto) 0.0 0.1 WBC Differential Manual diff final . Seg Neuts % (Manual) 76 H Band Neuts % (Manual) 5 Lymphocytes % (Manual) 5 L Monocytes % (Manual) 8 Metamyelocytes % (Man) 3 H Myelocytes % (Man) 3 H Abs Neuts (Manual) 11.7 H Nucleated RBCs/100 WBC 1 H Differential Comment . Auto diff final Toxic Granulation 1+ H Platelet Estimate Normal Platelet Morphology Normal Lab - Chemistry Results 03/28/18 03/28/18 03/28/18 11:11 11:45 16:29 Sodium 149 H Potassium 4.7 Chloride 116 H Carbon Dioxide 27.6 Anion Gap 5 BUN 78 H Creatinine 2.32 H Estimated GFR 33 L POC Glucose 173 H 207 H Random Glucose 205 H Calcium 8.6 D Phosphorus Magnesium 03/28/18 03/29/18 03/29/18 19:32 00:03 02:56 Sodium 151 H Potassium 4.8 Chloride 117 H Carbon Dioxide 28.4 Anion Gap 6 BUN 86 H Creatinine 2.40 H Estimated GFR 32 L POC Glucose 169 H 145 H Random Glucose 220 H Calcium 8.8 Phosphorus 5.6 H Magnesium 3.0 H 03/29/18 03/29/18 03/29/18 03:56 08:05 16:24 Sodium Potassium Chloride Carbon Dioxide Anion Gap BUN Creatinine Estimated GFR POC Glucose 187 H 207 H 256 H Random Glucose Calcium Phosphorus Magnesium 03/29/18 03/30/18 03/30/18 21:32 00:24 05:00 Sodium Potassium Chloride Carbon Dioxide Anion Gap BUN Creatinine Estimated GFR POC Glucose 159 H 180 H 213 H Random Glucose Calcium Phosphorus Magnesium Imaging: ITS Impressions Abdomen/Pelvis CT 03/21/18 18:35 CONCLUSION: 1. Left-sided hydronephrosis and hydroureter with prominent stranding. No radiopaque calculus identified. 2. Enlarged prostate gland containing prostatic seeds. 3. Hepatic steatosis. 4. Prominence of both adrenal glands likely hyperplasia. Abdomen/Bladder Ultrasound 03/24/18 08:33 CONCLUSION: 1. The hydronephrosis involving the left kidney on the prior CT scan has significantly improved. No residual hydronephrosis observed. 2. Prostate gland enlargement which impresses upon the urinary bladder. No bladder wall thickening to clearly suggest bladder outlet obstruction. Chest X-Ray 03/29/18 04:00 CONCLUSION: Unchanged bilateral pulmonary consolidations and small left effusion. Physical Exam: GENERAL:awake and alert, NAD SKIN: Cool and dry. No generalized rash. HEAD: Atraumatic. Normocephalic. No temporal wasting, or tenderness. EYES: [place] conjunctiva. No petechia or hemorrhage. Has dirty sclera. Mild injection R eye, no drainage. EARS, NOSE AND THROAT: Nose without bleeding or purulent nasal discharge. Moist mucosa NECK: Trachea midline. Supple and not tender, no meningeal signs. Has left IJ central line CARDIOVASCULAR: Regular rate and rhythm. No murmur heard RESPIRATORY: Breath sounds equal bilaterally. No rales, wheezing or rhonchi. Decreased breath sounds at the bases ABDOMEN: Globular, mildly distended, no reaction to palpation. Bowel sounds present and normoactive. EXTREMITIES: No clubbing, cyanosis. Cool feet. : Solomon in place, urine clear NEUROLOGICAL: awake, focusing PSYCHIATRIC: Cooperative LINE: No evidence of infection Assessment and Plan - Plan Impression E coli sepsis, with shock due to complicated UTI - BP better - hydronephrosis resolved E coli UTI Renal failure, making good UO Respiratory failure, tolerating extubation - CXR with bilateral infiltrates, stable Hematuria, resolved - Hx prostate CA Leukocytosis, better Low grade temps Recommend Continue Rocephin Monitor progress Follow temps Follow CBC Repeat UA and C/S D/W RN
[2018-03-30] MEDS: Heparin - SQ 10,000 UNITS/ML Vial SQ SCH ×2 (09:35→20:10)
[2018-03-30] MEDS: Senna/Docusate Sodium 8.6/50 MG Tablet PO SCH ×2 (09:35→20:10)
[2018-03-30] MEDS: Amiodarone 200 MG Tablet PO SCH ×2 (09:35→20:10)
[2018-03-30 11:24] LABS: Baso % (Auto) 0.2 % (0.0-2.0); Hematocrit 42.1 % (39.0-51.0); Hemoglobin 14.2 gm/dL (13.0-17.0); Lymph # (Auto) 0.6 th/mm3 (1.0-4.8); Lymph % (Auto) 3.5 % (9.0-44.0); Mean Corpuscular HGB Conc 33.7 % (32.0-36.0); Mono # (Auto) 0.6 th/mm3 (0.0-0.9); Mono % (Auto) 3.3 % (0.0-8.0); Neut # (Auto) 17.1 th/mm3 (1.8-7.7); Platelet Count 256 th/mm3 (150-450); Red Blood Count 4.57 mil/mm3 (4.50-5.90); White Blood Count 18.4 th/mm3 (4.0-11.0)
--- NOTE | 2018-03-30 11:33 | P.PN ---
Subjective Interval history: Follow-up E. coli sepsis/shock/UTI March 30, 2018-patient seen and examined, currently afebrile, he was working with PT this a.m. No acute event overnight. Physical Exam Vital signs: Vital Signs 03/29/18 12:00 03/29/18 13:00 03/29/18 13:01 Temperature 98.3 F Pulse Rate 117 H 107 H 112 H Respiratory Rate Blood Pressure 155/81 H 156/71 H Pulse Oximetry 94 L 97 95 03/29/18 13:04 03/29/18 14:00 03/29/18 14:01 Temperature Pulse Rate 112 H 118 H 119 H Respiratory Rate 20 Blood Pressure 110/70 Pulse Oximetry 96 96 03/29/18 15:00 03/29/18 15:51 03/29/18 16:00 Temperature 98.5 F Pulse Rate 110 H 100 H 100 H Respiratory Rate 21 Blood Pressure 114/72 152/70 H Pulse Oximetry 95 99 03/29/18 16:01 03/29/18 16:12 03/29/18 17:00 Temperature Pulse Rate 101 H 92 H 105 H Respiratory Rate 18 Blood Pressure 152/70 H Pulse Oximetry 94 L 03/29/18 17:01 03/29/18 18:00 03/29/18 19:00 Temperature Pulse Rate 107 H 104 H 102 H Respiratory Rate Blood Pressure 145/80 H 134/64 136/65 Pulse Oximetry 97 98 03/29/18 19:31 03/29/18 20:00 03/29/18 21:00 Temperature 98.3 F Pulse Rate 100 H 104 H 101 H Respiratory Rate 18 Blood Pressure 140/73 Pulse Oximetry 97 98 96 03/29/18 21:01 03/29/18 21:07 03/29/18 21:17 Temperature Pulse Rate 101 H 179 H 169 H Respiratory Rate Blood Pressure 156/77 H 139/97 H 105/75 Pulse Oximetry 97 89 L 87 L 03/29/18 21:21 03/29/18 21:30 03/29/18 21:37 Temperature Pulse Rate 166 H 98 H 97 H Respiratory Rate Blood Pressure 112/78 129/84 124/71 Pulse Oximetry 97 95 96 03/29/18 21:40 03/29/18 21:45 03/29/18 21:50 Temperature Pulse Rate 98 H 96 H 90 Respiratory Rate Blood Pressure 140/75 138/76 126/60 Pulse Oximetry 98 97 97 03/29/18 22:00 03/29/18 22:01 03/29/18 22:30 Temperature Pulse Rate 94 H 91 H 84 Respiratory Rate Blood Pressure 131/61 139/63 Pulse Oximetry 97 97 97 03/29/18 23:00 03/29/18 23:06 03/29/18 23:31 Temperature Pulse Rate 95 H 97 H 83 Respiratory Rate Blood Pressure 159/83 H 171/73 H Pulse Oximetry 96 95 98 03/30/18 00:00 03/30/18 00:01 03/30/18 00:31 Temperature 98.8 F Pulse Rate 81 80 90 Respiratory Rate 20 Blood Pressure 151/67 H 151/67 H 145/77 H Pulse Oximetry 98 98 97 03/30/18 01:00 03/30/18 01:31 03/30/18 02:00 Temperature Pulse Rate 78 75 74 Respiratory Rate Blood Pressure 157/85 H 171/78 H Pulse Oximetry 97 97 97 03/30/18 02:01 03/30/18 02:31 03/30/18 03:00 Temperature Pulse Rate 76 74 77 Respiratory Rate Blood Pressure 138/65 154/73 H Pulse Oximetry 96 97 99 03/30/18 03:13 03/30/18 03:31 03/30/18 04:00 Temperature 100.1 F H Pulse Rate 84 76 72 Respiratory Rate 20 Blood Pressure 186/86 H 155/80 H 153/73 H Pulse Oximetry 99 99 97 03/30/18 04:01 03/30/18 04:30 03/30/18 05:00 Temperature Pulse Rate 75 73 74 Respiratory Rate Blood Pressure 153/73 H 173/105 H Pulse Oximetry 97 98 96 03/30/18 05:01 03/30/18 05:11 03/30/18 06:00 Temperature Pulse Rate 74 79 79 Respiratory Rate Blood Pressure 182/89 H 171/79 H Pulse Oximetry 98 97 03/30/18 07:32 Temperature Pulse Rate Respiratory Rate Blood Pressure Pulse Oximetry 97 Intake & Output 03/29/18 03/30/18 03/30/18 18:59 06:59 18:59 Intake Total 580 / 580 240 / 240 Output Total 1075 / 1075 Balance 580 / 580 -835 / -835 Weight 113.5 kg Intake: IV 100 / 100 Rocephin Inj 2,000 MG In NS Inj 100 / 100 100 ML @ 200 mls/hr IV.SIG Q24H [facility] Rx#:[id number] Oral 480 / 480 240 / 240 Output: Urine Amount (Catheter) 1075 / 1075 Indwelling Urethral Catheter 1075 / 1075 Other: Date of Last Bowel Movement 03/29/18 03/29/18 # Bowel Movements 1 0 Narrative: GENERAL: NAD SKIN: Cool and dry. No generalized rash, no ecchymoses and no evidence of embolic lesions. HEAD: Atraumatic. Normocephalic. No temporal wasting, or tenderness. NECK: Trachea midline. Supple and not tender, no meningeal signs. Has left IJ central line CARDIOVASCULAR: Regular rate and rhythm. No murmur heard RESPIRATORY: Breath sounds equal bilaterally. No rales, wheezing or rhonchi. ABDOMEN: Globular, mildly distended, no reaction to palpation. Bowel sounds present and normoactive. EXTREMITIES: No clubbing, cyanosis. Cool feet. NEUROLOGICAL:CN II-XII intact - Urinary Catheter Management Indwelling Urethral Catheter Cath placed during this visit: yes Reason for continuing: Hourly intake/output Insertion date: 03/23/18 Insertion time: 05:40 Results - Labs CBC & Chem 7: 03/29/18 02:56 03/29/18 02:56 Laboratory Results - last 24 hr 03/29/18 03/29/18 03/30/18 16:24 21:32 00:24 POC Glucose 256 H 159 H 180 H 03/30/18 05:00 POC Glucose 213 H Assessment and Plan - Plan 83-year-old man with Acute toxic metabolic encephalopathy secondary to sepsis-Resolved -s/p Precedex -Acetaminophen 650 Q6PRN Acute hypercapnic respiratory failure-Resolved COPD with exacerbation -Albuterol/ipratropium aerosols every 4 hours scheduled a with albuterol aerosols every 2 hours as needed dyspnea -Methylprednisolone succinate 40 mg IV every 8 hours -Self extubation 03/28 -03/29-chest x-ray unchanged Septic shock-resolved Moderate TR. Mild MR. Elevated troponin Atrial fibrillation with RVR-resolved History of essential hypertension Fluid overload -Did not respond to DC cardioversion, converted to sinus rhythm with amiodarone bolus and infusion -On p.o. amiodarone -Lasix 40 mg IV x1 for fluid overload 2D echocardiogram revealed EF 65-70%. Moderate TR. Mild MR. PA P 38.3 mmHg Cardiology consulted for possible AV block. Resolved currently. Elevated AST Elevated lipase Hypoalbuminemia -Lansoprazole for GI prophylaxis -Docusate sodium/senna 1 tablet twice daily for bowel regimen Acute kidney injury Left hydronephrosis/hydroureter Rhabdomyolysis -Monitor renal function closely. Solomon catheter for strict hourly intake output , and due to worsening renal failure -Nephrology following for worsening renal failure, urology had already been consulted-no intervention -Renal US: The hydronephrosis involving the left kidney on the prior CT scan has significantly improved. \ E. coli bacteremia and UTI -s/p piperacillin/tazobactam to 3.375 every 8 hours and vancomycin and currently only on Rocephin per ID -Repeat blood and sputum culture. 03/23 -Urine and blood cultures growing E. coli -ID following Normocytic anemia Thrombocytopenia Elevated PTT Elevated fibrinogen -Monitor CBC, coags -No indication for transfusion of blood products at this time. DM-II -Sliding scale insulin TSH was 0.755 PROPH: -Bilateral lower extremity SCDs. Subcu heparin -Lansoprazole
[2018-03-30 11:38] LABS: Phosphorus 3.6 mg/dL (2.5-4.9)
[2018-03-30 11:39] LABS: Magnesium 2.8 mg/dL (1.5-2.5)
--- NOTE | 2018-03-30 13:22 | P.PNNP ---
Subjective Interval history: Renal function has improved. He has hypernatremia but has improved from yesterday. <Mary Jane Toussaint - Last Filed: 03/30/18 13:16> Physical Exam Vital signs: Vital Signs 03/29/18 14:00 03/29/18 14:01 03/29/18 15:00 Temperature Pulse Rate 118 H 119 H 110 H Respiratory Rate Blood Pressure 110/70 114/72 Pulse Oximetry 96 96 95 03/29/18 15:51 03/29/18 16:00 03/29/18 16:01 Temperature 98.5 F Pulse Rate 100 H 100 H 101 H Respiratory Rate 21 Blood Pressure 152/70 H 152/70 H Pulse Oximetry 99 94 L 03/29/18 16:12 03/29/18 17:00 03/29/18 17:01 Temperature Pulse Rate 92 H 105 H 107 H Respiratory Rate 18 Blood Pressure 145/80 H Pulse Oximetry 03/29/18 18:00 03/29/18 19:00 03/29/18 19:31 Temperature Pulse Rate 104 H 102 H 100 H Respiratory Rate 18 Blood Pressure 134/64 136/65 Pulse Oximetry 97 98 97 03/29/18 20:00 03/29/18 21:00 03/29/18 21:01 Temperature 98.3 F Pulse Rate 104 H 101 H 101 H Respiratory Rate Blood Pressure 140/73 156/77 H Pulse Oximetry 98 96 97 03/29/18 21:07 03/29/18 21:17 03/29/18 21:21 Temperature Pulse Rate 179 H 169 H 166 H Respiratory Rate Blood Pressure 139/97 H 105/75 112/78 Pulse Oximetry 89 L 87 L 97 03/29/18 21:30 03/29/18 21:37 03/29/18 21:40 Temperature Pulse Rate 98 H 97 H 98 H Respiratory Rate Blood Pressure 129/84 124/71 140/75 Pulse Oximetry 95 96 98 03/29/18 21:45 03/29/18 21:50 03/29/18 22:00 Temperature Pulse Rate 96 H 90 94 H Respiratory Rate Blood Pressure 138/76 126/60 Pulse Oximetry 97 97 97 03/29/18 22:01 03/29/18 22:30 03/29/18 23:00 Temperature Pulse Rate 91 H 84 95 H Respiratory Rate Blood Pressure 131/61 139/63 Pulse Oximetry 97 97 96 03/29/18 23:06 03/29/18 23:31 03/30/18 00:00 Temperature 98.8 F Pulse Rate 97 H 83 81 Respiratory Rate 20 Blood Pressure 159/83 H 171/73 H 151/67 H Pulse Oximetry 95 98 98 03/30/18 00:01 03/30/18 00:31 03/30/18 01:00 Temperature Pulse Rate 80 90 78 Respiratory Rate Blood Pressure 151/67 H 145/77 H 157/85 H Pulse Oximetry 98 97 97 03/30/18 01:31 03/30/18 02:00 03/30/18 02:01 Temperature Pulse Rate 75 74 76 Respiratory Rate Blood Pressure 171/78 H 138/65 Pulse Oximetry 97 97 96 03/30/18 02:31 03/30/18 03:00 03/30/18 03:13 Temperature Pulse Rate 74 77 84 Respiratory Rate Blood Pressure 154/73 H 186/86 H Pulse Oximetry 97 99 99 03/30/18 03:31 03/30/18 04:00 03/30/18 04:01 Temperature 100.1 F H Pulse Rate 76 72 75 Respiratory Rate 20 Blood Pressure 155/80 H 153/73 H 153/73 H Pulse Oximetry 99 97 97 03/30/18 04:30 03/30/18 05:00 03/30/18 05:01 Temperature Pulse Rate 73 74 74 Respiratory Rate Blood Pressure 173/105 H 182/89 H Pulse Oximetry 98 96 98 03/30/18 05:11 03/30/18 06:00 03/30/18 07:32 Temperature Pulse Rate 79 79 Respiratory Rate Blood Pressure 171/79 H Pulse Oximetry 97 97 Intake & Output 03/29/18 03/30/18 03/30/18 18:59 06:59 18:59 Intake Total 580 / 580 240 / 240 Output Total 1075 / 1075 Balance 580 / 580 -835 / -835 Weight 113.5 kg Intake: IV 100 / 100 Rocephin Inj 2,000 MG In NS Inj 100 / 100 100 ML @ 200 mls/hr IV.SIG Q24H SARAH Rx#:[id number] Oral 480 / 480 240 / 240 Output: Urine Amount (Catheter) 1075 / 1075 Indwelling Urethral Catheter 1075 / 1075 Other: Date of Last Bowel Movement 03/29/18 03/29/18 # Bowel Movements 1 0 - Constitutional no acute distress - Routine HEENT Exam Head: Present: normocephalic Eye: Present: EOMI, PERRL ENT: Present: mucous membranes moist - Routine Neck Exam Present: supple, trachea midline. Absent: JVD - Routine Respiratory Exam Absent: accessory muscle use, respiratory distress - Routine Abdominal Exam Absent: tenderness - Routine Extremities Exam Absent: edema - Routine Neurological Exam Present: alert - Routine Psychiatric Exam Present: normal affect - Urinary Catheter Management Indwelling Urethral Catheter Cath placed during this visit: yes Reason for continuing: Hourly intake/output Insertion date: 03/23/18 Insertion time: 05:40 <Mary Jane Toussaint - Last Filed: 03/30/18 13:16> Vital signs: Vital Signs 03/29/18 21:00 03/29/18 21:01 03/29/18 21:07 Temperature Pulse Rate 101 H 101 H 179 H Respiratory Rate Blood Pressure 156/77 H 139/97 H Pulse Oximetry 96 97 89 L 03/29/18 21:17 03/29/18 21:21 03/29/18 21:30 Temperature Pulse Rate 169 H 166 H 98 H Respiratory Rate Blood Pressure 105/75 112/78 129/84 Pulse Oximetry 87 L 97 95 03/29/18 21:37 03/29/18 21:40 03/29/18 21:45 Temperature Pulse Rate 97 H 98 H 96 H Respiratory Rate Blood Pressure 124/71 140/75 138/76 Pulse Oximetry 96 98 97 03/29/18 21:50 03/29/18 22:00 03/29/18 22:01 Temperature Pulse Rate 90 94 H 91 H Respiratory Rate Blood Pressure 126/60 131/61 Pulse Oximetry 97 97 97 03/29/18 22:30 03/29/18 23:00 03/29/18 23:06 Temperature Pulse Rate 84 95 H 97 H Respiratory Rate Blood Pressure 139/63 159/83 H Pulse Oximetry 97 96 95 03/29/18 23:31 03/30/18 00:00 03/30/18 00:01 Temperature 98.8 F Pulse Rate 83 81 80 Respiratory Rate 20 Blood Pressure 171/73 H 151/67 H 151/67 H Pulse Oximetry 98 98 98 03/30/18 00:31 03/30/18 01:00 03/30/18 01:31 Temperature Pulse Rate 90 78 75 Respiratory Rate Blood Pressure 145/77 H 157/85 H 171/78 H Pulse Oximetry 97 97 97 03/30/18 02:00 03/30/18 02:01 03/30/18 02:31 Temperature Pulse Rate 74 76 74 Respiratory Rate Blood Pressure 138/65 154/73 H Pulse Oximetry 97 96 97 03/30/18 03:00 03/30/18 03:13 03/30/18 03:31 Temperature Pulse Rate 77 84 76 Respiratory Rate Blood Pressure 186/86 H 155/80 H Pulse Oximetry 99 99 99 03/30/18 04:00 03/30/18 04:01 03/30/18 04:30 Temperature 100.1 F H Pulse Rate 72 75 73 Respiratory Rate 20 Blood Pressure 153/73 H 153/73 H 173/105 H Pulse Oximetry 97 97 98 03/30/18 05:00 03/30/18 05:01 03/30/18 05:11 Temperature Pulse Rate 74 74 79 Respiratory Rate Blood Pressure 182/89 H 171/79 H Pulse Oximetry 96 98 97 03/30/18 05:31 03/30/18 06:00 03/30/18 06:31 Temperature Pulse Rate 82 79 78 Respiratory Rate Blood Pressure 150/78 H 157/74 H 150/72 H Pulse Oximetry 97 98 96 03/30/18 07:00 03/30/18 07:14 03/30/18 07:32 Temperature Pulse Rate 95 H 82 Respiratory Rate Blood Pressure 158/115 H 161/77 H Pulse Oximetry 90 L 97 97 03/30/18 07:35 03/30/18 08:00 03/30/18 08:01 Temperature Pulse Rate 85 76 76 Respiratory Rate Blood Pressure 146/76 H 148/66 H Pulse Oximetry 98 97 96 03/30/18 08:30 03/30/18 09:00 03/30/18 09:31 Temperature Pulse Rate 70 88 89 Respiratory Rate Blood Pressure 160/69 H 151/97 H 160/68 H Pulse Oximetry 97 95 95 03/30/18 10:00 03/30/18 10:01 03/30/18 10:18 Temperature Pulse Rate 97 H 97 H 102 H Respiratory Rate Blood Pressure 167/111 H 140/79 Pulse Oximetry 95 85 L 96 03/30/18 11:00 03/30/18 11:33 03/30/18 12:00 Temperature Pulse Rate 93 H 97 H 94 H Respiratory Rate Blood Pressure 148/78 H 150/76 H 148/81 H Pulse Oximetry 96 94 L 96 03/30/18 13:00 03/30/18 14:00 03/30/18 15:00 Temperature Pulse Rate 106 H 96 H 103 H Respiratory Rate Blood Pressure 142/82 H 128/64 128/84 Pulse Oximetry 96 97 97 03/30/18 16:00 03/30/18 17:00 03/30/18 17:01 Temperature Pulse Rate 82 84 85 Respiratory Rate Blood Pressure 141/74 H 161/86 H Pulse Oximetry 98 98 97 03/30/18 18:00 03/30/18 18:01 03/30/18 19:00 Temperature Pulse Rate 86 91 H 94 H Respiratory Rate Blood Pressure 149/79 H 135/73 Pulse Oximetry 98 96 98 03/30/18 19:42 Temperature Pulse Rate Respiratory Rate Blood Pressure Pulse Oximetry 99 Intake & Output 03/30/18 03/30/18 03/31/18 06:59 18:59 06:59 Intake Total 240 / 240 1109.625 / 1109.625 Output Total 1075 / 1075 Balance -835 / -835 1109.625 / 1109.625 Weight 113.5 kg Intake: IV 1109.625 / 1109.625 Sodium Chloride 23.4% Inj 38.5 1009.625 / 1009.625 MEQ In Sterile Water for Inj 1, 000 ML @ 42 mls/hr IV.CONT . Q24H SARAH Rx#:[id number] Rocephin Inj 2,000 MG In NS Inj 100 / 100 100 ML @ 200 mls/hr IV.SIG Q24H SARAH Rx#:[id number] Oral 240 / 240 Output: Urine Amount (Catheter) 1075 / 1075 Indwelling Urethral Catheter 1075 / 1075 Other: Date of Last Bowel Movement 03/29/18 03/29/18 # Bowel Movements 0 - Urinary Catheter Management Indwelling Urethral Catheter Cath placed during this visit: no <Eloy Mahajan - Last Filed: 03/30/18 20:14> Assessment and Plan - Assessment (1) GILLES (acute kidney injury) Code(s): N17.9 - Acute kidney failure, unspecified Status: Acute Plan: GILLES due to ATN due to sepsis and hypotension. Hydronephrosis involving left kidney has improved. Renal function improved initially, then worsened but appears to be improving again. Patient on 1/4NS. Will continue to monitor. Monitor fluid and electrolytes. Avoid Nephrotoxins. (2) Hypernatremia Code(s): E87.0 - Hyperosmolality and hypernatremia Status: Acute Plan: Has improved, patient on 1/4NS. (3) Severe sepsis Code(s): A41.9 - Sepsis, unspecified organism; R65.20 - Severe sepsis without septic shock Status: Acute Plan: Improved, on antibiotic. - Plan GNR sepsis, with shock due to complicated UTI Urine and blood cultures growing gram-negative rods/E. coli. Patient on Ceftriaxone. Prostate cancer History of prostate cancer with radiation seeds in place. Hypertension Monitor BP. Patient on Hydralazine. Type 2 diabetes Continue insulin coverage to maintain blood glucose between 140 and 180. <Mary Jane Toussaint - Last Filed: 03/30/18 13:16> - Assessment (1) GILLES (acute kidney injury) Code(s): N17.9 - Acute kidney failure, unspecified Status: Acute (2) Hypernatremia Code(s): E87.0 - Hyperosmolality and hypernatremia Status: Acute (3) Severe sepsis Code(s): A41.9 - Sepsis, unspecified organism; R65.20 - Severe sepsis without septic shock Status: Acute - Attending Attestation patient was seen and examined. Continue D5W for hypernatremia. Replace potassium and phosphorus as needed. <Eloy Mahajan - Last Filed: 03/30/18 20:14>
[2018-03-30] MEDS ORDERED: dilTIAZem Inj 125 MG in Sodium Chlor 0.9% Inj 100 ML IV.CONT PRN (15:00)
[2018-03-30] MEDS: Sodium Chloride 23.4% Inj 38.5 MEQ in Water for Inj, Sterile 1,000 ML IV.CONT SCH (15:15)
--- NOTE | 2018-03-30 16:29 | P.DIET ---
Nutritional Evaluation Type of nutrition evaluation: initial Nutrition consult regarding: Tube Feeding Screening comments: 03/24 TF review Objective - Diagnosis 39.4 - Objective % IBW: 168 (IBW = 154lb) Body Weight Used for Calculations: IBW (for protein), Actual (for energy needs) Energy Needs - Lower Range (kCal/kg): 22 Energy Needs - Upper Range (kCal/kg): 28 Lower Limit kCal/kg (kCals): 1,540 Upper Limit kCal/kg (kCals): 1,960 Lower Limit Protein Factor (Grams per Kg): 1.1 Upper Limit Protein Factor (Grams per Kg): 1.3 Lower Protein Needs (Protein): 77 Upper Protein Needs (Protein): 91 Dietitian Reviewed in Medical Record: Current diet, Curent medications, Intake & Output, Labs, Medical history Diet Order: cardiac + DM diet, 1800 ADA, 2gNa Objective Comments: PMH: HTN, prostate CA Labs: BUN 66, Cr 2.03, GFR 38, POC glucose 207 159 213 Assessment Assessment: Pt extubated on 03/29, TF was also d/jt on this day. ST recs reviewed, pt able to tolerate regular diet and thin liquids. Pt currently on a cardiac + DM diet ( 1800 ADA, 2gNA). Per RN, pt consuming 100% of most meals and tolerating well. Pts energy and protien needs reassessed to reflect current clinical status. Continue to monitor renal and glucose labs closely. Monitor PO intake and need for PO supplement as necessary. Wt noted, CBW = 113.5kg. Labs reviewed, dietitian following. Recommendations: 1. ST recs reviewed, pt able to tolerate regular diet and thin liquids 2. Continue to monitor renal and glucose labs closely 3. Monitor PO intake and need for PO supplement as necessary 4. Dietitian following Dietitian to Monitor: Lab values, Renal labs, Glucose level, Intake & Output, Diet tolerance, Weight change, PO Intake, Medical course
[2018-03-31] MEDS: Insulin NovoLOG Aspart Correctional Sugar Inj SQ SCH ×6 (04:22→21:03)
[2018-03-31] MEDS: MethylPREDNISolone Sod Succinate Inj 40 MG/ML Vial IV.PUSH SCH (05:30)
[2018-03-31] MEDS: Heparin - SQ 10,000 UNITS/ML Vial SQ SCH ×2 (08:50→21:02)
[2018-03-31] MEDS: Artificial Tears Opth Drops 15 ML Bottle EACH EYE SCH ×3 (08:50→20:19)
[2018-03-31] MEDS: Amiodarone 200 MG Tablet PO SCH ×2 (08:50→21:02)
[2018-03-31] MEDS: Senna/Docusate Sodium 8.6/50 MG Tablet PO SCH ×2 (08:51→21:02)
--- NOTE | 2018-03-31 09:06 | P.PNNP ---
Subjective Interval history: patient was seen and examined. His renal function has improved. Hypernatremia has improved as well. Physical Exam Vital signs: Vital Signs 03/30/18 09:31 03/30/18 10:00 03/30/18 10:01 Temperature Pulse Rate 89 97 H 97 H Respiratory Rate Blood Pressure 160/68 H 167/111 H Pulse Oximetry 95 95 85 L 03/30/18 10:18 03/30/18 11:00 03/30/18 11:33 Temperature Pulse Rate 102 H 93 H 97 H Respiratory Rate Blood Pressure 140/79 148/78 H 150/76 H Pulse Oximetry 96 96 94 L 03/30/18 12:00 03/30/18 13:00 03/30/18 14:00 Temperature Pulse Rate 94 H 106 H 96 H Respiratory Rate Blood Pressure 148/81 H 142/82 H 128/64 Pulse Oximetry 96 96 97 03/30/18 15:00 03/30/18 16:00 03/30/18 17:00 Temperature Pulse Rate 103 H 82 84 Respiratory Rate Blood Pressure 128/84 141/74 H Pulse Oximetry 97 98 98 03/30/18 17:01 03/30/18 18:00 03/30/18 18:01 Temperature Pulse Rate 85 86 91 H Respiratory Rate Blood Pressure 161/86 H 149/79 H Pulse Oximetry 97 98 96 03/30/18 19:00 03/30/18 19:42 03/30/18 20:00 Temperature 98.4 F Pulse Rate 94 H 93 H Respiratory Rate 20 Blood Pressure 135/73 137/61 Pulse Oximetry 98 99 99 03/31/18 00:00 03/31/18 04:00 Temperature 98.2 F 98.1 F Pulse Rate 81 68 Respiratory Rate 20 20 Blood Pressure 156/84 H 157/82 H Pulse Oximetry 98 97 Intake & Output 03/30/18 03/31/18 03/31/18 18:59 06:59 18:59 Intake Total 1109.625 / 1109.625 480 / 480 Output Total 2425 / 2425 Balance 1109.625 / 1109.625 -1945 / -1945 Weight 113.8 kg Intake: IV 1109.625 / 1109.625 Sodium Chloride 23.4% Inj 38.5 1009.625 / 1009.625 MEQ In Sterile Water for Inj 1, 000 ML @ 42 mls/hr IV.CONT . Q24H SARAH Rx#:[id number] Rocephin Inj 2,000 MG In NS Inj 100 / 100 100 ML @ 200 mls/hr IV.SIG Q24H SARAH Rx#:[id number] Oral 480 / 480 Output: Urine Amount (Catheter) 2425 / 2425 Indwelling Urethral Catheter 2425 / 2425 Other: Date of Last Bowel Movement 03/29/18 03/29/18 # Bowel Movements 0 Narrative: GENERAL: NAD SKIN: Cool and dry. No generalized rash, no ecchymoses and no evidence of embolic lesions. HEAD: Atraumatic. Normocephalic. NECK: Trachea midline. Supple and not tender, no meningeal signs. Has left IJ central line CARDIOVASCULAR: Regular rate and rhythm. No murmur heard RESPIRATORY: Breath sounds equal bilaterally. No rales, wheezing or rhonchi. ABDOMEN: Globular, mildly distended, no reaction to palpation. Bowel sounds present and normoactive. EXTREMITIES: No clubbing, cyanosis. Cool feet. NEUROLOGICAL:no focal deficits. - Urinary Catheter Management Indwelling Urethral Catheter Cath placed during this visit: yes, but has since been removed by the nurse Reason for continuing: Decision to DC catheter Insertion date: 03/23/18 Insertion time: 05:40 Removal date: 03/31/18 Removal time: 05:00 Assessment and Plan - Assessment (1) GILLES (acute kidney injury) Code(s): N17.9 - Acute kidney failure, unspecified Status: Acute Plan: GILLES due to ATN due to sepsis and hypotension. Hydronephrosis involving left kidney has improved. Renal function is improving. Will continue to monitor. Monitor fluid and electrolytes. Avoid Nephrotoxins. (2) Hypernatremia Code(s): E87.0 - Hyperosmolality and hypernatremia Status: Acute Plan: Has improved, patient on 1/4NS. (3) Severe sepsis Code(s): A41.9 - Sepsis, unspecified organism; R65.20 - Severe sepsis without septic shock Status: Acute Plan: Improved, on antibiotic. - Plan GNR sepsis, with shock due to complicated UTI Urine and blood cultures growing gram-negative rods/E. coli. Patient on Ceftriaxone. Prostate cancer has been treated with radiation. Hypertension Monitor BP. Patient on Hydralazine. Type 2 diabetes Continue insulin coverage to maintain blood glucose between 140 and 180.
--- NOTE | 2018-03-31 09:49 | P.PN ---
Subjective Interval history: Follow-up E. coli sepsis/shock/UTI March 30, 2018-patient seen and examined, currently afebrile, he was working with PT this a.m. No acute event overnight. March 31, 2018-patient seen and examined, no longer in A. fib with RVR. Doing well this morning. Denies any chest pain or shortness of breath. Afebrile. Physical Exam Vital signs: Vital Signs 03/30/18 10:00 03/30/18 10:01 03/30/18 10:18 Temperature Pulse Rate 97 H 97 H 102 H Respiratory Rate Blood Pressure 167/111 H 140/79 Pulse Oximetry 95 85 L 96 03/30/18 11:00 03/30/18 11:33 03/30/18 12:00 Temperature Pulse Rate 93 H 97 H 94 H Respiratory Rate Blood Pressure 148/78 H 150/76 H 148/81 H Pulse Oximetry 96 94 L 96 03/30/18 13:00 03/30/18 14:00 03/30/18 15:00 Temperature Pulse Rate 106 H 96 H 103 H Respiratory Rate Blood Pressure 142/82 H 128/64 128/84 Pulse Oximetry 96 97 97 03/30/18 16:00 03/30/18 17:00 03/30/18 17:01 Temperature Pulse Rate 82 84 85 Respiratory Rate Blood Pressure 141/74 H 161/86 H Pulse Oximetry 98 98 97 03/30/18 18:00 03/30/18 18:01 03/30/18 19:00 Temperature Pulse Rate 86 91 H 94 H Respiratory Rate Blood Pressure 149/79 H 135/73 Pulse Oximetry 98 96 98 03/30/18 19:42 03/30/18 20:00 03/31/18 00:00 Temperature 98.4 F 98.2 F Pulse Rate 93 H 81 Respiratory Rate 20 20 Blood Pressure 137/61 156/84 H Pulse Oximetry 99 99 98 03/31/18 04:00 03/31/18 08:00 Temperature 98.1 F 98.4 F Pulse Rate 68 75 Respiratory Rate 20 20 Blood Pressure 157/82 H 165/85 H Pulse Oximetry 97 97 Intake & Output 03/30/18 03/31/18 03/31/18 18:59 06:59 18:59 Intake Total 1109.625 / 1109.625 480 / 480 Output Total 2425 / 2425 Balance 1109.625 / 1109.625 -194 / -1944 Weight 113.8 kg Intake: IV 1109.625 / 1109.625 Sodium Chloride 23.4% Inj 38.5 1009.625 / 1009.625 MEQ In Sterile Water for Inj 1, 000 ML @ 42 mls/hr IV.CONT . Q24H SARAH Rx#:[id number] Rocephin Inj 2,000 MG In NS Inj 100 / 100 100 ML @ 200 mls/hr IV.SIG Q24H SARAH Rx#:[id number] Oral 480 / 480 Output: Urine Amount (Catheter) 2424 Indwelling Urethral Catheter 2424 Other: Date of Last Bowel Movement 03/29/18 03/29/18 03/29/18 # Bowel Movements 0 Narrative: GENERAL: NAD SKIN: Cool and dry. No generalized rash, no ecchymoses and no evidence of embolic lesions. HEAD: Atraumatic. Normocephalic. NECK: Trachea midline. Supple and not tender, no meningeal signs. Has left IJ central line CARDIOVASCULAR: irreg Regular rate and rhythm. No murmur heard RESPIRATORY: Breath sounds equal bilaterally. No rales, wheezing or rhonchi. ABDOMEN: Globular, mildly distended, no reaction to palpation. Bowel sounds present and normoactive. EXTREMITIES: No clubbing, cyanosis. NEUROLOGICAL:no focal deficits. - Urinary Catheter Management Indwelling Urethral Catheter Cath placed during this visit: yes, but has since been removed by the nurse Reason for continuing: Decision to DC catheter Insertion date: 03/23/18 Insertion time: 05:40 Removal date: 03/31/18 Removal time: 05:00 Results - Labs CBC & Chem 7: 03/30/18 10:58 03/30/18 10:58 Laboratory Results - last 24 hr 03/30/18 03/30/18 03/30/18 10:58 10:58 19:51 WBC 18.4 H RBC 4.57 Hgb 14.2 Hct 42.1 MCV 92.0 MCH 31.0 MCHC 33.7 RDW 16.0 Plt Count 256 MPV 9.0 Prelim Diff (Auto) Slide review pending Neut % (Auto) 93.0 H Lymph % (Auto) 3.5 L [place] % (Auto) 3.3 Eos % (Auto) 0.0 Baso % (Auto) 0.2 Neut # (Auto) 17.1 H Lymph # (Auto) 0.6 L [place] # (Auto) 0.6 Eos # (Auto) 0.0 Baso # (Auto) 0.0 WBC Differential . Diff Scan Auto diff confirmed Differential Comment . Sodium 148 H Potassium 5.0 Chloride 114 H Carbon Dioxide 27.0 Anion Gap 7 BUN 66 H Creatinine 2.03 H Estimated GFR 38 L POC Glucose 287 H Random Glucose 218 H Calcium 9.0 Phosphorus 3.6 D Magnesium 2.8 H 03/31/18 03/31/18 03/31/18 00:04 04:17 08:20 WBC RBC Hgb Hct MCV MCH MCHC RDW Plt Count MPV Prelim Diff (Auto) Neut % (Auto) Lymph % (Auto) [place] % (Auto) Eos % (Auto) Baso % (Auto) Neut # (Auto) Lymph # (Auto) [place] # (Auto) Eos # (Auto) Baso # (Auto) WBC Differential Diff Scan Differential Comment Sodium Potassium Chloride Carbon Dioxide Anion Gap BUN Creatinine Estimated GFR POC Glucose 122 H 186 H 241 H Random Glucose Calcium Phosphorus Magnesium Assessment and Plan - Plan 83-year-old man with Acute toxic metabolic encephalopathy secondary to sepsis-Resolved -s/p Precedex -Acetaminophen 650 Q6PRN Acute hypercapnic respiratory failure-Resolved COPD with exacerbation-resolved -Albuterol/ipratropium aerosols every 4 hours scheduled a with albuterol aerosols every 2 hours as needed dyspnea -Discontinue methylprednisolone succinate 40 mg IV every 8 hours. Start prednisone 20 mg daily -Self extubation 03/28 -03/29-chest x-ray unchanged Septic shock-resolved Moderate TR. Mild MR. Elevated troponin Atrial fibrillation with RVR-resolved History of essential hypertension Fluid overload -Patient was started back on Cardizem drip March 30, 2018, however now rate controlled. Will start Lopressor 50 mg every 12 hours -On p.o. amiodarone -Lasix 40 mg IV x1 for fluid overload 2D echocardiogram revealed EF 65-70%. Moderate TR. Mild MR. PA P 38.3 mmHg Cardiology consulted for possible AV block. Resolved currently. Elevated AST Elevated lipase Hypoalbuminemia -Lansoprazole for GI prophylaxis -Docusate sodium/senna 1 tablet twice daily for bowel regimen Acute kidney injury Left hydronephrosis/hydroureter Rhabdomyolysis -Monitor renal function closely. Solomon catheter for strict hourly intake output , and due to worsening renal failure -Nephrology following for worsening renal failure, urology had already been consulted-no intervention -Renal US: The hydronephrosis involving the left kidney on the prior CT scan has significantly improved. \ E. coli bacteremia and UTI -s/p piperacillin/tazobactam to 3.375 every 8 hours and vancomycin and currently only on Rocephin per ID -Repeat blood and sputum culture. 03/23 -Urine and blood cultures growing E. coli -ID following Normocytic anemia Thrombocytopenia Elevated PTT Elevated fibrinogen -Monitor CBC, coags -No indication for transfusion of blood products at this time. DM-II -Sliding scale insulin TSH was 0.755 PROPH: -Bilateral lower extremity SCDs. Subcu heparin -Lansoprazole Transfer to [facility]
[2018-03-31] MEDS: Sodium Chloride 23.4% Inj 38.5 MEQ in Water for Inj, Sterile 1,000 ML IV.CONT SCH (10:56)
[2018-03-31] MEDS: Metoprolol Tartrate 50 MG Tablet PO SCH ×2 (10:56→21:02)
--- NOTE | 2018-03-31 12:32 | XR ---
EXAM DATE: 03/31/2018 12:29 PM EST AGE/SEX: 83 years / Male INDICATIONS: Pneumonia. CLINICAL DATA: This is the patient's subsequent encounter. Patient reports that signs and symptoms h ave been present for 1 week and indicates a pain score of 0/10. MEDICAL/SURGICAL HISTORY: . Enlarged heart. Irregular heart beat. None. [place] [facility] [place]. . FINDINGS: The heart size is normal. There is increased density at the left base with silhouetting the left alfonso diaphragm. The right lung is clear. CONCLUSION: Left base consolidation or atelectasis. Electronically signed by: Conor Howard MD 03/31/2018 12:31 PM EST
--- NOTE | 2018-03-31 13:57 | P.PNID ---
Subjective Remarks: Patient is an 83-year-old male, presented to the hospital for evaluation of hematuria. Patient has known history of prostate cancer and he has had problem with intermittent mild hematuria. This was apparently worse than any of the hematuria he has had in the past. Initial evaluation showed that he was in renal failure. The CT is showing evidence of hydronephrosis. Urology evaluated the patient and felt that there is no intervention that needed to be done. Blood cultures done on admission are reported as growing gram-negative maryann. Infectious disease consultation has been requested to evaluate that. In the interim patient developed shortness of breath, and required BiPAP. He was on BiPAP for several hours but had persistent acidosis, respiratory distress, and he started becoming more lethargic. He ended up getting intubated, and post intubation has been hypotensive. He received fluid resuscitation and despite that remains hypotensive. He is currently on Levophed and Dre-Synephrine. His creatinine remains elevated. Urine output is low. He had a fever of 103.3 earlier today. Notes reviewed Temps ok BP ok Doing well on nasal O2 No new complaints WBC up to 18K NOt SOB Monitor shows NSR CXT with bianca infiltrates and small effusion Creat stable, has good UO BC and UC E coli Renal US - hydro resolved Antibiotics: Rocephin Lines: [facility] TLC Past Medical History: HTN Prostate CA Allergies/Adverse Reactions: Allergies No Known Allergies Allergy (Verified 03/21/18 18:31) Objective Vital Signs 03/30/18 14:00 03/30/18 15:00 03/30/18 16:00 Temperature Pulse Rate 96 H 103 H 82 Respiratory Rate Blood Pressure 128/64 128/84 141/74 H Pulse Oximetry 97 97 98 03/30/18 17:00 03/30/18 17:01 03/30/18 18:00 Temperature Pulse Rate 84 85 86 Respiratory Rate Blood Pressure 161/86 H Pulse Oximetry 98 97 98 03/30/18 18:01 03/30/18 19:00 03/30/18 19:42 Temperature Pulse Rate 91 H 94 H Respiratory Rate Blood Pressure 149/79 H 135/73 Pulse Oximetry 96 98 99 03/30/18 20:00 03/31/18 00:00 03/31/18 04:00 Temperature 98.4 F 98.2 F 98.1 F Pulse Rate 93 H 81 68 Respiratory Rate 20 20 20 Blood Pressure 137/61 156/84 H 157/82 H Pulse Oximetry 99 98 97 03/31/18 08:00 03/31/18 12:00 Temperature 98.4 F 98.5 F Pulse Rate 75 69 Respiratory Rate 20 20 Blood Pressure 165/85 H 131/68 Pulse Oximetry 97 97 Intake & Output 03/30/18 03/31/18 03/31/18 18:59 06:59 18:59 Intake Total 1109.625 / 1109.625 480 / 480 1100 / 1100 Output Total 2425 / 2425 Balance 1109.625 / 1109.625 -1945 / -1945 1100 / 1100 Weight 113.8 kg Intake: IV 1109.625 / 4887.857 8298 / 1100 Sodium Chloride 23.4% Inj 38.5 1009.625 / 2619.992 6106 / 1000 MEQ In Sterile Water for Inj 1, 000 ML @ 42 mls/hr IV.CONT . Q[facility]H [facility] Rx#:[id number] Rocephin Inj 2,000 MG In NS Inj 100 / 100 100 / 100 100 ML @ 200 mls/hr IV.SIG Q24H [facility] Rx#:[id number] Oral 480 / 480 Output: Urine Amount (Catheter) 2425 / 2425 Indwelling Urethral Catheter 2425 / 2425 Other: Date of Last Bowel Movement 03/29/18 03/29/18 03/29/18 # Bowel Movements 0 03/23/18 11:45 Blood - Peripheral Aerobic Blood Culture - Final No growth in 5 days 03/23/18 11:45 Blood - Peripheral Anaerobic Blood Culture - Final No growth in 5 days 03/23/18 09:45 Blood - Peripheral Aerobic Blood Culture - Final No growth in 5 days 03/23/18 09:45 Blood - Peripheral Anaerobic Blood Culture - Final QNS - See aerobic report. Lab - Hematology Results 03/30/18 10:58 WBC 18.4 H RBC 4.57 Hgb 14.2 Hct 42.1 MCV 92.0 MCH 31.0 MCHC 33.7 RDW 16.0 Plt Count 256 MPV 9.0 Prelim Diff (Auto) Slide review pending Neut % (Auto) 93.0 H Lymph % (Auto) 3.5 L [place] % (Auto) 3.3 Eos % (Auto) 0.0 Baso % (Auto) 0.2 Neut # (Auto) 17.1 H Lymph # (Auto) 0.6 L [place] # (Auto) 0.6 Eos # (Auto) 0.0 Baso # (Auto) 0.0 WBC Differential . Diff Scan Auto diff confirmed Differential Comment . Lab - Chemistry Results 03/29/18 03/29/18 03/30/18 16:24 21:32 00:24 Sodium Potassium Chloride Carbon Dioxide Anion Gap BUN Creatinine Estimated GFR POC Glucose 256 H 159 H 180 H Random Glucose Calcium Phosphorus Magnesium 03/30/18 03/30/18 03/30/18 05:00 10:58 19:51 Sodium 148 H Potassium 5.0 Chloride 114 H Carbon Dioxide 27.0 Anion Gap 7 BUN 66 H Creatinine 2.03 H Estimated GFR 38 L POC Glucose 213 H 287 H Random Glucose 218 H Calcium 9.0 Phosphorus 3.6 D Magnesium 2.8 H 03/31/18 03/31/18 03/31/18 00:04 04:17 08:20 Sodium Potassium Chloride Carbon Dioxide Anion Gap BUN Creatinine Estimated GFR POC Glucose 122 H 186 H 241 H Random Glucose Calcium Phosphorus Magnesium 03/31/18 11:47 Sodium Potassium Chloride Carbon Dioxide Anion Gap BUN Creatinine Estimated GFR POC Glucose 268 H Random Glucose Calcium Phosphorus Magnesium Imaging: ITS Impressions Abdomen/Pelvis CT 03/21/18 18:35 CONCLUSION: 1. Left-sided hydronephrosis and hydroureter with prominent stranding. No radiopaque calculus identified. 2. Enlarged prostate gland containing prostatic seeds. 3. Hepatic steatosis. 4. Prominence of both adrenal glands likely hyperplasia. Abdomen/Bladder Ultrasound 03/24/18 08:33 CONCLUSION: 1. The hydronephrosis involving the left kidney on the prior CT scan has significantly improved. No residual hydronephrosis observed. 2. Prostate gland enlargement which impresses upon the urinary bladder. No bladder wall thickening to clearly suggest bladder outlet obstruction. Chest X-Ray 03/31/18 00:00 CONCLUSION: Left base consolidation or atelectasis. Physical Exam: GENERAL:awake, and alert, NAD SKIN: Cool and dry. No generalized rash. HEAD: Atraumatic. Normocephalic. No temporal wasting, or tenderness. EYES: [place] conjunctiva. No petechia or hemorrhage. Has dirty sclera. No injection or drainage. EARS, NOSE AND THROAT: Nose without bleeding or purulent nasal discharge. Moist mucosa NECK: Trachea midline. Supple and not tender, no meningeal signs. CARDIAC: Regular, no murmur RESPIRATORY: Breath sounds equal bilaterally. No rales, wheezing or rhonchi. Decreased breath sounds at the bases ABDOMEN: Globular, mildly distended, no reaction to palpation. Bowel sounds present and normoactive. EXTREMITIES: No clubbing, cyanosis. Cool feet. : Solomon in place, urine clear NEUROLOGICAL: non-focal PSYCHIATRIC: Calm and cooperative LINE: No evidence of infection Assessment and Plan - Plan Impression E coli sepsis, with shock due to complicated UTI - BP better - hydronephrosis resolved E coli UTI Renal failure, making good UO Respiratory failure, doing well post extubation - CXR with bilateral infiltrates Hematuria, resolved - Hx prostate CA Leukocytosis Recommend Continue Rocephin CXR Follow CBC Repeat UA and C/S Monitor progress Follow temps Explained plan to patient and son D/W RN
[2018-03-31 19:11] LABS: Bilirubin,Urine Negative (Negative); Clarity,Urine Hazy (Clear); Color,Urine Yellow (Yellw/Straw); Glucose,Urine (UA) 50 mg/dL (Negative); Leukocyte Esterase,Urine Negative (Negative); Mucus,Urine Few /lpf (Occasional); Nitrite,Urine Negative (Negative); Specific Gravity,Urine 1.016 (1.002-1.035); Squamous Epithelial Cell,Urine <1 /hpf (0-5)
[2018-04-01] MEDS: Artificial Tears Opth Drops 15 ML Bottle EACH EYE SCH ×3 (00:15→16:19)
[2018-04-01] MEDS: Insulin NovoLOG Aspart Correctional Sugar Inj SQ SCH ×6 (00:15→21:17)
[2018-04-01 07:08] LABS: Baso # (Auto) 0.1 th/mm3 (0.0-0.2); Baso % (Auto) 0.3 % (0.0-2.0); Eos # (Auto) 0.1 th/mm3 (0.0-0.4); Eos % (Auto) 0.8 % (0.0-4.0); Hematocrit 37.9 % (39.0-51.0); Hemoglobin 12.8 gm/dL (13.0-17.0); Lymph # (Auto) 0.9 th/mm3 (1.0-4.8); Lymph % (Auto) 5.3 % (9.0-44.0); Mean Corpuscular HGB Conc 33.9 % (32.0-36.0); Mean Corpuscular Hemoglobin 31.3 pg (27.0-34.0); Mean Corpuscular Volume 92.3 fL (80.0-100.0); Mean Platelet Volume 8.7 fL (7.0-11.0); Mono # (Auto) 0.7 th/mm3 (0.0-0.9); Mono % (Auto) 4.1 % (0.0-8.0); Neut % (Auto) 89.5 % (16.0-70.0); Platelet Count 243 th/mm3 (150-450); Red Blood Count 4.11 mil/mm3 (4.50-5.90); Red Cell Distribution Width 15.7 % (11.6-17.2); White Blood Count 16.7 th/mm3 (4.0-11.0)
[2018-04-01 07:39] LABS: Alanine Aminotransferase 30 U/L (12-78); Albumin 2.1 g/dL (3.4-5.0); Alkaline Phosphatase 69 U/L (45-117); Anion Gap 7 meq/L (5-15); Aspartate Aminotransferase 16 U/L (15-37); Blood Urea Nitrogen 46 mg/dL (7-18); Calcium 7.8 mg/dL (8.5-10.1); Carbon Dioxide 27.4 meq/L (21.0-32.0); Chloride 110 meq/L (98-107); Glomerular Filtration Rate 48 mL/min (>89); Glucose,Random 120 mg/dL (74-106); Potassium 4.5 meq/L (3.5-5.1); Sodium 144 meq/L (136-145); Total Protein 5.6 g/dL (6.4-8.2)
[2018-04-01] MEDS: Heparin - SQ 10,000 UNITS/ML Vial SQ SCH ×2 (08:12→21:17)
[2018-04-01] MEDS: Amiodarone 200 MG Tablet PO SCH ×2 (08:13→21:17)
[2018-04-01] MEDS: Metoprolol Tartrate 50 MG Tablet PO SCH ×2 (08:13→21:17)
[2018-04-01] MEDS: predniSONE 20 MG Tablet PO SCH (08:13)
[2018-04-01] MEDS: Senna/Docusate Sodium 8.6/50 MG Tablet PO SCH ×2 (08:13→21:17)
--- NOTE | 2018-04-01 09:57 | P.PNNP ---
Subjective Interval history: Patient was seen, no distress, no complaints. Patient states he feels great and looking forward to going home. Patient's renal function has improved, Creatinine is 1.68. <Mary Jane Toussaint - Last Filed: 04/01/18 09:52> Physical Exam Vital signs: Vital Signs 03/31/18 12:00 03/31/18 16:00 03/31/18 16:48 Temperature 98.5 F 97.6 F Pulse Rate 69 70 70 Respiratory Rate 20 18 16 Blood Pressure 131/68 135/72 Pulse Oximetry 97 95 03/31/18 20:00 03/31/18 23:58 04/01/18 08:00 Temperature 97.9 F 98 F 97.9 F Pulse Rate 76 61 71 Respiratory Rate 18 18 19 Blood Pressure 129/63 117/58 L 131/76 Pulse Oximetry 95 97 95 04/01/18 08:52 Temperature Pulse Rate Respiratory Rate Blood Pressure Pulse Oximetry 94 L Intake & Output 03/31/18 04/01/18 04/01/18 18:59 06:59 18:59 Intake Total 1340 / 1340 Output Total 425 / 425 700 / 700 Balance 915 / 915 -700 / -700 Weight 113 kg Intake: IV 1100 / 1100 Sodium Chloride 23.4% Inj 38.5 1000 / 1000 MEQ In Sterile Water for Inj 1, 000 ML @ 42 mls/hr IV.CONT . Q24H [facility] Rx#:[id number] Rocephin Inj 2,000 MG In NS Inj 100 / 100 100 ML @ 200 mls/hr IV.SIG Q24H [facility] Rx#:[id number] Oral 240 / 240 Output: Urine 425 / 425 700 / 700 Other: Date of Last Bowel Movement 03/31/18 04/01/18 04/01/18 # Bowel Movements 1 1 - Constitutional no acute distress - Routine HEENT Exam Head: Present: normocephalic Eye: Present: EOMI, PERRL ENT: Present: mucous membranes moist - Routine Neck Exam Present: trachea midline. Absent: tracheal deviation - Routine Respiratory Exam Present: decreased breath sounds. Absent: accessory muscle use, respiratory distress - Routine Cardiovascular Exam Present: RRR. Absent: murmur - Routine Abdominal Exam Present: soft. Absent: normoactive bowel sounds - Routine Extremities Exam Absent: edema - Routine Neurological Exam Present: alert, oriented X3 - Routine Psychiatric Exam Present: normal affect - Urinary Catheter Management Indwelling Urethral Catheter Cath placed during this visit: yes, but has since been removed by the nurse Reason for continuing: Decision to DC catheter Insertion date: 03/23/18 Insertion time: 05:40 Removal date: 03/31/18 Removal time: 05:00 <Mary Jane Toussaint - Last Filed: 04/01/18 09:52> Vital signs: Vital Signs 03/31/18 16:00 03/31/18 16:48 03/31/18 20:00 Temperature 97.6 F 97.9 F Pulse Rate 70 70 76 Respiratory Rate 18 16 18 Blood Pressure 135/72 129/63 Pulse Oximetry 95 95 03/31/18 23:58 04/01/18 08:00 04/01/18 08:52 Temperature 98 F 97.9 F Pulse Rate 61 71 Respiratory Rate 18 19 Blood Pressure 117/58 L 131/76 Pulse Oximetry 97 95 94 L 04/01/18 12:00 Temperature 98.4 F Pulse Rate 66 Respiratory Rate 19 Blood Pressure 112/55 L Pulse Oximetry 92 L Intake & Output 03/31/18 04/01/18 04/01/18 18:59 06:59 18:59 Intake Total 1340 / 1340 1100 / 1100 Output Total 425 / 425 700 / 700 Balance 915 / 915 -700 / -700 1100 / 1100 Weight 113 kg Intake: IV 1100 / 1100 1100 / 1100 Sodium Chloride 23.4% Inj 38.5 1000 / 1000 1000 / 1000 MEQ In Sterile Water for Inj 1, 000 ML @ 42 mls/hr IV.CONT . Q24H [facility] Rx#:[id number] Rocephin Inj 2,000 MG In NS Inj 100 / 100 100 / 100 100 ML @ 200 mls/hr IV.SIG Q24H [facility] Rx#:[id number] Oral 240 / 240 Output: Urine 425 / 425 700 / 700 Other: Date of Last Bowel Movement 03/31/18 04/01/18 04/01/18 # Bowel Movements 1 1 - Urinary Catheter Management Indwelling Urethral Catheter Cath placed during this visit: no <Eloy Mahajan - Last Filed: 04/01/18 14:25> Assessment and Plan - Assessment (1) GILLES (acute kidney injury) Code(s): N17.9 - Acute kidney failure, unspecified Status: Acute Plan: GLILES due to ATN due to sepsis and hypotension. Hydronephrosis involving left kidney has improved. Patient's renal function has improved, Creatinine is 1.68. Monitor fluid and electrolytes. Avoid Nephrotoxins. (2) Hypernatremia Code(s): E87.0 - Hyperosmolality and hypernatremia Status: Acute Plan: Has improved, patient currently on 1/4NS. Na is 144. (3) Severe sepsis Code(s): A41.9 - Sepsis, unspecified organism; R65.20 - Severe sepsis without septic shock Status: Acute Plan: Improved, on antibiotic. - Plan GNR sepsis, with shock due to complicated UTI Urine and blood cultures growing gram-negative rods/E. coli. Patient on Ceftriaxone. Prostate cancer has been treated with radiation. Hypertension Monitor BP. Continue medications. Type 2 diabetes Continue insulin coverage to maintain blood glucose between 140 and 180. <Mary Jane Toussaint - Last Filed: 04/01/18 09:52> - Assessment (1) GILLES (acute kidney injury) Code(s): N17.9 - Acute kidney failure, unspecified Status: Acute (2) Hypernatremia Code(s): E87.0 - Hyperosmolality and hypernatremia Status: Acute (3) Severe sepsis Code(s): A41.9 - Sepsis, unspecified organism; R65.20 - Severe sepsis without septic shock Status: Deleted - Attending Attestation patient was seen and examined. Renal function has improved. I will sign off at this time. <Eloy Mahajan - Last Filed: 04/01/18 14:25>
--- NOTE | 2018-04-01 11:18 | P.PNIM ---
Subjective Interval history: Patient states that he is doing well. He is feeling much better. No, no chest pain or shortness of breath. Feeling stronger. Has been more independent getting up from bed. Feels he has had increased strength to be able to go home versus going to rehab. Does not want to go to rehab. Physical Exam Vital signs: Last Vital Signs Temp 97.9 F 04/01/18 08:00 Pulse 71 04/01/18 08:00 Resp 19 04/01/18 08:00 BP 131/76 04/01/18 08:00 Pulse Ox 94 L 04/01/18 08:52 Intake & Output 03/30/18 03/31/18 04/01/18 04/02/18 06:59 06:59 06:59 06:59 Intake Total 820 / 820 1589.625 / 5138.963 2865 / 1340 Output Total 1075 / 1075 2425 / 2425 1125 / 1125 Balance -255 / -255 -835.375 / -835.375 215 / 215 Weight 113.5 kg 113.8 kg 113 kg Narrative: GENERAL: Well-nourished well-developed in NAD sitting on bedside commode CARDIOVASCULAR: Regular rate and rhythm. No murmur heard RESPIRATORY: Breath sounds equal bilaterally. No rales, wheezing or rhonchi. ABDOMEN: Obese, nontender, nondistended, normoactive bowel sounds. NEUROLOGICAL:no focal deficits. Alert and oriented x3, moves all 4 extremities Urinary Catheter Management Indwelling Urethral Catheter: Cath placed during this visit: yes, but has since been removed by the nurse Insertion date: 03/23/18 Insertion time: 05:40 Removal date: 03/31/18 Removal time: 05:00 Results Labs CBC & Chem 7: 04/01/18 06:37 04/01/18 06:37 Imaging Imaging: Impressions Chest X-Ray 03/31/18 00:00 CONCLUSION: Left base consolidation or atelectasis. Assessment and Plan (1) Septic shock due to Escherichia coli: Code(s): A41.51 - Sepsis due to Escherichia coli [E. coli]; R65.21 - Severe sepsis with septic shock Status: Resolved Plan 83-year-old man with Acute toxic metabolic encephalopathy secondary to sepsis-Resolved, now at baseline Acute hypercapnic respiratory failure-Resolved, now on room air with satting 94% COPD with exacerbation-resolved -Albuterol/ipratropium aerosols every 4 hours scheduled a with albuterol aerosols every 2 hours as needed dyspnea Continue prednisone 20 mg daily -Self extubation 03/28 Septic shock with E. coli urinary tract infection and bacteremia-resolved Atrial fibrillation with RVR-resolved , currently normal sinus rhythm History of essential hypertension -Patient was started back on Cardizem drip March 30, 2018, however now rate controlled. Will start Lopressor 50 mg every 12 hours -On p.o. amiodarone 2D echocardiogram revealed EF 65-70%. Moderate TR. Mild MR. PA P 38.3 mmHg Cardiology consulted for possible AV block. Resolved currently with no other specific recommendations per Dr. Ike Gong. Acute kidney injuryimproving today Left hydronephrosis/hydroureter Rhabdomyolysis -Renal US: The hydronephrosis involving the left kidney on the prior CT scan has significantly improved. Nephrology following, avoid nephrotoxins. ? Underlying chronic kidney disease stage III E. coli bacteremia and UTI -s/p piperacillin/tazobactam to 3.375 every 8 hours and vancomycin and currently only on Rocephin per ID -Repeat blood and sputum culture. 03/23 -Urine and blood cultures growing E. coli -ID following and recommended repeating a UA and C&S if indicated DM-II, controlled, no active complications, [id number] -Sliding scale insulin PROPH: -Bilateral lower extremity SCDs. Subcu heparin Discharge Planning: Patient is getting stronger with activity today and likely could go home with home health care versus rehab, will have PT reevaluate. Home after infectious disease makes final recommendations on antibiotic course Progress Note: Quality VTE Deep Vein Thrombosis/Pulmonary Embolism Present on Admission: No
[2018-04-01] MEDS: Sodium Chloride 23.4% Inj 38.5 MEQ in Water for Inj, Sterile 1,000 ML IV.CONT SCH (11:41)
--- NOTE | 2018-04-01 13:00 | P.PNID ---
Subjective Remarks: Patient is an 83-year-old male, presented to the hospital for evaluation of hematuria. Patient has known history of prostate cancer and he has had problem with intermittent mild hematuria. This was apparently worse than any of the hematuria he has had in the past. Initial evaluation showed that he was in renal failure. The CT is showing evidence of hydronephrosis. Urology evaluated the patient and felt that there is no intervention that needed to be done. Blood cultures done on admission are reported as growing gram-negative maryann. Infectious disease consultation has been requested to evaluate that. In the interim patient developed shortness of breath, and required BiPAP. He was on BiPAP for several hours but had persistent acidosis, respiratory distress, and he started becoming more lethargic. He ended up getting intubated, and post intubation has been hypotensive. He received fluid resuscitation and despite that remains hypotensive. He is currently on Levophed and Dre-Synephrine. His creatinine remains elevated. Urine output is low. He had a fever of 103.3 earlier today. Notes reviewed Temps ok BP ok Sats lower on RA 92-94% No new complaints WBC down to 16 UA ok Antibiotics: Rocephin Lines: [facility] T[facility] Past Medical History: HTN Prostate CA Allergies/Adverse Reactions: Allergies No Known Allergies Allergy (Verified 03/21/18 18:31) Objective Vital Signs 03/31/18 16:00 03/31/18 16:48 03/31/18 20:00 Temperature 97.6 F 97.9 F Pulse Rate 70 70 76 Respiratory Rate 18 16 18 Blood Pressure 135/72 129/63 Pulse Oximetry 95 95 03/31/18 23:58 04/01/18 08:00 04/01/18 08:52 Temperature 98 F 97.9 F Pulse Rate 61 71 Respiratory Rate 18 19 Blood Pressure 117/58 L 131/76 Pulse Oximetry 97 95 94 L 04/01/18 12:00 Temperature 98.4 F Pulse Rate 66 Respiratory Rate 19 Blood Pressure 112/55 L Pulse Oximetry 92 L Intake & Output 03/31/18 04/01/18 04/01/18 18:59 06:59 18:59 Intake Total 1340 / 1340 1100 / 1100 Output Total 425 / 425 700 / 700 Balance 915 / 915 -700 / -700 1100 / 1100 Weight 113 kg Intake: IV 1100 / 1100 1100 / 1100 Sodium Chloride 23.4% Inj 38.5 1000 / 1000 1000 / 1000 MEQ In Sterile Water for Inj 1, 000 ML @ 42 mls/hr IV.CONT . Q24H [facility] Rx#:[id number] Rocephin Inj 2,000 MG In NS Inj 100 / 100 100 / 100 100 ML @ 200 mls/hr IV.SIG Q24H [facility] Rx#:[id number] Oral 240 / 240 Output: Urine 425 / 425 700 / 700 Other: Date of Last Bowel Movement 03/31/18 04/01/18 04/01/18 # Bowel Movements 1 1 Lab - Hematology Results 04/01/18 06:37 WBC 16.7 H RBC 4.11 L Hgb 12.8 L Hct 37.9 L MCV 92.3 MCH 31.3 MCHC 33.9 RDW 15.7 Plt Count 243 MPV 8.7 Neut % (Auto) 89.5 H Lymph % (Auto) 5.3 L [place] % (Auto) 4.1 Eos % (Auto) 0.8 Baso % (Auto) 0.3 Neut # (Auto) 15.0 H Lymph # (Auto) 0.9 L [place] # (Auto) 0.7 Eos # (Auto) 0.1 Baso # (Auto) 0.1 WBC Differential . Differential Comment Auto diff final Lab - Chemistry Results 03/30/18 03/31/18 03/31/18 19:51 00:04 04:17 Sodium Potassium Chloride Carbon Dioxide Anion Gap BUN Creatinine Estimated GFR POC Glucose 287 H 122 H 186 H Random Glucose Calcium Total Bilirubin AST ALT Alkaline Phosphatase Total Protein Albumin 03/31/18 03/31/18 03/31/18 08:20 11:47 16:43 Sodium Potassium Chloride Carbon Dioxide Anion Gap BUN Creatinine Estimated GFR POC Glucose 241 H 268 H 99 Random Glucose Calcium Total Bilirubin AST ALT Alkaline Phosphatase Total Protein Albumin 03/31/18 04/01/18 04/01/18 19:48 00:08 05:40 Sodium Potassium Chloride Carbon Dioxide Anion Gap BUN Creatinine Estimated GFR POC Glucose 89 159 H 129 H Random Glucose Calcium Total Bilirubin AST ALT Alkaline Phosphatase Total Protein Albumin 04/01/18 04/01/18 04/01/18 06:37 08:10 12:33 Sodium 144 Potassium 4.5 Chloride 110 H Carbon Dioxide 27.4 Anion Gap 7 BUN 46 H Creatinine 1.68 H Estimated GFR 48 L POC Glucose 106 218 H Random Glucose 120 H Calcium 7.8 L D Total Bilirubin 0.7 AST 16 ALT 30 Alkaline Phosphatase 69 Total Protein 5.6 L Albumin 2.1 L Imaging: ITS Impressions Abdomen/Pelvis CT 03/21/18 18:35 CONCLUSION: 1. Left-sided hydronephrosis and hydroureter with prominent stranding. No radiopaque calculus identified. 2. Enlarged prostate gland containing prostatic seeds. 3. Hepatic steatosis. 4. Prominence of both adrenal glands likely hyperplasia. Abdomen/Bladder Ultrasound 03/24/18 08:33 CONCLUSION: 1. The hydronephrosis involving the left kidney on the prior CT scan has significantly improved. No residual hydronephrosis observed. 2. Prostate gland enlargement which impresses upon the urinary bladder. No bladder wall thickening to clearly suggest bladder outlet obstruction. Chest X-Ray 03/31/18 00:00 CONCLUSION: Left base consolidation or atelectasis. Physical Exam: GENERAL:awake, and alert, NAD SKIN: Cool and dry. No generalized rash. HEAD: Atraumatic. Normocephalic. No temporal wasting, or tenderness. EYES: [place] conjunctiva. No petechia or hemorrhage. Has dirty sclera. No injection or drainage. EARS, NOSE AND THROAT: Nose without bleeding or purulent nasal discharge. Moist mucosa NECK: Trachea midline. Supple and not tender, no meningeal signs. CARDIAC: Regular, no murmur RESPIRATORY: Breath sounds equal bilaterally. No rales, wheezing or rhonchi. Decreased breath sounds at the bases ABDOMEN: Globular, mildly distended, no reaction to palpation. Bowel sounds present and normoactive. EXTREMITIES: No clubbing, cyanosis. No edema : Solomon in place, urine clear NEUROLOGICAL: non-focal PSYCHIATRIC: Calm and cooperative LINE: No evidence of infection Assessment and Plan - Plan Impression E coli sepsis, with shock due to complicated UTI - BP better - hydronephrosis resolved E coli UTI Renal failure, making good UO Respiratory failure, doing well post extubation - CXR with bilateral infiltrates Hematuria, resolved - Hx prostate CA Leukocytosis Recommend Change Rocephin to Levaquin to complete Rx Follow CBC Monitor progress Clinically doing well from ID standpoint
[2018-04-01] MEDS ORDERED: levoFLOXacin 750 MG Tablet PO SCH (14:00)
[2018-04-02] MEDS: Artificial Tears Opth Drops 15 ML Bottle EACH EYE SCH ×2 (00:59→09:05)
[2018-04-02] MEDS: Insulin NovoLOG Aspart Correctional Sugar Inj SQ SCH ×2 (08:38→12:23)
[2018-04-02] MEDS: Heparin - SQ 10,000 UNITS/ML Vial SQ SCH (09:04)
[2018-04-02] MEDS: Amiodarone 200 MG Tablet PO SCH (09:04)
[2018-04-02] MEDS: predniSONE 20 MG Tablet PO SCH (09:04)
[2018-04-02] MEDS: Senna/Docusate Sodium 8.6/50 MG Tablet PO SCH (09:04)
[2018-04-02] MEDS: Metoprolol Tartrate 50 MG Tablet PO SCH (09:04)
--- NOTE | 2018-04-02 10:49 | P.PN ---
Subjective Interval history: Follow-up E. coli sepsis/shock/UTI March 30, 2018-patient seen and examined, currently afebrile, he was working with PT this a.m. No acute event overnight. March 31, 2018-patient seen and examined, no longer in A. fib with RVR. Doing well this morning. Denies any chest pain or shortness of breath. Afebrile. April 02, 2018-seen and examined, currently rate controlled. Now much stronger ,states he would like to be discharged home. Afebrile Physical Exam Vital signs: Vital Signs 04/01/18 12:00 04/01/18 16:00 04/01/18 20:00 Temperature 98.4 F 98.0 F 97.7 F Pulse Rate 66 71 71 Respiratory Rate 19 19 20 Blood Pressure 112/55 L 129/61 127/63 Pulse Oximetry 92 L 94 L 96 04/02/18 00:00 04/02/18 08:00 Temperature 97.3 F L 97.8 F Pulse Rate 86 81 Respiratory Rate 20 15 Blood Pressure 129/84 135/75 Pulse Oximetry 95 93 L Intake & Output 04/01/18 04/02/18 04/02/18 18:59 06:59 18:59 Intake Total 2219.625 / 2219.625 240 / 240 Output Total 600 / 600 200 / 200 Balance 1619.625 / 1619.625 40 / 40 Weight 113.2 kg Intake: IV 1259.625 / 1259.625 Sodium Chloride 23.4% Inj 38.5 1159.625 / 1159.625 MEQ In Sterile Water for Inj 1, 000 ML @ 42 mls/hr IV.CONT . Q24H SARAH Rx#:[id number] Rocephin Inj 2,000 MG In NS Inj 100 / 100 100 ML @ 200 mls/hr IV.SIG Q24H SARAH Rx#:[id number] Oral 960 / 960 240 / 240 Output: Urine 600 / 600 200 / 200 Other: # Voids 1 2 Date of Last Bowel Movement 04/01/18 04/01/18 # Bowel Movements 2 Narrative: GENERAL: NAD SKIN: Warm and dry. HEAD: Atraumatic. Normocephalic. EYES: Pupils equal and round. No scleral icterus. No injection or drainage. ENT: No nasal bleeding or discharge. Mucous membranes pink and moist. NECK: Trachea midline. No JVD. CARDIOVASCULAR: irreg Regular rate and rhythm. RESPIRATORY: No accessory muscle use. Clear to auscultation. Breath sounds equal bilaterally. GASTROINTESTINAL: Abdomen soft, non-tender, nondistended. Hepatic and splenic margins not palpable. MUSCULOSKELETAL: Extremities without clubbing, cyanosis, or edema. No obvious deformities. NEUROLOGICAL: Awake and alert. No obvious cranial nerve deficits. Motor grossly within normal limits. Five out of 5 muscle strength in the arms and legs. Normal speech. PSYCHIATRIC: Appropriate mood and affect; insight and judgment normal. - Urinary Catheter Management Indwelling Urethral Catheter Cath placed during this visit: yes, but has since been removed by the nurse Reason for continuing: Decision to DC catheter Insertion date: 03/23/18 Insertion time: 05:40 Removal date: 03/31/18 Removal time: 05:00 Results - Labs CBC & Chem 7: 04/01/18 06:37 04/01/18 06:37 Laboratory Results - last 24 hr 04/01/18 04/01/18 04/01/18 12:33 17:37 21:15 POC Glucose 218 H 194 H 193 H 04/02/18 08:10 POC Glucose 130 H - Procedures None Assessment and Plan - Assessment (1) Septic shock due to Escherichia coli Code(s): A41.51 - Sepsis due to Escherichia coli [E. coli]; R65.21 - Severe sepsis with septic shock Status: Resolved - Plan 83-year-old man with Acute toxic metabolic encephalopathy secondary to sepsis-Resolved -s/p Precedex -Acetaminophen 650 Q6PRN Acute hypercapnic respiratory failure-Resolved COPD with exacerbation-resolved -Albuterol/ipratropium aerosols every 4 hours scheduled a with albuterol aerosols every 2 hours as needed dyspnea -Discontinue methylprednisolone succinate 40 mg IV every 8 hours. Start prednisone 20 mg daily -Self extubation 03/28 -03/29-chest x-ray unchanged Septic shock-resolved Moderate TR. Mild MR. Elevated troponin Atrial fibrillation with RVR-resolved History of essential hypertension Fluid overload -Currently on Lopressor 50 mg every 12 hours -On p.o. amiodarone -Lasix 40 mg IV x1 for fluid overload 2D echocardiogram revealed EF 65-70%. Moderate TR. Mild MR. PA P 38.3 mmHg Cardiology consulted for possible AV block. Resolved currently. Elevated AST Elevated lipase Hypoalbuminemia -Lansoprazole for GI prophylaxis -Docusate sodium/senna 1 tablet twice daily for bowel regimen Acute kidney injury Left hydronephrosis/hydroureter Rhabdomyolysis -Monitor renal function closely. Renal indices improving -Nephrology following for worsening renal failure, urology had already been consulted-no intervention -Renal US: The hydronephrosis involving the left kidney on the prior CT scan has significantly improved. \ E. coli bacteremia and UTI -s/p piperacillin/tazobactam to 3.375 every 8 hours, vancomycin and Rocephin per ID. Currently on Levaquin -Repeat blood and sputum culture. 03/23 -Urine and blood cultures growing E. coli -ID following Normocytic anemia Thrombocytopenia Elevated PTT Elevated fibrinogen -Monitor CBC, coags -No indication for transfusion of blood products at this time. DM-II -Sliding scale insulin TSH was 0.755 PROPH: -Bilateral lower extremity SCDs. Subcu heparin -Lansoprazole
--- NOTE | 2018-04-02 10:56 | P.DCO ---
- Physical Therapy Order: Evaluate and treat - Occupational Therapy Order: Evaluate and treat - Home Health Nursing Order: Signs/symptoms of disease process - Case Management Consult Case Management Consult-Home Health: Yes - Certification I have seen patient Darryn Kirby on 04/02/18. My clinical findings support the need for the requested home health care services because: Patient has SOB I certify that my clinical findings support that this patient is homebound because: Poor cardiac reserve
--- NOTE | 2018-04-02 10:58 | P.DS ---
Date of admission: 03/21/18 22:15 Primary care physician: UNKNOWN Brief History from admission: 82-year-old male unknown past medical history presents to the emergency department for evaluation of hematuria. The patient reports he started having bloody urine on Wednesday. He has intermittent clots that he passes. He endorses a burning with urination. He has a history of prostate cancer with radiation seeds still in place. He reports he has had some scant hematuria in the remote past however nothing of this volume and none recently. He denies any fever/ chills. No cough or congestion. No chest pain or shortness of breath. No abdominal pain. No nausea/vomiting/diarrhea. No focal neurologic deficits. DS: Diagnosis - Discharge Diagnosis (1) Septic shock due to Escherichia coli Status: Resolved DS: Summary Hospital Course: While in hospital, patient was treated for: Acute toxic metabolic encephalopathy secondary to sepsis-Resolved -s/p Precedex -Acetaminophen 650 Q6PRN Acute hypercapnic respiratory failure-Resolved COPD with exacerbation-resolved -Albuterol/ipratropium aerosols every 4 hours scheduled a with albuterol aerosols every 2 hours as needed dyspnea -Discontinue methylprednisolone succinate 40 mg IV every 8 hours. Start prednisone 20 mg daily -Self extubation 03/28 -03/29-chest x-ray unchanged Septic shock-resolved Moderate TR. Mild MR. Elevated troponin Atrial fibrillation with RVR-resolved History of essential hypertension Fluid overload -Currently on Lopressor 50 mg every 12 hours -On p.o. amiodarone -Lasix 40 mg IV x1 for fluid overload 2D echocardiogram revealed EF 65-70%. Moderate TR. Mild MR. PA P 38.3 mmHg Cardiology consulted for possible AV block. Resolved currently. Elevated AST Elevated lipase Hypoalbuminemia -Lansoprazole for GI prophylaxis -Docusate sodium/senna 1 tablet twice daily for bowel regimen Acute kidney injury Left hydronephrosis/hydroureter Rhabdomyolysis -Monitor renal function closely. Renal indices improving -Nephrology following for worsening renal failure, urology had already been consulted-no intervention -Renal US: The hydronephrosis involving the left kidney on the prior CT scan has significantly improved. \ E. coli bacteremia and UTI -s/p piperacillin/tazobactam to 3.375 every 8 hours, vancomycin and Rocephin per ID. Currently on Levaquin -Repeat blood and sputum culture. 03/23 -Urine and blood cultures growing E. coli -ID following Normocytic anemia Thrombocytopenia Elevated PTT Elevated fibrinogen -Monitor CBC, coags -No indication for transfusion of blood products at this time. DM-II -Sliding scale insulin TSH was 0.755 PROPH: -Bilateral lower extremity SCDs. Subcu heparin -Lansoprazole - Time Spent with Patient Total time spent providing and/or coordinating discharge services: Greater than 30 minutes - Quality: VTE Deep Vein Thrombosis/Pulmonary Embolism Present on Admission: No Exam Vital signs: Vital Signs 04/01/18 12:00 04/01/18 16:00 04/01/18 20:00 Temperature 98.4 F 98.0 F 97.7 F Pulse Rate 66 71 71 Respiratory Rate 19 19 20 Blood Pressure 112/55 L 129/61 127/63 Pulse Oximetry 92 L 94 L 96 04/02/18 00:00 04/02/18 08:00 Temperature 97.3 F L 97.8 F Pulse Rate 86 81 Respiratory Rate 20 15 Blood Pressure 129/84 135/75 Pulse Oximetry 95 93 L Intake & Output 04/01/18 04/02/18 04/02/18 18:59 06:59 18:59 Intake Total 2219.625 / 2219.625 240 / 240 Output Total 600 / 600 200 / 200 Balance 1619.625 / 1619.625 40 / 40 Weight 113.2 kg Intake: IV 1259.625 / 1259.625 Sodium Chloride 23.4% Inj 38.5 1159.625 / 1159.625 MEQ In Sterile Water for Inj 1, 000 ML @ 42 mls/hr IV.CONT . Q24H SARAH Rx#:[id number] Rocephin Inj 2,000 MG In NS Inj 100 / 100 100 ML @ 200 mls/hr IV.SIG Q24H SARAH Rx#:[id number] Oral 960 / 960 240 / 240 Output: Urine 600 / 600 200 / 200 Other: # Voids 1 2 Date of Last Bowel Movement 04/01/18 04/01/18 # Bowel Movements 2 Narrative: GENERAL: NAD SKIN: Warm and dry. HEAD: Atraumatic. Normocephalic. EYES: Pupils equal and round. No scleral icterus. No injection or drainage. ENT: No nasal bleeding or discharge. Mucous membranes pink and moist. NECK: Trachea midline. No JVD. CARDIOVASCULAR: irreg Regular rate and rhythm. RESPIRATORY: No accessory muscle use. Clear to auscultation. Breath sounds equal bilaterally. GASTROINTESTINAL: Abdomen soft, non-tender, nondistended. Hepatic and splenic margins not palpable. MUSCULOSKELETAL: Extremities without clubbing, cyanosis, or edema. No obvious deformities. NEUROLOGICAL: Awake and alert. No obvious cranial nerve deficits. Motor grossly within normal limits. Five out of 5 muscle strength in the arms and legs. Normal speech. PSYCHIATRIC: Appropriate mood and affect; insight and judgment normal. Results Procedures completed during hospitalization: None Labs on day of discharge: Labs from last 24 hours 04/02/18 04/01/18 04/01/18 08:10 21:15 17:37 POC Glucose 130 H 193 H 194 H 04/01/18 12:33 POC Glucose 218 H - Impressions ITS Impressions Abdomen/Pelvis CT 03/21/18 18:35 CONCLUSION: 1. Left-sided hydronephrosis and hydroureter with prominent stranding. No radiopaque calculus identified. 2. Enlarged prostate gland containing prostatic seeds. 3. Hepatic steatosis. 4. Prominence of both adrenal glands likely hyperplasia. Abdomen/Bladder Ultrasound 03/24/18 08:33 CONCLUSION: 1. The hydronephrosis involving the left kidney on the prior CT scan has significantly improved. No residual hydronephrosis observed. 2. Prostate gland enlargement which impresses upon the urinary bladder. No bladder wall thickening to clearly suggest bladder outlet obstruction. Chest X-Ray 03/31/18 00:00 CONCLUSION: Left base consolidation or atelectasis. Discharge Plan - Discharge Disposition Patient Disposition: Discharge to SNF - Discharge Condition Condition: Stable - Discharge Order Discharge Orders: Discharge Order (Routine); Ordered 04/02/18 Ordered By: Lyndon Tang - Physicians Team Primary Care Provider: UNKNOWN, Attending Provider: Lyndon Tang Other Providers: [employer] ; Malik Leone MD ; Lian Laurent MD ; Kirsten Perdomo MD ; Eloy Mahajan MD ; Ike Gong MD ; [facility]
[2018-04-02 13:24] VITALS: BP 137/65; PULSE 69; RESP 18; TEMP 97.2; O2SAT 96
== END 2018-04-02 14:15 | disposition home health service (06) ==
LOC: NEPC 15:16 → NEDA 22:15 → NEDH 03-22 03:32 → H7ONC 03-22 08:25 → HIMC 03-23 04:55 → N07 03-31 13:45
PROVIDERS: ADMIT Hospitalist; ATTEND Hospitalist
DX: R00.0 Tachycardia, unspecified; I95.81 Postprocedural hypotension; I44.1 Atrioventricular block, second degree; G92 Toxic encephalopathy; N13.6 Pyonephrosis; D69.6 Thrombocytopenia, unspecified; J44.1 Chronic obstructive pulmonary disease with (acute) exacerbation; Z92.3 Personal history of irradiation; D64.9 Anemia, unspecified; E88.09 Other disorders of plasma-protein metabolism, not elsewhere classified; E11.22 Type 2 diabetes mellitus with diabetic chronic kidney disease; E87.0 Hyperosmolality and hypernatremia; A41.51 Sepsis due to Escherichia coli [E. coli]; I12.9 Hypertensive chronic kidney disease with stage 1 through stage 4 chronic kidney disease, or unspecified chronic kidney disease; N17.0 Acute kidney failure with tubular necrosis; E87.70 Fluid overload, unspecified; E83.39 Other disorders of phosphorus metabolism; E87.2 Acidosis; M62.82 Rhabdomyolysis; N18.3 Chronic kidney disease, stage 3 (moderate); Z79.82 Long term (current) use of aspirin; J96.02 Acute respiratory failure with hypercapnia; Z87.891 Personal history of nicotine dependence; E83.51 Hypocalcemia; R31.9 Hematuria, unspecified; Z78.1 Physical restraint status; R65.21 Severe sepsis with septic shock; Z85.46 Personal history of malignant neoplasm of prostate; R79.1 Abnormal coagulation profile; I48.91 Unspecified atrial fibrillation